=== PATIENT | female | born 1985 | race Caucasian/White ===

== ENCOUNTER → 2022-07-08 | Outpatient (CLI) | payer MEDICAID, SELFPAY | END | disposition home or self-care (01) | LOC: SL 20:20 | PROVIDERS: PCP Internal Medicine; Referring Provider Internal Medicine; Visit Provider Internal Medicine | DX: R29.818 Other symptoms and signs involving the nervous system (principal); I10 Essential (primary) hypertension; G47.10 Hypersomnia, unspecified | CPT/HCPCS: 95810 ==

== ENCOUNTER → 2022-09-23 | Outpatient (CLI) | payer MEDICAID, SELFPAY ==
[2022-09-23 12:09] LABS: Absolute Lymphocyte Count 4.08 X10^3/uL (0.83-4.51); Absolute Neutrophil Count 7.6 X10^3/uL (2.0-7.7); Basophil# 0.07 X10^3/uL; Basophil% 0.6 % (0-1); Eosinophil# 0.27 X10^3/uL; Eosinophils% 2.2 % (0-5); Hematocrit 46.9 % (37-47); Hemoglobin 14.8 g/dL (12.0-15.0); Lymphocyte # 4.08 X10^3/ul (0.83-4.51); Lymphocyte % 32.7 % (19-41); Mean Corp Hgb Conc 31.6 g/dL (32-36); Mean Corpuscular Hgb 28.1 pg (27.0-32.0); Mean Corpuscular Volume 89.2 fL (81-99); Mean Platelet Vol. 9.4 fl (6.2-12.0); Monocyte# 0.45 X10^3/uL; Monocyte% 3.6 % (0-10); NRBC Flagged by Analyzer 0 % (0-5); Neutrophil # 7.56 X10^3/uL (2.7-7.7); Neutrophil % 60.7 % (47-70); Platelet Count 473 K/mm3 (150-450); RBC Distribution Width CV 14.6 % (11.6-14.6); Red Blood Count 5.26 M/mm3 (4.2-5.4); White Blood Count 12.5 K/mm3 (4.4-11.0)
[2022-09-23 12:23] LABS: Vitamin D,25 Hydroxy 14.2 ng/mL
[2022-09-23 12:47] LABS: AST(SGOT) 10 U/L (15-37); Alanine Aminotransfer ALT/SGPT 21 U/L (13-56); Albumin, Serum 3.8 g/dL (3.2-5.0); Alkaline Phosphatase 93 U/L (45-117); Anion Gap 0 (5-15); BUN 10 mg/dL (7-18); BUN/Creat Ratio 12.7 RATIO (10-20); Chloride 108 mmol/L (98-107); Cholesterol 175 mg/dL (200); Creatinine, Serum 0.79 mg/dL (0.55-1.02); EST Glomerular Filtration Rate 86 mL/min (>60); Est Glom Filt Rate - Afr Amer 104 mL/min (>60); Glucose 100 mg/dL (74-106); High Density Lipoprotein 39 mg/dL; Potassium 3.8 mmol/L (3.5-5.1); Protein, Total 7.8 g/dL (6.4-8.2); Sodium Level 134 mmol/L (136-145); Triglycerides 88 mg/dL; Very Low Density Lipoprotein 18 mg/dL (5-40)
== END | disposition home or self-care (01) ==
LOC: BIMLAB 09:58
PROVIDERS: PCP Internal Medicine; Referring Provider Internal Medicine; Visit Provider Internal Medicine
DX: E11.9 Type 2 diabetes mellitus without complications (principal); F32.2 Major depressive disorder, single episode, severe without psychotic features; I10 Essential (primary) hypertension; E78.2 Mixed hyperlipidemia; E03.9 Hypothyroidism, unspecified; F41.9 Anxiety disorder, unspecified
CPT/HCPCS: 36415; 80053; 80061; 82306; 84443; 85025

== ENCOUNTER → 2022-11-11 | Outpatient (CLI) | payer MEDICAID, SELFPAY ==
[2022-11-11 12:30] LABS: Absolute Lymphocyte Count 2.67 X10^3/uL (0.83-4.51); Absolute Neutrophil Count 7.4 X10^3/uL (2.0-7.7); Basophil% 0.9 % (0-1); Eosinophil# 0.41 X10^3/uL; Eosinophils% 3.7 % (0-5); Hematocrit 46.9 % (37-47); Hemoglobin 14.6 g/dL (12.0-15.0); Lymphocyte # 2.67 X10^3/ul (0.83-4.51); Lymphocyte % 24.3 % (19-41); Mean Corp Hgb Conc 31.1 g/dL (32-36); Mean Corpuscular Hgb 28.5 pg (27.0-32.0); Mean Corpuscular Volume 91.6 fL (81-99); Mean Platelet Vol. 9.8 fl (6.2-12.0); Monocyte# 0.39 X10^3/uL; Monocyte% 3.5 % (0-10); NRBC Flagged by Analyzer 0 % (0-5); Neutrophil # 7.38 X10^3/uL (2.7-7.7); Neutrophil % 67.1 % (47-70); Platelet Count 419 K/mm3 (150-450); RBC Distribution Width CV 15.4 % (11.6-14.6); RBC Distribution Width SD 52.6 fl (35.1-43.9); Red Blood Count 5.12 M/mm3 (4.2-5.4)
[2022-11-11 12:51] LABS: Anion Gap 6 (5-15); BUN 11 mg/dL (7-18); BUN/Creat Ratio 15.1 RATIO (10-20); Calcium,Total 9.4 mg/dL (8.5-10.1); Chloride 109 mmol/L (98-107); Creatinine, Serum 0.73 mg/dL (0.55-1.02); EST Glomerular Filtration Rate 95 mL/min (>60); Est Glom Filt Rate - Afr Amer 114 mL/min (>60); Glucose 126 mg/dL (74-106); Potassium 4.4 mmol/L (3.5-5.1); Sodium Level 140 mmol/L (136-145); Thyroid Stim Hormone (TSH) 1.26 uIU/mL (0.358-3.74)
== END | disposition home or self-care (01) ==
LOC: BIMLAB 08:22
PROVIDERS: PCP Internal Medicine; Visit Provider Internal Medicine
DX: I10 Essential (primary) hypertension (principal); E11.9 Type 2 diabetes mellitus without complications; E03.9 Hypothyroidism, unspecified; E55.9 Vitamin D deficiency, unspecified
CPT/HCPCS: 36415; 80048; 82043; 82306; 82570; 84443; 85025

== ENCOUNTER 2023-03-18 17:19 | Emergency (ER) | payer SELFPAY ==
[2023-03-18 17:20] VITALS: BP 157/94; PULSE 71; RESP 18; TEMP 36.2; O2SAT 99; BMI 38.3
[2023-03-18] MEDS: predniSONE 20 MG Tablet 60 MG PO (17:40)
[2023-03-18 17:41] VITALS: BP 154/97; PULSE 65; RESP 14; O2SAT 98
[2023-03-18 17:44] VITALS: PULSE 70; RESP 18
[2023-03-18] MEDS: Albuterol 2.5 MG/3 ML VIAL.NEB. INHALATION ×3 (17:46)
--- NOTE | 2023-03-18 18:00 | RAD_ITS ---
STUDY: X-RAY CHEST REASON FOR EXAM: Female, 37 years old. Productive cough and wheezing TECHNIQUE: PA and lateral views of the chest. COMPARISON: None. FINDINGS: The lungs are clear and expanded. There is no demonstrated pleural abnormality. Normal size heart. Normal mediastinum and jaime. Normal visualized pulmonary arteries. Normal visualized aortic arch and descending thoracic aorta. Normal visualized thoracic spine. Normal visualized ribs, clavicles, and shoulders. There is no demonstrated abnormality of the visualized soft tissue structures of the upper abdomen. RAD/Chest PA and Lateral IMPRESSION: Normal x-ray examination of the chest. Electronically Signed: Oliverio Ryan MD at 18:26 EDT ,
--- NOTE | 2023-03-18 19:28 | EX.ED.VIS.UR ---
HPI HPI - URI History of Present Illness Chief Complaint: Shortness of Breath Detail of Chief Complaint: Shortness of breath and productive cough Informant: patient Onset/Context/Timing Onset: Weeks (Greater than 2 weeks ago) Context: Sudden Onset Timing: Continuous and Waxes and wanes Quality: Cough, dyspnea, wheezing Location: Respiratory Current Severity: Mild Maximum Severity: Moderate Worsened by: Not Worsened By Swallowing, Eating Solids or Drinking Liquids Relieved by: Not Relieved By Tylenol or NSAIDs Associated Symptoms Associated Symptoms: Positive for Shortness of Breath and Productive Cough (Green-colored sputum); Negative for Nasal Congestion, Headache, Sinus Pressure, Myalgias, Nausea, Vomiting, Diarrhea, Chest Pain, Nonproductive cough or Hemoptysis Narrative Narrative: Patient is a 37-year-old woman who smokes approximately 1 pack/day. She started smoking at age of 14. She presents with respiratory symptoms that started greater than 2 weeks ago. She denies rhinorrhea, congestion postnasal drainage sore throat. She denies headache. Denies visual, ocular auditory symptoms. She denies leg pain, swelling or discoloration. She has no history of VTE. She denies ill contacts. She states her cough is productive of colored sputum. She denies hemoptysis. She denies chest discomfort. She does have history of hypothyroidism, type 2 diabetes, hypercholesterolemia and hypertension. Prior similar symptoms: No Recent Illness/Hospitalization: No ROS ROS ED Constitutional Constitutional ED: Denies chills, fever(s), subjective, sweats or weight loss Eyes Eyes: Denies blurry vision, change in vision or diplopia ENT ENT ED: Denies ear pain, rhinorrhea or sore throat Cardiovascular Cardiovascular: Denies chest pain, orthopnea, palpitations or paroxysmal nocturnal dyspnea Respiratory/Chest Respiratory/Chest: Reports cough, dyspnea, dyspnea on exertion and sputum; Denies orthopnea or paroxysmal nocturnal dyspnea Gastrointestinal Gastrointestinal: Reports diarrhea; Denies abdominal pain, nausea or vomiting Genitourinary Genitourinary ED: Denies dysuria, hematuria or urinary frequency Musculoskeletal Musculoskeletal: Denies arthralgias, back pain, myalgias or neck pain Integumentary Denies rash Neurologic Neurologic: Denies headache(s) or weakness Endocrine Endocrinology: Denies cold intolerance or heat intolerance Hematologic/Lymphatic Hematologic/Lymphatic: Denies easy bleeding or easy bruising [facility] Medical History Carpal tunnel syndrome Flu vaccine need High cholesterol Hypertension Thyroid disease Type 2 diabetes mellitus Home Medications christina.stocking,knee,reg,xlrg #12 ea 06/29/22 [Rx Last Taken Unknown] atorvastatin 20 mg tablet 20 mg PO QHS #90 tabs 09/23/22 [Rx Last Taken Unknown] cholecalciferol (vitamin D3) 1,250 mcg (50,000 unit) capsule 1,250 mcg PO QWEEK #6 caps 09/23/22 [Rx Last Taken Unknown] lansoprazole 15 mg capsule,delayed release 15 mg PO DAILY #90 caps 09/23/22 [Rx Last Taken Unknown] levothyroxine 175 mcg tablet 175 mcg PO DAILY #90 tabs 09/23/22 [Rx Last Taken Unknown] lisinopril 10 mg tablet 10 mg PO DAILY #90 tabs 09/23/22 [Rx Last Taken Unknown] bupropion HCl 150 mg 24 hr tablet, extended release (Wellbutrin XL) 150 mg PO QAM #30 tabs 11/11/22 [Rx Last Taken Unknown] cetirizine 10 mg tablet (Zyrtec) 10 mg PO DAILY PRN allergy symptoms #10 tabs 11/11/22 [Rx Last Taken Unknown] escitalopram oxalate 20 mg tablet 20 mg PO DAILY #30 tabs 11/11/22 [Rx Last Taken Unknown] metformin 500 mg tablet 500 mg PO BID #180 tabs 11/11/22 [Rx Last Taken Unknown] naproxen 500 mg tablet 500 mg PO BID PRN pain #180 tabs 11/11/22 [Rx Last Taken Unknown] albuterol sulfate 90 mcg/actuation aerosol inhaler (Ventolin HFA) 2 puff inhalation Q4H PRN PRN Wheezing ##1 03/18/23 [Rx Last Taken Unknown] doxycycline monohydrate 100 mg capsule 100 mg PO BID #14 CAPSULES 03/18/23 [Rx Last Taken Unknown] prednisone 20 mg tablet 60 mg (3 x 20 mg) PO DAILY #15 TABLETS 03/18/23 [Rx Last Taken Unknown] Allergy/AdvReac Type Severity Reaction Status Date / Time No Known Allergies Allergy Unverified 11/11/22 07:48 Family History Father Cancer Grandmother Cancer throat Mother Myocardial infarction Thyroid disorder Hypertension Depression Surgical History History of hysterectomy Social History household members: none current occupational status: employed 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 Smoking Status: Heavy Smoker (>10/day) Electronic Cigarette Use: not used quit status: considering quitting alcohol intake: never substance use type: does not use what type of physical activity do you participate in: none do you feel safe at home: Yes EXAM Physical Exam Const Vital Signs: 03/18/23 17:20 03/18/23 17:30 03/18/23 17:32 Temperature 97.2 F L Temperature Source Temporal Pulse Rate 71 Respiratory Rate 18 Respiratory Effort Short of Breath Short of Breath Respiratory Depth Normal Respiratory Pattern Normal Normal Blood Pressure 157/94 H Blood Pressure Mean 115 Pulse Ox 99 Oxygen Delivery Method Room Air Room Air 03/18/23 17:41 03/18/23 17:44 Temperature Temperature Source Pulse Rate 65 70 Respiratory Rate 14 18 Respiratory Effort Respiratory Depth Respiratory Pattern Normal Blood Pressure 154/97 H Blood Pressure Mean 116 Pulse Ox 98 Oxygen Delivery Method Room Air Positive well nourished, well developed and obese General Appearance ED: well developed and NAD; Negative for pallor Nutritional Appearance: obese HEENT Reports moist mucous membranes normocephalic and atraumatic Face and Sinus: Negative for sinus tenderness Throat: posterior oropharynx normal Eyes PERRL and EOMs intact bilaterally General Eye ED: Negative for pale conjunctiva or scleral icterus Neck no lymphadenopathy, supple, no meningeal signs and no JVD Resp normal respiratory effort and No clear to auscultation bilaterally Auscultation: rales bilateral base and wheezes expiratory wheezes, scattered wheezes and throughout Cardio S1 normal heart sound, S2 normal heart sound and no murmurs Rate: regular rate GI non-tender and non-distended Auscultation: normoactive bowel sounds Palpation: soft Back/Spine no CVA tenderness Extremity Extremity Narrative: There is no asymmetry, swelling, discoloration, leg vein distention, palpable cords or tenderness along the distribution of the deep venous system. Patient has palpable distal pulses. Neuro oriented x3, CN's II-XII intact bilaterally and no sensory deficits noted Sensorium / Orientation: alert Psych mental status grossly normal Skin General Skin Exam: Negative for jaundice or pallor Lesions: no lesions Rashes: no rashes MDM MDM MDM Narrative Medical decision making narrative: Was obtained to rule out pneumonia versus chronic bronchitis versus COPD. Suspect patient has COPD that is undiagnosed with her 23-year history of smoking. She was treated with albuterol, and discharged with prescription for prednisone and antibiotics. She was placed on prednisone since she had mild minimal wheezing with forced expiration only after treatment. She History & Record Review Discussion w/independent historian: Patient Radiography Chest X-Ray - ED: 2 View (Cardiac silhouette size normal. Perihilar region normal. Lung parenchyma is normal. Osseous structures are unremarkable. This is infinitely reviewed interpreted by me at 1822.) Diagnostic Testing: Clinical Impression(s) from Imaging Studies Chest X-Ray 03/18/23 18:00 IMPRESSION: Normal x-ray examination of the chest. Electronically Signed: Oliverio Ryan MD at 18:26 EDT Reading Location ID and State: [facility] / [place] , Service support , Treatment and Re-Evaluation Narrative: Reassessed at 19 6. Patient had slight wheeze at the bases with forced expiration only. Discharge Plan Triage Chief Complaint: Shortness of Breath Other Complaint: Cold Sx ED Provider: Misael Machado Dx/Rx/DC Orders Clinical Impression: Bronchitis, purulent, chronic, Essential hypertension, Mixed hyperlipidemia, Hypothyroid, Controlled type 2 diabetes mellitus, Acute bronchospasm Instructions: ED Bronchitis with Wheezing (Adult) Prescriptions: New prednisone 20 mg tablet 60 mg PO DAILY Qty: 15 0RF doxycycline monohydrate 100 mg capsule 100 mg PO BID Qty: 14 0RF albuterol sulfate [Ventolin HFA] 90 mcg/actuation HFA aerosol inhaler 2 puff inhalation Q4H PRN PRN (Reason: Wheezing) Qty: 1 0RF No Action (DME) christina.stocking,knee,reg,xlrg Misc See Rx Instructions .Route Qty: 12 0RF Rx Instructions: As directed escitalopram oxalate 20 mg tablet 20 mg PO DAILY Qty: 30 1RF metformin 500 mg tablet 500 mg PO BID Qty: 180 0RF naproxen 500 mg tablet 500 mg PO BID PRN (Reason: pain) Qty: 180 0RF cetirizine [Zyrtec] 10 mg tablet 10 mg PO DAILY PRN (Reason: allergy symptoms) Qty: 10 0RF bupropion HCl [Wellbutrin XL] 150 mg tablet extended release 24 hr 150 mg PO QAM Qty: 30 1RF cholecalciferol (vitamin D3) 1,250 mcg (50,000 unit) capsule 1,250 mcg PO QWEEK Qty: 6 0RF atorvastatin 20 mg tablet 20 mg PO QHS Qty: 90 0RF lisinopril 10 mg tablet 10 mg PO DAILY Qty: 90 0RF lansoprazole 15 mg capsule,delayed release(DR/EC) 15 mg PO DAILY Qty: 90 0RF levothyroxine 175 mcg tablet 175 mcg PO DAILY Qty: 90 0RF Primary Care Provider: Aziza Stoddard Referrals: Aziza Stoddard MD [Primary Care Provider] - 1 Week if not improving Disposition Disposition: Home, Self Care
[2023-03-18 20:07] VITALS: BP 108/74; PULSE 72; RESP 18; O2SAT 99
== END 2023-03-18 20:09 | disposition home or self-care (01) ==
PROVIDERS: Emergency Provider Emergency Medicine; PCP Internal Medicine; Visit Provider Emergency Medicine
DX: J41.1 Mucopurulent chronic bronchitis (principal); E11.9 Type 2 diabetes mellitus without complications; J98.01 Acute bronchospasm; E78.2 Mixed hyperlipidemia; E03.9 Hypothyroidism, unspecified; I10 Essential (primary) hypertension; Z79.899 Other long term (current) drug therapy; Z90.710 Acquired absence of both cervix and uterus; F17.200 Nicotine dependence, unspecified, uncomplicated
CPT/HCPCS: 71046; 94640; 99284

== ENCOUNTER → 2023-09-27 | Outpatient (CLI) | payer BC, SELFPAY ==
--- NOTE | 2023-09-27 08:36 | NEURO ---
NCS and/or EMG Patient Report Ordering Doctor: Aziza Stoddard DATE OF SERVICE: 09/27/23 Clinical Summary: 38 year old female patient with symptoms of numbness, tingling, pain, and weakness in both hands. Nerve Conduction Studies Summary: The right median-D2 SNAP distal latency was prolonged with reduced amplitude. The left median-D2 SNAP distal latency was prolonged with reduced amplitude. The median-APB CMAP distal latency was prolonged bilaterally. Needle Examination Summary: Needle examination was of select muscles of the bilateral upper extremities normal. Impression: There is electrodiagnostic evidence of the following - 1) Moderate to severe, bilateral median mononeuropathies at the wrists (carpal tunnel syndrome), with secondary sensory fiber axonal loss and motor fiber demyelination Multi Select Codes Neurology Neurology Interp Codes: 34761-79 Musc test done w/n test comp (interp) (2) and 06362-52 Nrv cndj test 9-10 studies (interp)
== END | disposition home or self-care (01) ==
PROVIDERS: PCP Internal Medicine; Referring Provider Internal Medicine; Visit Provider Internal Medicine
DX: G56.03 Carpal tunnel syndrome, bilateral upper limbs (principal)
CPT/HCPCS: 95886; 95911

== ENCOUNTER → 2023-10-10 | Outpatient (CLI) | payer BC, SELFPAY ==
--- NOTE | 2023-10-10 12:07 | BI_ITS ---
MAMMOGRAPHY - BILATERAL SCREENING REASON FOR EXAM: Female, 38 years old. Routine annual screening examination. PERTINENT HISTORY: Non-contributory. TECHNIQUE: Digital bilateral breast staci (3D mammographic acquisition) in the CC and MLO projections. 2-D mediolateral oblique (MLO) and craniocaudad (CC) views of both breasts were obtained. CAD: Full Field Digital Mammography with Computer Added Detection was performed. COMPARISON: None. Baseline examination. FINDINGS: Breast Composition: There are scattered areas of fibroglandular density. There are no dominant masses or suspicious calcifications. There are small benign-appearing bilateral axillary lymph nodes. No other significant abnormalities are identified. BI/SCRN MAMM (CAD)W/STACI BILAT IMPRESSION: Negative screening mammogram. Yearly followup mammogram recommended. (A) ASSESSMENT CATEGORY: BIRADS Category 2: Benign. A letter regarding these results will be sent to the patient by the facility within 30 days. Approximately 10% of breast cancers are not detected by mammography. A normal mammogram should not delay biopsy of a clinically suspicious abnormality. [id number] Electronically Signed: Gerardo Rangel MD at 12:52 EDT ,
== END | disposition home or self-care (01) ==
PROVIDERS: PCP Internal Medicine; Referring Provider Internal Medicine; Visit Provider Internal Medicine
DX: Z12.31 Encounter for screening mammogram for malignant neoplasm of breast (principal)
CPT/HCPCS: 77063; 77067

== ENCOUNTER 2023-10-18 05:56 | Day surgery (SDC) | payer BC, SELFPAY ==
[2023-10-18 06:23] VITALS: BP 142/95; PULSE 73; RESP 16; TEMP 36.3; O2SAT 96; BMI 56.5
[2023-10-18] MEDS: Lactated Ringers 1,000 ML 15 ML IV (06:34)
[2023-10-18 07:17] LABS: Bedside Glucose 127 mg/dL (74-106)
--- NOTE | 2023-10-18 07:20 | PCM.HP.BLA ---
History and Physical Date of Admission: 10/18/23 [facility] [address] [place] [address] OFFICE VISIT Date of Service: 10/05/23 MR#: [id number] Acct: [id number] Name: AIDA WEST Rep #: [id number] : 1985 Provider: Dr. Ousmane Valle DO Age/Sex: 38/F Location: [facility] [place].[facility] Status: Signed Intake Vital Signs 09/19/2409:05 Height 5 ft 4 in Weight: 331 lb BMI 56.8 BP 126/84 H Blood Pressure Location Lt brachial Position Sitting Respiration 16 Pulse 75 Pulse Source Monitor Temp 97.0 F L Temp Source Temporal Pulse Oximetry (%) 98 Oxygen Delivery Method room air Intake Visit Reasons: BL HANDS Accompanied by: Self Is patient in pain?: Yes Pain scale (1-10): 9 Allergies No Known Allergies Allergy (Unverified 10/05/23 14:23) Medications christina.stocking,knee,reg,xlrg #12 ea 06/29/22 [Rx Confirmed 10/05/23] atorvastatin 20 mg tablet 20 mg PO QHS #90 tabs 09/23/22 [Rx Confirmed 10/05/23] cholecalciferol (vitamin D3) 1,250 mcg (50,000 unit) capsule 1,250 mcg PO QWEEK #6 caps 09/23/22 [Rx Confirmed 10/05/23] cetirizine 10 mg tablet (Zyrtec) 10 mg PO DAILY PRN allergy symptoms #10 tabs 11/11/22 [Rx Confirmed 10/05/23] albuterol sulfate 90 mcg/actuation aerosol inhaler (Ventolin HFA) 2 puff inhalation Q4H PRN PRN Wheezing ##1 03/18/23 [Rx Confirmed 10/05/23] bupropion HCl 150 mg 24 hr tablet, extended release (Wellbutrin XL) 150 mg PO QAM #90 tabs 09/20/23 [Rx Confirmed 10/05/23] escitalopram oxalate 20 mg tablet 20 mg PO DAILY #90 tabs 09/20/23 [Rx Confirmed 10/05/23] lansoprazole 15 mg capsule,delayed release 15 mg PO DAILY #90 caps 09/20/23 [Rx Confirmed 10/05/23] levothyroxine 175 mcg tablet 175 mcg PO DAILY #90 tabs 09/20/23 [Rx Confirmed 10/05/23] naproxen 500 mg tablet 500 mg PO BID PRN pain #180 tabs 09/20/23 [Rx Confirmed 10/05/23] semaglutide 0.25 mg or 0.5 mg (2 mg/3 mL) subcutaneous pen injector (Ozempic) 0.25 mg (0.368 mL) subcut QWEEK #3 mL 09/20/23 [Rx Confirmed 10/05/23] PFSH Medical History Carpal tunnel syndrome Flu vaccine need High cholesterol Hypertension Thyroid disease Type 2 diabetes mellitus Surgical History History of hysterectomy Family History Father CancerGrandmother Cancer throatMother Myocardial infarction Thyroid disorder Hypertension Depression Social History household members: none current occupational status: employed 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 Ousmane Valle, DO 10/05/23 0816. Part of today?s visit was documented by [ ], acting as scribe. AIDA WEST is a 38 year old F here today for Bilateral hand numbness. Patient states her hands have been bothering her for years. Patient has tried braces in the past for many months and that didn't work. she has tried NSAIDS as well without sucess. She denies any trauma to her hands upper extremities or neck in the past. patient has never done PT. 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 Patient has used ice and heat and she states that it doesn't help the pain. Patient is taking Tylenol for her pain. Patient states that both hands go numb and hurt. Patient had a EMG done and it showed that she has bilateral carpal Tunnel. Her pain wakes her up at night. She has constant pain and driving makes her worse. No cervical spine problems Ortho Exam General General: Yes no acute distress Neurologic: Yes alert and Yes oriented x3 Psychologic: Yes reasonable and appropriate Right Wrist/Hand Skin/Wound: Yes CDI, No Swelling and No Ecchymosis Right Wrist: Yes Durken's Test, Tinel's (into middle finger) and Phalen's WRIST: 70 wrist flexion, 50 wrist extension, 88 supination, full pronation, able to make fist. Left Wrist/Hand Skin/Wound: Yes CDI, No Swelling and No Ecchymosis Left Wrist: Yes Durken's Test, Yes Tinel's and Yes Phalen's WRIST: 85 supination, full pronation, 60 extension, 70 flexion Supplemental Info 09/27/2023 EMG bilateral upper extremity:1) Moderate to severe, bilateral median mononeuropathies at the wrists (carpal tunnel syndrome), with secondary sensory fiber axonal loss and motor fiber demyelination Coding Level of Care Code Off vis,new,level 3 Diagnoses Bilateral carpal tunnel syndrome G56.03 Assessment and Plan Assessment and Plan (1) Bilateral carpal tunnel syndrome: Status: Acute Plan Patient has clinical and EMG characteristics of bilateral moderate carpal tunnel she has failed conservative treatment and she wishes to proceed with a right open carpal tunnel release. Explained the anatomy of the hand and wrist and the surgery procedure. The surgery procedure is to allow the carpal tunnel syndrome from progressing. I explained symptoms sometimes improve quickly sometimes they can take months to improve and sometimes and never improve. she is only able to have one surgery at a time and then may have the other side done about 4-6 weeks after. She will have restrictions post op for 3 weeks 1/2 pound restriction for 2 weeks and a 5 pound restriction for the third week. She should not take any ibuprofen within 7 days of her surgery. Spoke with her about not having improvement with her 4th and 5th fingers with the surgery. Reviewed the pre-operative plans with the patient. Risks and benefits of the procedure were fully explained, including but not limited incisional hypersensitivity and pillar pain, infection, neurovascular injury, continued pain, arthritis, stiffness, need for further surgery, re-injury, DVT, PE, general risks of anesthesia, and loss of limb or life. The patient understands all the risks and does wish to proceed with written consent. Follow up 2 week post op or sooner if pain, swelling, numbness or associated symptoms, or concerns develop. All questions answered. Patient in agreement of plan. Tentative surgery date October 18, 2023. 10/05/23 1449 <Electronically signed by Ousmane Valle DO> Date Ousmane Valle DO I have examined the patient and the H&P has been reviewed. There are no clinical changes since date of exam.
[2023-10-18] MEDS: Cefazolin 3 GM in 0.9% Normal Saline (100mL Bag) 100 ML IV (07:33)
[2023-10-18] MEDS: Bupiv/Epi 0.25% 30 ML Vial (07:39)
--- NOTE | 2023-10-18 08:02 | OP.PCM_ITS ---
Operative Report Date of Procedure: 10/18/23 Preoperative diagnosis; right carpal tunnel syndrome Postoperative diagnosis; same Procedure: Right open carpal tunnel release Anesthesia: Local with MAC Tourniquet time; 11 minutes 250 mm Hg Complications: None Indication for procedure; This is a 38-year-old female with long-standing s ymptoms consistent with carpal tunnel syndrome the patient did have electrodiagnostic evidence of this and has failed conservative treatment. Risks benefits and alternatives were reviewed including risks of bleeding infection nerve artery tissue damage need for further surgery and continued pain and symptoms, hypersensitivity to scar and Pillar pain. Procedure; The patient was met in the preoperative holding area the operative extremity was identified by both patient and physician and was marked the patient was met by anesthesia and brought back to the operating room and transferred to the operating table in the supine position. Anesthesia was started. A well-padded tourniquet was placed on the operative upper extremity. The patient was prepped and draped in the usual sterile fashion. A timeout was called to ensure the proper patient procedure and extremity were being contemplated. 0.5 percent bupivacaine with epinephrine was injected into the incisional area. An Esmarch was used to exsanguinate the extremity. The tourniquet was inflated to 250 mmHg. A midline incision was made with a 15 blade scalpel between the thenar and hypothenar eminence. This was carried down through the skin and subcutaneous tissue. Joaquina retractors were then used, a deep blade scalpel was used to make a deep incision in the palmar aponeurosis. The joaquina retractors were then placed deep to this and the transverse carpal ligament was identified a perforation was made with a scalpel and a Littler scissors were used to complete the release of the transverse carpal ligament distally under direct visualization with the tips facing ulnarly until the perivascular fat was reached. Then turning our attention proximally using a tension slide technique the proximal extent of the transverse carpal ligament was released . There was noted to be hourglass configuration to the median nerve and hypertrophy of the transverse carpal ligament without other findings. The wound was thoroughly irrigated and was closed with 4-0 nylon vertical mattress stitches. Dressing was applied in the form of xeroform 4 x 4, web roll and an sandra wrap. Tourniquet was let down there is no intraoperative compli cations patient tolerated the procedure well and was transferred to the PACU. All counts were correct.
--- NOTE | 2023-10-18 08:03 | EX.PCM.DISCH ---
Discharge Instructions Diet Discharge Diet: No restrictions Dressing / Incision Call your doctor if you observe: Shortness of breath and Chest pain Additional Dressing/Incision Instructions:: Ice and elevate operative extremity next 72 hours. Keep dressing on clean and dry for 48 hours then may remove and allow warm soapy water to rinse over incision but do not submerge until sutures are out. Then apply bandaid over incision and change daily. encourage finger range of motion. Not lift more than 1/2 pound. Minimize narcotic use only as needed and directed, may use OTC NSAID and Tylenol to supplement/substitute for pain control. Follow Up Care Please Follow Up With: Ousmane Valle DO When: 2 weeks Test Results: Test results from this visit will be discussed in further detail at your follow-up appointment, if applicable. Discharge Plan Admission Primary Reason for Your Visit: Right carpal tunnel release Attending Provider: Ousmane Valle Primary Care Provider: Aziza Stoddard Instructions Print Language: Montenegrin Discharge Orders/Prescriptions Prescriptions: New cephalexin 500 mg capsule 1,000 mg PO Q8 Qty: 4 0RF Rx Instructions: take 2 tabs at 8:00 pm and 2 tabs after 5 am when you wake up oxycodone 5 mg tablet 5 - 10 mg PO Q4H PRN (Reason: pain) 4 Days Qty: 14 0RF Continued (DME) christina.stocking,knee,reg,xlrg Misc See Rx Instructions .Route Qty: 12 0RF Rx Instructions: As directed Ozempic 0.25 mg or 0.5 mg (2 mg/3 mL) pen injector 0.25 mg subcut QWEEK Qty: 3 0RF Rx Instructions: for 4 weeks levothyroxine 175 mcg tablet 175 mcg PO DAILY Qty: 90 0RF lansoprazole 15 mg capsule,delayed release(DR/EC) 15 mg PO DAILY Qty: 90 0RF escitalopram oxalate 20 mg tablet 20 mg PO DAILY Qty: 90 0RF bupropion HCl [Wellbutrin XL] 150 mg tablet extended release 24 hr 150 mg PO QAM Qty: 90 0RF albuterol sulfate [Ventolin HFA] 90 mcg/actuation HFA aerosol inhaler 2 puff inhalation Q4H PRN PRN (Reason: Wheezing) Qty: 1 0RF cholecalciferol (vitamin D3) 1,250 mcg (50,000 unit) capsule 1,250 mcg PO QWEEK Qty: 6 0RF atorvastatin 20 mg tablet 20 mg PO QHS Qty: 90 0RF Held naproxen 500 mg tablet 500 mg PO BID PRN (Reason: pain) Qty: 180 0RF Hold Instructions: Resume on 10/19/23. Referrals / Follow Up: Aziza Stoddard MD [Primary Care Provider] - Disposition Disposition (needs filled in before D/C Order can be placed): Home, Self Care
[2023-10-18 08:05] VITALS: BP 123/66; BP 142/95; PULSE 80; RESP 16; TEMP 36.2; O2SAT 93
[2023-10-18 08:10] VITALS: BP 121/78; BP 142/95; PULSE 78; RESP 16; O2SAT 96
[2023-10-18 08:15] VITALS: BP 133/82; BP 142/95; PULSE 93; RESP 18; TEMP 36.3; O2SAT 97
[2023-10-18] MEDS: Oxycodone/Apap 5/325 Tablet PO (08:33)
[2023-10-18 08:51] VITALS: BP 142/95
== END 2023-10-18 08:58 | disposition home or self-care (01) ==
LOC: SDC 06:00 → AC 06:01
PROVIDERS: PCP Internal Medicine; Referring Provider Orthopaedic Surgery; Visit Provider Orthopaedic Surgery
PROC: (CPT 64721; principal; 2023-10-18 07:15)
DX: G56.03 Carpal tunnel syndrome, bilateral upper limbs (principal); E11.9 Type 2 diabetes mellitus without complications; F17.210 Nicotine dependence, cigarettes, uncomplicated; E78.00 Pure hypercholesterolemia, unspecified; E07.9 Disorder of thyroid, unspecified; I10 Essential (primary) hypertension; Z90.710 Acquired absence of both cervix and uterus
CPT/HCPCS: 64721; 01810; 82962; J7120

== ENCOUNTER 2023-11-29 05:53 | Day surgery (SDC) | payer BC, SELFPAY ==
--- NOTE | 2023-11-29 07:10 | PCM.HP.BLA ---
History and Physical Date of Admission: 11/29/23 [facility] [address] [place] [address] OFFICE VISIT Date of Service: 11/02/23 MR#: [id number] Acct: [id number] Name: AIDA WEST Rep #: [id number] : 1985 Provider: Dr. Ousmaen Valle, DO Age/Sex: 38/F Location: [facility] [place] Status: Signed Intake Vital Signs 09/19/2409:05 10/17/2405:23 Height 5 ft 4 in 5 ft 4 in Intake Visit Reasons: right wrist Accompanied by: Self Is patient in pain?: No Allergies No Known Allergies Allergy (Verified 11/02/23 09:07) Medications ?Medication ?Instructions ?Recorded ?Confirmed ?Type christina.stocking,knee,reg,xlrg #12 ea 06/29/22 11/02/23 Rx atorvastatin 20 mg tablet 20 mg PO QHS #90 tabs 09/23/22 11/02/23 Rx cholecalciferol (vitamin D3) 1,250 1,250 mcg PO QWEEK #6 caps 09/23/22 11/02/23 Rx mcg (50,000 unit) capsule albuterol sulfate 90 mcg/actuation 2 puff inhalation Q4H PRN PRN 03/18/23 11/02/23 Rx aerosol inhaler (Ventolin HFA) Wheezing ##1 bupropion HCl 150 mg 24 hr tablet, 150 mg PO QAM #90 tabs 09/20/23 11/02/23 Rx extended release (Wellbutrin XL) escitalopram oxalate 20 mg tablet 20 mg PO DAILY #90 tabs 09/20/23 11/02/23 Rx lansoprazole 15 mg capsule,delayed 15 mg PO DAILY #90 caps 09/20/23 11/02/23 Rx release levothyroxine 175 mcg tablet 175 mcg PO DAILY #90 tabs 09/20/23 11/02/23 Rx naproxen 500 mg tablet 500 mg PO BID PRN pain #180 tabs 09/20/23 11/02/23 Rx semaglutide 0.25 mg or 0.5 mg (2 0.25 mg (0.368 mL) subcut QWEEK #3 09/20/23 11/02/23 Rx mg/3 mL) subcutaneous pen injector mL (Ozempic) cephalexin 500 mg capsule 1,000 mg (2 x 500 mg) PO Q8 #4 caps 10/18/23 11/02/23 Rx PFSH Medical History (Updated 10/18/23 @ 08:[address] 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 Ousmane Valle, 11/02/23 0754. Part of today?s visit was documented by Nichol Mcfarlane, acting as scribe. AIDA WEST is a 38 year old F here today for 2 weeks postop right carpal tunnel release date of surgery 10/18/2023. Patient notes that she is doing well and is improving. She no longer has any numbness or tingling. Patients incision is healing with no redness or drainage. She takes naproxen for other pains. She continues to have similar symptoms in the left hand and wishes to proceed with left carpal tunnel release Ortho Exam General General: Yes no acute distress Neurologic: Yes alert and Yes oriented x3 Psychologic: Yes reasonable and appropriate Right Wrist/Hand WRIST: Sutures were removed today that her incision is well-approximated she has full finger flexion extension some mild scaling around the incision no signs of infection Left Wrist/Hand Skin/Wound: Yes CDI Left Wrist: Yes Durken's Test, Yes Tinel's and Yes Phalen's WRIST: 85 supination, full pronation, 60 extension, 70 flexion Head: Normocephalic Atraumatic Chest: symmetrical rise, non-labored breathing, no audible wheeze Abdomen: no guarding, non-rigid Supplemental Info 09/27/2023 EMG bilateral upper extremity:1) Moderate to severe, 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 She should cover her incision if in a dirty environment. She should not lift greater than 5 pounds for the next 10 days. Patient may massage her incision for desensitization starting in 10 days. Patient would like to have her left carpal tunnel release in about 4 weeks. She should limit her smoking to promote healing. Reviewed the pre-operative plans with the patient. Risks and benefits of the procedure were fully explained, including but not limited to infection, neurovascular injury, continued pain, arthritis, stiffness, need for further surgery, re-injury, DVT, PE, general risks of anesthesia, and loss of limb or life. The patient understands all the risks and does wish to proceed with written consent. Follow up in 2 weeks post op or sooner if pain, swelling, numbness or associated symptoms, or concerns develop. All questions answered. Patient in agreement of plan. 11/02/23 0945 <Electronically signed by Ousmane Valle DO> Date Ousmane Valle DO I have examined the patient and the H&P has been reviewed. There are no clinical changes since date of exam.
[2023-11-29 07:11] LABS: Bedside Glucose 114 mg/dL (74-106)
[2023-11-29] MEDS: Cefazolin 3 GM in 0.9% Normal Saline (100mL Bag) 100 ML IV (07:25)
--- NOTE | 2023-11-29 07:39 | PCM.PRE.AN2 ---
ASA Classification* ASA Classification ASA Classification: 3 Assessment & Plan Anesthesia* Anesthesia Assessment Anesthesia Assessment: Discussed sedation and/or anesthesia options, risks, benefits, and alternatives with patient/parents/legal guardian/POA. Questions invited. The patient/parents/legal guardian/POA seems to understand and agrees to proceed with anesthesia plan. Reviewed the physical assessment, medical history, allergy history and patient home medications list prior to surgery/procedure/anesthetic and documented any changes. Performed airway and anesthesia risk assessments. Anesthesia Type Anesthesia Type: MAC (see written pre anesthesia record for complete assessment) Pre-Assessment Diagnosis/Proposed Procedure Planned Operative Procedure(s): LEFT OPEN CARPAL TUNNEL RELEASE Anesthesia History Anesthesia History - test engineering intern: Anesthesia History - test engineering intern Hx Hospitalization No 11/17/23 14:47 Any Problems With Anesthesia No 11/17/23 14:47 Cholinesterase deficiency No 11/17/23 14:47 You/Your Family Experience No 11/17/23 14:47 fever (hyperthermia) with Relationship Recent Exposure to Contagious No 10/18/23 06:23 Disease Does patient have nerve No 11/17/23 14:47 stimulator Patient instructed to have device shut off --Does patient have Pacemaker or ICD? When Was Last Pacemaker Check QUESTION #4 FULL TEXT: You/Your Family Experience fever (hyperthermia) with Anesthesia Last Oral Intake Last Oral intake: Last Oral Intake NPO since Meds taken in AM with sips of water? Meds patient instructed to take am of surgery PONV PONV - test engineering intern: PONV - test engineering intern Female Yes 11/17/23 14:47 HX of Motion Sickness No 11/17/23 14:47 HX of N/V After Surgery No 11/17/23 14:47 Non-Smoker No 11/17/23 14:47 Duration of Surgery greater No 11/17/23 14:47 than 60 minutes Number of Risk Factors 1 11/17/23 14:47 PONV Score Low Risk 11/17/23 14:47 Height & Weight Height & Weight: Anesthesia: Height & Weight Height 5 ft 4 in 10/18/23 06:23 Respiratory Assessment Respiratory Assessment - test engineering intern: Respiratory Tract Infection Hx - test engineering intern Hx Respiratory Tract Infection No 11/17/23 14:47 STOP Sleep Apnea STOP Sleep Apnea - test engineering intern: STOP Sleep Apnea - test engineering intern Hx Hypertension Yes: HX OF, NO MEDS 11/17/23 14:47 PRESENTLY, PCP D/C'D Hx Sleep Apnea No 11/17/23 14:47 CPAP BIPAP Do you snore loudly (louder No 11/17/23 14:47 than talking or can be heard Do you often feel tired/ No 11/17/23 14:47 fatigued/ sleepy during daytime? Has anyone observed you stop No 11/17/23 14:47 breathing during sleep? STOP Results Negative 11/17/23 14:47 QUESTION #5 FULL TEXT : Do you snore loudly (louder than talking or can be heard through closed doors)? Tobacco Use History Tobacco Use History - test engineering intern: Tobacco Use History - test engineering intern Tobacco Use Smoking Status Current every day smoker 11/17/23 14:47 Hx Tobacco Use Yes 11/17/23 14:47 Years Smoking Packs Smoked per Day Smoking Cessation Date was within the last 15 years Hx Smoking Cessation Date Hx Smoking Cessation Counseling Hematologic Medial History Hematologic Hx - test engineering intern: Hematologic Medical Hx - etcher electrolytic Hx of Blood Transfusion No 11/17/23 14:47 Hx of Transfusion in last 3 No 11/17/23 14:47 Months Date of Last Transfusion (if within last 3 months) Ever experience any problems No 11/17/23 14:47 with transfusion(s)? Specify any problems Hx of Preganancy in last 3 No 11/17/23 14:47 Months Nurse Filling Out Transfusion DSCHRIBER 11/17/23 14:47 & Questions: Date: 11/17/23 11/17/23 14:47 Time: 14:49 11/17/23 14:47 Patient unable to answer at this time (ie. confused, unrespo /Reproduction History /Reproductive History - test engineering intern: /Reproductive Hx- test engineering intern Hx Now Gestational Age (in weeks): EDC: Hx Hx Para Hx Section SAB No 11/17/23 14:47 Active Medications Active Medications: Current Medications Generic Name Dose Route Start Last Admin Trade Name Freq PRN Reason Stop Dose Admin Cefazolin Sodium 3 gm/ Sodium 115 mls @ 150 mls/hr 11/29/23 10:35 Chloride IV 11/29/23 11:20 PREOP ONE Anesthesia Focused Assessment* Airway Assessment Mouth opens: >3 cm Mallampati Score: III Focused Labs Anesthesia Preop lab: CBC WBC 11.0 K/mm3 (4.4-11.0) 11/11/22 08:22 RBC 5.12 M/mm3 (4.2-5.4) 11/11/22 08:22 Hgb 14.6 g/dL (12.0-15.0) 11/11/22 08:22 Hct 46.9 % (37-47) 11/11/22 08:22 Plt Count 419 K/mm3 (150-450) 11/11/22 08:22 CHEMISTRY Potassium 4.4 mmol/L (3.5-5.1) 11/11/22 08:22 Sodium 140 mmol/L (136-145) 11/11/22 08:22 BUN 11 mg/dL (7-18) 11/11/22 08:22 Creatinine 0.73 mg/dL (0.55-1.02) 11/11/22 08:22 Glucose 126 mg/dL (74-106) H 11/11/22 08:22 POC Glucose 114 mg/dL (74-106) H 11/29/23 06:21 TSH 1.26 uIU/mL (0.358-3.74) 11/11/22 08:22 COAG Review of Systems (Anesthesia) ROS Narrative System reviewed and no additional complaints, except as documented. [facility] Medical History (Updated 11/17/23 @ 14:52 by Filomena Rebolledo) Post-menopausal Depression Gastric reflux Smoker Shortness of breath on exertion Flu vaccine need Thyroid disease High cholesterol Hypertension Type 2 diabetes mellitus Home Medications ?Medication ?Instructions ?Recorded ?Last Taken ?Type christina.stocking,knee,reg,xlrg #12 ea 06/29/22 Unknown Rx atorvastatin 20 mg tablet 20 mg PO QHS #90 tabs 09/23/22 Unknown Rx cholecalciferol (vitamin D3) 1,250 1,250 mcg PO QWEEK #6 caps 09/23/22 Unknown Rx mcg (50,000 unit) capsule albuterol sulfate 90 mcg/actuation 2 puff inhalation Q4H PRN PRN 03/18/23 Unknown Rx aerosol inhaler (Ventolin HFA) Wheezing ##1 bupropion HCl 150 mg 24 hr tablet, 150 mg PO QAM #90 tabs 09/20/23 Unknown Rx extended release (Wellbutrin XL) escitalopram oxalate 20 mg tablet 20 mg PO DAILY #90 tabs 09/20/23 Unknown Rx lansoprazole 15 mg capsule,delayed 15 mg PO DAILY #90 caps 09/20/23 Unknown Rx release levothyroxine 175 mcg tablet 175 mcg PO DAILY #90 tabs 09/20/23 10/18/23 05:30 Rx naproxen 500 mg tablet 500 mg PO BID PRN pain #180 tabs 09/20/23 Unknown Rx semaglutide 0.25 mg or 0.5 mg (2 0.25 mg subcut TU 11/17/23 Unknown History mg/3 mL) subcutaneous pen injector (Ozempic) Allergy/AdvReac Type Severity Reaction Status Date / Time No Known Allergies Allergy Verified 11/17/23 14:45 Family History Father Cancer Grandmother Cancer throat Mother Myocardial infarction Thyroid disorder Hypertension Depression Surgical History (Updated 11/02/23 @ 09:08 by Nichol Mccabe) History of carpal tunnel release History of hysterectomy Social History household members: none current occupational status: employed 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
[2023-11-29] MEDS: Bupiv/Epi 0.25% 30 ML Vial (07:40)
--- NOTE | 2023-11-29 08:02 | OP.PCM_ITS ---
Operative Report Date of Procedure: 11/29/23 Preoperative diagnosis; left carpal tunnel syndrome Postoperative diagnosis; same Procedure: Left open carpal tunnel release Anesthesia: Local with MAC Tourniquet time; 10 minutes 250 mm Hg Complications: None Indication for procedure; This is a 38-year-old female with long-standing sym ptoms consistent with carpal tunnel syndrome the patient did have electrodiagnostic evidence of this and has failed conservative treatment. Risks benefits and alternatives were reviewed including risks of bleeding infection nerve artery tissue damage need for further surgery and continued pain and symptoms, hypersensitivity to scar and Pillar pain. Procedure; The patient was met in the preoperative holding area the operative extremity was identified by both patient and physician and was marked the patient was met by anesthesia and brought back to the operating room and transferred to the operating table in the supine position. Anesthesia was started. A well-padded tourniquet was placed on the operative upper extremity. The patient was prepped and draped in the usual sterile fashion. A timeout was called to ensure the proper patient procedure and extremity were being contemplated. 0.5 percent lidocaine with epinephrine was injected into the incisional area. An Esmarch was used to exsanguinate the extremity. The tourniquet was inflated to 250 mmHg. A midline incision was made with a 15 blade scalpel between the thenar and hypothenar eminence. This was carried down through the skin and subcutaneous tissue. Joaquina retractors were then used, a deep blade scalpel was used to make a deep incision in the palmar aponeurosis. The joaquina retractors were then placed deep to this and the transverse carpal ligament was identified a perforation was made with a scalpel and a Littler scissors were used to complete the release of the transverse carpal ligament distally under direct visualization with the tips facing ulnarly until the perivascular fat was reached. Then turning our attention proximally using a tension slide technique the proximal extent of the transverse carpal ligament was released . There was noted to be hypertrophy of the transverse carpal ligament without other findings. The wound was thoroughly irrigated and was closed with 4-0 nylon vertical mattress stitches. Dressing was applied in the form of xeroform 4 x 4, web roll and an sandra wrap. Tourniquet was let down there is no intraoperative complications patient tolerated the procedure well and was transferred to the PACU. All counts were correct.
--- NOTE | 2023-11-29 08:03 | DCINST_ITS ---
Discharge Instructions Diet Discharge Diet: No restrictions Dressing / Incision Call your doctor if you observe: Shortness of breath and Chest pain Additional Dressing/Incision Instructions:: Ice and elevate operative extremity next 72 hours. Keep dressing on clean and dry for 48 hours then may remove and allow warm soapy water to rinse over incision but do not submerge until sutures are out. Then apply bandaid over incision and change daily. encourage finger range of motion. Not lift more than 1/2 pound. Minimize narcotic use only as needed and directed, may use OTC NSAID and Tylenol to supplement/substitute for pain control. Follow Up Care Please Follow Up With: Ousmane Valle DO When: 2 weeks Test Results: Test results from this visit will be discussed in further detail at your follow- up appointment, if applicable. Discharge Plan Admission Primary Reason for Your Visit: Left carpal tunnel release Attending Provider: Ousmane Valle Primary Care Provider: Aziza Stoddard Instructions Print Language: Greek Discharge Orders/Prescriptions Prescriptions: New oxycodone 5 mg tablet 5 - 10 mg PO Q6H PRN (Reason: pain) 3 Days Qty: 12 0RF Continued (DME) christina.stocking,knee,reg,xlrg Misc See Rx Instructions .Route Qty: 12 0RF Rx Instructions: As directed levothyroxine 175 mcg tablet 175 mcg PO DAILY Qty: 90 0RF lansoprazole 15 mg capsule,delayed release(DR/EC) 15 mg PO DAILY Qty: 90 0RF escitalopram oxalate 20 mg tablet 20 mg PO DAILY Qty: 90 0RF bupropion HCl [Wellbutrin XL] 150 mg tablet extended release 24 hr 150 mg PO QAM Qty: 90 0RF naproxen 500 mg tablet 500 mg PO BID PRN (Reason: pain) Qty: 180 0RF albuterol sulfate [Ventolin HFA] 90 mcg/actuation HFA aerosol inhaler 2 puff inhalation Q4H PRN PRN (Reason: Wheezing) Qty: 1 0RF Ozempic 0.25 mg or 0.5 mg (2 mg/3 mL) pen injector 0.25 mg subcut TU Rx Instructions: for 4 weeks cholecalciferol (vitamin D3) 1,250 mcg (50,000 unit) capsule 1,250 mcg PO QWEEK Qty: 6 0RF atorvastatin 20 mg tablet 20 mg PO QHS Qty: 90 0RF Referrals / Follow Up: Aziza Stoddard MD [Primary Care Provider] - Disposition Disposition (needs filled in before D/C Order can be placed): Home, Self Care
[2023-11-29 08:05] VITALS: BP 124/77; BP 151/89; PULSE 76; RESP 18; TEMP 36.3; O2SAT 94
--- NOTE | 2023-11-29 08:06 | PCM.POST.ANE ---
Anesthesia: Postop Eval I Current Vital Signs Temperature: 97.4 F Pulse Rate: 74 Blood Pressure: 124/77 Respiratory Rate: 20 Pulse Ox: 94 Oxygen Delivery Method: Room Air Assessment Airway patent: Yes Spontaneous unlabored respirations: Yes Mental status: Awake and Calm nausea: No Vomiting: No Anesthesia Complication: No Fluid Hydration Crystalloid volume administer (ml): 500 Total IV fluid infused: 500 Progress Note Anesthesia document: Postop Eval 1 completed: Yes
[2023-11-29 08:07] VITALS: BP 124/77; PULSE 74; RESP 20; TEMP 36.3; O2SAT 94
[2023-11-29 08:10] VITALS: BP 129/74; BP 151/89; PULSE 74; RESP 16; O2SAT 94
[2023-11-29 08:15] VITALS: BP 134/72; BP 151/89; PULSE 78; RESP 16; TEMP 36.4; O2SAT 95
[2023-11-29 08:33] VITALS: BP 151/89
--- NOTE | 2023-11-29 12:11 | POSTOPAN2_ITS ---
Anesthesia Postop Eval I Sum Postop Eval Completion status Anesthesia document: Postop Eval 1 completed: Yes Anesthesia Postop Eval I Summary Anesthesia Postop Eval I Summary: Anesthesia Postop Eval I: Assessment Summary Airway patent Yes 11/29/23 08:07 PLANT OPERATOR CONTROL ROOM OPERATOR.JDEF Spontaneous unlabored Yes 11/29/23 08:07 PLANT OPERATOR CONTROL ROOM OPERATOR.JDEF respirations Mental status Awake,Calm 11/29/23 08:07 PLANT OPERATOR CONTROL ROOM OPERATOR.JDEF nausea No 11/29/23 08:07 PLANT OPERATOR CONTROL ROOM OPERATOR.JDEF Vomiting No 11/29/23 08:07 PLANT OPERATOR CONTROL ROOM OPERATOR.JDEF Anesthesia Postop Eval I: Fluid Summary Crystalloid volume administer 500 11/29/23 08:07 PLANT OPERATOR CONTROL ROOM OPERATOR.JDEF (ml) Colloids volume administered ( ml) Blood Product volume administered (ml) Total IV fluid infused 500 11/29/23 08:07 PLANT OPERATOR CONTROL ROOM OPERATOR.JDEF Anesthesia Postop Eval I: Summary Notes Anesthesia Complication No 11/29/23 08:07 PLANT OPERATOR CONTROL ROOM OPERATOR.JDEF Anesthesia Complication Comment: Post-operative progress note Anesthesia: Postop Eval II Evaluation Mental status: Awake and Calm Pain Level: 0 nausea: No Vomiting: No Complications Anesthesia Complication: No
--- NOTE | 2023-11-29 12:11 | PCM.POSTANE2 ---
Anesthesia Postop Eval I Sum Postop Eval Completion status Anesthesia document: Postop Eval 1 completed: Yes Anesthesia Postop Eval I Summary Anesthesia Postop Eval I Summary: Anesthesia Postop Eval I: Assessment Summary Airway patent Yes 11/29/23 08:07 FILTERING MACHINE TENDER HELPER.JDEF Spontaneous unlabored Yes 11/29/23 08:07 FILTERING MACHINE TENDER HELPER.JDEF respirations Mental status Awake,Calm 11/29/23 08:07 FILTERING MACHINE TENDER HELPER.JDEF nausea No 11/29/23 08:07 FILTERING MACHINE TENDER HELPER.JDEF Vomiting No 11/29/23 08:07 FILTERING MACHINE TENDER HELPER.JDEF Anesthesia Postop Eval I: Fluid Summary Crystalloid volume administer 500 11/29/23 08:07 FILTERING MACHINE TENDER HELPER.JDEF (ml) Colloids volume administered ( ml) Blood Product volume administered (ml) Total IV fluid infused 500 11/29/23 08:07 FILTERING MACHINE TENDER HELPER.JDEF Anesthesia Postop Eval I: Summary Notes Anesthesia Complication No 11/29/23 08:07 FILTERING MACHINE TENDER HELPER.JDEF Anesthesia Complication Comment: Post-operative progress note Anesthesia: Postop Eval II Evaluation Mental status: Awake and Calm Pain Level: 0 nausea: No Vomiting: No Complications Anesthesia Complication: No
== END 2023-11-29 08:37 | disposition home or self-care (01) ==
LOC: SDC 07:33 → AC 07:33
PROVIDERS: PCP Internal Medicine; Referring Provider Orthopaedic Surgery; Visit Provider Orthopaedic Surgery
PROC: (CPT 64721; principal; 2023-11-29 07:15)
DX: G56.02 Carpal tunnel syndrome, left upper limb (principal); E11.40 Type 2 diabetes mellitus with diabetic neuropathy, unspecified; E78.00 Pure hypercholesterolemia, unspecified; I10 Essential (primary) hypertension; F17.210 Nicotine dependence, cigarettes, uncomplicated; K21.9 Gastro-esophageal reflux disease without esophagitis; Z47.89 Encounter for other orthopedic aftercare; Z79.899 Other long term (current) drug therapy; Z79.890 Hormone replacement therapy; Z79.85 Long-term (current) use of injectable non-insulin antidiabetic drugs; E03.9 Hypothyroidism, unspecified; E78.2 Mixed hyperlipidemia
CPT/HCPCS: 64721; 01810; 82962; J7120

== ENCOUNTER → 2023-12-14 | Outpatient (CLI) | payer BC, SELFPAY ==
[2023-12-14 12:19] LABS: Vitamin D,25 Hydroxy 21.2 ng/mL
[2023-12-14 12:21] LABS: Absolute Lymphocyte Count 2.75 X10^3/uL (0.83-4.51); Absolute Neutrophil Count 7.6 X10^3/uL (2.0-7.7); Basophil% 0.9 % (0-1); Eosinophil# 0.42 X10^3/uL; Eosinophils% 3.7 % (0-5); Hematocrit 48.7 % (37-47); Hemoglobin 15.5 g/dL (12.0-15.0); Lymphocyte # 2.75 X10^3/ul (0.83-4.51); Mean Corp Hgb Conc 31.8 g/dL (32-36); Mean Corpuscular Hgb 29.4 pg (27.0-32.0); Mean Corpuscular Volume 92.4 fL (81-99); Mean Platelet Vol. 9.4 fl (6.2-12.0); Monocyte# 0.56 X10^3/uL; Monocyte% 4.9 % (0-10); NRBC Flagged by Analyzer 0 % (0-5); Neutrophil # 7.56 X10^3/uL (2.7-7.7); Neutrophil % 66.1 % (47-70); Platelet Count 392 K/mm3 (150-450); RBC Distribution Width CV 13.3 % (11.6-14.6); RBC Distribution Width SD 45.5 fl (35.1-43.9); Red Blood Count 5.27 M/mm3 (4.2-5.4); White Blood Count 11.4 K/mm3 (4.4-11.0)
[2023-12-14 12:25] LABS: ALB/GLOB Ratio 0.9 RATIO (0.9-2.4); AST(SGOT) 15 U/L (15-37); Alanine Aminotransfer ALT/SGPT 23 U/L (13-56); Albumin, Serum 3.5 g/dL (3.2-5.0); Alkaline Phosphatase 117 U/L (45-117); Anion Gap 6 (5-15); BUN 11 mg/dL (7-18); BUN/Creat Ratio 15.1 RATIO (10-20); Calcium,Total 8.6 mg/dL (8.5-10.1); Chloride 108 mmol/L (98-107); Cholesterol 151 mg/dL (200); Creatinine, Serum 0.73 mg/dL (0.55-1.02); EST Glomerular Filtration Rate 94 mL/min (>60); Est Glom Filt Rate - Afr Amer 114 mL/min (>60); Globulin 4.1 g/dL (2.2-4.2); Glucose 114 mg/dL (74-106); High Density Lipoprotein 33 mg/dL; Potassium 3.7 mmol/L (3.5-5.1); Protein, Total 7.6 g/dL (6.4-8.2); Sodium Level 138 mmol/L (136-145); Thyroid Stim Hormone (TSH) 3.13 uIU/mL (0.358-3.74); Triglycerides 210 mg/dL; Very Low Density Lipoprotein 42 mg/dL (5-40)
[2023-12-14 13:46] LABS: Hemoglobin A1c 5.3 % (3.8-5.6)
== END | disposition home or self-care (01) ==
LOC: BIMLAB 08:08
PROVIDERS: Physician Assistant; PCP Internal Medicine; Visit Provider Internal Medicine
DX: F32.2 Major depressive disorder, single episode, severe without psychotic features (principal); E11.9 Type 2 diabetes mellitus without complications; F41.9 Anxiety disorder, unspecified; E55.9 Vitamin D deficiency, unspecified; E03.9 Hypothyroidism, unspecified; E78.2 Mixed hyperlipidemia
CPT/HCPCS: 36415; 80053; 80061; 82306; 83036; 84443; 85025

== ENCOUNTER → 2023-12-28 | Outpatient (CLI) | payer BC, SELFPAY | END | disposition home or self-care (01) | LOC: SL 19:53 | PROVIDERS: PCP Internal Medicine; Referring Provider Internal Medicine; Visit Provider Internal Medicine | DX: G47.33 Obstructive sleep apnea (adult) (pediatric) (principal) | CPT/HCPCS: 95810 ==

== ENCOUNTER → 2024-01-19 | Outpatient (CLI) | payer BC, SELFPAY | END | disposition home or self-care (01) | LOC: SL 20:05 | PROVIDERS: PCP Internal Medicine; Referring Provider Nurse Practitioner; Visit Provider Nurse Practitioner | DX: G47.30 Sleep apnea, unspecified (principal) | CPT/HCPCS: 95811 ==

== ENCOUNTER → 2024-03-08 | Outpatient (CLI) | payer BC, SELFPAY | END | disposition home or self-care (01) | PROVIDERS: PCP Internal Medicine; Referring Provider Nurse Practitioner; Visit Provider Nurse Practitioner | DX: Z00.00 Encounter for general adult medical examination without abnormal findings (principal) ==

== ENCOUNTER 2024-03-30 19:30 | Emergency (ER) | payer BC, SELFPAY ==
[2024-03-30 19:30] VITALS: BP 152/81; PULSE 86; RESP 18; TEMP 36.8; O2SAT 98; BMI 54.4
--- NOTE | 2024-03-30 20:28 | ED.VIS.LOWEX ---
HPI History of Present Illness Chief Complaint: Lower Extremity Injury Informant: patient Narrative Narrative: Reports pain in her right hip after getting out of the shower this morning. She turned and felt a pop in her hip. No medications taken for pain. She went to work unable to continue work therefore came here. Denies any allergies to medications. Denies history of gastric ulcers or kidney disease. Prior similar symptoms: No PFSH PFSH Medical History Post-menopausal Depression Gastric reflux Smoker Shortness of breath on exertion Flu vaccine need Thyroid disease High cholesterol Hypertension Type 2 diabetes mellitus Home Medications ?Medication ?Instructions ?Recorded ?Last Taken ?Type christina.stocking,knee,reg,xlrg #12 ea 06/29/22 Unknown Rx cholecalciferol (vitamin D3) 1,250 1,250 mcg PO QWEEK #6 caps 09/23/22 Unknown Rx mcg (50,000 unit) capsule albuterol sulfate 90 mcg/actuation 2 puff inhalation Q4H PRN PRN 03/18/23 Unknown Rx aerosol inhaler (Ventolin HFA) Wheezing ##1 atorvastatin 20 mg tablet 20 mg PO QHS #90 tabs 12/15/23 Unknown Rx bupropion HCl 150 mg 24 hr tablet, 150 mg PO QAM #90 tabs 01/13/24 Unknown Rx extended release (Wellbutrin XL) escitalopram oxalate 20 mg tablet 20 mg PO DAILY #90 tabs 01/13/24 Unknown Rx lansoprazole 15 mg capsule,delayed 15 mg PO DAILY #90 caps 01/13/24 Unknown Rx release levothyroxine 175 mcg tablet 175 mcg PO DAILY #90 tabs 01/13/24 Unknown Rx naproxen 500 mg tablet 500 mg PO BID PRN pain #180 tabs 03/20/24 Unknown Rx semaglutide 0.25 mg or 0.5 mg (2 0.5 mg (0.736 mL) subcut TU #3 mL 03/20/24 Unknown Rx mg/3 mL) subcutaneous pen injector (Ozempic) ibuprofen 600 mg tablet 600 mg PO Q6H PRN PRN pain #20 03/30/24 Unknown Rx TABLETS Allergy/AdvReac Type Severity Reaction Status Date / Time No Known Allergies Allergy Verified 03/30/24 19:30 Family History Father Cancer Grandmother Cancer throat Mother Myocardial infarction Thyroid disorder Hypertension Depression Surgical History History of carpal tunnel release History of hysterectomy Social History household members: none current occupational status: employed 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 [employer] Smoking Status: Current every day smoker tobacco type: cigarettes Electronic Cigarette Use: not used quit status: not considering quitting alcohol intake: never substance use type: does not use what type of physical activity do you participate in: none seatbelt use: always do you feel safe at home: Yes ROS ROS ED Constitutional Constitutional ED: Denies chills, fever(s) or sweats Eyes Eyes: Denies change in vision ENT ENT ED: Denies dysphagia or sore throat Cardiovascular Cardiovascular: Denies chest pain, leg edema, palpitations or racing heartbeat Respiratory/Chest Respiratory/Chest: Denies cough, dyspnea or dyspnea on exertion Gastrointestinal Gastrointestinal: Denies abdominal pain, diarrhea, nausea or vomiting Genitourinary Genitourinary ED: Denies dysuria, hematuria or urinary frequency Musculoskeletal Musculoskeletal: Reports extremity pain; Denies back pain or neck pain Integumentary Denies rash or wounds Neurologic Neurologic: Denies headache(s), paresthesias or weakness EXAM Physical Exam Const Vital Signs: 03/30/24 19:30 03/30/24 21:22 Temperature 98.2 F 98 F Temperature Source Temporal Pulse Rate 86 77 Respiratory Rate 18 17 Blood Pressure 152/81 H 142/92 H Blood Pressure Mean 104 108 Pulse Ox 98 94 Oxygen Delivery Method Room Air Positive well nourished and well developed General Appearance ED: well developed and NAD HEENT Reports moist mucous membranes normocephalic and atraumatic Eyes EOMs intact bilaterally and conjunctivae normal General Eye ED: Yes normal appearance of both eyes Neck no lymphadenopathy and supple General: Negative for tenderness Chest Wall Chest: Negative for tenderness Resp normal respiratory effort and normal air movement Effort and Inspection: symmetric chest movement; Negative for respiratory distress Cardio regular rate, regular rhythm and no murmurs Peripheral Pulses: pulses 2+ throughout GI normal to inspection, nondistended, normoactive bowel sounds and non-tender Palpation: Negative for guarding or rebound tenderness present Back/Spine no CVA tenderness and no thoracic nor lumbar tenderness Extremity normal to inspection Extremity Narrative: Right lower extremity: Pain with movement of the hip with external rotation. No deformities. Pulses are intact distally. General Extremety ED: Yes tenderness; Negative for edema General Extremity: Negative for edema Neuro oriented x3 and no sensory deficits noted Sensorium / Orientation: awake and alert Skin no rashes or lesions noted and no wounds MDM MDM MDM Narrative Medical decision making narrative: Interventions / MDM: Differential diagnosis: Hip strain, hip pain Diagnosis considered but do not suspect: Fracture however x-ray negative. My EKG interpretation: N/A Imaging independently reviewed and interpreted by myself: Right hip x-ray 3 views: No fracture or dislocation. Also read by radiology. External documents reviewed: N/A Test considered but not ordered:N/A ED course: Patient history concerns for strain of her hip. However with new pain. X-ray be ordered. She will be ordered for Motrin. X-ray negative. Prescription for Motrin to continue. Outpatient follow-up with her orthopedist as she has seen Dr. Kiran in the past. Re-evaluation: stable Disposition discussed with patient/family/significant other: Patient Case discussed with consulting clinician: N/A This note was generated with [employer] dictation software. It may contain incorrect words, spelling, and punctuation that were not noted in checking the note before signing. Radiography Diagnostic Testing: Clinical Impression(s) from Imaging Studies Hip/Pelvis X-Ray 03/30/24 20:30 IMPRESSION: No acute radiographic abnormalities. Electronically Signed: Haresh Wheeler MD at 20:45 EDT , Discharge Plan Triage Chief Complaint: Lower Extremity Injury ED Provider: Reinaldo Snyder Dx/Rx/DC Orders Clinical Impression: Strain of muscle of right hip, Acute right hip pain Instructions: ED Hip Strain Prescriptions: New ibuprofen 600 mg tablet 600 mg PO Q6H PRN PRN (Reason: pain) Qty: 20 0RF No Action (DME) christina.stocking,knee,reg,xlrg Misc See Rx Instructions .Route Qty: 12 0RF Rx Instructions: As directed albuterol sulfate [Ventolin HFA] 90 mcg/actuation HFA aerosol inhaler 2 puff inhalation Q4H PRN PRN (Reason: Wheezing) Qty: 1 0RF cholecalciferol (vitamin D3) 1,250 mcg (50,000 unit) capsule 1,250 mcg PO QWEEK Qty: 6 0RF atorvastatin 20 mg tablet 20 mg PO QHS Qty: 90 1RF levothyroxine 175 mcg tablet 175 mcg PO DAILY Qty: 90 0RF bupropion HCl [Wellbutrin XL] 150 mg tablet extended release 24 hr 150 mg PO QAM Qty: 90 0RF escitalopram oxalate 20 mg tablet 20 mg PO DAILY Qty: 90 0RF lansoprazole 15 mg capsule,delayed release(DR/EC) 15 mg PO DAILY Qty: 90 0RF naproxen 500 mg tablet 500 mg PO BID PRN (Reason: pain) Qty: 180 0RF Ozempic 0.25 mg or 0.5 mg (2 mg/3 mL) pen injector 0.5 mg subcut TU Qty: 3 2RF Primary Care Provider: Aziza Stoddard Referrals: Aziza Stoddard MD [Primary Care Provider] - Ousmane Valle DO [Med Staff - Active Staff] - 1 Week if not improving Activity Restrictions/Additional Instructions: Hip x-ray negative. Use ibuprofen. If you have naproxen, do not take this while on ibuprofen. You have seen Dr. Estrada in the past. Follow-up with him if symptoms are not improving. Print Language: Guamanian Disposition Disposition: Home, Self Care Discharge Date/Time: 03/30/24 21:24
--- NOTE | 2024-03-30 20:30 | RAD_ITS ---
INDICATION: pain EXAMINATION/TECHNIQUE: X-RAY - RIGHT XR Hip Unilateral with Pelvis when performed; 2-3 Views COMPARISON: None. FINDINGS: No acute fracture or malalignment. No blastic or lytic lesions. No degenerative changes are seen. The soft tissues are unremarkable. RAD/HIP, UNI W/ Pelvis 2-3 Views IMPRESSION: No acute radiographic abnormalities. Electronically Signed: Haresh Wheeler MD at 20:45 EDT ,
[2024-03-30] MEDS: Ibuprofen 600 MG Tablet PO (20:39)
--- OUTSIDE RECORDS SUMMARY | 2024-03-30 21:00 | XMS RPT_ITS | CCD ---
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 normal limits. Lumbar spine is in anatomic alignment with preservation of vertebral body heights and disc spaces. No acute fracture or dislocation. The sacroiliac joint spaces are unremarkable. No spondylolisthesis or focal bony lesion. IMPRESSION: No acute osseous abnormality or significant bony degenerative changes. Further evaluation with MRI may be helpful if symptoms persist or progress. [facility] Workstation ID: [id number] Dictated by: ISAAK CARRENO on [facility] Apr 02, 2021 10:26:46 AM EDT Transcribed by: GLENIS ESCALANTE on [facility] Apr 02, 2021 10:29:35 AM EDT Finalized by: ISAAK CARRENO on [facility] Apr 02, 2021 4:32:25 PM EDT [facility] Comment on above: Order Comment: Injur y/Trauma or Illness?:Illness/Other How long have you had these symptoms (acute/chronic)?:Chronic Reason for exam?:Chronic mid to lower back pain History of cancer?: Surgeries, chemotherapy, or radiation?: Type of Exam?:Initial Additional signs and symptoms?: XR THORACIC SPINE 3 VIEWS (S TANDARD)on 04-01-2021 XR THORACIC SPINE 3 VIEWS (STANDARD) EXAMINATION: XR THORACIC SPINE 3 VIEWS (STANDARD) 04/01/2021 11:44 am HISTORY: ORDERING SYSTEM PROVIDED HISTORY: chronic pain, TECHNOLOGIST PROVIDED HISTORY: Illness/Other Reason for exam: Chronic mid to lower back pain Cancer History: Surgery, RadiationHistory: Encounter Type: Initial Additional signs and symptoms: ORDERING SYSTEM PROVIDED DIAGNOSIS CODES: M54.6 Chronic midline thoracic back pain G89.29 Chronic midline thoracic back pain COMPARISON: PA and lateral chest radiograph 09/14/2017. FINDINGS: There is slight levoscoliosis of the lower thoracic spine. Mineralization is within normal limits. No acute fracture or dislocation. There is mild multilevel disc space narrowing and endplate degenerative change. No spondylolisthesis or focal bony lesion. There is straightening of the normal cervical lordosis. IMPRESSION: Mild multilevel degenerative changes of the thoracic spine. No acute osseous abnormality. [facility] Workstation ID: [id number] Dictated by: ISAAK CARRENO on [facility] Apr 02, 2021 3:10:05 PM EDT Transcribed by: ZULAY RANDALL on [facility] Apr 02, 2021 3:15:01 PM EDT Finalized by: ISAAK CARRENO on [facility] Apr 02, 2021 4:20:40 PM EDT Normal [facility] Comment on above: Order Comment: Injur y/Trauma or Illness?:Illness/Other How long have you had these symptoms (acute/chronic)?:Chronic Reason for exam?:Chronic mid to lower back pain History of cancer?: Surgeries, chemotherapy, or radiation?: Type of Exam?:Initial Additional signs and symptoms?: XR ELBOW RIGHT 3+ VIEWSon XR ELBOW RIGHT 3+ VIEWS EXAM: XR ELBOW RIGHT 3+ VIEWS HISTORY: The patient is a 35-year-old female with right elbow pain. COMPARISON: None. FINDINGS: The AP view demonstrates enthesophytes arising from the medial and lateral epicondyles, suggesting chronic epicondylitis. The elbow joint itself is otherwise radiographically negative with no evidence of fracture, dislocation, joint space narrowing, fat pad elevation, or other osseous or articular abnormalities. 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 Normal [facility] CT PELVIS MSK WITH AND WITHO UT CONTRASTon 03-18-2021 CT PELVIS MSK WITH AND WITHOUT CONTRAST Begin Addendum #1 Additional measurements: The appendix is normal.. The uterus is midline. It appears unremarkable. It was measured at 6 cm in width, 4 cm in AP diameter and had a length of approximately 9 cm. The left ovary is a 2.7 x 2.6 x 3.2 cm. Right ovary is tucked adjacent to some bowel I believe. It measures a 3.2 x 3.2 x 2.4 cm. There is a unremarkable bladder. There is no evidence of free fluid. There is no adenopathy. I see no evidence of any hernia. Original Report EXAM: CT PELVIS MSK WITH AND WITHOUT CONTRAST HISTORY: Pelvic pain. No additional history provided. COMPARISON: None TECHNIQUE: Axial imaging was performed from the pelvic inlet to below the pubic symphysis both prior to and following the administration of IV contrast. Oral contrast was identified within portions of the bowel. Coronal and sagittal reformatted images obtained. FINDINGS: Pelvic bones appear intact with normal cortical margins and alignment. Soft tissues of the pelvis appear unremarkable for mass, adenopathy inflammatory change, or free fluid. There is normal bowel distention. No abnormal calcifications are identified. IMPRESSION: Unremarkable CT examination of the bony pelvis. Normal [facility] CREATININE,SERUMon 1 Creatinine [Mass/Vol] 0.74 mg/dL Normal 0.52-1.04 [facility] Comment on above: Performed By: #### U DUSTY, UMAC #### [place] [address] EST. GFR, >60 Normal [facility] Comment on above: Performed By: #### U DUSTY, UMAC #### [place] [address] EST. GFR,Non >60 Normal [facility] Comment on above: Performed By: #### U DUSTY, UMAC #### [place] [address] GFR Information Average GFR for 30-3 9 years old = 109. Normal [facility] Comment on above: Result Comment: [employer] Kidney disease, GFR = <60. Kidney failure, GFR = <15. The GFR estimate is not adjusted for extreme body surface area or acute process, nor has it been validated for women or ethnic groups other than and . Performed By: #### U DUSTY, UMAC #### Testing performed at [facility] [address] [place] [address] US PELVIC W TRANSVAGINALon 0 01-26-2021 US PELVIC W TRANSVAGINAL EXAM: US PELVIC W TRANSVAGINAL HISTORY: Primary dysmenorrhea. Metromenorrhagia. COMPARISON: None. TECHNIQUE: Transvaginal ultrasound of the pelvis. FINDINGS: Uterus is anteverted measuring about 8.1 cm in cervical to fundal length by 3.5 cm in height and 5.0 cm in width. Endometrial stripe thickness measures 0.7 cm. Myometrial echogenicity appears to be generally homogeneous with no focal myometrial masses shown. There are small clusters of tiny nabothian cysts in the cervical mucosa. Neither ovary was visualized, presumably obscured by bowel and the adnexa. No adnexal mass or pelvic free fluid is shown. IMPRESSION: 1. Endometrial stripe thickness is 7 mm. Homogeneous echogenicity of myometrium with no focal myometrial masses. 2. The ovaries are not visible presumably obscured by bowel and the adnexa. 3. No adnexal mass or pelvic free fluid is seen. 4. Small nabothian cysts. Normal [facility] IMPRESSION: 1. Endometrial stripe thickness is 7 mm. Homogeneous echogenicity of myometrium with no focal myometrial masses. 2. The ovaries are not visible presumably obscured by bowel and the adnexa. 3. No adnexal mass or pelvic free fluid is seen. 4. Small nabothian cysts. RADIOLOGY EXAM: US PELVIC W TRANSVAGINAL HISTORY: Primary dysmenorrhea. Metromenorrhagia. COMPARISON: None. TECHNIQUE: Transvaginal ultrasound of the pelvis. FINDINGS: Uterus is anteverted measuring about 8.1 cm in cervical to fundal length by 3.5 cm in height and 5.0 cm in width. Endometrial stripe thickness measures 0.7 cm. Myometrial echogenicity appears to be generally homogeneous with no focal myometrial masses shown. There are small clusters of tiny nabothian cysts in the cervical mucosa. Neither ovary was visualized, presumably obscured by bowel and the adnexa. No adnexal mass or pelvic free fluid is shown. [facility] John Santana DO - 01/26/2021 EXAM: US PELVIC W TRANSVAGINAL HISTORY: Primary dysmenorrhea. Metromenorrhagia. COMPARISON: None. TECHNIQUE: Transvaginal ultrasound of the pelvis. FINDINGS: Uterus is anteverted measuring about 8.1 cm in cervical to fundal length by 3.5 cm in height and 5.0 cm in width. Endometrial stripe thickness measures 0.7 cm. Myometrial echogenicity appears to be generally homogeneous with no focal myometrial masses shown. There are small clusters of tiny nabothian cysts in the cervical mucosa. Neither ovary was visualized, presumably obscured by bowel and the adnexa. No adnexal mass or pelvic free fluid is shown. IMPRESSION IMPRESSION: 1. Endometrial stripe thickness is 7 mm. Homogeneous echogenicity of myometrium with no focal myometrial masses. 2. The ovaries are not visible presumably obscured by bowel and the adnexa. 3. No adnexal mass or pelvic free fluid is seen. 4. Small nabothian cysts. [facility] Radiology Study observation (narrative) [facility] US PELVIC W TRANSVAGINALOrde red By: John Santana on 01-26-2021 [facility] Work Phone: CBCon 01-18-2021 ABSOLUTE BAS 0.1 10*3/uL Normal 0.0-0.2 [facility] Comment on above: Performed By: #### A CBC #### Testing performed at [address] [address] ABSOLUTE EOS 0.50 10*3/uL Normal 0.0-0.7 [facility] Comment on above: Performed By: #### A CBC #### Testing performed at [address] [address] ABSOLUTE NEUTROPHIL COUNT 11.2 10*3/uL High 1.4-6.5 [facility] Comment on above: Performed By: #### A CBC #### Testing performed at [address] [address] Basophils/100 WBC (Bld) 0.9 % Normal 0.0-2.0 [facility] Comment on above: Performed By: #### A CBC #### Testing performed at [address] [address] DTYPE AUTO DIFF Normal [facility] Comment on above: Performed By: #### A CBC #### Testing performed at [address] [address] Eosinophils/100 WBC (Bld) 2.9 % Normal 0.0-11.0 [facility] Comment on above: Performed By: #### A CBC #### Testing performed at [address] [address] Erythrocyte distribution width (RBC) [Ratio] 14.3 % Normal 11.5-14.5 [facility] Comment on above: Performed By: #### A CBC #### Testing performed at [address] [address] Hematocrit (Bld) [Volume fraction] 43.3 % Normal 36.0-48.0 [facility] Comment on above: Performed By: #### A CBC #### Testing performed at [address] [address] Hemoglobin (Bld) [Mass/Vol] 14.6 g/dL Normal 12.0-16.0 [facility] Comment on above: Performed By: #### A CBC #### Testing performed at [address] [address] Lymphocytes (Bld) [#/Vol] 3.20 10*3/uL Normal 1.2-3.4 [facility] Comment on above: Performed By: #### A CBC #### Testing performed at [address] [address] Lymphocytes/100 WBC (Bld) 20.6 % Normal 20.0-55.0 [facility] Comment on above: Performed By: #### A CBC #### Testing performed at [address] [address] MCH (RBC) [Entitic mass] 29.2 pg Normal 26.0-35.0 [facility] Comment on above: Performed By: #### A CBC #### Testing performed at [address] [address] MCHC (RBC) [Mass/Vol] 33.6 g/dL Normal 27.0-37.0 [facility] Comment on above: Performed By: #### A CBC #### Testing performed at [address] [place] [address] MCV (RBC) [Entitic vol] 86.8 fL Normal 80.0-100.0 [facility] Comment on above: Performed By: #### A CBC #### Testing performed at [address] [place] [address] Monocytes (Bld) [#/Vol] 0.7 10*3/uL Normal 0.0-0.7 [facility] Comment on above: Performed By: #### A CBC #### Testing performed at [address] [place] [address] Monocytes/100 WBC (Bld) 4.3 % Normal 0.0-10.0 [facility] Comment on above: Performed By: #### A CBC #### Testing performed at [address] [place] [address] Neutrophils/100 WBC (Bld) 71.3 % Normal 37.0-75.0 [facility] Comment on above: Performed By: #### A CBC #### Testing performed at [address] [place] [address] Platelet mean volume (Bld) [Entitic vol] 7.5 fL Normal 7.4-11.0 [facility] Comment on above: Performed By: #### A CBC #### Testing performed at [address] [place] [address] Platelets (Bld) [#/Vol] 407 10*3/uL High 130.0-400.0 [facility] Comment on above: Performed By: #### A CBC #### Testing performed at [address] [place] [address] RBC (Bld) [#/Vol] 4.99 10*6/uL Normal 4.0-5.4 [facility] Comment on above: Performed By: #### A CBC #### Testing performed at [address] [place] [address] WBC (Bld) [#/Vol] 15.6 10*3/uL High 3.6-11.0 [facility] Comment on above: Performed By: #### A CBC #### Testing performed at [facility] [address] [place] [address] CBC, EDIF, PLATELETon 2020 ABSOLUTE BASOPHIL COUNT 0.1 10*3/uL 0.0 - 0.2 10*3/uL [facility] Basophils/100 WBC (Bld) 0.9 % 0.0 - 2.0 % [facility] Differential cell count method Nom (Bld) AUTO DIFF % [facility] Eosinophils (Bld) [#/Vol] 0.50 10*3/uL 0.0 - 0.7 10*3/uL [facility] Eosinophils/100 WBC (Bld) 2.9 % 0.0 - 11.0 % [facility] Erythrocyte distribution width (RBC) [Ratio] 14.3 % 11.5 - 14.5 % [facility] Hematocrit (Bld) [Volume fraction] 43.3 % 36.0 - 48.0 % [facility] Hemoglobin (Bld) [Mass/Vol] 14.6 g/dL [facility] Interpretation and review of laboratory results Abnormal [facility] Lymphocytes (Bld) [#/Vol] 3.20 10*3/uL 1.2 - 3.4 10*3/uL [facility] Lymphocytes/100 WBC (Bld) 20.6 % 20.0 - 55.0 % [facility] MCH (RBC) [Entitic mass] 29.2 pg 26.0 - 35.0 PG [facility] MCHC (RBC) [Mass/Vol] 33.6 g/dL [facility] MCV (RBC) [Entitic vol] 86.8 fL [facility] Monocytes (Bld) [#/Vol] 0.7 10*3/uL 0.0 - 0.7 10*3/uL [facility] Monocytes/100 WBC (Bld) 4.3 % 0.0 - 10.0 % [facility] Neutrophils (Bld) [#/Vol] 11.2 10*3/uL High 1.4 - 6.5 10*3/uL [facility] Neutrophils/100 WBC (Bld) 71.3 % 37.0 - 75.0 % [facility] Platelet mean volume (Bld) [Entitic vol] 7.5 fL [facility] Platelets (Bld) [#/Vol] 407 10*3/uL High 130.0 - 400.0 10*3/uL [facility] RBC (Bld) [#/Vol] 4.99 10*6/uL 4.0 - 5.4 10*6/uL [facility] WBC (Bld) [#/Vol] 15.6 10*3/uL High 3.6 - 11.0 10*3/uL [facility] HCG ( test) Ql (U)o n 01-18-2021 [facility] HCG QUALITATIVE, URINEon HCG ( test) Ql (U) Negative NEGATIVE [facility] No Panel Informationon 01-18 Interpretation and review of laboratory results Abnormal [facility] URINALYSIS, MACROon 01-19-20 21 Bilirubin Ql (U) MODERATE Abnormal NEGATIVE [facility] Clarity (U) TURBID Abnormal CLEAR [facility] Color (U) BROWN Abnormal YELLOW [facility] Glucose Test strip (U) [Mass/Vol] Negative NEGATIVE mg/dl [facility] Hemoglobin Ql (U) LARGE Abnormal NEGATIVE [facility] Ketones (U) [Mass/Vol] 15 mg/dL Abnormal NEGATIVE [facility] Leukocyte esterase Test strip Ql (U) SMALL Abnormal NEGATIVE [facility] Nitrite Ql (U) Negative NEGATIVE [facility] pH (U) 5.5 [pH] [facility] Protein Ql (U) 100 mg/dl Abnormal NEGATIVE [facility] Specific gravity (U) [Rel density] 1.025 [facility] Urobilinogen (U) [Mass/Vol] 1.0 mg/dL [facility] URINE CULTUREon 01-18-2021 Bacteria identified Cx Nom (U) SPECIMEN DESCRIPTION URINE CLEAN CATCH UA DIPSTICK LEUKOCYTE POSITIVE * Result Note: NITRITE NEGATIVE * CULTURE MULTIPLE SPECIES PRESENT;PROBABLE CONTAMINATION. SUGGEST REPEAT SPECIMEN. * Result Note: Testing performed at [place], [place] [address] * REPORT STATUS 01/21/2021 * Result Note: FINAL * Normal [facility] Comment on above: Performed By: #### A URMO #### Testing performed at [facility] [address] [place] [address] Testing performed at [facility] [address] [address] URINE HCG QUALon 01-18-2021 Beta HCG ( test) Ql (U) Negative Normal NEGATIVE [facility] Comment on above: Performed By: #### U DUSTY, UHCGT, UMAC #### Testing performed at [address] [address] URINE MACROSCOPICon 01-19-20 21 Bilirubin Ql (U) MODERATE Abnormal NEGATIVE [facility] Comment on above: Performed By: #### U DUSTY, UHCGT, UMAC #### Testing performed at [address] [address] Clarity (U) TURBID Abnormal CLEAR [facility] Comment on above: Performed By: #### U DUSTY, UHCGT, UMAC #### Testing performed at [address] [address] Color (U) BROWN Abnormal YELLOW [facility] Comment on above: Performed By: #### U DUSTY, UHCGT, UMAC #### Testing performed at [address] [address] Glucose Ql (U) Negative Normal NEGATIVE [facility] Comment on above: Performed By: #### U DUSTY, UHCGT, UMAC #### Testing performed at [address] [address] pH (U) 5.5 [pH] Normal 5.0-7.0 [facility] Comment on above: Performed By: #### U DUSTY, UHCGT, UMAC #### Testing performed at [address] [address] Protein (U) [Mass/Vol] 100 mg/dL Abnormal NEGATIVE [facility] Comment on above: Performed By: #### U DUSTY, UHCGT, UMAC #### Testing performed at [address] [address] URINE HEMOGLOBIN LARGE Abnormal NEGATIVE [facility] Comment on above: Performed By: #### U DUSTY, UHCGT, UMAC #### Testing performed at [address] [address] URINE KETONE 15 mg/dl Abnormal NEGATIVE [facility] Comment on above: Performed By: #### U DUSTY, UHCGT, UMAC #### Testing performed at [address] [place] [address] URINE LEUKOTEST SMALL Abnormal NEGATIVE [facility] Comment on above: Performed By: #### U DUSTY, UHCGT, UMAC #### Testing performed at [address] [place] [address] URINE NITRATES Negative Normal NEGATIVE [facility] Comment on above: Performed By: #### U DUSTY, UHCGT, UMAC #### Testing performed at [address] [address] URINE SPEC GRAVITY 1.025 Normal 1.010-1.025 [facility] Comment on above: Performed By: #### U DUSTY, UHCGT, UMAC #### Testing performed at [address] [address] Urobilinogen Qn (U) 1.0 {Víctor'U}/dL Normal 0.2-1.0 [facility] Comment on above: Performed By: #### U DUSTY, UHCGT, UMAC #### Testing performed at [address] [address] URINE MICROSCOPICon 01-19-20 21 Bacteria LM.HPF (Urine sed) [#/Area] Negative Normal NEGATIVE [facility] Comment on above: Performed By: #### U DUSTY, UHCGT, UMAC #### Testing performed at [address] [place] [address] CASTS NONE Normal [facility] Comment on above: Performed By: #### U DUSTY, UHCGT, UMAC #### Testing performed at [address] [place] [address] CRYSTAL NONE Normal NONE [facility] Comment on above: Performed By: #### U DUSTY, UHCGT, UMAC #### Testing performed at [address] [address] Epithelial cells LM Ql (Urine sed) 1 TO 5 Normal [facility] Comment on above: Performed By: #### U DUSTY, UHCGT, UMAC #### Testing performed at [address] [place] [address] Mucus Ql (Urine sed) Negative Normal NEGATIVE [facility] Comment on above: Performed By: #### U DUSTY, UHCGT, UMAC #### Testing performed at [address] [address] URINE COMMENT REFLEX CULTURE PER ESTABLISHED CRITERIA. Normal [facility] Comment on above: Performed By: #### U DUSTY, UHCGT, UMAC #### Testing performed at [address] [address] URINE RBC'S TOO NUMEROUS TO COUNT Abnormal NEGATIVE [facility] Comment on above: Performed By: #### U DUSTY, UHCGT, UMAC #### Testing performed at [address] [address] URINE WBC'S 1 TO 5 Normal NEGATIVE [facility] Comment on above: Performed By: #### U DUSTY, UHCGT, UMAC #### Testing performed at [address] [address] Bacteria LM.HPF (Urine sed) [#/Area] Negative NEGATIVE [facility] Casts LM.LPF (Urine sed) [#/Area] NONE NONE /LPF [facility] Crystals LM Nom (Urine sed) NONE NONE [facility] Epithelial cells LM Ql (Urine sed) 1 TO 5 /HPF [facility] Mucus Ql (Urine sed) Negative NEGATIVE [facility] RBC LM.HPF (Urine sed) [#/Area] TOO NUMEROUS TO COUNT Abnormal NEGATIVE /HPF [facility] Urine sediment comments LM [place] (Urine sed) REFLEX CULTURE PER ESTABLISHED CRITERIA. [facility] WBC LM.HPF (Urine sed) [#/Area] 1 TO 5 NEGATIVE /HPF [facility] POCT GLUCOSEon 11-28-2020 Glucose [Mass/Vol] 348 mg/dL High 70-100 [facility] Glucose [Mass/Vol] 325 mg/dL High 70-100 [facility] Glucose [Mass/Vol] 295 mg/dL High 70-100 [facility] [employer] [id number] Normal [facility] CBCon 11-26-2020 ABSOLUTE BAS 0.1 10*3/uL Normal 0.0-0.2 [facility] Comment on above: Result Comment: Test ing performed at [place] [address] Performed By: #### A CBC, RENF, MG #### Testing performed at [address] [address] ABSOLUTE EOS 0.40 10*3/uL Normal 0.0-0.7 [facility] Comment on above: Performed By: #### A CBC, RENF, MG #### Testing performed at [address] [address] ABSOLUTE NEUTROPHIL COUNT 6.1 10*3/uL Normal 1.4-6.5 [facility] Comment on above: Performed By: #### A CBC, RENF, MG #### Testing performed at [address] [address] Basophils/100 WBC (Bld) 0.7 % Normal 0.0-2.0 [facility] Comment on above: Performed By: #### A CBC, RENF, MG #### Testing performed at [address] [address] DTYPE AUTO DIFF Normal [facility] Comment on above: Performed By: #### A CBC, RENF, MG #### Testing performed at [address] [address] Eosinophils/100 WBC (Bld) 3.7 % Normal 0.0-11.0 [facility] Comment on above: Performed By: #### A CBC, RENF, MG #### Testing performed at [address] [address] Lymphocytes (Bld) [#/Vol] 2.90 10*3/uL Normal 1.2-3.4 [facility] Comment on above: Performed By: #### A CBC, RENF, MG #### Testing performed at [address] [address] Lymphocytes/100 WBC (Bld) 29.4 % Normal 20.0-55.0 [facility] Comment on above: Performed By: #### A CBC, RENF, MG #### Testing performed at [address] [address] Monocytes (Bld) [#/Vol] 0.5 10*3/uL Normal 0.0-0.7 [facility] Comment on above: Performed By: #### A CBCGONZALO MG #### [place] [address] Monocytes/100 WBC (Bld) 4.6 % Normal 0.0-10.0 [facility] Comment on above: Performed By: #### A CBCGONZALO MG #### [place] [address] Neutrophils/100 WBC (Bld) 61.6 % Normal 37.0-75.0 [facility] Comment on above: Performed By: #### A GONZALO MARTIN MG #### [place] [address] Erythrocyte distribution width (RBC) [Ratio] 15.4 % High 11.5-14.5 [facility] Comment on above: Performed By: #### A CBCGONZALO MG #### [place] [address] Hematocrit (Bld) [Volume fraction] 41.3 % Normal 36.0-48.0 [facility] Comment on above: Performed By: #### A GONZALO MARTIN MG #### [place] [address] Hemoglobin (Bld) [Mass/Vol] 14.5 g/dL Normal 12.0-16.0 [facility] Comment on above: Performed By: #### A CBCGONZALO MG #### [place] [address] MCH (RBC) [Entitic mass] 30.0 pg Normal 26.0-35.0 [facility] Comment on above: Performed By: #### A CBCGONZALO MG #### [place] [address] MCHC (RBC) [Mass/Vol] 35.0 g/dL Normal 27.0-37.0 [facility] Comment on above: Performed By: #### A CBC, RENF, MG #### [place] [address] MCV (RBC) [Entitic vol] 85.7 fL Normal 80.0-100.0 [facility] Comment on above: Performed By: #### A CBCGONZALO MG #### [place] [address] Platelet mean volume (Bld) [Entitic vol] 7.9 fL Normal 7.4-11.0 [facility] Comment on above: Performed By: #### A CBCGONZALO MG #### [place] [address] Platelets (Bld) [#/Vol] 285 10*3/uL Normal 130.0-400.0 [facility] Comment on above: Performed By: #### A CBCGONZALO, MG #### [place] [address] RBC (Bld) [#/Vol] 4.82 10*6/uL Normal 4.0-5.4 [facility] Comment on above: Performed By: #### A CBCGONZALO MG #### [place] [address] WBC (Bld) [#/Vol] 9.9 10*3/uL Normal 3.6-11.0 [facility] Comment on above: Performed By: #### A CBCGONZALO, MG #### [place] [address] CHEM 7 FASTINGon 11-26-2020 Chloride [Moles/Vol] 104 mmol/L Normal 98-107 [facility] Comment on above: Result Comment: Heath sears note: Triglyceride levels of 600mg/dL or higher may positively bias chloride results by approximately 2.1 mmol Performed By: #### C HEM7F #### [place] [address] CO2 [Moles/Vol] 24 mmol/L Normal 22-30 [facility] Comment on above: Performed By: #### C HEM7F #### Testing performed at [facility] [address] [id number] Creatinine [Mass/Vol] 0.50 mg/dL Low 0.7-1.2 [facility] Comment on above: Performed By: #### C HEM7F #### Testing performed at [place] [id number] EST. GFR, >60 Normal [facility] Comment on above: Performed By: #### C HEM7F #### Testing performed at [facility] [address] [place] [address] EST. GFR,Non >60 Normal [facility] Comment on above: Performed By: #### C HEM7F #### [place] [address] GFR Information Average GFR for 30-3 9 years old = 109. Normal [facility] Comment on above: Result Comment: Etcher Electrolytic silverio Kidney disease, GFR = <60. Kidney failure, GFR = <15. The GFR estimate is not adjusted for extreme body surface area or acute process, nor has it been validated for women or ethnic groups other than and . Testing performed at [place] [address] Performed By: #### C HEM7F #### Testing performed at [place] [id number] Glucose [Mass/Vol] 304 mg/dL High 70-100 [facility] Comment on above: Result Comment: NORMAL <100 mg/dL PREDIABETES 101-126 mg/dL DIABETES 126 mg/dL or higher Performed By: #### C HEM7F #### [place] [address] Potassium [Moles/Vol] 3.3 mmol/L Low 3.5-5.1 [facility] Comment on above: Performed By: #### C HEM7F #### [place] [address] Sodium [Moles/Vol] 134 mmol/L Low 137-145 [facility] Comment on above: Performed By: #### C HEM7F #### [place] [address] Urea nitrogen [Mass/Vol] 10 mg/dL Normal 7-20 [facility] Comment on above: Performed By: #### C HEM7F #### [place] [address] MAGNESIUMon 11-26-2020 Magnesium [Mass/Vol] 1.8 mg/dL Normal 1.6-2.3 [facility] Comment on above: Result Comment: Test ing performed at [place] [address] Performed By: #### B MPF, T42, RTSH, LIP2 #### [place] [address] MRSA SCREENon 11-26-2020 MRSA DNA LORRIE+probe Ql (Unsp spec) Not detected Normal NOT DETECTED [facility] Comment on above: Performed By: #### M RSAST #### [place] [address] STAPH AUREUS SCREEN Not detected Normal NOT DETECTED [facility] Comment on above: Result Comment: Test ing performed at [place] [address] Performed By: #### M RSAST #### [place] [address] RENAL PANEL,FASTINGon 2020 ALBUMIN 3.4 G/dl Low 3.5-5.0 [facility] Comment on above: Performed By: #### A CBC, RENF, MG #### [place] [address] Calcium [Mass/Vol] 8.0 mg/dL Low 8.4-10.2 [facility] Comment on above: Performed By: #### A CBC, RENF, MG #### [place] [address] Chloride [Moles/Vol] 104 mmol/L Normal 98-107 [facility] Comment on above: Result Comment: Plea se note: Triglyceride levels of 600mg/dL or higher may positively bias chloride results by approximately 2.1 mmol Performed By: #### A CBC, RENF, MG #### [place] [address] CO2 [Moles/Vol] 24 mmol/L Normal 22-30 [facility] Comment on above: Performed By: #### A CBC, RENF, MG #### [place] [address] Creatinine [Mass/Vol] 0.50 mg/dL Low 0.7-1.2 [facility] Comment on above: Performed By: #### A CBC, RENF, MG #### [place] [address] EST. GFR, >60 Normal [facility] Comment on above: Performed By: #### A CBC, RENF, MG #### [place] [address] EST. GFR,Non >60 Normal [facility] Comment on above: Performed By: #### A CBC, RENF, MG #### [place] [address] GFR Information Average GFR for 30-3 9 years old = 109. Normal [facility] Comment on above: Result Comment: Etcher Electrolytic silverio Kidney disease, GFR = <60. Kidney failure, GFR = <15. The GFR estimate is not adjusted for extreme body surface area or acute process, nor has it been validated for women or ethnic groups other than and . Testing performed at [place] [address] Performed By: #### A CBC, RENF, MG #### [place] [address] Glucose [Mass/Vol] 286 mg/dL High 70-100 [facility] Comment on above: Result Comment: NORMAL <100 mg/dL PREDIABETES 101-126 mg/dL DIABETES 126 mg/dL or higher Performed By: #### A CBC, RENF, MG #### [place] [address] PHOSPHOROUS 3.7 MG/DL Normal 2.5-4.5 [facility] Comment on above: Performed By: #### A CBCCHANDUF, MG #### Testing performed at [address] [address] Potassium [Moles/Vol] 3.5 mmol/L Normal 3.5-5.1 [facility] Comment on above: Performed By: #### A CBCCHANDUF, MG #### Testing performed at [address] [address] Sodium [Moles/Vol] 135 mmol/L Low 137-145 [facility] Comment on above: Performed By: #### A CBCCHANDUF, MG #### Testing performed at [address] [address] Urea nitrogen [Mass/Vol] 9 mg/dL Normal 7-20 [facility] Comment on above: Performed By: #### A CBCCHANDUF, MG #### Testing performed at [address] [address] B HYDROXYBUTYRATEon 11-26-19 21 B HYDROXYBUTYRATE 0.17 MMOL/L Normal 0.02-0.27 [facility] Comment on above: Performed By: #### U DUSTY, UMAC #### Testing performed at [address] [address] CBCon 11-25-2020 ABSOLUTE BAS 0.1 10*3/uL Normal 0.0-0.2 [facility] Comment on above: Performed By: #### U DUSTY, UMAC #### Testing performed at [address] [address] ABSOLUTE EOS 0.40 10*3/uL Normal 0.0-0.7 [facility] Comment on above: Performed By: #### U DUSTY, UMAC #### Testing performed at [address] [address] ABSOLUTE NEUTROPHIL COUNT 9.1 10*3/uL High 1.4-6.5 [facility] Comment on above: Performed By: #### U DUSTY, UMAC #### Testing performed at [address] [address] Basophils/100 WBC (Bld) 0.8 % Normal 0.0-2.0 [facility] Comment on above: Performed By: #### U DUSTY, UMAC #### Testing performed at [address] [address] DTYPE AUTO DIFF Normal [facility] Comment on above: Performed By: #### U DUSTY, UMAC #### Testing performed at [address] [address] Eosinophils/100 WBC (Bld) 2.9 % Normal 0.0-11.0 [facility] Comment on above: Performed By: #### U DUSTY, UMAC #### Testing performed at [address] [address] Lymphocytes (Bld) [#/Vol] 3.40 10*3/uL Normal 1.2-3.4 [facility] Comment on above: Performed By: #### U DUSTY, UMAC #### Testing performed at [address] [address] Lymphocytes/100 WBC (Bld) 25.2 % Normal 20.0-55.0 [facility] Comment on above: Performed By: #### U DUSTY, UMAC #### Testing performed at [address] [address] Monocytes (Bld) [#/Vol] 0.5 10*3/uL Normal 0.0-0.7 [facility] Comment on above: Performed By: #### U DUSTY, UMAC #### Testing performed at [address] [address] Monocytes/100 WBC (Bld) 3.7 % Normal 0.0-10.0 [facility] Comment on above: Performed By: #### U DUSTY, UMAC #### Testing performed at [address] [address] Neutrophils/100 WBC (Bld) 67.4 % Normal 37.0-75.0 [facility] Comment on above: Performed By: #### U DUSTY, UMAC #### Testing performed at [address] [address] Erythrocyte distribution width (RBC) [Ratio] 15.4 % High 11.5-14.5 [facility] Comment on above: Performed By: #### U DUSTY, UMAC #### Testing performed at [address] [address] Hematocrit (Bld) [Volume fraction] 45.3 % Normal 36.0-48.0 [facility] Comment on above: Performed By: #### U DUSTY, UMAC #### Testing performed at [address] [address] Hemoglobin (Bld) [Mass/Vol] 15.2 g/dL Normal 12.0-16.0 [facility] Comment on above: Performed By: #### U DUSTY, UMAC #### Testing performed at [address] [address] MCH (RBC) [Entitic mass] 29.1 pg Normal 26.0-35.0 [facility] Comment on above: Performed By: #### U DUSTY, UMAC #### Testing performed at [address] [address] MCHC (RBC) [Mass/Vol] 33.6 g/dL Normal 27.0-37.0 [facility] Comment on above: Performed By: #### U DUSTY, UMAC #### Testing performed at [address] [address] MCV (RBC) [Entitic vol] 86.5 fL Normal 80.0-100.0 [facility] Comment on above: Performed By: #### U DUSTY, UMAC #### Testing performed at [address] [address] Platelet mean volume (Bld) [Entitic vol] 8.2 fL Normal 7.4-11.0 [facility] Comment on above: Performed By: #### U DUSTY, UMAC #### Testing performed at [address] [address] Platelets (Bld) [#/Vol] 365 10*3/uL Normal 130.0-400.0 [facility] Comment on above: Performed By: #### U DUSTY, UMAC #### Testing performed at [address] [address] RBC (Bld) [#/Vol] 5.24 10*6/uL Normal 4.0-5.4 [facility] Comment on above: Performed By: #### U DUSTY, UMAC #### Testing performed at [address] [address] WBC (Bld) [#/Vol] 13.5 10*3/uL High 3.6-11.0 [facility] Comment on above: Performed By: #### U DUSTY, UMAC #### Testing performed at [address] [address] CMP FASTINGon 11-25-2020 A:G RATIO 1.2 RATIO Low 1.3-2.2 [facility] Comment on above: Performed By: #### U DUSTY, UMAC #### Testing performed at [address] [address] ALBUMIN 4.0 G/dl Normal 3.5-5.0 [facility] Comment on above: Performed By: #### U DUSTY, UMAC #### Testing performed at [address] [address] ALP [Catalytic activity/Vol] 104 U/L Normal 38-126 [facility] Comment on above: Performed By: #### U DUSYT, UMAC #### Testing performed at [address] [address] ALT [Catalytic activity/Vol] 27 U/L Normal 14-54 [facility] Comment on above: Performed By: #### U DUSTY, UMAC #### Testing performed at [address] [address] AST [Catalytic activity/Vol] 23 U/L Normal 15-41 [facility] Comment on above: Performed By: #### U DUSTY, UMAC #### Testing performed at [address] [address] Bilirubin [Mass/Vol] 0.7 mg/dL Normal 0.2-1.2 [facility] Comment on above: Performed By: #### U DUSTY, UMAC #### Testing performed at [address] [address] Calcium [Mass/Vol] 9.4 mg/dL Normal 8.4-10.2 [facility] Comment on above: Performed By: #### U DUSTY, UMAC #### Testing performed at [address] [address] Chloride [Moles/Vol] 97 mmol/L Low 98-107 [facility] Comment on above: Performed By: #### U DUSTY, UMAC #### Testing performed at [address] [address] CO2 [Moles/Vol] 23 mmol/L Normal 22-30 [facility] Comment on above: Performed By: #### U DUSTY, UMAC #### Testing performed at [address] [address] Creatinine [Mass/Vol] 0.79 mg/dL Normal 0.52-1.04 [facility] Comment on above: Performed By: #### U DUSTY, UMAC #### Testing performed at [address] [address] EST. GFR, >60 Normal [facility] Comment on above: Performed By: #### U DUSTY, UMAC #### Testing performed at [address] [address] EST. GFR,Non >60 Normal [facility] Comment on above: Performed By: #### U DUSTY, UMAC #### Testing performed at [address] [place] [address] GFR Information Average GFR for 30-3 9 years old = 109. Normal [facility] Comment on above: Result Comment: Etcher Electrolytic silverio Kidney disease, GFR = <60. Kidney failure, GFR = <15. The GFR estimate is not adjusted for extreme body surface area or acute process, nor has it been validated for women or ethnic groups other than and . Performed By: #### U DUSTY, UMAC #### Testing performed at [address] [address] Glucose [Mass/Vol] 472 mg/dL Critically high 70-100 [facility] Comment on above: Result Comment: NORMAL <100 mg/dL PREDIABETES 101-126 mg/dL DIABETES 126 mg/dL or higher Result called to read back by: FITZ 11/25/2020 @ 18:06 by BRYAN Performed By: #### U DUSTY, UMAC #### Testing performed at [address] [address] Potassium [Moles/Vol] 4.0 mmol/L Normal 3.5-5.1 [facility] Comment on above: Performed By: #### U DUSTY, UMAC #### Testing performed at [address] [address] Protein [Mass/Vol] 7.4 g/dL Normal 6.3-8.2 [facility] Comment on above: Performed By: #### U DUSTY, UMAC #### Testing performed at [address] [address] Sodium [Moles/Vol] 130 mmol/L Low 136-145 [facility] Comment on above: Performed By: #### U DUSTY, UMAC #### Testing performed at [address] [address] Urea nitrogen [Mass/Vol] 10 mg/dL Normal 7-20 [facility] Comment on above: Performed By: #### U DUSTY, UMAC #### Testing performed at [address] [address] HEMOGLOBIN A1Con 11-25-2020 Glucose [Mass/Vol] 249 mg/dL Normal [facility] Comment on above: Performed By: #### H A1CT #### Testing performed at [address] [address] HbA1c (Bld) [Mass fraction] 10.3 % High <6 [facility] Comment on above: Result Comment: NORMAL <5.7% PREDIABETES 5.7-6.4% DIABETES 6.5% OR HIGHER Performed By: #### H A1CT #### Testing performed at [address] [address] LACTIC ACIDon 11-25-2020 Lactate [Moles/Vol] 2.6 mmol/L Critically high 0.5-2.0 [facility] Comment on above: Result Comment: HEATH SEARS REPEAT INITIAL CRITICAL IN 3 HOURS IF ED OR INPATIENT SEPSIS PATIENT Result called to read back by: ANNAMARIA 11/25/2020 @ 17:51 by JONAS Performed By: #### U DUSTY, UMAC #### Testing performed at [address] [address] POCT GLUCOSEon 11-25-2020 Glucose [Mass/Vol] 475 mg/dL High 70-100 [facility] [employer]MAN [employer]OR [id number] Normal [facility] Glucose [Mass/Vol] 461 mg/dL High 70-100 [facility] [employer]OR [address] Normal [facility] TROPONIN I, HIGH SENSITIVITY on 11-25-2020 TROPONIN I, HIGH SENSITIVITY <2 Normal 0-12 [facility] Comment on above: Result Comment: Indeterminant: >12 to 100 pg/mL female >20 to 100 pg/mL male Indicative of myocardial injury. Serial sampling is recommended, a change of greater than or equal to 20 pg/mL is indicative of acute coronary syndrome. Performed By: #### U DUSTY, UMAC #### Testing performed at [address] [address] URINE MACROSCOPICon 11-26-19 21 Bilirubin Ql (U) SMALL Abnormal NEGATIVE [facility] Comment on above: Performed By: #### U DUSTY, UMAC #### Testing performed at [address] [address] Clarity (U) CLOUDY Abnormal CLEAR [facility] Comment on above: Performed By: #### U DUSTY, UMAC #### Testing performed at [address] [place] [address] Color (U) PINK Abnormal YELLOW [facility] Comment on above: Performed By: #### U DUSTY, UMAC #### Testing performed at [address] [address] Glucose Ql (U) >1000 Abnormal NEGATIVE [facility] Comment on above: Performed By: #### U DUSTY, UMAC #### Testing performed at [address] [address] pH (U) 6.0 [pH] Normal 5.0-7.0 [facility] Comment on above: Performed By: #### U DUSTY, UMAC #### Testing performed at [address] [address] Protein (U) [Mass/Vol] 100 mg/dL Abnormal NEGATIVE [facility] Comment on above: Performed By: #### U DUSTY, UMAC #### Testing performed at [address] [place] [address] URINE HEMOGLOBIN LARGE Abnormal NEGATIVE [facility] Comment on above: Performed By: #### U DUSTY, UMAC #### Testing performed at [address] [place] [address] URINE KETONE TRACE Abnormal NEGATIVE [facility] Comment on above: Performed By: #### U DUSTY, UMAC #### Testing performed at [address] [address] URINE LEUKOTEST Negative Normal NEGATIVE [facility] Comment on above: Performed By: #### U DUSTY, UMAC #### Testing performed at [address] [address] URINE NITRATES Negative Normal NEGATIVE [facility] Comment on above: Performed By: #### U DUSTY, UMAC #### Testing performed at [address] [address] URINE SPEC GRAVITY 1.015 Normal 1.010-1.025 [facility] Comment on above: Performed By: #### U DUSTY, UMAC #### Testing performed at [address] [address] Urobilinogen Qn (U) 0.2 {Víctor'U}/dL Normal 0.2-1.0 [facility] Comment on above: Performed By: #### U DUSTY, UMAC #### Testing performed at [address] [address] URINE MICROSCOPICon 11-26-19 21 Bacteria LM.HPF (Urine sed) [#/Area] Negative Normal NEGATIVE [facility] Comment on above: Performed By: #### U DUSTY, UMAC #### Testing performed at [address] [address] CASTS NONE Normal NONE [facility] Comment on above: Performed By: #### U DUSTY, UMAC #### Testing performed at [address] [address] CRYSTAL NONE Normal NONE [facility] Comment on above: Performed By: #### U DUSTY, UMAC #### Testing performed at [address] [address] Epithelial cells LM Ql (Urine sed) 20 TO 30 Normal [facility] Comment on above: Performed By: #### U DUSTY, UMAC #### Testing performed at [address] [address] Mucus Ql (Urine sed) Negative Normal NEGATIVE [facility] Comment on above: Performed By: #### U DUSTY, UMAC #### Testing performed at [address] [address] URINE COMMENT POSSIBLY CONTAMINATE D SPECIMEN, CULTURE MUST BE ORDERED SEPARATELY IF DEEMED NECESSARY. Normal [facility] Comment on above: Performed By: #### U DUSTY, UMAC #### Testing performed at [address] [address] URINE RBC'S TOO NUMEROUS TO COUNT Abnormal NEGATIVE [facility] Comment on above: Performed By: #### U DUSTY, UMAC #### Testing performed at [address] [address] URINE WBC'S Negative Normal NEGATIVE [facility] Comment on above: Performed By: #### U DUSTY, UMAC #### Testing performed at [address] [address] VENOUS BLOOD GASon 1 BASE EXCESS 1.1 mEq/L Normal 0-2 [facility] Comment on above: Performed By: #### P ABGV ####Testing performed at [address] [address] cHCO3 (P,ST)C 25.0 mEq/L Normal 22-26 [facility] Comment on above: Performed By: #### P ABGV ####Testing performed at [address] [address] ctCO2 (B)c 21.5 Vol% [facility] Comment on above: Performed By: #### P ABGV ####Testing performed at [address] [address] ctHb 15.6 g/dl [facility] Comment on above: Performed By: #### P ABGV ####Testing performed at [address] [address] FCOHb 6.1 % [facility] Comment on above: Performed By: #### P ABGV ####Testing performed at [address] [place] [address] FMetHb 0.6 % Normal [facility] Comment on above: Performed By: #### P ABGV ####Testing performed at [address] [place] [address] FO2Hb 81.7 % Normal [facility] Comment on above: Performed By: #### P ABGV ####Testing performed at [address] [place] [address] pCO2, venous or cap 39.4 mmHg Low 41-51 [facility] Comment on above: Performed By: #### P ABGV ####Testing performed at [address] [place] [address] pH,venous or cap 7.420 High 7.31-7.41 [facility] Comment on above: Performed By: #### P ABGV ####Testing performed at [address] [place] [address] pO2,venous or cap 51.0 mmHg High 35-42 [facility] Comment on above: Performed By: #### P ABGV ####Testing performed at [address] [place] [address] sO2,venous or cap 87.6 % High 68-77 [facility] Comment on above: Performed By: #### P ABGV ####Testing performed at [address] [place] [address] BMP FASTINGon 01-30-2020 Anion gap [Moles/Vol] 9 mmol/L Normal 8-16 [facility] Comment on above: Performed By: #### B MPF, T42, RTSH, LIP2 #### Testing performed at [address] [address] Calcium [Mass/Vol] 9.3 mg/dL Normal 8.4-10.2 [facility] Comment on above: Performed By: #### B MPF, T42, RTSH, LIP2 #### Testing performed at [address] [address] Chloride [Moles/Vol] 106 mmol/L Normal 98-107 [facility] Comment on above: Result Comment: Heath sears note: Triglyceride levels of 600mg/dL or higher may positively bias chloride results by approximately 2.1 mmol Performed By: #### B MPF, T42, RTSH, LIP2 #### [place] [address] CO2 [Moles/Vol] 25 mmol/L Normal 22-30 [facility] Comment on above: Performed By: #### B MPF, T42, RTSH, LIP2 #### [place] [address] Creatinine [Mass/Vol] 0.70 mg/dL Normal 0.7-1.2 [facility] Comment on above: Performed By: #### B MPF, T42, RTSH, LIP2 #### [place] [address] EST. GFR, >60 Normal [facility] Comment on above: Performed By: #### B MPF, T42, RTSH, LIP2 #### [place] [address] EST. GFR,Non >60 Normal [facility] Comment on above: Performed By: #### B MPF, T42, RTSH, LIP2 #### [place] [address] GFR Information Average GFR for 30-3 9 years old = 109. Normal [facility] Comment on above: Result Comment: Etcher Electrolytic silverio Kidney disease, GFR = <60. Kidney failure, GFR = <15. The GFR estimate is not adjusted for extreme body surface area or acute process, nor has it been validated for women or ethnic groups other than and . Testing performed at [place] [address] Performed By: #### B MPF, T42, RTSH, LIP2 #### [place] [address] Glucose [Mass/Vol] 105 mg/dL High 70-100 [facility] Comment on above: Result Comment: NORMAL <100 mg/dL PREDIABETES 101-126 mg/dL DIABETES 126 mg/dL or higher Performed By: #### B MPF, T42, RTSH, LIP2 #### [place] [address] Potassium [Moles/Vol] 4.4 mmol/L Normal 3.5-5.1 [facility] Comment on above: Performed By: #### B MPF, T42, RTSH, LIP2 #### [place] [address] Sodium [Moles/Vol] 140 mmol/L Normal 137-145 [facility] Comment on above: Performed By: #### B MPF, T42, RTSH, LIP2 #### [place] [address] Urea nitrogen [Mass/Vol] 11 mg/dL Normal 7-20 [facility] Comment on above: Performed By: #### B MPF, T42, RTSH, LIP2 #### [place] [address] FREE T4on 01-30-2020 Free T4 [Mass/Vol] 0.42 ng/dL Low 0.78-2.19 [facility] Comment on above: Result Comment: Test ing performed at [place] [address] Performed By: #### B MPF, T42, RTSH, LIP2 #### [place] [address] LIPID PROFILEon 01-30-2020 Cholesterol [Mass/Vol] 176 mg/dL Normal 107-217 [facility] Comment on above: Performed By: #### B MPF, T42, RTSH, LIP2 #### [place] [address] Cholesterol in HDL [Mass/Vol] 33 mg/dL Normal 33-75 [facility] Comment on above: Performed By: #### B MPF, T42, RTSH, LIP2 #### Testing performed at [place] [id number] Cholesterol in LDL [Mass/Vol] 117 mg/dL Normal [facility] Comment on above: Performed By: #### B MPF, T42, RTSH, LIP2 #### [place] [address] Cholesterol in VLDL [Mass/Vol] 26 mg/dL High 5.0-25 [facility] Comment on above: Performed By: #### B MPF, T42, RTSH, LIP2 #### [place] [address] Cholesterol.total/Chol esterol in HDL [Mass ratio] 5.33 {ratio} Normal [facility] Comment on above: Result Comment: RISK TOTAL/HDL RATIO MEN WOMEN 1/2 AVERAGE 3.43 3.27 AVERAGE 4.97 4.44 2X AVERAGE 9.55 7.05 3X AVERAGE 23.99 11.04 Testing performed at [place] [address] Performed By: #### B MPF, T42, RTSH, LIP2 #### [place] [address] Triglyceride [Mass/Vol] 132 mg/dL Normal 0-150 [facility] Comment on above: Performed By: #### B MPF, T42, RTSH, LIP2 #### [place] [address] TSH,REFLEX FREE T4on 020 TSH,REFLEX FREE T4 42.900 uIU/ML High 0.46-4.68 [facility] Comment on above: Result Comment: Test ing performed at [place] [address] Performed By: #### B MPF, T42, RTSH, LIP2 #### [place] [address] CHEST PA AND LATERALon 09-15 CHEST PA AND LATERAL Final ReportAccession No: [id number] Performed: Sep 14 2017 10:05PMExamination: CHEST PA AND LATERALIMAGES REVIEWED: CHEST PA AND LATERALCOMPARISON: Acute abdomen series dated 05/31/2017.CLINICAL INDICATION: Fever and cough.FINDINGS: The heart is normal in size. There is bilateral peribronchialthickeni ng. There is no significant pneumothorax or pleural effusion. Noacuteosseous abnormality is seen.IMPRESSION:Bilat eral peribronchial thickening which can be seen with bronchitis.Interpreti ng Physician: NAVIN SHIN M.D.Trans: md : cc: Normal [facility] Repor ton 07-20-2017 [facility] Report Type: OrthopedicDictated by: To be signed by: Transcribed by: Transcribed D/ Dictation D/ Report: DATE OF VISIT: 06/10/2017 Re: Lee Howard presents to the office today in followup of her bilateral carpal tunnel syndrome. She has had night splints that she has tried, as well as an injection that Dr. Baxter did in February. Those injections and splints have not helped her. She has constant numbness and tingling of her hands and is having a fair amount of pain as a result of that. On exam today, she has positive Tinel's, positive Phalen's, 2-point discrimination that is absent in all of her fingers except her left thumb where it is normal. She is able to make a composite fist. She has brisk capillary refill. Skin is warm and dry. ASSESSMENT: Severe bilateral carpal tunnel syndrome. PLAN: I discussed the natural history and treatment options with her. I do think surgical intervention is in her best interest. She does need to wait until she gets her income tax return. I will schedule an appointment back for 6 weeks, and, hopefully, at that point, we can get her scheduled for surgery. This note was dictated by Lizeth Hernandez PA-C. [facility] CBCon 05-31-2017 ABSOLUTE BAS 0.1 X10 Normal [facility] Comment on above: Performed By: #### A CBC, CMPF, LIPA2 ####Testing performed at [facility] [place] [address] ABSOLUTE EOS 0.10 X10 Normal [facility] Comment on above: Performed By: #### A CBC, CMPF, LIPA2 ####Testing performed at [address] [address] Basophils/100 WBC Auto (Bld) 1.2 % Normal 0.0-2.0 [facility] Comment on above: Performed By: #### A CBC, CMPF, LIPA2 ####Testing performed at [address] [place] [address] DTYPE AUTO DIFF Normal [facility] Comment on above: Performed By: #### A CBC, CMPF, LIPA2 ####Testing performed at [address] [address] Eosinophils/100 leukocytes 1.3 % Normal 0.0-11.0 [facility] Comment on above: Performed By: #### A CBC, CMPF, LIPA2 ####Testing performed at [address] [address] Lymphocytes 2.10 X10 Normal [facility] Comment on above: Performed By: #### A CBC, CMPF, LIPA2 ####Testing performed at [address] [place] [address] Lymphocytes/100 leukocytes 19.3 % Low 20.0-55.0 [facility] Comment on above: Performed By: #### A CBC, CMPF, LIPA2 ####Testing performed at [address] [place] [address] Monocytes 1.0 X10 Normal [facility] Comment on above: Performed By: #### A CBC, CMPF, LIPA2 ####Testing performed at [address] [place] [address] Monocytes/100 leukocytes 9.5 % Normal 0.0-10.0 [facility] Comment on above: Performed By: #### A CBC, CMPF, LIPA2 ####Testing performed at [address] [place] [address] Neutrophils 7.3 x10 High 1.0-7.0 [facility] Comment on above: Performed By: #### A CBC, CMPF, LIPA2 ####Testing performed at [address] [address] Neutrophils/100 leukocytes 68.7 % Normal 37.0-75.0 [facility] Comment on above: Performed By: #### A CBC, CMPF, LIPA2 ####[place] [address] Erythrocyte distribution width Auto Ratio (RBC) 15.0 % High 11.5-14.5 [facility] Comment on above: Performed By: #### A CBC, CMPF, LIPA2 ####[place] [address] Erythrocytes (RBC) 5.07 /cmm Normal 4.0-5.4 [facility] Comment on above: Performed By: #### A CBC, CMPF, LIPA2 ####[place] [address] Hematocrit (HCT) 43.8 % Normal 36.0-48.0 [facility] Comment on above: Performed By: #### A CBC, CMPF, LIPA2 ####[place] [address] Hemoglobin mass conc (Bld) 14.8 g/dL Normal 12.0-16.0 [facility] Comment on above: Performed By: #### A CBC, CMPF, LIPA2 ####[place] [address] MCH 29.3 pg Normal 26.0-35.0 [facility] Comment on above: Performed By: #### A CBC, CMPF, LIPA2 ####[place] [address] MCHC mass conc (RBC) 33.9 g/dL Normal 27.0-37.0 [facility] Comment on above: Performed By: #### A CBC, CMPF, LIPA2 ####[place] [address] MCV 86.4 fL Normal 80.0-100.0 [facility] Comment on above: Performed By: #### A CBC, CMPF, LIPA2 ####[place] [address] Platelet mean volume (PMV) 7.2 fL Low 7.4-11.0 [facility] Comment on above: Performed By: #### A CBC, CMPF, LIPA2 ####Testing performed at [address] [address] Platelets 292 /cmm Normal 130.0-400.0 [facility] Comment on above: Performed By: #### A CBC, CMPF, LIPA2 ####Testing performed at [address] [address] WBC (Leukocytes) 10.7 /cmm Normal 3.6-11.0 [facility] Comment on above: Performed By: #### A CBC, CMPF, LIPA2 ####Testing performed at [address] [address] CMP FASTINGon 05-31-2017 A:G RATIO 1.2 RATIO Low 1.3-2.2 [facility] Comment on above: Performed By: #### A CBC, CMPF, LIPA2 ####Testing performed at [address] [address] Alanine aminotransferase (ALT) 25 U/L Normal 14-54 [facility] Comment on above: Performed By: #### A CBC, CMPF, LIPA2 ####Testing performed at [address] [address] Albumin 4.2 G/dl Normal 3.5-5.0 [facility] Comment on above: Performed By: #### A CBC, CMPF, LIPA2 ####Testing performed at [address] [address] Alkaline phosphatase (ALP) 68 U/L Normal 38-126 [facility] Comment on above: Performed By: #### A CBC, CMPF, LIPA2 ####Testing performed at [address] [address] Aspartate aminotransferase (AST) 24 U/L Normal 15-41 [facility] Comment on above: Performed By: #### A CBC, CMPF, LIPA2 ####Testing performed at [address] [address] Bilirubin (total) 0.4 mg/dL Normal 0.2-1.2 [facility] Comment on above: Performed By: #### A CBC, CMPF, LIPA2 ####Testing performed at [place] [id number] BUN (urea nitrogen) 10 mg/dL Normal 7-20 [facility] Comment on above: Performed By: #### A CBC, CMPF, LIPA2 ####Testing performed at [place] [id number] Creatinine 0.6 mg/dL Normal 0.52-1.04 [facility] Comment on above: Performed By: #### A CBC, CMPF, LIPA2 ####[place] [address] eGFR (non-black) Average GFR for 30-3 9 years old = 109. Normal [facility] Comment on above: Result Comment: Etcher Electrolytic silverio Kidney disease, GFR = <60.Kidney failure, GFR = <15.The GFR estimate is not adjusted for extreme body surface area or acute process, nor has it been validated for women or ethnic groups other than and . Performed By: #### A CBC, CMPF, LIPA2 ####Testing performed at [place] [id number] eGFR (non-black) mL/min/{1.73_m2} Normal [facility] Comment on above: Performed By: #### A CBC, CMPF, LIPA2 ####Testing performed at [address] [address] Protein 7.7 g/dL Normal 6.3-8.2 [facility] Comment on above: Performed By: #### A CBC, CMPF, LIPA2 ####Testing performed at [place] [id number] Calcium 8.9 mg/dL Normal 8.4-10.2 [facility] Comment on above: Performed By: #### A CBC, CMPF, LIPA2 ####Testing performed at [address] [address] Chloride 102 mmol/L Normal 98-107 [facility] Comment on above: Performed By: #### A CBC, CMPF, LIPA2 ####Testing performed at [place] [id number] CO2 26 mmol/L Normal 22-30 [facility] Comment on above: Performed By: #### A CBC, CMPF, LIPA2 ####Testing performed at [address] [address] Glucose mass conc 92 mg/dL Normal 70-100 [facility] Comment on above: Result Comment: NORM AL <100 mg/dLPREDIABETES 101-126 mg/dLDIABETES 126 mg/dL or higher Performed By: #### A CBC, CMPF, LIPA2 ####[place] [address] Potassium molar conc 3.7 mmol/L Normal 3.5-5.1 [facility] Comment on above: Performed By: #### A CBC, CMPF, LIPA2 ####[place] [address] Sodium 136 mmol/L Low 137-145 [facility] Comment on above: Performed By: #### A CBC, CMPF, LIPA2 ####Testing performed at [place] [id number] ED NOTEon 05-31-2017 [facility] NOTES Normal [facility] ED PROVIDERon 05-31-2017 [facility] NOTES Normal [facility] LACTIC ACIDon 05-31-2017 Lactate 0.9 mmol/L Normal 0.5-2.2 [facility] Comment on above: Performed By: #### L ACT ####Testing performed at [address] [address] LIPASE,SERUMon 05-31-2017 LIPASE,SERUM 26 U/L Normal 23-300 [facility] Comment on above: Performed By: #### A CBC, CMPF, LIPA2 ####Testing performed at [address] [address] RAPID FLU AANDBon 05-31-2017 INFLUENZA A AG Positive Abnormal NEGATIVE [facility] Comment on above: Result Comment: Resu lt called to read back by: SHIVA 05/31/2017 @ 12:53 by MAT Performed By: #### R FLUAB ####Testing performed at [address] [address] INFLUENZA B AG Negative Normal NEGATIVE [facility] Comment on above: Result Comment: TEST ING PERFORMED BY LORRIE Performed By: #### R FLUAB ####Testing performed at [address] [address] RAPID STREP GROUP Aon 2016 Rapid strep test Negative Normal NEGATIVE [facility] Comment on above: Result Comment: STRE P CULTURE TO FOLLOWTESTING PERFORMED BY LORRIE Performed By: #### R SAT ####Testing performed at [address] [address] THROAT CULTUREon 05-31-2017 THROAT CULTURE SPECIMEN DESCRIPTION THROAT SWAB CULTURE USUAL OROPHARYNGEAL ALEXEI * Result Note: Testing performed at [place] [address] * REPORT STATUS 06/02/2017 * Result Note: FINAL * Normal [facility] Comment on above: Performed By: #### T HRC ####Testing performed at [place] [address]Testing performed at [address] [address] URINE HCG QUALon 05-31-2017 HCG.beta subunit ( test) Ql (U) Negative Normal NEGATIVE [facility] Comment on above: Performed By: #### U HCGT ####Testing performed at [address] [address] URINE MACROSCOPICon 05-31-20 17 Bilirubin Ql (U) Negative Normal NEGATIVE [facility] Comment on above: Performed By: #### U MAC ####Testing performed at [address] [address] URINE HEMOGLOBIN Negative Normal NEGATIVE [facility] Comment on above: Performed By: #### U MAC ####Testing performed at [address] [address] URINE KETONE Negative Normal NEGATIVE [facility] Comment on above: Performed By: #### U MAC ####Testing performed at [address] [address] URINE LEUKOTEST Negative Normal NEGATIVE [facility] Comment on above: Performed By: #### U MAC ####Testing performed at [address] [place] [address] URINE NITRATES Negative Normal NEGATIVE [facility] Comment on above: Performed By: #### U MAC ####Testing performed at [address] [place] [address] URINE SPEC GRAVITY 1.020 Normal 1.010-1.025 [facility] Comment on above: Performed By: #### U MAC ####Testing performed at [address] [address] URINE TOTAL PROTEIN Negative Normal NEGATIVE [facility] Comment on above: Performed By: #### U MAC ####Testing performed at [address] [place] [address] Urine, clarity CLEAR Abnormal CLEAR [facility] Comment on above: Performed By: #### U MAC ####Testing performed at [address] [place] [address] Urine, color YELLOW Normal YELLOW [facility] Comment on above: Performed By: #### U MAC ####Testing performed at [address] [address] Urine, glucose presence Negative Normal NEGATIVE [facility] Comment on above: Performed By: #### U MAC ####Testing performed at [address] [address] Urine, pH 7.0 [pH] Normal 5.0-7.0 [facility] Comment on above: Performed By: #### U MAC ####Testing performed at [address] [address] Urine, urobilinogen 0.2 mg/dl Normal 0.2-1.0 [facility] Comment on above: Performed By: #### U MAC ####Testing performed at [address] [address] XR ACUTE ABDOMINAL SERIESon 05-31-2017 XR ACUTE ABDOMINAL SERIES ABDOMINAL SERIES WITH CHEST:ADDITIONAL CLINICAL INFORMATION: Vomiting. Fever. Coughing.COMPARISON: Prior chest radiograph 03/01/2015.FINDINGS: Single view of the chest and 2 views of the abdomen were obtained. Cardiomediastinal silhouette and pulmonary vascularity are within normal limits. The lungs and the costophrenic angles are clear. The bowel gas pattern is unremarkable. There is no evidence of bowel obstruction or significant ileus. No evidence of free intraperitoneal gas.IMPRESSION:1. Unremarkable chest.2. Unremarkable bowel gas pattern. Normal [facility] ED NOTEon 05-19-2017 [facility] NOTES Normal [facility] NOT[facility] Normal [facility] NOTES Normal [facility] ED PROVIDERon 05-19-2017 [facility] NOTES Normal [facility] Vital Signs Date Time Vital Sign Value Performing Clinician Faci lity 10-14-2021 00:45-0400 Diastolic blood pressure 58 mm[Hg] Ozzy Cheng MD Work Phone: [facility] 10-14-2021 00:45-0400 Heart rate 100 /min Ozzy Cheng MD Work Phone: [facility] 10-14-2021 00:45-0400 Respiratory rate 18 /min Ozzy Cheng MD Work Phone: [facility] 10-14-2021 00:45-0400 SaO2% (BldA) [Mass fraction] 94 % Ozzy Cheng MD Work Phone: [facility] 10-14-2021 00:45-0400 Systolic blood pressure 127 mm[Hg] Ozzy Cheng MD Work Phone: [facility] 10-13-2021 22:25-0400 Body height 167.6 cm Ozzy Cheng MD Work Phone: [facility] 10-13-2021 22:23-0400 Body temperature 97.9 [degF] Ozzy Cheng MD Work Phone: [facility] 01-22-2021 12:44-0400 Body mass index (BMI) [Ratio] 60.23 kg/m2 Jackie Mitchell MD Work Phone: [facility] 01-22-2021 12:44-0400 Body weight 154.22 kg Jackie Mitchell MD Work Phone: [facility] 01-18-2021 18:07-0400 Diastolic blood pressure 99 mm[Hg] Karin Mcmanus CNP Work Phone: [facility] 01-18-2021 18:07-0400 Heart rate 95 /min Karin Mcmanus CIGAR INSPECTOR Work Phone: [employer] 01-18-2021 18:07-0400 Systolic blood pressure 172 mm[Hg] Karin Mcmanus CIGAR INSPECTOR Work Phone: [facility] 01-18-2021 16:26-0400 Body height 160 cm Karin Mcmanus CIGAR INSPECTOR Work Phone: [employer] 01-18-2021 16:24-0400 Body temperature 98.01 [degF] Karin Mcmanus CIGAR INSPECTOR Work Phone: [employer] 01-18-2021 16:24-0400 SaO2% (BldA) [Mass fraction] 97 % Karin Mcmanus CIGAR INSPECTOR Work Phone: [facility] [employer] Encounters Encounter Date Encounter Type Care Provider Facility Start: 10-13-2021 End: 10-14-2021 Emergency department patient visit Ozzy Cheng MD Work Phone: [facility] Emergency Department Start: 04-02-2021 End: 04-06-[address] [facility] Start: 04-02-2021 End: 04-02-2021 ambulatory Karin Mcmanus CIGAR INSPECTOR Work Phone: [facility] Comment on above: Chronic bilateral lo w back pain without sciatica Start: 04-01-2021 End: 04-02-[address] [facility] Start: 03-25-2021 End: 03-29-[address] [facility] Start: 03-18-2021 End: 03-22-[address] [facility] Start: 02-27-2021 End: 03-03-2021 ambulatory PHYSICIAN [facility] Start: 01-26-2021 End: 01-26-2021 Subsequent hospital visit by physician Jackie Mitchell MD Work Phone: [facility] Ultrasound Comment on above: Arrived Start: 01-22-2021 End: 01-22-2021 Office outpatient new 45 minutes Jackie Mitchell MD Work Phone: [facility] [employer]TING MACHINE [employer]ER [employer] Comment on above: Type 2 diabetes iman itus with hyperglycemia, without long-term current use of insulin (Primary Dx); Obesity: body mass index of 50 or higher; Hypothyroidism, unspecified type; Class 3 severe obesity due to excess calories with serious comorbidity and body mass index (BMI) of 50.0 to 59.9 in adult; Menometrorrhagia; Primary dysmenorrhea Start: 01-18-2021 End: 01-18-2021 Emergency department patient visit [facility] Start: 11-24-2020 End: 11-28-2020 ambulatory PHYSICIAN [facility] Start: 09-19-2017 End: 09-19-2017 Emergency department patient visit [place] Marylin Ender Facility:[facility] Start: 09-14-2017 End: 09-15-2017 Emergency department patient visit Johnambreen Allison Alla Facility:[facility] Start: 05-31-2017 End: 05-31-2017 Emergency department patient visit INEZ HOWELL [facility] Start: 05-19-2017 End: 05-19-2017 Emergency department patient visit OZZY CHENG [facility] Procedures Date Procedure Procedure Detail Performing Clinician Start: 10-13-2021 Radiologic exam ches t 2 views Ozzy Cheng MD Work Phone: Start: 03-05-2021 3 comp foot exam completed Ishan Guzmán OSTEOPATHIC PHYSICIAN Start: 02-27-2021 Microalbumin [Mass/v olume] in Urine by Test strip Ishan Guzmán OSTEOPATHIC PHYSICIAN Start: 01-26-2021 Us pelvic nonobstetr ic real-time image complete Jackie Mitchell MD Work Phone: Start: 01-18-2021 Culture bacterial quanttative colony count urine Marivel Teague MOTORCYCLE SERVICE TECHNICIAN-CIGAR INSPECTOR Work Phone: Start: 01-18-2021 Gonadotropin chorion ic qualitative Marivel [place] MOTORCYCLE SERVICE TECHNICIAN-CIGAR INSPECTOR Work Phone: Start: 01-18-2021 Urinalysis, reagent strip without microscopy Marivel [place] MOTORCYCLE SERVICE TECHNICIAN-CIGAR INSPECTOR Work Phone: Start: 01-18-2021 Complete blood count with white cell differential, automated Marivel [place] MOTORCYCLE SERVICE TECHNICIAN-CIGAR INSPECTOR Work Phone: Start: 11-24-2020 Adult depression scr eening assessment Ishan Guzmán OSTEOPATHIC PHYSICIAN Plan of Treatment Date Care Activity Detail Author Start: 03-05-2022 Diabetic foot examination Foot Exam [facility] Start: 02-27-2022 Microalbumin measurement, urine, quantitative Urine Microalbumin [facility] Start: 02-04-2022 Influenza vaccination INFLUENZ A VACCINE (Season Ended) [facility] Start: 01-05-2022 Ophthalmic examinati on and evaluation Ophthalmology Exam [facility] Comment on above: Postponed from 08/17 (Not Indicated) Start: 11-24-2021 Depression screening using PHQ-9 (Patient Health Questionnaire 9) score Depression Screening (PHQ-2/9) [facility] Start: 11-06-2021 COVID-19 VACCINE (3 - Booster for Pfizer series) COVID-19 VACCINE (3 - Booster for Pfizer series) [facility] Start: 08-30-2021 Hemoglobin A1c measurement A1C [facility] Start: 06-01-2021 End: 06-01-2021 Patient encounter procedure 06/01/2021 Office Visit Primary Care Karin Mcmanus CNP [address] [place] [phone] [facility] Start: 05-27-2021 Hemoglobin A1c measurement HBA1C TEST [facility] Start: 04-22-2021 End: 04-22-2021 ambulatory 04/22/2021 Treatment Rehabilitation Karin Mcmanus CNP [address] [place] [phone] Ania Valdez, PT [facility] Start: 04-20-2021 End: 04-20-2021 ambulatory 04/20/2021 Treatment Rehabilitation Karin Mcmanus CNP [address] [place] [phone] Ishan Guzmán [facility] Start: 04-15-2021 End: 04-15-2021 ambulatory 04/15/2021 Treatment Rehabilitation Karin Mcmanus, CIGAR INSPECTOR [address] [facility] [place] [address] Ishan Guzmán [facility] Start: 04-14-2021 End: 04-14-2021 Patient encounter procedure 04/14/2021 Office Visit Podiatry Marivel Leal, DPM [address] [facility] [place] [phone] [facility] Start: 04-13-2021 End: 04-13-2021 ambulatory 04/13/2021 Treatment Rehabilitation Karin Mcmanus, CIGAR INSPECTOR [address] [facility] [place] [address] Mary Vela [facility] Start: 04-08-2021 End: 04-08-2021 ambulatory 04/08/2021 Treatment Rehabilitation Karin Mcmanus, CIGAR INSPECTOR [address] [facility] [place] [address] Vijay Bryant [facility] Start: 04-06-2021 End: 04-06-2021 ambulatory 04/06/2021 Treatment Rehabilitation McmanusMonicaKarin Cornelia, CIGAR INSPECTOR [address] [facility] [place] [address] Vijay Bryant [facility] Start: 02-04-2021 Influenza vaccination [facility] Start: 01-29-2021 LIPIDS LIPIDS [facility] Start: 01-29-2021 Thyroid stimulating hormone measurement TSH [facility] Start: 01-22-2021 End: 01-22-2022 Transvaginal ultrasonography of pelvis US PELVIC W TRANSVAGINAL Imaging Routine Menometrorrhagia Primary dysmenorrhea Expected: 01/22/2021, Expires: 01/22/2022 [facility] Work Phone: Comment on above: Expected: 01/22/2021 , Expires: 01/22/2022 Start: 08-17-2004 Screening for malign ant neoplasm of cervix CERVICAL CANCER SCREENING DISCUSSION [facility] Start: 08-17-2002 Third diphtheria, tetanus and acellular pertussis (DTaP) vaccination TDAP (ADULT) [facility] Start: 08-17-2001 Hepatitis C screening Hepatitis C Sc reening [facility] Start: 08-17-2001 Tetanus vaccination TETANUS [facility] Start: 08-17-1998 HIV screening [facility] Start: 1995 COVID-19 Vaccine (1) COVID-19 Vaccin e (1) [facility] Start: 08-17-1989 PNEUMOCOCCAL VACCINE SERIES (1 - PCV) PNEUMOCOCCAL VACCINE SERIES (1 - PCV) [facility] Start: 08-17-1989 Pneumococcal Vaccine : Ped or At-Risk (1 of 2 - PPSV23) Pneumococcal Vaccine: Ped or At-Risk (1 of 2 - PPSV23) [facility] Start: 08-17-1986 History and physical examination, annual for health maintenance Wellness Visit [facility] Start: 1983 Diabetic foot examination DIABETIC FOOT EXAM [facility] Start: 1983 Diabetic retinal eye exam [facility] Start: 1983 Hepatitis C antibody , confirmatory test HEPATITIS C VIRUS SCREENING [facility] Start: 1983 Microalbumin measurement, urine, quantitative URINE MICROALBUMIN TEST [facility] Start: 1983 Screening for malign ant neoplasm of cervix Pap Smear [facility] Start: 1983 Tetanus vaccination Tetanus: Every 1 0yrs [facility] Bacteria identified in Urine by Culture URINE CULTURE Microbiology Routine 01/18/2021 6:05 PM EDT [facility] Work Phone: Payers Date Payer Category Payer Unknown JASPER RAMIRES [id number] 2020-Present [address] [place] [address] [id number] 2019 Medicaid [id number] 2019 Medicaid [id number] 1985 Unknown [id number] 1985 Unknown [id number] 1985 Unknown [id number] 1985 Unknown [id number] 1985 Unknown [id number] 1985 Unknown [id number] 1985 Unknown [id number] 1985 Unknown [id number] Self-pay [id number] Self-pay [id number] Social History Date Type Detail Facility Start: 11-24-2020 End: 01-18-2021 Tobacco smoking status [facility] Smokes tobacco daily [facility] Start: 11-24-2020 End: 01-18-2021 Tobacco use and exposure Smokeless tobacco non-user [facility] Start: 03-13-2021 End: 10-13-2021 Alcohol intake Ex-drinker (finding) [facility] Start: 1985 Sex Assigned At Not on file [facility] [employer] Start: 10-03-2021 End: 10-14-2021 Exposure to SARS-CoV-2 (event) Not sure [facility] History of tobacco use Cigarette Smoker [facility] [employer] Start: 05-19-2017 End: 01-18-2021 Cigarettes smoked current (pack per day) - Reported [facility] Medical Equipment Procedure Code Equipment Code Equipment Origin al Text Equipment Identifier Dates by Miscellaneous route daily And as needed . [id number] Start: 11-24-2020 Daily and as needed . [id number] Sta rt: 11-24-2020 by Other route daily. [id number] Sta rt: 11-24-2020 Daily and as needed . [id number] Sta rt: 11-24-2020 True Metrix Bloo d Glucose Test Strip strip [id number] Start: 01-05-2021 Goals Date Patient Goal Desired Activity /State Comment on above: Formatting of this n ote might be different from the original. Good Nutrition: Make healthier food choices Reduce portion size Comment on above: Formatting of this n ote might be different from the original. Blood sugar levels outside the normal range may be an indicator of diabetes. Clinical Notes 01-18-2021 to 10-13-2021 Ozzy Cheng MD - 10/13/2021 11:21 PM Timmy Cheng MD - 10/13/2021 11:21 PM Tonia Hammond RN - 10/13/2021 10:28 PM Tonia Hammond RN - 10/13/2021 10:28 PM EDTInstructions Note Date & Type Note Facility 10-13-2021 Physician Emergen cy department Note DEPARTMENT OF EMERGENCY MEDICINE CHIEF COMPLAINT Cough and Chest Congestion (Pt c/o cough and chest congestion x1 week. Pt states I cough so much that I cant breathe and then I throw up. ) HPI Lee West is a 36 y.o. female who presents with fever, headache, rhinorrhea, sore throat, and cough. She states she does have some posttussive emesis. She has had symptoms for about 5 days. Her doctor called her in an albuterol inhaler and some cough medications. She does not feel she is improving. REVIEW OF SYSTEMS Review of Systems See history of present illness. PAST MEDICAL HISTORY Past Medical History: Diagnosis Date Diabetes 11/26/2020 Essential hypertension, benign GERD (gastroesophageal reflux disease) Hyperlipidemia Hypothyroidism Obstructive sleep apnea 01/30/2020 SURGICAL HISTORY Past Surgical History: Procedure Laterality Date HYSTERECTOMY TOTAL ABDOMINAL ROBOTIC SINGLE SITE W/ REMS Midline 04/29/2021 Laterality: Midline; Surgeon: Kary Cano MD; [facility] CURRENT MEDICATIONS No current facility-administered medications for this encounter. Current Outpatient Medications Medication Sig Dispense Refill albuterol 108 (90 Base) MCG/ACT Aero Soln inhaler Inhale 1 puff every 6 hours as needed for Shortness of Breath. atorvastatin 10 MG tablet benzonatate 100 MG capsule Take 200 mg by mouth 3 times daily as needed for Cough. faMOTIdine 20 MG tablet fluticasone 50 MCG/ACT Suspension nasal spray 2 sprays by Nasal route daily. glipiZIDE 10 MG tablet regular release Take 10 mg by mouth daily. glipiZIDE 5 MG tablet regular release Take 1 tablet by mouth every morning before breakfast. 30 tablet 0 glucose blood test strips (Precision QID Test) Strip strip by Other route daily. hydroCODone-acetaminophen 5-325 MG tablet Take 1 tablet by mouth every 4 hours as needed for Moderate Pain for up to 7 days. 28 tablet 0 ibuprofen 200 MG tablet Take 200 mg by mouth every 6 hours as needed. Pt states she is taking 5-6 Tablets every 4-6 hrs ibuprofen 800 MG tablet Take 1 tablet by mouth every 8 hours as needed for Mild Pain or Moderate Pain. 30 tablet 1 Lancets Thin Misc Daily and as needed . lansoprazole [address] capsule Take 15 mg by mouth daily. levothyroxine 150 MCG tablet Take 150 mcg by mouth. lisinopril 10 MG tablet Take 10 mg by mouth daily. metFORMIN 1000 MG tablet Take 1,000 mg by mouth 2 times daily with meals. naproxen 500 MG tablet Take 500 mg by mouth 2 times daily as needed. simethicone 80 MG Chew Tab chewable tablet Chew 1 tablet every 6 hours as needed for Gas or Flatulence. 20 tablet 0 tiZANidine 4 MG tablet True Metrix Blood Glucose Test Strip strip ALLERGIES No Known Allergies FAMILY HISTORY Family History Problem Relation Age of Onset Thyroid Disease Mother Hypertension Mother Lung Cancer Other Grandmother SOCIAL HISTORY Social History Socioeconomic History Marital status: Single Spouse name: Not on file Number of children: Not on file Years of education: Not on file Highest education level: Not on file Occupational History Not on file Tobacco Use Smoking status: Current Every Day Smoker Packs/day: 1.00 Years: 15.00 Pack years: 15.00 Types: Cigarettes Smokeless tobacco: Never Used Substance and Sexual Activity Alcohol use: Not Currently Drug use: Never Sexual activity: Yes Partners: Male Other Topics Concern Not on file Social History Narrative Not on file Social Determinants of Health Financial Resource Strain: Not on file Food Insecurity: Not on file Transportation Needs: Not on file Physical Activity: Not on file Stress: Not on file Social Connections: Not on file Intimate Partner Violence: Not on file Housing Stability: Not on file PHYSICAL EXAM BP 133/65 Pulse 114 Temp 97.9 F (36.6 C) (Oral) Resp 20 Ht 1.676 m (5' 6 ) SpO2 94% BMI 54.72 kg/m Smoking Status Current Every Day Smoker Physical Exam The patient is well-developed, obese, and in no acute distress. Head is atraumatic and normocephalic. Pupils are equal and reactive. Face is symmetric. Nasal exam shows some rhinorrhea with clear mucous. Mucous membranes are moist. Neck is supple. Heart is regular rate and rhythm. Lungs are clear to auscultation. Skin is warm and dry. Extremities are warm and well perfused and without acute deformity. Neurologically, the patient is awake, alert, and without acute deficit. Psychiatrically, the patient is calm and cooperative. ED COURSE & MEDICAL DECISION MAKING Chest x-ray findings were reviewed. I will start the patient on Zithromax. Follow up with primary care. Ozzy Cheng MD 10/14/21 0030 [facility] 10-13-2021 Emergency departm ent Note DEPARTMENT OF EMERGENCY MEDICINE CHIEF COMPLAINT Cough and Chest Congestion (Pt c/o cough and chest congestion x1 week. Pt states I cough so much that I cant breathe and then I throw up. ) HPI Lee West is a 36 y.o. female who presents with fever, headache, rhinorrhea, sore throat, and cough. She states she does have some posttussive emesis. She has had symptoms for about 5 days. Her doctor called her in an albuterol inhaler and some cough medications. She does not feel she is improving. REVIEW OF SYSTEMS Review of Systems See history of present illness. PAST MEDICAL HISTORY Past Medical History: Diagnosis Date Diabetes 11/26/2020 Essential hypertension, benign GERD (gastroesophageal reflux disease) Hyperlipidemia Hypothyroidism Obstructive sleep apnea 01/30/2020 SURGICAL HISTORY Past Surgical History: Procedure Laterality Date HYSTERECTOMY TOTAL ABDOMINAL ROBOTIC SINGLE SITE W/ REMS Midline 04/29/2021 Laterality: Midline; Surgeon: Kary Cano MD; [facility] CURRENT MEDICATIONS No current facility-administered medications for this encounter. Current Outpatient Medications Medication Sig Dispense Refill albuterol 108 (90 Base) MCG/ACT Aero Soln inhaler Inhale 1 puff every 6 hours as needed for Shortness of Breath. atorvastatin 10 MG tablet benzonatate 100 MG capsule Take 200 mg by mouth 3 times daily as needed for Cough. faMOTIdine 20 MG tablet fluticasone 50 MCG/ACT Suspension nasal spray 2 sprays by Nasal route daily. glipiZIDE 10 MG tablet regular release Take 10 mg by mouth daily. glipiZIDE 5 MG tablet regular release Take 1 tablet by mouth every morning before breakfast. 30 tablet 0 glucose blood test strips (Precision QID Test) Strip strip by Other route daily. hydroCODone-acetaminophen 5-325 MG tablet Take 1 tablet by mouth every 4 hours as needed for Moderate Pain for up to 7 days. 28 tablet 0 ibuprofen 200 MG tablet Take 200 mg by mouth every 6 hours as needed. Pt states she is taking 5-6 Tablets every 4-6 hrs ibuprofen 800 MG tablet Take 1 tablet by mouth every 8 hours as needed for Mild Pain or Moderate Pain. 30 tablet 1 Lancets Thin Misc Daily and as needed . lansoprazole [address] capsule Take 15 mg by mouth daily. levothyroxine 150 MCG tablet Take 150 mcg by mouth. lisinopril 10 MG tablet Take 10 mg by mouth daily. metFORMIN 1000 MG tablet Take 1,000 mg by mouth 2 times daily with meals. naproxen 500 MG tablet Take 500 mg by mouth 2 times daily as needed. simethicone 80 MG Chew Tab chewable tablet Chew 1 tablet every 6 hours as needed for Gas or Flatulence. 20 tablet 0 tiZANidine 4 MG tablet True Metrix Blood Glucose Test Strip strip ALLERGIES No Known Allergies FAMILY HISTORY Family History Problem Relation Age of Onset Thyroid Disease Mother Hypertension Mother Lung Cancer Other Grandmother SOCIAL HISTORY Social History Socioeconomic History Marital status: Single Spouse name: Not on file Number of children: Not on file Years of education: Not on file Highest education level: Not on file Occupational History Not on file Tobacco Use Smoking status: Current Every Day Smoker Packs/day: 1.00 Years: 15.00 Pack years: 15.00 Types: Cigarettes Smokeless tobacco: Never Used Substance and Sexual Activity Alcohol use: Not Currently Drug use: Never Sexual activity: Yes Partners: Male Other Topics Concern Not on file Social History Narrative Not on file Social Determinants of Health Financial Resource Strain: Not on file Food Insecurity: Not on file Transportation Needs: Not on file Physical Activity: Not on file Stress: Not on file Social Connections: Not on file Intimate Partner Violence: Not on file Housing Stability: Not on file PHYSICAL EXAM BP 133/65 Pulse 114 Temp 97.9 F (36.6 C) (Oral) Resp 20 Ht 1.676 m (5' 6 ) SpO2 94% BMI 54.72 kg/m Smoking Status Current Every Day Smoker Physical Exam The patient is well-developed, obese, and in no acute distress. Head is atraumatic and normocephalic. Pupils are equal and reactive. Face is symmetric. Nasal exam shows some rhinorrhea with clear mucous. Mucous membranes are moist. Neck is supple. Heart is regular rate and rhythm. Lungs are clear to auscultation. Skin is warm and dry. Extremities are warm and well perfused and without acute deformity. Neurologically, the patient is awake, alert, and without acute deficit. Psychiatrically, the patient is calm and cooperative. ED COURSE & MEDICAL DECISION MAKING Chest x-ray findings were reviewed. I will start the patient on Zithromax. Follow up with primary care. Ozzy Cheng MD 10/14/21 0030 Pt states she is currently on albuterol inhaler and tessalon pearls since Tuesday. . Respiratory assessment of pt completed. Pt placed back into waiting room at this time and instructed to notify staff of any change in condition. Pt verbalized understanding. documented in this encounter [facility] 10-13-2021 Emergency departm ent Note Pt states she is currently on albuterol inhaler and tessalon pearls since Tuesday. . Respiratory assessment of pt completed. Pt placed back into waiting room at this time and instructed to notify staff of any change in condition. Pt verbalized understanding. [facility] 04-02-2021 History of Presen t illness Narrative [facility] OUTPATIENT REHABILITATION DAILY TREATMENT NOTE Today's Date 04/02/2021 Patient Name: Lee West Date of : 1985 Current Visit #: 3 Authorized Visits: 24 Case Name: Chronic midline low back, thoracic pain History: Pre-Treatment Pain Scale: 9 Symptoms: stabilized Functional Diagnosis: 1. Chronic bilateral low back pain without sciatica Clinical Information: Subjective: Pt states mid back pain is a 7/10 and LBP and R hip pain is a 8-9/10. Pt states had no change in sxs or soreness after last session. Objective : Started and introduced nustep for improvement of functional strength and mobility. Pt cont with stretching to decrease tightness. Cont with core engaged strengthening exercises for lumbar stabilization. Added lateral ambulation for hip strengthening and standing postural strengthening. Manual STM to R sided LB/ R hip region with focus on piriformis region. Treatments: Physical Therapy Exercise Log - 04/02/21 0915 OTHER Precautions/Contraindications chronic pain Notes PT: Ania core stability, back flexibility, hamstring stretching, STM to parspinal muscle and PA mobs for pain and mobility Vitals 0915-9:47 Therapeutic Exercise (31928) Intervention seated HS stretching 20 x3 bilat (on 4 inch box) Parameters standing back bends against raised plinth 1-2 x 10, then x 10 to end after manual STM Intervention hooklying abdominal bracing 5 x 10, seated abdominal bracing 5 x10 Parameters seated trunk gentle trunk rotation x10 bilat watch ROM (limited wiht (L) rot) Intervention hooklying LTR with HOB elevated for pt comfort 2-3 2x10 bilat (limited with (R) rotation) Parameters Nustep L3 5' with UE use Intervention lateral ambulation at plinth 3 laps Parameters RTB rows/ ext (posture focus) x10 each Parameters HEP (standing extension), seated HS stretch, seated trunk rotation, LTR, supine and seated abdominal bracing Manual Therapy (56206) Intervention Manual STM in (L) sidelying in (R) QL/LB with 2# med ball to warm up then with hands 8 mins PT Treatment Times Therex Total Time 24 Manual Therapy Total Time 8 Direct Treatment Time 32 Total Treatment Time 32 Goals: Physical Therapy Ortho Goals: The patient will safely, correctly and independently demonstrate the ability to perform a progressive HEP to achieve maximal rehabilitation potential and prevent this condition from recurring. 2 weeks The patient will demonstrate pain level down 2 points from 5-9. 6 weeks The patient will demonstrate increased core stabilisation of the spine in order to be able to walk 1 hour.. 6 weeks The patient will demonstrate postural awareness and able to self correct posture through out the therapy session. 6 weeks Patient will increase FOTO score to at least 54 (predicted) from 40 to show MDC/MCII and expected functional outcome. 6 weeks Patient Education: Quality of movement with patient demonstrated understanding. Post-Treatment Pain Scale: 9 Assessment: Patient had an expected response to treatment. (R) HS tightness > (L). Pt had no change in pain or sxs post session. Moderate pressure tolerated with STM 2# med ball. Verbal and visual cues for proper performance and sequence of each exercise. Skilled Intervention demonstrated by modifications of treatment per exercise log including increased load and safety interventions per exercise log. Progress towards goals as expected. Plan for Next Visit: Treatment Visit with focus on Cont POC monitor response and progress per tolerance. Ishan Guzmán PTA STATE LICENSE, [id number] documented in this encounter [facility] 01-22-2021 History of Presen t illness Narrative [facility] Office visit LMP hard for her to tell, they have been irregular all of her life She states its been years since she had a PAP done Lee West is 35 y.o. G0 with complaints of abnormal uterine bleeding. Pt reports she has never had regular cycles. In her late teens, she had and USN that showed cysts on my ovaries and was told she would never have children. Pt tried OC for cycle regulation once , attempt lasted 2 months, and pt states was unsuccessful b/c never stopped bleeding. Since then, pt reports she has menses every 2-4 months, and they are prolonged and heavy when they occur. In this past year, she states thay have been the worst , with 3+ months between episodes, and heavier flow with each menses. Pt was just restarted on Synthroid and states next lab draw in in February. I advised her irregularity in thyroid can contribute to issues with menses, but unlikely to be the main issue here. She estimated she has used 2 tampons per hour at times and somedays its a tampon every 2 hours, its not consistent. Pt presented to the ED after noting acute heavy flow. She was stable with Hb 14.6 and was sent home to follow up as outpatient. Pt states bleeding is still heavy, but improved from that time. We discussed will order pelvic USN, and range of options will depend upon findings. Medical options such as Depo Provera or Mirena, Surgical options such as Novasure, etc. Pt reports that she does not desire /children. Will start pt on Aygestin taper to improve bleeding while we await USN findings. Pt also aware we will schedule annual/Pap once bleeding is under control to minimize chance of unsatisfactory specimen. Her past medical history is has a past medical history of Diabetes (11/26/2020), GERD (gastroesophageal reflux disease), Hypothyroidism, and Obstructive sleep apnea (01/30/2020). She also has no past medical history of Anemia, Arrhythmia, Arthritis, Asthma, Bleeding disorder, CAD (coronary artery disease), Cardiac angina, Congestive heart failure, COPD (chronic obstructive pulmonary disease), Depression, Essential hypertension, benign, Glaucoma, Hepatitis, HIV (human immunodeficiency virus infection), Hyperlipidemia, Hyperthyroidism, Liver disease, NC (myocardial infarction), Migraine, Pacemaker, Renal disease, Seizure, Stroke, TIA (transient ischemic attack), or Vascular disease. Current medications include: Current Outpatient Medications Medication Sig atorvastatin 10 MG tablet faMOTIdine 20 MG tablet glipiZIDE 10 MG tablet regular release Take 10 mg by mouth daily. glipiZIDE 5 MG tablet regular release Take 1 tablet by mouth every morning before breakfast. ibuprofen 200 MG tablet Take 200 mg by mouth every 6 hours as needed. Pt states she is taking 5-6 Tablets every 4-6 hrs levothyroxine 125 MCG tablet lisinopril 10 MG tablet Take 10 mg by mouth daily. meloxicam 15 MG tablet Take 1 tablet by mouth daily. metFORMIN 1000 MG tablet Take 1,000 mg by mouth 2 times daily with meals. naproxen 500 MG tablet Take 1 tablet by mouth 2 times daily with meals for 20 doses. Alleviating factors include nothing Aggravating factors include sometimes movement or even relaxing The patient does have any additional complaints, has large amount of blood clots at times and horrible cramps She recently started taking her Thyroid pill and her periods have gotten worse. Review of Systems Constitutional: Negative. HENT: Negative. Eyes: Negative. Respiratory: Negative. Cardiovascular: Negative. Gastrointestinal: Negative. Endocrine: Negative. Musculoskeletal: Negative. Skin: Negative. Allergic/Immunologic: Negative. Neurological: Negative. Hematological: Negative. Psychiatric/Behavioral: Negative. All other systems reviewed and are negative. ALLERGIES: No Known Allergies HISTORY: Past Medical History: Diagnosis Date Diabetes 11/26/2020 GERD (gastroesophageal reflux disease) Hypothyroidism Obstructive sleep apnea 01/30/2020 No past surgical history on file. Family History Problem Relation Age of Onset Thyroid Disease Mother Hypertension Mother Lung Cancer Other Grandmother Social History Socioeconomic History Marital status: Single Spouse name: Not on file Number of children: Not on file Years of education: Not on file Highest education level: Not on file Occupational History Not on file Tobacco Use Smoking status: Current Every Day Smoker Packs/day: 1.00 Years: 15.00 Pack years: 15.00 Types: Cigarettes Smokeless tobacco: Never Used Substance and Sexual Activity Alcohol use: Not Currently Drug use: Never Sexual activity: Yes Partners: Male Other Topics Concern Not on file Social History Narrative Not on file Social Determinants of Health Financial Resource Strain: Difficulty of Paying Living Expenses: Food Insecurity: Worried About Running Out of Food in the Last Year: Ran Out of Food in the Last Year: Transportation Needs: Lack of Transportation (Medical): Lack of Transportation (Non-Medical): Physical Activity: Days of Exercise per Week: Minutes of Exercise per Session: Stress: Feeling of Stress : Social Connections: Frequency of Communication with Friends and Family: Frequency of Social Gatherings with Friends and Family: Attends Islam Services: Active Member of Clubs or Organizations: Attends Club or Organization Meetings: Marital Status: Intimate Partner Violence: Fear of Current or Ex-Partner: Emotionally Abused: Physically Abused: Sexually Abused: CURRENT MEDICATIONS: Current Outpatient Medications Medication Sig atorvastatin 10 MG tablet faMOTIdine 20 MG tablet glipiZIDE 10 MG tablet regular release Take 10 mg by mouth daily. glipiZIDE 5 MG tablet regular release Take 1 tablet by mouth every morning before breakfast. ibuprofen 200 MG tablet Take 200 mg by mouth every 6 hours as needed. Pt states she is taking 5-6 Tablets every 4-6 hrs levothyroxine 125 MCG tablet lisinopril 10 MG tablet Take 10 mg by mouth daily. meloxicam 15 MG tablet Take 1 tablet by mouth daily. metFORMIN 1000 MG tablet Take 1,000 mg by mouth 2 times daily with meals. naproxen 500 MG tablet Take 1 tablet by mouth 2 times daily with meals for 20 doses. norethindrone 5 MG tablet Take 1 tablet by mouth As directed. Take one tablet PO TID x 5 days, then one tablet PO BID x 14 days, then one tablet daily PHYSICAL EXAMINATION Wt (!) 340 lb (154.2 kg) BMI 60.23 kg/m Smoking Status Current Every Day Smoker Physical Exam Vitals and nursing note reviewed. Exam conducted with a field auto appraiser present. Constitutional: General: She is not in acute distress. HENT: Head: Normocephalic and atraumatic. Comments: Face within normal limits, no hirsutism present Right Ear: External ear normal. Left Ear: External ear normal. Mouth/Throat: Lips: Chambers. No lesions. Dentition: Normal dentition. Eyes: General: No scleral icterus. Cardiovascular: Comments: No cyanosis Pulmonary: Effort: Pulmonary effort is normal. Abdominal: General: Bowel sounds are normal. Palpations: There is no mass. Tenderness: There is no abdominal tenderness. Hernia: No hernia is present. Genitourinary: Vagina: Normal. No lesions. Cervix: No discharge, lesion or cervical bleeding. Uterus: Normal. Not enlarged and not tender. Adnexa: Right: No mass or tenderness. Left: No mass or tenderness. Comments: Normal appearance for age No discharge present No tenderness present Musculoskeletal: Right lower leg: No edema. Left lower leg: No edema. Neurological: Mental Status: She is alert. Due to computer issue, exam findings listed here: Pt's morbid obesity limits effective bimanual exam. There are no abnormalities noted, but pelvic USN is necessary for adequate evaluation. ASSESSMENT AND PLAN Ms. Lee West is a 35 y.o. who presents with complaint of long standing menometrorrhagia. Lee was seen today for vaginal bleeding. Diagnoses and all orders for this visit: Type 2 diabetes mellitus with hyperglycemia, without long-term current use of insulin Obesity: body mass index of 50 or higher Hypothyroidism, unspecified type Class 3 severe obesity due to excess calories with serious comorbidity and body mass index (BMI) of 50.0 to 59.9 in adult Menometrorrhagia Primary dysmenorrhea Other orders - norethindrone 5 MG tablet; Take 1 tablet by mouth As directed. Take one tablet PO TID x 5 days, then one tablet PO BID x 14 days, then one tablet daily Will schedule pelvic USN and follow up to discuss options for management Start Aygestin taper for bleeding control - pt is aware this may not stop bleeding entirely. Schedule return in 2 weeks for USN follow up. 01/22/2021 Jackie Mitchell MD LMP hard for her to tell, they have been irregular all of her life She states its been years since she had a PAP done Lee West is 35 y.o. with complaints abnormal uterine bleeding. Her cycles are continuous without stopping. This is the primary problem for this visit. The patient reports continuous episodes of bleeding in the last month(s). Her periods occur approximately every month to 2 months. She estimated she has used 2 tampons per hour at times and somedays its a tampon every 2 hours, its not consistent She has had a history of bleeding. Her past medical history is has a past medical history of Diabetes (11/26/2020), GERD (gastroesophageal reflux disease), Hypothyroidism, and Obstructive sleep apnea (01/30/2020). She also has no past medical history of Anemia, Arrhythmia, Arthritis, Asthma, Bleeding disorder, CAD (coronary artery disease), Cardiac angina, Congestive heart failure, COPD (chronic obstructive pulmonary disease), Depression, Essential hypertension, benign, Glaucoma, Hepatitis, HIV (human immunodeficiency virus infection), Hyperlipidemia, Hyperthyroidism, Liver disease, NC (myocardial infarction), Migraine, Pacemaker, Renal disease, Seizure, Stroke, TIA (transient ischemic attack), or Vascular disease. Current medications include: Current Outpatient Medications Medication Sig atorvastatin 10 MG tablet faMOTIdine 20 MG tablet glipiZIDE 10 MG tablet regular release Take 10 mg by mouth daily. glipiZIDE 5 MG tablet regular release Take 1 tablet by mouth every morning before breakfast. ibuprofen 200 MG tablet Take 200 mg by mouth every 6 hours as needed. Pt states she is taking 5-6 Tablets every 4-6 hrs levothyroxine 125 MCG tablet lisinopril 10 MG tablet Take 10 mg by mouth daily. meloxicam 15 MG tablet Take 1 tablet by mouth daily. metFORMIN 1000 MG tablet Take 1,000 mg by mouth 2 times daily with meals. naproxen 500 MG tablet Take 1 tablet by mouth 2 times daily with meals for 20 doses. Alleviating factors include nothing, has been placed on control in the past but did not regulate her periods at all Aggravating factors include sometimes movement or even relaxing The patient does have any additional complaints, has large amount of blood clots at times and horrible cramps She recently started taking her Thyroid pill and her periods have gotten worse. Review of Systems Constitutional: Negative. HENT: Negative. Eyes: Negative. Respiratory: Negative. Cardiovascular: Negative. Gastrointestinal: Negative. Endocrine: Negative. Musculoskeletal: Negative. Skin: Negative. Allergic/Immunologic: Negative. Neurological: Negative. Hematological: Negative. Psychiatric/Behavioral: Negative. All other systems reviewed and are negative. documented in this encounter [facility] 01-22-2021 Miscellaneous Notes Addended by: DAVID MURILLO on: 01/22/2021 01:55 PM Modules accepted: Orders documented in this encounter [facility] 01-18-2021 [facility] Marivel Yu, MOTORCYCLE SERVICE TECHNICIAN-CIGAR INSPECTOR - 01/18/2021 Please follow-up with gynecology, call for appointment. Return for new, worsening, or worrisome symptoms. The following attachments cannot be sent through Care Everywhere.AUB (Abnormal Uterine Bleeding) (Frisian)documented in this encounter [facility] Evaluation note Diagnosis Chronic bilateral low back pain without sciatica [facility] DUB (dysfunctional uterine bleeding)- Primary Other disorder of menstruation and other abnormal bleeding from female genital tract [facility] Diagnosis Type 2 diabetes mellitus with hyperglycemia, without long-term current use of insulin- Primary Obesity: body mass index of 50 or higher Hypothyroidism, unspecified type Class 3 severe obesity due to excess calories with serious comorbidity and body mass index (BMI) of 50.0 to 59.9 in adult Menometrorrhagia Excessive or frequent menstruation Primary dysmenorrhea Dysmenorrhea [facility] Diagnosis Menometrorrhagia Excessive or frequent menstruation Primary dysmenorrhea Dysmenorrhea [facility] Diagnosis Acute bronchitis, unspecified organism- Primary [facility] Attachments The following attachments cannot be sent through Care Everywhere. * Acute Bronchitis or Chest Cold Care Instructions ([facility]) ([place]risian) [facility] (narrative)* Consultation (Urgent) - New Request Specialty Diagnoses / Procedures Referred By Sherrie wilcox Referred To Contact DECORATIVE CUTTING MACHINE TENDER Diagnoses DUB (dysfunctional uterine bleeding) Marivel Teague APRN-CNP [address] [address] Jackie Mitchell MD [address] [place], [place] [id number] Referral ID Status Reason Start Date Expiration Date V isits Requested Visits Authorized [id number] New Request 01/18/2021 02/12/2022 1 1 [facility] Summary Purpose Family History No Family History Records FoundNo Family History Records FoundNo Family History Records FoundNo Family History Records FoundNo Family History Records FoundNo Family History Records FoundNo Family History Records Found Advance Directives No Advanced Directives Records FoundDocuments on File Type Date Recorded Patient Sales Agent Pest Control Service Expl anation Advance Directives and Livin g Will 04/01/2021 11:32 AM Latest Code Status on File Code Status Date Activated Date Inactivated Comments Full Code 04/29/2021 1:43 PM Reason for Referral Specialty Diagnoses / Procedures Referred By Sherrie wilcox Referred To Contact Diagnoses Menometrorrhagia Primary dysmenorrhea Procedures US PELVIC W TRANSVAGINAL Jackie Mitchell MD [address] [place] [address] Referral ID Status Reason Start Date Expiration Date V isits Requested Visits Authorized [id number] New Request 01/22/2021 02/16/2022 1 1 Specialty Diagnoses / Procedures Referred By Contac t Referred To Contact Ultrasound Diagnoses Menometrorrhagia Primary dysmenorrhea Procedures US PELVIC W TRANSVAGINAL Jackie Mitchell MD [address] [place] [address] [facility] Ultrasound [address] [place] [address] Referral ID Status Reason Start Date Expiration Date Visits Re quested Visits Authorized [id number] Closed 01/22/2021 02/16/2022 1 1 Additional Source Comments INFORMATION SOURCE (unrecogn ized section and content) DATE CREATED AUTHOR 11/24/2017 [facility] DATE CREATED AUTHOR AUTHOR'S ORGANIZ ATION 11/29/2017 [facility] DATE CREATED AUTHOR AUTHOR'S ORGANIZ ATION 04/01/2018 [facility] DATE CREATED AUTHOR AUTHOR'S ORGANIZ ATION 11/28/2020 [facility] DATE CREATED AUTHOR AUTHOR'S ORGANIZ ATION 03/03/2021 [facility] DATE CREATED AUTHOR AUTHOR'S ORGANIZ ATION 04/06/2021 [facility] DATE CREATED AUTHOR AUTHOR'S ORGANIZ ATION 10/15/2021 [facility] Reason for Visit (unrecogniz ed section and content) Reason Comments Physical Therapy Specialty Diagnoses / Procedures Referred By Contac t Referred To Contact Rehabilitation Diagnoses Chronic midline low back pain without sciatica Chronic midline thoracic back pain Karin Mcmanus, CIGAR INSPECTOR [address] [place] [address] [facility] [address] [place] [address] Referral ID Status Reason Start Date Expiration Date V isits Requested Visits Authorized [id number] Authorized 03/11/2021 09/03/2021 12 24 Reason Comments Vaginal Bleeding x1 month, increased today Reason Comments Vaginal Bleeding Has had abnormal ble eding most of her adult life Specialty Diagnoses / Procedures Referred By Contac t Referred To Contact Ultrasound Diagnoses Menometrorrhagia Primary dysmenorrhea Procedures US PELVIC W TRANSVAGINAL Jackie Mitchell MD [address] [place] [address] [facility] Ultrasound [address] [facility] [place]Note [facility] [place] [address] Referral ID Status Reason Start Date Expiration Date Visits Re quested Visits Authorized [id number] Closed 01/22/2021 02/16/2022 1 1 Reason Comments Cough Chest Congestion Pt c/o cough and marivel st congestion x1 week. Pt states I cough so much that I cant breathe and then I throw up. Care Teams (unrecognized sec tion and content) [employer]ist [employer] Relationship Specialty Start Date End Date Karin Mcmanus CIGAR INSPECTOR [address] [place] [address] PCP - General Nurse Practitioner 03/09/21 [employer] Relationship Specialty Start Date End Date McmanusKarin, GWEN [address] [place] [address] PCP - General Certified Nurse Practitioner 11/25/20 [employer] Relationship Specialty Start Date End Date Karin Mcmanus CIGAR INSPECTOR [address] [place] [address] PCP - General Certified Nurse Practitioner 11/25/20 [employer] Relationship Specialty Start Date End Date Karin Mcmanus CNP [address] [place] [address] PCP - General Certified Nurse Practitioner 11/25/20 [employer] Relationship Specialty Start Date End Date Karin Mcmanus CNP [address] [place] [address] PCP - General Certified Nurse Practitioner 11/25/20 Scheduled Active and Recently Administ ered Medications (unrecognized section and content) Medication Order 10/12/2021 10/13/2021 10/14/2021 azithromycin (ZITHROMAX) tablet 500 mg (COMPLETED) 500 mg, Oral, ONCE, 1 dose, On Tue10/14/21 at 0115 0044 (Given - Provid er: Gayle Johnson RN) FOR RECORDS PERTAINING TO PATIENTS WHO ARE OR HAVE BEEN ENROLLED IN A CHEMICAL DEPENDENCY/SUBSTANCEABUSE PROGRAM, SOME INFORMATION MAY BE OMITTED. This clinical summary was aggregated from multiple sources. Caution should be exercised in using it in the provision of clinical care. This summary normalizes information from multiple sources, and as a consequence, information in this document may materially change the coding, format and clinical context of patient data. In addition, data may be omitted in some cases. CLINICAL DECISIONS SHOULD BE BASED ON THE PRIMARY CLINICAL RECORDS. [employer] [facility]. provides no warranty or guarantee of the accuracy or completeness of information in this document.
[2024-03-30 21:22] VITALS: BP 142/92; PULSE 77; RESP 17; TEMP 36.6; O2SAT 94
== END 2024-03-30 21:24 | disposition home or self-care (01) ==
PROVIDERS: Emergency Provider Emergency Medicine; PCP Internal Medicine; Visit Provider Emergency Medicine
DX: S76.011A Strain of muscle, fascia and tendon of right hip, initial encounter (principal); E11.9 Type 2 diabetes mellitus without complications; F17.210 Nicotine dependence, cigarettes, uncomplicated; I10 Essential (primary) hypertension; E78.00 Pure hypercholesterolemia, unspecified; Z90.710 Acquired absence of both cervix and uterus; X58.XXXA Exposure to other specified factors, initial encounter; Y92.89 Other specified places as the place of occurrence of the external cause; Z79.899 Other long term (current) drug therapy; F32.A Depression, unspecified; Z79.85 Long-term (current) use of injectable non-insulin antidiabetic drugs
CPT/HCPCS: 73502; 99282

== ENCOUNTER 2024-11-17 18:20 | Emergency (ER) | payer BC, SELFPAY ==
[2024-11-17 18:21] VITALS: BP 191/112; PULSE 74; RESP 24; TEMP 36.6; O2SAT 99; BMI 59.0
--- NOTE | 2024-11-17 19:34 | EDS_ITS ---
HPI History of Present Illness Chief Complaint: Dental Informant: patient Narrative Narrative: 39-year-old female presenting to the emergency room with dental pain. Patient states that she has a tooth on the left lower posterior side that she has been to the dentist several times for for a root canal. She states that they keep sticking a needle in it and not doing anything. She states that she works a lot so she has not been able to go back. She is a smoker of cigarettes. She denies fever. She notes that the pain has been constant over the past couple days. She planned on going to see [facility] today but was unable to do so. She reports that she is not currently on any medications [facility] Medical History Post-menopausal Depression Gastric reflux Smoker Shortness of breath on exertion Flu vaccine need Thyroid disease High cholesterol Hypertension Type 2 diabetes mellitus Home Medications ?Medication ?Instructions ?Recorded ?Last Taken ?Type christina.stocking,knee,reg,xlrg #12 ea 06/29/22 Unknown Rx cholecalciferol (vitamin D3) 1,250 1,250 mcg PO QWEEK #6 caps 09/23/22 Unknown Rx mcg (50,000 unit) capsule albuterol sulfate 90 mcg/actuation 2 puff inhalation Q 4H PRN PRN 03/18/23 Unknown Rx aerosol inhaler (Ventolin HFA) Wheezing ##1 atorvastatin 20 mg tablet 20 mg PO QHS #90 tabs Unknown Rx naproxen 500 mg tablet 500 mg PO BID PRN pain #180 tabs 03/20/24 Unknown Rx semaglutide 0.25 mg or 0.5 mg (2 0.5 mg (0.736 mL) sub cut TU #3 mL 03/20/24 Unknown Rx mg/3 mL) subcutaneous pen injector (Ozempic) ibuprofen 600 mg tablet 600 mg PO Q6H PRN PRN pain # 20 03/30/24 Unknown Rx TABLETS bupropion HCl 150 mg 24 hr tablet, 150 mg PO QAM #90 t abs 04/18/24 Unknown Rx extended release (Wellbutrin XL) escitalopram oxalate 20 mg tablet 20 mg PO DAILY #90 t abs 04/18/24 Unknown Rx lansoprazole 15 mg capsule,delayed 15 mg PO DAILY #90 caps 04/18/24 Unknown Rx release levothyroxine 175 mcg tablet 175 mcg PO DAILY #90 tabs 04/18/24 Unknown Rx hydrocodone-acetaminophen 5-325mg 1 tab PO Q6H PRN wilmer n 3 days #12 11/17/24 Unknown Rx 5mg-325mg tabs ibuprofen 600 mg tablet 600 mg PO Q6H PRN PRN pain # 20 11/17/24 Unknown Rx TABLETS penicillin V potassium 500 mg 500 mg PO 4X/DAY #40 tab s 11/17/24 Unknown Rx tablet Allergy/AdvReac Type Severity Reaction Status Date / Time No Known Allergies Allergy Verified 03/30/24 19:30 Family History Father Cancer Grandmother Cancer throat Mother Myocardial infarction Thyroid disorder Hypertension Depression Surgical History History of carpal tunnel release History of hysterectomy Social History household members: none current occupational status: employed 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 [employer] Smoking Status: Current every day smoker tobacco type: cigarettes Electronic Cigarette Use: not used quit status: not considering quitting alcohol intake: never substance use type: does not use what type of physical activity do you participate in: none seatbelt use: always do you feel safe at home: Yes ROS ROS ED Constitutional Constitutional ED: Denies chills or weight loss Eyes Eyes: Denies change in vision or diplopia ENT ENT ED: Reports other Details: Dental pain ; Denies ear pain, rhinorrhea or sore throat Cardiovascular Cardiovascular: Reports other; Denies chest pain, orthopnea, palpitations or racing heartbeat Respiratory/Chest Respiratory/Chest: Denies cough, dyspnea or orthopnea Gastrointestinal Gastrointestinal: Denies abdominal pain, diarrhea, nausea or vomiting Genitourinary Genitourinary ED: Denies dysuria, hematuria or urinary frequency Musculoskeletal Musculoskeletal: Denies arthralgias or myalgias Integumentary Denies abscess or rash Neurologic Neurologic: Denies headache(s) or weakness Psychiatric Psychiatric: Denies anxiety, depression, suicidal ideation or suicidal thoughts Endocrine Endocrinology: Denies polydipsia, polyphagia or polyuria Allergic/Immunologic Allergic/Immunologic ED: Denies mouth swelling, tongue swelling or urticaria EXAM Physical Exam Const Vital Signs: 11/17/24 18:21 Temperature 98 F Temperature Source Temporal Pulse Rate 74 Respiratory Rate 24 H Blood Pressure 191/112 H Blood Pressure Mean 138 Pulse Ox 99 Oxygen Delivery Method Room Air Positive well nourished, well developed and obese General Appearance ED: well developed and NAD Nutritional Appearance: obese HEENT Reports normocephalic, head/scalp atraumatic and moist mucous membranes HEENT Narrative: Posterior most molar on the left bottom demonstrates partially completed root canal. I do not appreciate any gumline swelling or abscess. There is no evidence of gingivitis. The floor the mouth is soft. There is no trismus. No overlying facial erythema. Eyes PERRL and EOMs intact bilaterally Neck no lymphadenopathy, supple and no JVD Resp normal respiratory effort and clear to auscultation bilaterally Cardio regular rate, regular rhythm and no murmurs GI normal to inspection, nondistended, normoactive bowel sounds and non-tender Palpation: soft Back/Spine no CVA tenderness and normal ROM Extremity normal to inspection General Extremety ED: Negative for edema General Extremity: Negative for edema Neuro oriented x3 and CN's II-XII intact bilaterally Sensorium / Orientation: alert Motor Exam: strength 5/5 throughout Psych mental status grossly normal Mood & Affect: Negative for depressed or tearful Skin no rashes or lesions noted and no wounds MDM MDM MDM Narrative Medical decision making narrative: Differential diagnosis includes but not limited to Michoacano's angina dental abscess dental caries pulpitis Patient was started on penicillin as well as ibuprofen as an anti-inflammatory and a few hydrocodone. She was encouraged to stop smoking and follow-up with dentistry for definitive care History & Record Review Discussion w/independent historian: Patient Additional record(s) reviewed:: Prior ED visit Discharge Plan Triage Chief Complaint: Dental ED Provider: Terrance Diaz Dx/Rx/DC Orders Clinical Impression: Pain, dental Instructions: ED Dental Pain Prescriptions: New penicillin V potassium 500 mg tablet 500 mg PO 4X/DAY Qty: 40 0RF ibuprofen 600 mg tablet 600 mg PO Q6H PRN PRN (Reason: pain) Qty: 20 0RF hydrocodone-acetaminophen 5-325 mg tablet 1 tab PO Q6H PRN (Reason: pain) 3 Days Qty: 12 0RF No Action (DME) christina.stocking,knee,reg,xlrg Misc See Rx Instructions .Route Qty: 12 0RF Rx Instructions: As directed albuterol sulfate [Ventolin HFA] 90 mcg/actuation HFA aerosol inhaler 2 puff inhalation Q4H PRN PRN (Reason: Wheezing) Qty: 1 0RF ibuprofen 600 mg tablet 600 mg PO Q6H PRN PRN (Reason: pain) Qty: 20 0RF cholecalciferol (vitamin D3) 1,250 mcg (50,000 unit) capsule 1,250 mcg PO QWEEK Qty: 6 0RF atorvastatin 20 mg tablet 20 mg PO QHS Qty: 90 1RF naproxen 500 mg tablet 500 mg PO BID PRN (Reason: pain) Qty: 180 0RF Ozempic 0.25 mg or 0.5 mg (2 mg/3 mL) pen injector 0.5 mg subcut TU Qty: 3 2RF bupropion HCl [Wellbutrin XL] 150 mg tablet extended release 24 hr 150 mg PO QAM Qty: 90 0RF escitalopram oxalate 20 mg tablet 20 mg PO DAILY Qty: 90 0RF lansoprazole 15 mg capsule,delayed release(DR/EC) 15 mg PO DAILY Qty: 90 0RF levothyroxine 175 mcg tablet 175 mcg PO DAILY Qty: 90 0RF Primary Care Provider: Aziza Stoddard Referrals: Aziza Stoddard MD [Primary Care Provider] - Activity Restrictions/Additional Instructions: You need to follow-up with dentistry as soon as possible for definitive care. As best you can I would avoid smoking as this often irritates the nerves of the teeth. Print Language: Turkish Disposition Disposition: Home, Self Care
--- OUTSIDE RECORDS SUMMARY | 2024-11-17 19:35 | XMS RPT_ITS | CCD ---
Author Organization [facility] Care Team Providers Care Hotel Reservationist Name Role Phone John Gold Unavailable Unavailable John Gold Unavailable Unavailable Ender, Samak Marylin Unavailable Unavailable Ender, Nicole Marylin Unavailable Unavailable ESCUEOZZY G Unavailable Unavailable RITENOUR INEZ E Unavailable Unavailable RITENOUR, INEZ E Unavailable Unavailable NO, PHYSICIAN Primary Care Unavailable NO, PHYSICIAN Primary Care Unavailable Mcmanus GWEN, Rosalba Cornelia Primary Care Provider MAN MAY Attending Unavailable NO, PHYSICIAN Primary Care Unavailable MCMANUS, ROSALBA CORNELIA Admitting Unavailable ABIMBOLA VALDEZTA Attending Unavailable MCMANUS, ROSALBA CORNELIA Referring Unavailable MCMANUS, ROSALBA CORNELIA Primary Care Unavailable MCMANUS, ROSALBA CORNELIA Admitting Unavailable VIJAY BRYANT Attending Unavailable MCMANUS, ROSALBA CORNELIA Referring Unavailable MCMANUS, ROSALBA CORNELIA Primary Care Unavailable MCMANUS, ROSALBA CORNELIA Attending Unavailable MCMANUS, ROSALBA CORNELIA Referring Unavailable MCMANUS, ROSALBA CORNELIA Primary Care Unavailable MCMANUS, ROSALBA CORNELIA Attending Unavailable MCMANUS, ROSALBA CORNELIA Referring Unavailable MCMANUS, ROSALBA CORNELIA Primary Care Unavailable MCMANUS, ROSALBA CORNELIA Admitting Unavailable KAYLEEN GUZMÁN Attending Unavailable MCMANUS, ROSALBA CORNELIA Referring Unavailable MCMANUS, ROSALBA CORNELIA Primary Care Unavailable Mcmanus Rosalba HIDALGO Primary Care Provider Rosalba Mcmanus CNP Primary Care Provider Dr. Aziza Stoddard Attending Provider Dr. Aziza Stoddard Primary Care Provider Dr. Aziza Stoddard Referring Provider 1([phone]) Dr. Ousmane Valle Attending Provider 1(330) Dr. Aziza Stoddard Attending Provider 1(330) Dr. Aziza Stoddard Primary Care Provider Dr. Aziza Stoddard Referring Provider 1(330) Dr. Ousmane Valle Attending Provider [phone] Dr. Aziza Stoddard Primary Care Provider Dr. Aziza Stoddard Attending Provider 1(330) Dr. Aziza Stoddard Referring Provider 1(330) Dr. Aziza Stoddard Primary Care Provider Dr. Aziza Stoddard Attending Provider 1(330) Dr. Aziza Stoddard Referring Provider 1(330) Dr. Aziza Stoddard Other Provider Dr. Deb Dial Attending Provider Dr. Ousmane Valle Attending Provider [phone] Ledgewood, Aziza Referring Unavailable Ledgewood, Aziza Attending Unavailable Ledgewood, Aziza Primary Care Unavailable Ledgewood, Aziza Primary Care Unavailable Ousmane Valle Consulting Unavailable Ousmane Valle Referring Unavailable Ousmane Valle Attending Unavailable Ledgewood, Aziza Primary Care Unavailable Arlyn, Aziza Referring Unavailable Ousmane Valle Attending Unavailable Arlny, Aziza Primary Care Unavailable Ledgewood, Aziza Referring Unavailable Vaibhav Jarrett Attending Unavailable Arlyn, Aziza Attending Unavailable Arlyn, Aziza Primary Care Unavailable Arlyn, Aziza Referring Unavailable Ledgewood, Aziza Primary Care Unavailable Ousmane Valle Attending Unavailable Arlyn, Aziza Referring Unavailable Ousmane Valle Attending Unavailable Ledgewood, Aziza Primary Care Unavailable Ledgewood, Aziza Referring Unavailable Arlyn, Aziza Primary Care Unavailable Borruso, Ousmane Referring Unavailable Ousmane Valle Attending Unavailable Ledgewood, Aziza Attending Unavailable Ledgewood, Aziza Primary Care Unavailable Arlyn, Aziza Referring Unavailable Arlyn, Aziza Consulting Unavailable Ledgewood, Azzia Primary Care Unavailable Deb Dial Attending Unavailable Arlyn, Aziza Referring Unavailable Ledgewood, Aziza Primary Care Unavailable Ledgewood, Aziza Attending Unavailable Rosalba Hillman Referring Unavailable Rosalba Hillman Attending Unavailable Arlyn, Aziza Primary Care Unavailable FerulloRosalba Referring Unavailable EvensulloRosalba Attending Unavailable Ledgewood, Aziza Primary Care Unavailable Arlyn, Aziza Attending Unavailable Ledgewood, Aziza Primary Care Unavailable Arlyn, Aziza Referring Unavailable Ledgewood, Aziza Primary Care Unavailable Reinaldo Snyder Attending Unavailable Ousmane Valle Referring Unavailable Arlyn, Aziza Primary Care Unavailable Ousmane Valle Attending Unavailable Ledgewood, Aziza Attending Unavailable Ledgewood, Aziza Primary Care Unavailable Ledgewood, Aziza Referring Unavailable Medications Current Medications Medication Drug Class(es) Dates Sig (Normalized) Sig (Original) acetaminophen 325 mg / HYDROcodone bitartrate 5 mg oral tablet (1 source) Opioid Agonist Start: 04-29-2021 take 1 tablet by mouth every four hours as needed for pain hydroCODone-acetami nophen 5-325 MG tablet Indications: Postoperative state , Acute postoperative pain Take 1 tablet by mouth every 4 hours as needed for Moderate Pain for up to 7 days. 28 tablet 0 04/29/2021 Active [id number] actuat albuterol 0.09 mg/actuat metered dose inhaler (3 sources) beta2-Adrenergic Agonist Start: 03-18-2023 take 1 puff(s) by inhalation every four hours as needed Albuterol Sulfate (Ventolin Hfa) 90 mcg/actuation HFA aerosol inhaler Active 2 PUFF INHALATION EVERY 4 HOURS NEEDED March 18, 2023 12:00am take 1 puff(s) by in halation every six hours as needed albuterol 108 (90 Base) MCG/ACT Aero Alexa n inhaler Inhale 1 puff every 6 hours as needed for Shortness of Breath. 0 Active atorvastatin 20 mg oral tablet (14 sources) HMG-CoA Reductase Inhibitor Start: 06-29-2022 End: 09-23-2022 take 20 mg by mouth at bedtime Atorvastatin Active 20 MG PO AT BEDTIME September 23, 2022 12:42pm Start: 03-02-2021 take 1 tablet by devan th once daily at bedtime atorvastatin (LIPITOR) 20 MG tablet Indications: Type 2 diabetes mellitus without complication, without long-term current use of insulin ([facility]) , Hyperlipidemia, unspecified hyperlipidemia type Take 1 [...] Active blood-glucose meter Misc (1 source) Start: 021 blood-glucose meter Misc Indications: Type 2 diabetes mellitus with other specified complication, without long-term current use of insulin ([facility]) Daily and as needed . 1 each 0 11/24/2020 Active 24 hr buPROPion hydrochloride 150 mg extended release oral tablet (5 sources) Aminoketone Start: 023 End: 024 take 1 tablet by mouth once daily in the morning Bupropion Hcl (Wellbutrin Xl) 150 mg tablet extended release 24 hr Active 150 MG PO EVERY MORNING September 20, 2023 10:39am cholecalciferol 1.25 mg oral capsule (4 sources) Vitamin D Start: 023 take 1250 ug by mouth every week Cholecalciferol (Vitamin D3) Active 1250 MCG PO EVERY WEEK September 23, 2022 12:00am Christina.Stocking,Knee, Reg,Xlrg (5 sources) Start: 023 Christina.Stocking,Knee, Reg,Xlrg Active 0 .Route June 29, 2022 1:00am As directed Start: 06-29-2022 Christina.Stocki ng,Knee,Reg,Xlrg Active 0 .Route June 29, 2022 12:00am As directed escitalopram 20 mg oral tablet (9 sources) Serotonin Reuptake Inhibitor Start: 11-11-2022 End: 09-20-2023 take 20 mg by mouth once daily Escitalopram Oxalate Active 20 MG PO DAILY September 20, 2023 10:39am Start: 09-23-2022 End: 11-11-2022 take 1 tablet by mouth once daily Escitalopram Oxalate (Lexapro) 10 mg tablet Discontinued 10 MG PO DAILY September 23, 2022 12:00am November 11, 2022 8:20am famotidine 20 mg oral tablet (4 sources) Histamine-2 Receptor Antagonist Start: 12-29-2020 faMOTIdine 20 MG tablet fluticasone propionate 0.05 mg/actuat metered dose nasal spray (1 source) Corticosteroid fluticasone 50 MCG/ACT Suspension nasal spray 2 sprays by Nasal route daily. 0 Active ibuprofen 800 mg oral tablet (5 sources) Nonsteroidal Anti-inflammatory Drug Start: 04-29-2021 take 1 tablet by mouth every eight hours as needed ibuprofen 800 MG tablet Take 1 tablet by mouth every 8 hours as needed for Mild Pain or Moderate Pain. 30 tablet 1 04/29/2021 Active take 1 tablet by devan every six hours as needed ibuprofen 200 MG tablet Take 200 mg by mouth every 6 hours as needed. Pt states she is taking 5-6 Tablets every 4-6 hrs 0 Active meloxicam 15 mg oral tablet (3 sources) Nonsteroidal Anti-inflammatory Drug Start: 01-30-2020 take 1 tablet by mouth once daily meloxicam 15 MG tablet Indications: Chronic bilateral low back pain without sciatica Take 1 tablet by mouth daily. 30 tablet 0 01/30/2020 Active norethindrone acetate 5 mg oral tablet (2 sources) Start: 01-22-2021 End: 03-23-2021 norethindrone 5 MG tablet Take 1 tablet by mouth As directed. Take one tablet PO TID x 5 days, then one tablet PO BID x 14 days, then one tablet daily 80 tablet 0 01/22/2021 03/23/2021 Active Semaglutide (2 sources) Start: 09-20-2023 Semaglutide (Ozempic) 0.25 mg or 0.5 mg (2 mg/3 mL) pen injector Active 0.25 MG SC EVERY WEEK 3 September 20, 2023 12:00am for 4 weeks simethicone 80 mg chewable tablet (1 source) Start: 04-29-2021 take 1 tablet by mouth every six hours as needed simethicone 80 MG Chew Tab chewable tablet Chew 1 tablet every 6 hours as needed for Gas or Flatulence. 20 tablet 0 04/29/2021 Active tiZANidine 4 mg oral tablet (2 sources) Central alpha-2 Adrenergic Agonist Start: 03-05-2021 End: 03-05-2022 tiZANidine 4 MG tablet Completed/Discontinued Medications Medication Drug Class(es) Dates Sig (Normalized) Sig (Original) cetirizine hydrochloride 10 mg oral tablet (3 sources) Histamine-1 Receptor Antagonist Start: 11-11-2022 End: 10-11-2023 take 1 tablet by mouth once daily Cetirizine (Zyrtec) 10 mg tablet Discontinued 10 MG PO DAILY November 11, 2022 12:00am October 11, 2023 8:10am doxycycline monohydrate 100 mg oral capsule (2 sources) Tetracycline-class Drug Start: 03-18-2023 End: 09-20-2023 take 100 mg by mouth twice daily Doxycycline Monohydrate Discontinued 100 MG PO TWICE A DAY March 18, 2023 12:00am September 20, 2023 10:02am glipiZIDE 10 mg oral tablet (14 sources) Sulfonylurea Start: 06-29-2022 End: 09-23-2022 take 10 mg by mouth once daily Glipizide Discontinued 10 MG PO DAILY June 29, 2022 1:00am September 23, 2022 9:55am Start: 12-01-2020 take 1 tablet by devan th once daily glipiZIDE (GLUCOTROL) 10 MG tablet [...] breakfast. 30 tablet 0 11/26/2020 11/26/2021 Active lansoprazole 15 mg delayed release oral capsule (18 sources) Proton Pump Inhibitor Start: 06-29-2022 End: 09-20-2023 take 15 mg by mouth once daily Lansoprazole Discontinued 15 MG PO DAILY September 23, 2022 12:42pm September 20, 2023 10:41am Start: 03-02-2021 take 1 capsule by mo uth once daily lansoprazole [address] capsule Take 15 mg by mouth daily. 0 03/02/2021 Active levothyroxine sodium 0.175 mg oral tablet (20 sources) l-Thyroxine Start: 06-29-2022 End: 09-20-2023 take 175 ug by mouth once daily Levothyroxine Discontinued 175 MCG PO DAILY September 23, 2022 12:57pm September 20, 2023 10:41am Start: 03-02-2021 levothyroxine 150 MCG tablet Take 150 mcg by mouth. 0 03/02/2021 Active Start: 12-29-2020 levothyroxine 125 MCG tablet lisinopril 10 mg oral tablet (20 sources) Angiotensin Converting Enzyme Inhibitor Start: 06-29-2022 End: 10-05-2023 take 10 mg by mouth once daily Lisinopril Discontinued 10 MG PO DAILY September 23, 2022 12:42pm October 05, 2023 2:24pm On Hold: controlled BP Start: 06-29-2022 End: 06-29-2022 Lisinopril Discontinued MG P O June 29, 2022 1:00am June 29, 2022 4:48pm Start: 03-02-2021 take 1 tablet by devan th once daily lisinopriL (PRINIVIL,ZESTRIL) 10 MG tablet Indications: Essential hypertension Take 1 (one) tablet (10 mg total) by mouth daily . 30 tablet 2 03/02/2021 Active metFORMIN hydrochloride 500 mg oral tablet (13 sources) Biguanide Start: 11-11-2022 End: 09-20-2023 take 500 mg by mouth twice daily Metformin Discontinued 500 MG PO TWICE A DAY 180 November 11, 2022 8:18am September 20, 2023 10:38am Start: 06-29-2022 End: 11-11-2022 take 1000 mg by mouth twice daily Metformin Discontinued 1000 MG PO TWICE A DAY June 29, 2022 1:00am November 11, 2022 8:20am Start: 03-02-2021 take 1 tablet by devan th twice daily at mealtime metFORMIN (GLUCOPHAGE) 1000 MG tablet Indications: Type 2 diabetes mellitus without complication, without long-term current use of insulin (HCC) Take 1 (one) tablet (1,000 mg total) by mouth 2 (two) times a day with meals . 60 tablet 2 03/02/2021 Active naproxen 500 mg oral tablet (18 sources) Nonsteroidal Anti-inflammatory Drug Start: 06-29-2022 End: 09-20-2023 take 500 mg by mouth twice daily Naproxen Discontinued 500 MG PO TWICE A DAY 60 September 23, 2022 12:42pm November 11, 2022 8:20am Start: 03-11-2021 take 1 tablet by devan th twice daily as needed naproxen 500 MG tablet Take 500 mg by mouth 2 times daily as needed. 0 03/11/2021 Active Start: 10-27-2020 take 1 tablet by devan th twice daily at mealtime naproxen 500 MG tablet Take 1 tablet by mouth 2 times daily with meals for 20 doses. 20 tablet 0 10/27/2020 Active predniSONE 20 mg oral tablet (2 sources) Start: 03-18-2023 End: 09-20-2023 take 60 mg by mouth once daily Prednisone Discontinued 60 MG PO DAILY March 18, 2023 12:00am September 20, 2023 10:38am Problems Active Problems Problem Classification Problem Date Documented Da te Episodic/Chronic Acute bronchitis (3 sources) Acute bronchitis, unspecified; Translations: [Acute bronchitis] Onset: 05-19-2017 Episodic Administrative/social admission (2 sources) Persons encountering health services in other specified circumstances; Translations: [Other reasons for seeking consultation] 06-29-2022 Episodic Anxiety disorders (8 sources) Anxiety disorder, unspecified; Translations: [Anxiety state, unspecified] Onset: 09-20-2023 3 Chronic Attention-deficit, conduct, and disruptive behavior disorders (2 sources) Other symptoms and signs involving appearance and behavior; Translations: [Other specified behavioral problem] 09-20-2023 Episodic Chronic obstructive pulmonary disease and bronchiectasis (2 sources) Fetid chronic bronchitis; Translations: [Mucopurulent chronic bronchitis] 03-26-2023 Chronic Diabetes mellitus with complications (5 sources) Type 2 diabetes mellitus; Translations: [Type 2 diabetes mellitus with hyperglycemia] Onset: 11-26-2020 11-26-2020 Chronic Diabetes mellitus without complication (15 sources) Diabetes mellitus; Translations: [Type 2 diabetes mellitus without complications] Onset: 11-24-2020 11-24-2020 Chronic Disorders of lipid metabolism (12 sources) Hyperlipidemia; Translations: [Hyperlipidemia, unspecified] Onset: 12-01-2020 12-01-2020 Chronic Essential hypertension (14 sources) Essential hypertension; Translations: [Essential (primary) hypertension] Onset: 11-24-2020 11-24-2020 Chronic Immunizations and screening for infectious disease (7 sources) Needs influenza immunization; Translations: [Encounter for immunization] 06-29-2022 Episodic Menstrual disorders (5 sources) Menometrorrhagia; Translations: [Excessive and frequent menstruation with irregular cycle] Onset: 04-07-2021 Chronic Mood disorders (8 sources) Major depressive disorder, single episode, severe without psychotic features; Translations: [Depressive disorder, not elsewhere classified] Onset: 12-22-2023 06-29-2022 Chronic Mood disorders (1 source) Mood disorders; Translations: [Depression, unspecified] Onset: 12-14-2023 Nutritional deficiencies (4 sources) Vitamin D deficiency, unspecified; Translations: [Unspecified vitamin D deficiency] Onset: 09-20-2023 11-11-2022 Chronic Other connective tissue disease (2 sources) Other symptoms and signs involving the nervous system; Translations: [Other symptoms involving nervous and musculoskeletal systems] 06-29-2022 Episodic Other connective tissue disease (2 sources) Other specified soft tissue disorders; Translations: [Swelling of limb] 06-29-2022 Episodic Other female genital disorders (1 source) Abnormal uterine bleeding; Translations: [Other specified abnormal uterine and vaginal bleeding] Chronic Other female genital disorders (1 source) Hematometra; Translations: [Abnormal uterine and vaginal bleeding, unspecified] Onset: 04-07-2021 04-07-2021 Chronic Other gastrointestinal disorders (5 sources) Heartburn; Translations: [Heartburn] 06-29-2022 Episodic Other gastrointestinal disorders (7 sources) Heartburn; Translations: [Heartburn] 06-29-2022 Episodic Other nervous system disorders (6 sources) Ulnar neuropathy; Translations: [Lesion of ulnar nerve, right upper limb] 07-12-2022 Chronic Other nervous system disorders (5 sources) 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; Translations: [Lesion of ulnar nerve, bilateral upper limbs] 07-12-2022 Chronic Other nervous system disorders (6 sources) Carpal tunnel syndrome; Translations: [Carpal tunnel syndrome, bilateral upper limbs] 07-12-2022 Chronic Other nervous system disorders (12 sources) Carpal tunnel syndrome, bilateral upper limbs; Translations: [Carpal tunnel syndrome] Onset: 10-04-2023 06-29-2022 Chronic Other nervous system disorders (2 sources) Lesion of ulnar nerve, bilateral upper limbs; Translations: [Lesion of ulnar nerve] 07-12-2022 Chronic Other nervous system disorders (2 sources) Lesion of ulnar nerve, right upper limb; Translations: [Ulnar neuropathy at elbow of right upper extremity] 07-12-2022 Chronic Other nervous system disorders (2 sources) Lesion of ulnar nerve, left upper limb; Translations: [Ulnar neuropathy at elbow of left upper extremity] 07-12-2022 Chronic Other nervous system disorders (1 source) Carpal tunnel syndrome, left upper limb; Translations: [Carpal tunnel syndrome, left upper limb] Onset: 12-06-2023 Chronic Other nervous system disorders (1 source) Carpal tunnel syndrome, right upper limb; Translations: [Carpal tunnel syndrome, right upper limb] Onset: 01-18-2024 Chronic Other nutritional; endocrine; and metabolic disorders (6 sources) Severe obesity; Translations: [Morbid (severe) obesity due to excess calories] Onset: 01-30-2020 03-05-2021 Chronic Other nutritional; endocrine; and metabolic disorders (5 sources) Morbid obesity; Translations: [Morbid (severe) obesity due to excess calories] Onset: 01-30-2020 01-30-2020 Chronic Other nutritional; endocrine; and metabolic disorders (2 sources) Morbid (severe) obesity due to excess calories; Translations: [Morbid obesity] 09-20-2023 Chronic Other upper respiratory disease (1 source) Nasal congestion; Translations: [Other disease of nasal cavity and sinuses] 11-11-2022 Episodic Other upper respiratory disease (2 sources) Acute bronchospasm; Translations: [Acute bronchospasm] 03-26-2023 Episodic Residual codes; unclassified (5 sources) Obstructive sleep apnea syndrome; Translations: [Obstructive sleep apnea (adult) (pediatric)] Onset: 01-30-2020 11-24-2020 Chronic Residual codes; unclassified (6 sources) Obstructive sleep apnea (adult) (pediatric); Translations: [Obstructive sleep apnea (adult)(pediatric)] Onset: 01-19-2024 09-23-2022 Chronic Residual codes; unclassified (1 source) Sleep apnea, unspecified; Translations: [Sleep apnea, unspecified] Onset: 02-13-2024 Chronic Residual codes; unclassified (5 sources) Tobacco user; Translations: [Tobacco use] 07-12-2022 Episodic Residual codes; unclassified (2 sources) Tobacco use; Translations: [Tobacco use disorder] 07-12-2022 Episodic Sprains and strains (1 source) Strain of muscle, fascia and tendon of right hip, initial encounter; Translations: [Strain of muscle, fascia and tendon of right hip, initial encounter] Onset: 04-20-2024 Episodic Substance-related disorders (14 sources) Nicotine dependence; Translations: [Nicotine dependence, cigarettes, uncomplicated] Onset: 11-24-2020 11-24-2020 Chronic Thyroid disorders (19 sources) Hypothyroidism; Translations: [Hypothyroidism, unspecified] Onset: 01-30-2020 [...] conditions (not mental disorders or infectious disease) (8 sources) Patient encounter status; Translations: [Encounter for screening for lipoid disorders] Onset: 01-30-2020 01-30-2020 Episodic Spondylosis; intervertebral disc disorders; other back problems (6 sources) Chronic low back pain; Translations: [Chronic bilateral low back pain without sciatica] Onset: 01-30-2020 Episodic Results Test Name Value Interpretation Reference Range Facility Emergency Department Summary on 03-30-2024 Emergency Department Summary [facility] Medical Records Department [address] [place] [address] Emergency Department Summary 03/30/24 MR#: [id number] Acct: [id number] Name: LEE WEST Rep #: [id number] : 1985 38 From: Reinaldo Lindsey PCP: Dr. Aziza Stoddard MD Status:DEP ER Location: ED HPI History of Present Illness Chief Complaint: Lower Extremity Injury Informant: patient Narrative Narrative: Reports pain in her right hip after getting out of the shower this morning. She turned and felt a pop in her hip. No medications taken for pain. She went to work unable to continue work therefore came here. Denies any allergies to medications. Denies history of gastric ulcers or kidney disease. Prior similar symptoms: No PFSH PFSH Medical History Post-menopausal Depression Gastric reflux Smoker Shortness of breath on exertion Flu vaccine need Thyroid disease High cholesterol Hypertension Type 2 diabetes mellitus Home Medications ???Medication ???Instructions ???Recorded ???Last Taken ???Type christina.stocking,knee ,reg,xlrg #12 ea 06/29/22 Unknown Rx cholecalciferol (vitamin D3) 1,250 1,250 mcg PO QWEEK #6 caps 09/23/22 Unknown Rx mcg (50,000 unit) capsule albuterol sulfate 90 mcg/actuation 2 puff inhalation Q4H PRN PRN 03/18/23 Unknown Rx aerosol inhaler (Ventolin HFA) Wheezing ##1 atorvastatin 20 mg tablet 20 mg PO QHS #90 tabs 12/15/23 Unknown Rx bupropion HCl 150 mg 24 hr tablet, 150 mg PO QAM #90 tabs 01/13/24 Unknown Rx extended release (Wellbutrin XL) escitalopram oxalate 20 mg tablet 20 mg PO DAILY #90 tabs 01/13/24 Unknown Rx lansoprazole 15 mg capsule,delayed 15 mg PO DAILY #90 caps 01/13/24 Unknown Rx release levothyroxine 175 mcg tablet 175 mcg PO DAILY #90 tabs 01/13/24 Unknown Rx naproxen 500 mg tablet 500 mg PO BID PRN pain #180 tabs 03/20/24 Unknown Rx semaglutide 0.25 mg or 0.5 mg (2 0.5 mg (0.736 mL) subcut TU #3 mL 03/20/24 Unknown Rx mg/3 mL) subcutaneous pen injector (Ozempic) ibuprofen 600 mg tablet 600 mg PO Q6H PRN PRN pain #20 03/30/24 Unknown Rx TABLETS Allergy/AdvReac Type Severity Reaction Status Date / Time No Known Allergies Allergy Verified 03/30/24 19:30 Family History Father Cancer Grandmother Cancer throat Mother Myocardial infarction Thyroid disorder Hypertension Depression Surgical History History of carpal tunnel release History of hysterectomy Social History household members: none current occupational status: employed 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 [employer] Smoking Status: Current every day smoker tobacco type: cigarettes Electronic Cigarette Use: not used quit status: not considering quitting alcohol intake: never substance use type: does not use what type of physical activity do you participate in: none seatbelt use: always do you feel safe at home: Yes ROS ROS ED Constitutional Constitutional ED: Denies chills, fever(s) or sweats Eyes Eyes: Denies change in vision ENT ENT ED: Denies dysphagia or sore throat Cardiovascular Cardiovascular: Denies chest pain, leg edema, palpitations or racing heartbeat Respiratory/Chest Respiratory/Chest: Denies cough, dyspnea or dyspnea on exertion Gastrointestinal Gastrointestinal: Denies abdominal pain, diarrhea, nausea or vomiting Genitourinary Genitourinary ED: Denies dysuria, hematuria or urinary frequency Musculoskeletal Musculoskeletal: Reports extremity pain; Denies back pain or neck pain Integumentary Denies rash or wounds Neurologic Neurologic: Denies headache(s), paresthesias or weakness EXAM Physical Exam Const Vital Signs: 03/30/24 19:30 03/30/24 21:22 Temperature 98.2 F 98 F Temperature Source Temporal Pulse Rate 86 77 Respiratory Rate 18 17 Blood Pressure 152/81 H 142/92 H Blood Pressure Mean 104 108 Pulse Ox 98 94 Oxygen Delivery Method Room Air Positive well nourished and well developed General Appearance ED: well developed and NAD HEENT Reports moist mucous membranes normocephalic and atraumatic Eyes EOMs intact bilaterally and conjunctivae normal General Eye ED: Yes normal appearance of both eyes Neck no lymphadenopathy and supple General: Negative for tenderness Chest Wall Chest: Negative for tenderness Resp normal respiratory effort and normal air movement Effort and Inspection: symmetric chest movement; Negative for respiratory distress Cardio regular rate, regular rhythm and no murmurs Peripheral Pulses: pulses 2+ throughout GI normal to inspection, nondistended, normoactive bowel sounds and non-tender Pa (more content not included)... Normal [facility] HIP, UNI W/ Pelvis 2-3 Views on 03-30-2024 HIP, UNI W/ Pelvis 2-3 Views [facility] Imaging Services [address] [place] [id number] HIP, UNI W/ Pelvis 2-3 Views MR#: [id number] Acct: [id number] Name: LEE WEST Rep #: [id number] : 1985 F 38 From: Haresh snyder MD PCP: Dr. Aziza Stoddard MD Status: PRE ER Study: HIP, UNI W/ Pelvis 2-3 Views Date of Exam: Exam# [id number] Ordering Dr: Reinaldo Snyder DO [id number] INDICATION: pain EXAMINATION/TECHNIQUE : X-RAY - RIGHT XR Hip Unilateral with Pelvis when performed; 2-3 Views COMPARISON: None. FINDINGS: No acute fracture or malalignment. No blastic or lytic lesions. No degenerative changes are seen. The soft tissues are unremarkable. RAD/HIP, UNI W/ Pelvis 2-3 Views IMPRESSION: No acute radiographic abnormalities. Electronically Signed: Haresh Wheeler MD at 20:45 EDT , CC: Dr. Aziza Stoddard MD; Dr. Reinaldo Snyder DO Paper Folder: Signed Normal [facility] Orthopedic Visit Reporton Orthopedic Visit Report [facility] [place] [address] OFFICE VISIT Date of Service: 12/16/23 MR#: [id number] Acct: [id number] Name: LEE WEST Rep #: [id number] : 1985 Provider: Dr. Ousmane reid DO Age/Sex: 38/F [facility] [facility] Status: Signed Intake Vital Signs 10/18/23 06:23 12/14/23 07:35 Height 5 ft 4 in 5 ft 4 in Weight: 325 lb BMI 55.7 BP 140/82 H Blood Pressure Location Lt brachial Position Sitting Respiration 16 Pulse 85 Pulse Source Monitor Temp 97.3 F L Temp Source Temporal Pulse Oximetry (%) 98 Oxygen Delivery Method room air Intake Visit Reasons: left wrist Chief Complaint: post-op f/u Accompanied by: Self Is patient in pain?: No Allergies No Known Allergies Allergy (Verified 12/16/23 11:14) Medications ???Medication ???Instructions ???Recorded ???Confirmed ???Type christina.stocking,knee ,reg,xlrg #12 ea 06/29/22 12/16/23 Rx cholecalciferol (vitamin D3) 1,250 1,250 mcg PO QWEEK #6 caps 09/23/22 12/16/23 Rx mcg (50,000 unit) capsule albuterol sulfate 90 mcg/actuation 2 puff inhalation Q4H PRN PRN 03/18/23 12/16/23 Rx aerosol inhaler (Ventolin HFA) Wheezing ##1 bupropion HCl 150 mg 24 hr tablet, 150 mg PO QAM #90 tabs 09/20/23 12/16/23 Rx extended release (Wellbutrin XL) escitalopram oxalate 20 mg tablet 20 mg PO DAILY #90 tabs 09/20/23 12/16/23 Rx lansoprazole 15 mg capsule,delayed 15 mg PO DAILY #90 caps 09/20/23 12/16/23 Rx release levothyroxine 175 mcg tablet 175 mcg PO DAILY #90 tabs 09/20/23 12/16/23 Rx naproxen 500 mg tablet 500 mg PO BID PRN pain #180 tabs 12/14/23 12/16/23 Rx semaglutide 0.25 mg or 0.5 mg (2 0.5 mg (0.736 mL) subcut TU #3 mL 12/14/23 12/16/23 Rx mg/3 mL) subcutaneous pen injector (Ozempic) atorvastatin 20 mg tablet 20 mg PO QHS #90 tabs 12/15/23 12/16/23 Rx PFSH Medical History Post-menopausal Depression Gastric reflux Smoker Shortness of breath on exertion Flu vaccine need Thyroid disease High cholesterol Hypertension Type 2 diabetes mellitus Surgical History History of carpal tunnel release History of hysterectomy Family History Father Cancer Grandmother Cancer throat Mother Myocardial infarction Thyroid disorder Hypertension Depression Social History household members: none current occupational status: employed 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 Ousmane Valle, DO 12/16/23 0847. Part of today???s visit was documented by [ ], acting as scribe. LEE WEST is a 38 year old F here today for post op 2.5 week Left open carpal tunnel release. Patient states her left wrist is going good. Incision is healing good. Carpal tunnel symptoms have already improved Ortho Exam General General: Yes no acute distress Neurologic: Yes alert and Yes oriented x3 Psychologic: Yes reasonable and appropriate Left Wrist/Hand WRIST: Incision well-approximated no signs of infection there is callus there is some's skin overgrowth over some of the stitches today sutures were removed. She is neurovascular intact she is slightly stiff with finger flexion Supplemental Info 11/29/2023 left carpal tunnel release: Dr. Valle 10/18/2023 right carpal tunnel release: Dr. Valle 09/27/2023 EMG bilateral upper extremity:1) Moderate to severe, bilateral median mononeuropathies at the wrists (carpal tunnel syndrome), with secondary sensory fiber axonal loss and motor fiber demyelination Coding Level of Care Code Global Post Op Diagnoses Bilateral carpal tunnel syndrome G56.03 Orthopedic aftercare Z47.89 Assessment and Plan Assessment and Plan (1) Bilateral carpal tunnel syndrome: Status: Acute (2) Orthopedic aftercare: Plan Sutures removed today she will continue to work on finger and wrist range of motion on her own if over the next 10 days she is still stiff she is to let us know and we will get her into occupational hand therapy she is happy with her outcome thus far she can follow-up on an as-needed basis she did will continue her weightbearing restriction for another week. (more content not included)... Normal [facility] CBC W/Diff, Automatedon 12-04 0-2023 Absolute Lymph 2.75 X10 3/uL Normal 0.83-4.51 [facility] Comment on above: Performed By: #### L 100.0100, L500.4050, L500.4100, L501.9520, L506.1000 ####[facility] [address] [place], [address] Absolute Neut 7.6 X10 3/uL Normal 2.0-7.7 [facility] Comment on above: Performed By: #### L 100.0100, L500.4050, L500.4100, L501.9520, L506.1000 ####[facility] [address] [place], [address] Basophils/100 WBC (Bld) 0.9 % Normal 0-1 [facility] Comment on above: Performed By: #### L 100.0100, L500.4050, L500.4100, L501.9520, L506.1000 ####[facility] [address] [place], [address] Eosinophils/100 WBC (Bld) 3.7 % Normal 0-5 [facility] Comment on above: Performed By: #### L 100.0100, L500.4050, L500.4100, L501.9520, L506.1000 ####[facility] [address] [place], [address] Erythrocyte distribution width (RBC) [Ratio] 13.3 % Normal 11.6-14.6 [facility] Comment on above: Performed By: #### L 100.0100, L500.4050, L500.4100, L501.9520, L506.1000 ####[facility] [address] [place], [address] Hematocrit (Bld) [Volume fraction] 48.7 % High 37-47 [facility] Comment on above: Performed By: #### L 100.0100, L500.4050, L500.4100, L501.9520, L506.1000 ####[facility] [address] [place], [address] Hemoglobin (Bld) [Mass/Vol] 15.5 g/dL High 12.0-15.0 [facility] Comment on above: Performed By: #### L 100.0100, L500.4050, L500.4100, L501.9520, L506.1000 ####[facility] [address] [place], [address] IG% 0.400 Normal 0.0-0.9 [facility] Comment on above: Result Comment: IG% - Immature Granulocytes (promyelocytes, myelocytes and metamyelocytes) > 1% indicates that a LEFT SHIFT is Present. Performed By: #### L 100.0100, L500.4050, L500.4100, L501.9520, L506.1000 ####[facility] [address] [place], [address] Lymphocytes/100 WBC (Bld) 24.0 % Normal 19-41 [facility] Comment on above: Performed By: #### L 100.0100, L500.4050, L500.4100, L501.9520, L506.1000 ####[facility] [address] [place], [address] MCH (RBC) [Entitic mass] 29.4 pg Normal 27.0-32.0 [facility] Comment on above: Performed By: #### L 100.0100, L500.4050, L500.4100, L501.9520, L506.1000 ####[facility] [address] [place], [address] MCHC (RBC) [Mass/Vol] 31.8 g/dL Low 32-36 [facility] Comment on above: Performed By: #### L 100.0100, L500.4050, L500.4100, L501.9520, L506.1000 ####[facility] [address] [place], [address] MCV (RBC) [Entitic vol] 92.4 fL Normal 81-99 [facility] Comment on above: Performed By: #### L 100.0100, L500.4050, L500.4100, L501.9520, L506.1000 ####[facility] [address] [place], [address] Monocytes/100 WBC (Bld) 4.9 % Normal 0-10 [facility] Comment on above: Performed By: #### L 100.0100, L500.4050, L500.4100, L501.9520, L506.1000 ####[facility] [address] [place], [address] Neutrophils/100 WBC (Bld) 66.1 % Normal 47-70 [facility] Comment on above: Performed By: #### L 100.0100, L500.4050, L500.4100, L501.9520, L506.1000 ####[facility] [address] [place], [address] Nucleated RBC (Bld) [#/Vol] 0 10*3/uL Normal 0-5 [facility] Comment on above: Performed By: #### L 100.0100, L500.4050, L500.4100, L501.9520, L506.1000 ####[facility] [address] [place], [address] Platelet mean volume (Bld) [Entitic vol] 9.4 fL Normal 6.2-12.0 [facility] Comment on above: Performed By: #### L 100.0100, L500.4050, L500.4100, L501.9520, L506.1000 ####[facility] [address] [place], [address] Platelets (Bld) [#/Vol] 392 10*3/uL Normal 150-450 [facility] Comment on above: Performed By: #### L 100.0100, L500.4050, L500.4100, L501.9520, L506.1000 ####[facility] [address] [place], [address] RBC (Bld) [#/Vol] 5.27 10*6/uL Normal 4.2-5.4 [facility] Comment on above: Performed By: #### L 100.0100, L500.4050, L500.4100, L501.9520, L506.1000 ####[facility] [address] [place], [address] RDW SD 45.5 fl High 35.1-43.9 [facility] Comment on above: Performed By: #### L 100.0100, L500.4050, L500.4100, L501.9520, L506.1000 ####[facility] [address] [place], [address] WBC (Bld) [#/Vol] 11.4 10*3/uL High 4.4-11.0 [facility] Comment on above: Performed By: #### L 100.0100, L500.4050, L500.4100, L501.9520, L506.1000 ####[facility] [address] [place], [address] Comprehensive Metabolic Prof alon 12-14-2023 Albumin [Mass/Vol] 3.5 g/dL Normal 3.2-5.0 [facility] Comment on above: Performed By: #### L 100.0100, L500.4050, L500.4100, L501.9520, L506.1000 ####[facility] [address] [place], [address] Albumin/Globulin [Mass ratio] 0.9 {ratio} Normal 0.9-2.4 [facility] Comment on above: Performed By: #### L 100.0100, L500.4050, L500.4100, L501.9520, L506.1000 ####[facility] [address] [place], [address] ALK P 117 U/L Normal 45-117 [facility] Comment on above: Performed By: #### L 100.0100, L500.4050, L500.4100, L501.9520, L506.1000 ####[facility] [address] [place], [address] ALT [Catalytic activity/Vol] 23 U/L Normal 13-56 [facility] Comment on above: Performed By: #### L 100.0100, L500.4050, L500.4100, L501.9520, L506.1000 ####[facility] [address] [place], [address] AST [Catalytic activity/Vol] 15 U/L Normal 15-37 [facility] Comment on above: Performed By: #### L 100.0100, L500.4050, L500.4100, L501.9520, L506.1000 ####[facility] [address] [place], [address] Bilirubin [Mass/Vol] 0.30 mg/dL Normal 0.20-1.00 [facility] Comment on above: Result Comment: For patients on eltrombopag therapy, use of Dimension [place] TBIL is not recommended. Performed By: #### L 100.0100, L500.4050, L500.4100, L501.9520, L506.1000 ####[facility] [address] [place], [address] BUN/CRE 15.1 RATIO Normal 10-20 [facility] Comment on above: Performed By: #### L 100.0100, L500.4050, L500.4100, L501.9520, L506.1000 ####[facility] [address] [place], [address] CA,Total 8.6 mg/dL Normal 8.5-10.1 [facility] Comment on above: Performed By: #### L 100.0100, L500.4050, L500.4100, L501.9520, L506.1000 ####[facility] [address] [place], [address] Chloride [Moles/Vol] 108 mmol/L High 98-107 [facility] Comment on above: Performed By: #### L 100.0100, L500.4050, L500.4100, L501.9520, L506.1000 ####[facility] [address] [place], [address] CO2 [Moles/Vol] 24.0 mmol/L Normal 21.0-32.0 [facility] Comment on above: Performed By: #### L 100.0100, L500.4050, L500.4100, L501.9520, L506.1000 ####[facility] [address] [place], [address] Creatinine [Mass/Vol] 0.73 mg/dL Normal 0.55-1.02 [facility] Comment on above: Result Comment: The validity of the calculated GFR GFRAA in patients over 70 years has not been determined. Clinical correlation is essential. Performed By: #### L 100.0100, L500.4050, L500.4100, L501.9520, L506.1000 ####[facility] [address] [place], [address] EST GFR - AA 114 mL/min Normal >60 [facility] Comment on above: Result Comment: Afri can Irish GFR Calc Performed By: #### L 100.0100, L500.4050, L500.4100, L501.9520, L506.1000 ####[facility] [address] [place], [address] GAP 6 Normal 5-15 [facility] Comment on above: Performed By: #### L 100.0100, L500.4050, L500.4100, L501.9520, L506.1000 ####[facility] [address] [place], [address] GFR/1.73 sq M.predicted among non-blacks MDRD (S/P/Bld) [Vol rate/Area] 94 mL/min/{1.73_m2} Normal >60 [facility] Comment on above: Result Comment: Non- GFR Calc Performed By: #### L 100.0100, L500.4050, L500.4100, L501.9520, L506.1000 ####[facility] [address] [place], [address] Globulin (S) [Mass/Vol] 4.1 g/dL Normal 2.2-4.2 [facility] Comment on above: Performed By: #### L 100.0100, L500.4050, L500.4100, L501.9520, L506.1000 ####[facility] [address] [place], [address] Glucose [Mass/Vol] 114 mg/dL High 74-106 [facility] Comment on above: Result Comment: Fast ing Glucose result from 100 to 125 mg/dL suggests IMPAIRED HOMEOSTASIS per A.D.A. criteria. Performed By: #### L 100.0100, L500.4050, L500.4100, L501.9520, L506.1000 ####[facility] [address] [place], [address] Potassium [Moles/Vol] 3.7 mmol/L Normal 3.5-5.1 [facility] Comment on above: Performed By: #### L 100.0100, L500.4050, L500.4100, L501.9520, L506.1000 ####[facility] [address] [place], [address] Sodium [Moles/Vol] 138 mmol/L Normal 136-145 [facility] Comment on above: Performed By: #### L 100.0100, L500.4050, L500.4100, L501.9520, L506.1000 ####[facility] [address] [place], [address] T PROT 7.6 g/dL Normal 6.4-8.2 [facility] Comment on above: Performed By: #### L 100.0100, L500.4050, L500.4100, L501.9520, L506.1000 ####[facility] [address] [place], [address] Urea nitrogen [Mass/Vol] 11 mg/dL Normal 7-18 [facility] Comment on above: Performed By: #### L 100.0100, L500.4050, L500.4100, L501.9520, L506.1000 ####[facility] [address] [place], [address] Hemoglobin A1con 12-14-2023 HbA1c (Bld) [Mass fraction] 5.3 % Normal 3.8-5.6 [facility] Comment on above: Result Comment: Norm al < 5.7 % Prediabetic 5.7 - 6.4 % Diabetic >or= 6.5 % Please note range changes. Performed By: #### L 501.9985 #### [facility] [address] [place], [address] Internal Medicine Office Vis iton 12-14-2023 Internal Medicine Office Visit [facility] [address] [place], [place] [address] OFFICE VISIT Date of Service: 12/14/23 MR#: [id number] Acct: [id number] Name: LEE WEST Rep #: [id number] : 1985 Provider: ROSALINA Burns Age/Sex: 38/F [place] [facility] Status: Signed Intake Vital Signs 09/20/23 10:05 10/18/23 06:23 12/14/23 07:35 Height 5 ft 4 in 5 ft 4 in 5 ft 4 in Weight: 325 lb BMI 55.7 BP 140/82 H Blood Pressure Location Lt brachial Position Sitting Respiration 16 Pulse 85 Pulse Source Monitor Temp 97.3 F L Temp Source Temporal Pulse Oximetry (%) 98 Oxygen Delivery Method room air Intake Visit Reasons: 3 M FU 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 Accompanied by: Self Is patient in pain?: No Allergies No Known Allergies Allergy (Verified 12/14/23 07:33) Medications ???Medication ???Instructions ???Recorded ???Confirmed ???Type christina.stocking,knee ,reg,xlrg #12 ea 06/29/22 12/14/23 Rx cholecalciferol (vitamin D3) 1,250 1,250 mcg PO QWEEK #6 caps 09/23/22 12/14/23 Rx mcg (50,000 unit) capsule albuterol sulfate 90 mcg/actuation 2 puff inhalation Q4H PRN PRN 03/18/23 12/14/23 Rx aerosol inhaler (Ventolin HFA) Wheezing ##1 bupropion HCl 150 mg 24 hr tablet, 150 mg PO QAM #90 tabs 09/20/23 12/14/23 Rx extended release (Wellbutrin XL) escitalopram oxalate 20 mg tablet 20 mg PO DAILY #90 tabs 09/20/23 12/14/23 Rx lansoprazole 15 mg capsule,delayed 15 mg PO DAILY #90 caps 09/20/23 12/14/23 Rx release levothyroxine 175 mcg tablet 175 mcg PO DAILY #90 tabs 09/20/23 12/14/23 Rx oxycodone 5 mg tablet 5 - 10 mg (1 - 2 x 5 mg) PO Q6H 11/29/23 12/14/23 Rx PRN pain 3 days #12 tabs naproxen 500 mg tablet 500 mg PO BID PRN pain #180 tabs 12/14/23 12/14/23 Rx semaglutide 0.25 mg or 0.5 mg (2 0.5 mg (0.736 mL) subcut TU #3 mL 12/14/23 12/14/23 Rx mg/3 mL) subcutaneous pen injector (Ozempic) [facility] Medical History (Updated 12/14/23 @ 08:05 by Vaibhav ROMANO PA) Post-menopausal Depression Gastric reflux Smoker Shortness of breath on exertion Flu vaccine need Thyroid disease High cholesterol Hypertension Type 2 diabetes mellitus Surgical History (Updated 12/14/23 @ 07:35 by Keli Womack MA) History of carpal tunnel release History of hysterectomy Family History Father Cancer Grandmother Cancer throat Mother Myocardial infarction Thyroid disorder Hypertension Depression Social History household members: none current occupational status: employed 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 Patient states that she is feeling well at this time without any concerns or complaints. She states that she does not check her sugars ever. She states that she does feel like her diet is actually pretty good. She does not get regular exercise. She has not had any recent headaches, visual changes, diarrhea, constipation, change in urinary habits, or other acute symptoms. Patient continues to be a 1 pack/day smoker. ROS Const Constitutional: No body ache, chills, excessive sweating, fatigue, fever(s), frequent falls, headache(s), snoring, weakness or change in appetite Eyes Eyes: No blurry vision, change in vision, eye pain or Light sensitivity ENT ENT: No abnormal hearing, ear or mastoid pain, tinnitus, nasal congestion, headache(s), neck pain or sore throat Resp Respiratory: No cough, shortness of breath, snoring or wheezing Cardio Cardiology: No chest pain at rest, chest pain with exertion, excessive sweating, dyspnea on exertion, lightheadedness, orthopnea or palpitations Gastro GI: No abdominal pain, change in bowel habits, constipation, cramping, diarrhea, nausea/dyspepsia or vomiting Genitourinary-Female: No burning urination, painful urination, urinary incontinence or urinary frequency Musc Musculoskeletal: No abnormal gait, joint pain, back pain, limited range of motion, muscle weakness, neck pain or numbness Skin Skin: No dry skin, redness, lesions, itchy eyes, rash or wounds Neuro Neurology: No abnormal gait, abnormal hearing, weakness, frequent falls, headache(s), memory loss or numbness Psych Psychiatric: No anxiety, No change in appetite, No depression, No memory loss (more content not included)... Normal [facility] Lipid Profileon 12-14-2023 Cholesterol [Mass/Vol] 151 mg/dL Normal 200 [facility] Comment on above: Result Comment: <200 mg/dL Desirable 200-240 mg/dL Borderline >240 mg/dL High Risk Performed By: #### L 100.0100, L500.4050, L500.4100, L501.9520, L506.1000 ####[facility] [address] [place], [address] Cholesterol in HDL [Mass/Vol] 33 mg/dL Low [facility] Comment on above: Result Comment: The drugs N-Acetylcysteine and Metamizole may falsely depress this assay. Reference Range HDL <40 mg/dL Low HDL Cholesterol HDL >or= 60 mg/dL High HDL Cholesterol Performed By: #### L 100.0100, L500.4050, L500.4100, L501.9520, L506.1000 ####[facility] [address] [place], [address] Cholesterol in LDL [Mass/Vol] 76 mg/dL Normal 0-130 [facility] Comment on above: Performed By: #### L 100.0100, L500.4050, L500.4100, L501.9520, L506.1000 ####[facility] [address] [place], [address] Cholesterol in VLDL [Mass/Vol] 42 mg/dL High 5-40 [facility] Comment on above: Performed By: #### L 100.0100, L500.4050, L500.4100, L501.9520, L506.1000 ####[facility] [address] [place], [address] Triglyceride [Mass/Vol] 210 mg/dL High [facility] Comment on above: Result Comment: The drugs N-Acetylcysteine and Metamizole may falsely depress this assay. Serum Triglycerides Reference Interval Normal <150 mg/dL Borderline high 150 - 199 mg/dL High 200 - 499 mg/dL Very High > or = 500 mg/dL Performed By: #### L 100.0100, L500.4050, L500.4100, L501.9520, L506.1000 ####[facility] [address] [place], [address] Thyroid Stim Hormone (TSH)on 12-14-2023 TSH 3.13 uIU/mL Normal 0.358-3.74 [facility] Comment on above: Performed By: #### L 100.0100, L500.4050, L500.4100, L501.9520, L506.1000 ####[facility] [address] [place], [address] Vitamin D,25 Hydroxyon 12-13 Vitamin D 25-OH 21.2 ng/mL Normal [facility] Comment on above: Result Comment: Komal min D 25(OH) Status Range Deficiency <20 ng/mL (50nmol/L) Insufficiency 20 - 30 ng/mL (50 - 75 nmol/L) Sufficiency 30 - 100 ng/mL (75 - 250 nmol/L) Toxicity >100 ng/mL (>250 nmol/L) Performed By: #### L 100.0100, L500.4050, L500.4100, L501.9520, L506.1000 ####[facility] [address] [place], [address] Bedside Glucoseon 11-29-2023 FINGERSTICK GLU 114 mg/dL High 74-106 [facility] Comment on above: Result Comment: CLIVE WARNER OF PATIENT CARE PER NURSING PROTOCOL Performed By: #### L 501.080 ####[facility] [address] [place], [address] Discharge Instructionon 11-05 Discharge Instruction [facility] Medical Records Department [address] [place] [address] Instructions for Home/Discharge Instructions 11/29/23 0803 MR#: [id number] Acct: [id number] Name: LEE WEST Rep #: [id number] : 1985 38 From: Ousmane Valle DO PCP: Dr. Aziza Stoddard MD Status:REG SDC Discharge Instructions Diet Discharge Diet: No restrictions Dressing / Incision Call your doctor if you observe: Shortness of breath and Chest pain Additional Dressing/Incision Instructions:: Ice and elevate operative extremity next 72 hours. Keep dressing on clean and dry for 48 hours then may remove and allow warm soapy water to rinse over incision but do not submerge until sutures are out. Then apply bandaid over incision and change daily. encourage finger range of motion. Not lift more than 1/2 pound. Minimize narcotic use only as needed and directed, may use OTC NSAID and Tylenol to supplement/substitute for pain control. Follow Up Care Please Follow Up With: Ousmane Valle DO When: 2 weeks Test Results: Test results from this visit will be discussed in further detail at your follow-up appointment, if applicable. Discharge Plan Admission Primary Reason for Your Visit: Left carpal tunnel release Attending Provider: Ousmane Valle Primary Care Provider: Aziza Stoddard Instructions Print Language: Palauan Discharge Orders/Prescriptions Prescriptions: New oxycodone 5 mg tablet 5 - 10 mg PO Q6H PRN (Reason: pain) 3 Days Qty: 12 0RF Continued (DME) christina.stocking,knee ,reg,xlrg Misc See Rx Instructions .Route Qty: 12 0RF Rx Instructions: As directed levothyroxine 175 mcg tablet 175 mcg PO DAILY Qty: 90 0RF lansoprazole 15 mg capsule,delayed release(DR/EC) 15 mg PO DAILY Qty: 90 0RF escitalopram oxalate 20 mg tablet 20 mg PO DAILY Qty: 90 0RF bupropion HCl [Wellbutrin XL] 150 mg tablet extended release 24 hr 150 mg PO QAM Qty: 90 0RF naproxen 500 mg tablet 500 mg PO BID PRN (Reason: pain) Qty: 180 0RF albuterol sulfate [Ventolin HFA] 90 mcg/actuation HFA aerosol inhaler 2 puff inhalation Q4H PRN PRN (Reason: Wheezing) Qty: 1 0RF Ozempic 0.25 mg or 0.5 mg (2 mg/3 mL) pen injector 0.25 mg subcut TU Rx Instructions: for 4 weeks cholecalciferol (vitamin D3) 1,250 mcg (50,000 unit) capsule 1,250 mcg PO QWEEK Qty: 6 0RF atorvastatin 20 mg tablet 20 mg PO QHS Qty: 90 0RF Referrals / Follow Up: Aziza Stoddard MD [Primary Care Provider] - Disposition Disposition (needs filled in before D/C Order can be placed): Home, Self Care 11/29/23 08 Ousmane Valle DO CC: Dr. Aziza Stoddard MD Signed [facility] MR/POSTOP.ANE 11-29-2023 MR/POSTOP.[facility] Medical Records Department [address] [place] [address] Anesthesia Postop Eval I 11/29/23 0806 MR#: [id number] Acct: [id number] Name: LEE WEST Rep #: [id number] : 1985 38 From: Rena Patton CRNA PCP: Dr. Aziza Stoddard MD Status:[place] [facility] Race: C Location: [place] [address] Anesthesia: Postop Eval I Current Vital Signs Temperature: 97.4 F Pulse Rate: 74 Blood Pressure: 124/77 Respiratory Rate: 20 Pulse Ox: 94 Oxygen Delivery Method: Room Air Assessment Airway patent: Yes Spontaneous unlabored respirations: Yes Mental status: Awake and Calm nausea: No Vomiting: No Anesthesia Complication: No Fluid Hydration Crystalloid volume administer (ml): 500 Total IV fluid infused: 500 Progress Note Anesthesia document: Postop Eval 1 completed: Yes 11/29/23 08 Date Rena Patton ASSISTANT DEPARTMENT MANAGER Cosigner Signature: Date CC: Signed [facility] MR/[id number] 11-29-2023 MR/POSTOPAN2 [facility] Medical Records Department [address] [place] [address] Anesthesia Postop Eval II 11/29/23 1211 MR#: [id number] Acct: [id number] Name: LEE WEST Rep #: [id number] : 1985 38 From: Dominic Trotter MD PCP: Dr. Aziza Stoddard MD Status:DEP [facility] Race: C [place] [facility] [place]esthesia Postop Eval I Sum Postop Eval Completion status Anesthesia document: Postop Eval 1 completed: Yes Anesthesia Postop Eval I Summary Anesthesia Postop Eval I Summary: Anesthesia Postop Eval I: Assessment Summary Airway patent Yes 11/29/23 08:07 ASSISTANT DEPARTMENT MANAGER.JDEF Spontaneous unlabored Yes 11/29/23 08:07 ASSISTANT DEPARTMENT MANAGER.JDEF respirations Mental status Awake,Calm 11/29/23 08:07 ASSISTANT DEPARTMENT MANAGER.JDEF nausea No 11/29/23 08:07 ASSISTANT DEPARTMENT MANAGER.JDEF Vomiting No 11/29/23 08:07 ASSISTANT DEPARTMENT MANAGER.JDEF Anesthesia Postop Eval I: Fluid Summary Crystalloid volume administer 500 11/29/23 08:07 ASSISTANT DEPARTMENT MANAGER.JDEF (ml) Colloids volume administered ( ml) Blood Product volume administered (ml) Total IV fluid infused 500 11/29/23 08:07 ASSISTANT DEPARTMENT MANAGER.JDEF Anesthesia Postop Eval I: Summary Notes Anesthesia Complication No 11/29/23 08:07 ASSISTANT DEPARTMENT MANAGER.JDEF Anesthesia Complication Comment: Post-operative progress note Anesthesia: Postop Eval II Evaluation Mental status: Awake and Calm Pain Level: 0 nausea: No Vomiting: No Complications Anesthesia Complication: No 11/29/23 1212 Date Dominic Trotter MD Cosigner Signature: Date CC: Signed [facility] Operative Reporton 4 Operative Report [facility] Medical Records Department [address] [place] [address] Operative Report 11/29/23 0802 MR#: [id number] Acct: [id number] Name: LEE WEST Rep #: [id number] : 1985 38 From: Ousmane Valle DO PCP: Dr. Aziza Stoddard MD Status:REG [facility] Location: [address] Operative Report Date of Procedure: 11/29/23 Preoperative diagnosis; left carpal tunnel syndrome Postoperative diagnosis; same Procedure: Left open carpal tunnel release Anesthesia: Local with MAC Tourniquet time; 10 minutes 250 mm Hg Complications: None Indication for procedure; This is a 38-year-old female with long-standing symptoms consistent with carpal tunnel syndrome the patient did have electrodiagnostic evidence of this and has failed conservative treatment. Risks benefits and alternatives were reviewed including risks of bleeding infection nerve artery tissue damage need for further surgery and continued pain and symptoms, hypersensitivity to scar and Pillar pain. Procedure; The patient was met in the preoperative holding area the operative extremity was identified by both patient and physician and was marked the patient was met by anesthesia and brought back to the operating room and transferred to the operating table in the supine position. Anesthesia was started. A well-padded tourniquet was placed on the operative upper extremity. The patient was prepped and draped in the usual sterile fashion. A timeout was called to ensure the proper patient procedure and extremity were being contemplated. 0.5 percent lidocaine with epinephrine was injected into the incisional area. An Esmarch was used to exsanguinate the extremity. The tourniquet was inflated to 250 mmHg. A midline incision was made with a 15 blade scalpel between the thenar and hypothenar eminence. This was carried down through the skin and subcutaneous tissue. Mackenzie retractors were then used, a deep blade scalpel was used to make a deep incision in the palmar aponeurosis. The mackenzie retractors were then placed deep to this and the transverse carpal ligament was identified a perforation was made with a scalpel and a Littler scissors were used to complete the release of the transverse carpal ligament distally under direct visualization with the tips facing ulnarly until the perivascular fat was reached. Then turning our attention proximally using a tension slide technique the proximal extent of the transverse carpal ligament was released . There was noted to be hypertrophy of the transverse carpal ligament without other findings. The wound was thoroughly irrigated and was closed with 4-0 nylon vertical mattress stitches. Dressing was applied in the form of xeroform 4 x 4, web roll and an sandra wrap. Tourniquet was let down there is no intraoperative complications patient tolerated the procedure well and was transferred to the PACU. All counts were correct. 11/29/23 0803 Cosigner Signature (if applicable): CC: Dr. Aziza Stoddard MD; Dr. Ousmane Valle DO Signed [facility] Orthopedic Visit Reporton Orthopedic Visit Report [facility] [address] [place] [address] OFFICE VISIT Date of Service: 11/02/23 MR#: [id number] Acct: [id number] Name: LEE WEST Rep #: [id number] : 1985 Provider: Dr. Ousmane reid DO Age/Sex: 38/F [place] [facility] Status: Signed Intake Vital Signs 09/20/23 10:05 10/18/23 06:23 Height 5 ft 4 in 5 ft 4 in Intake Visit Reasons: right wrist Accompanied by: Self Is patient in pain?: No Allergies No Known Allergies Allergy (Verified 11/02/23 09:07) Medications ???Medication ???Instructions ???Recorded ???Confirmed ???Type christina.stocking,knee ,reg,xlrg #12 ea 06/29/22 11/02/23 Rx atorvastatin 20 mg tablet 20 mg PO QHS #90 tabs 09/23/22 11/02/23 Rx cholecalciferol (vitamin D3) 1,250 1,250 mcg PO QWEEK #6 caps 09/23/22 11/02/23 Rx mcg (50,000 unit) capsule albuterol sulfate 90 mcg/actuation 2 puff inhalation Q4H PRN PRN 03/18/23 11/02/23 Rx aerosol inhaler (Ventolin HFA) Wheezing ##1 bupropion HCl 150 mg 24 hr tablet, 150 mg PO QAM #90 tabs 09/20/23 11/02/23 Rx extended release (Wellbutrin XL) escitalopram oxalate 20 mg tablet 20 mg PO DAILY #90 tabs 09/20/23 11/02/23 Rx lansoprazole 15 mg capsule,delayed 15 mg PO DAILY #90 caps 09/20/23 11/02/23 Rx release levothyroxine 175 mcg tablet 175 mcg PO DAILY #90 tabs 09/20/23 11/02/23 Rx naproxen 500 mg tablet 500 mg PO BID PRN pain #180 tabs 09/20/23 11/02/23 Rx semaglutide 0.25 mg or 0.5 mg (2 0.25 mg (0.368 mL) subcut QWEEK #3 09/20/23 11/02/23 Rx mg/3 mL) subcutaneous pen injector mL (Ozempic) cephalexin 500 mg capsule 1,000 mg (2 x 500 mg) PO Q8 #4 caps 10/18/23 11/02/23 Rx PFSH Medical History (Updated 10/18/23 @ 08:[address] 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 Ousmnae Valle DO 11/02/23 0754. Part of today???s visit was documented by Nichol Mcfarlane, acting as scribe. LEE WEST is a 38 year old F here today for 2 weeks postop right carpal tunnel release date of surgery 10/18/2023. Patient notes that she is doing well and is improving. She no longer has any numbness or tingling. Patients incision is healing with no redness or drainage. She takes naproxen for other pains. She continues to have similar symptoms in the left hand and wishes to proceed with left carpal tunnel release Ortho Exam General General: Yes no acute distress Neurologic: Yes alert and Yes oriented x3 Psychologic: Yes reasonable and appropriate Right Wrist/Hand WRIST: Sutures were removed today that her incision is well-approximated she has full finger flexion extension some mild scaling around the incision no signs of infection Left Wrist/Hand Skin/Wound: Yes CDI Left Wrist: Yes Durken's Test, Yes Tinel's and Yes Phalen's WRIST: 85 supination, full pronation, 60 extension, 70 flexion Supplemental Info 09/27/2023 EMG bilateral upper extremity:1) Moderate to severe, 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 She should cover her incision if in a dirty environment. She should not lift greater than 5 pounds for the next 10 days. Patient may massage her incision for desensitization starting in 10 days. Patient would like to have her left carpal tunnel release in about (more content not included)... Normal [facility] Bedside Glucoseon 10-18-2023 FINGERSTICK GLU 127 mg/dL High 74-106 [facility] Comment on above: Result Comment: CLIVE WARNER OF PATIENT CARE PER NURSING PROTOCOL Performed By: #### L 501.080 #### [facility] [address] [place], [place], [address] Discharge Instructionon 10-04 Discharge Instruction [facility] Medical Records Department [address] [place] [address] Instructions for Home/Discharge Instructions 10/18/23 0803 MR#: [id number] Acct: [id number] Name: LEE WEST Rep #: [id number] : 1985 38 From: Ousmane Valle DO PCP: Dr. Aziza Stoddard MD Status:REG SDC Discharge Instructions Diet Discharge Diet: No restrictions Dressing / Incision Call your doctor if you observe: Shortness of breath and Chest pain Additional Dressing/Incision Instructions:: Ice and elevate operative extremity next 72 hours. Keep dressing on clean and dry for 48 hours then may remove and allow warm soapy water to rinse over incision but do not submerge until sutures are out. Then apply bandaid over incision and change daily. encourage finger range of motion. Not lift more than 1/2 pound. Minimize narcotic use only as needed and directed, may use OTC NSAID and Tylenol to supplement/substitute for pain control. Follow Up Care Please Follow Up With: Ousmane Valle DO When: 2 weeks Test Results: Test results from this visit will be discussed in further detail at your follow-up appointment, if applicable. Discharge Plan Admission Primary Reason for Your Visit: Right carpal tunnel release Attending Provider: Ousmane Valle Primary Care Provider: Aziza Stoddard Instructions Print Language: Palauan Discharge Orders/Prescriptions Prescriptions: New cephalexin 500 mg capsule 1,000 mg PO Q8 Qty: 4 0RF Rx Instructions: take 2 tabs at 8:00 pm and 2 tabs after 5 am when you wake up oxycodone 5 mg tablet 5 - 10 mg PO Q4H PRN (Reason: pain) 4 Days Qty: 14 0RF Continued (DME) christina.stocking,knee ,reg,xlrg Misc See Rx Instructions .Route Qty: 12 0RF Rx Instructions: As directed Ozempic 0.25 mg or 0.5 mg (2 mg/3 mL) pen injector 0.25 mg subcut QWEEK Qty: 3 0RF Rx Instructions: for 4 weeks levothyroxine 175 mcg tablet 175 mcg PO DAILY Qty: 90 0RF lansoprazole 15 mg capsule,delayed release(DR/EC) 15 mg PO DAILY Qty: 90 0RF escitalopram oxalate 20 mg tablet 20 mg PO DAILY Qty: 90 0RF bupropion HCl [Wellbutrin XL] 150 mg tablet extended release 24 hr 150 mg PO QAM Qty: 90 0RF albuterol sulfate [Ventolin HFA] 90 mcg/actuation HFA aerosol inhaler 2 puff inhalation Q4H PRN PRN (Reason: Wheezing) Qty: 1 0RF cholecalciferol (vitamin D3) 1,250 mcg (50,000 unit) capsule 1,250 mcg PO QWEEK Qty: 6 0RF atorvastatin 20 mg tablet 20 mg PO QHS Qty: 90 0RF Held naproxen 500 mg tablet 500 mg PO BID PRN (Reason: pain) Qty: 180 0RF Hold Instructions: Resume on 10/19/23. Referrals / Follow Up: Aziza Stoddard MD [Primary Care Provider] - Disposition Disposition (needs filled in before D/C Order can be placed): Home, Self Care 10/18/23 0808 Ousmane Valle DO CC: Dr. Aziza Stoddard MD Signed [facility] Operative Reporton 4 Operative Report [facility] Medical Records Department [address] [place] [address] Operative Report 10/18/23 0802 MR#: [id number] Acct: [id number] Name: LEE WEST Rep #: [id number] : 1985 38 From: Ousmane Valle DO PCP: Dr. Aziza Stoddard MD Status:[facility] Location: [place] [address] Operative Report Date of Procedure: 10/18/23 Preoperative diagnosis; right carpal tunnel syndrome Postoperative diagnosis; same Procedure: Right open carpal tunnel release Anesthesia: Local with MAC Tourniquet time; 11 minutes 250 mm Hg Complications: None Indication for procedure; This is a 38-year-old female with long-standing symptoms consistent with carpal tunnel syndrome the patient did have electrodiagnostic evidence of this and has failed conservative treatment. Risks benefits and alternatives were reviewed including risks of bleeding infection nerve artery tissue damage need for further surgery and continued pain and symptoms, hypersensitivity to scar and Pillar pain. Procedure; The patient was met in the preoperative holding area the operative extremity was identified by both patient and physician and was marked the patient was met by anesthesia and brought back to the operating room and transferred to the operating table in the supine position. Anesthesia was started. A well-padded tourniquet was placed on the operative upper extremity. The patient was prepped and draped in the usual sterile fashion. A timeout was called to ensure the proper patient procedure and extremity were being contemplated. 0.5 percent bupivacaine with epinephrine was injected into the incisional area. An Esmarch was used to exsanguinate the extremity. The tourniquet was inflated to 250 mmHg. A midline incision was made with a 15 blade scalpel between the thenar and hypothenar eminence. This was carried down through the skin and subcutaneous tissue. Mackenzie retractors were then used, a deep blade scalpel was used to make a deep incision in the palmar aponeurosis. The mackenzie retractors were then placed deep to this and the transverse carpal ligament was identified a perforation was made with a scalpel and a Littler scissors were used to complete the release of the transverse carpal ligament distally under direct visualization with the tips facing ulnarly until the perivascular fat was reached. Then turning our attention proximally using a tension slide technique the proximal extent of the transverse carpal ligament was released . There was noted to be hourglass configuration to the median nerve and hypertrophy of the transverse carpal ligament without other findings. The wound was thoroughly irrigated and was closed with 4-0 nylon vertical mattress stitches. Dressing was applied in the form of xeroform 4 x 4, web roll and an sandra wrap. Tourniquet was let down there is no intraoperative complications patient tolerated the procedure well and was transferred to the PACU. All counts were correct. 10/18/23 0803 Cosigner Signature (if applicable): CC: Dr. Aziza Stoddard MD; Dr. Ousmane Valle DO Signed [facility] SCRN MAMM (CAD)W/STACI BILATo n 10-10-2023 SCRN MAMM (CAD)W/STACI BILAT [facility] Imaging Services [address] [place] [address] SCRN MAMM (CAD)W/STACI BILAT MR#: [id number] Acct: [id number] Name: LEE WEST Rep #: [id number] : 1985 F 38 From: Gerardo appiah MD PCP: Dr. Aziza Stoddard MD Status: REG CLI Study: SCRN MAMM (CAD)W/STACI BILAT Date of Exam: 11/27 Exam# [id number] Ordering Dr: Aziza Stoddard MD [id number] MAMMOGRAPHY - BILATERAL SCREENING REASON FOR EXAM: Female, 38 years old. Routine annual screening examination. PERTINENT HISTORY: Non-contributory. TECHNIQUE: Digital bilateral breast staci (3D mammographic acquisition) in the CC and MLO projections. 2-D mediolateral oblique (MLO) and craniocaudad (CC) views of both breasts were obtained. CAD: Full Field Digital Mammography with Computer Added Detection was performed. COMPARISON: None. Baseline examination. FINDINGS: Breast Composition: There are scattered areas of fibroglandular density. There are no dominant masses or suspicious calcifications. There are small benign-appearing bilateral axillary lymph nodes. No other significant abnormalities are identified. BI/SCRN MAMM (CAD)W/STACI BILAT IMPRESSION: Negative screening mammogram. Yearly followup mammogram recommended. (A) ASSESSMENT CATEGORY: BIRADS Category 2: Benign. A letter regarding these results will be sent to the patient by the facility within 30 days. Approximately 10% of breast cancers are not detected by mammography. A normal mammogram should not delay biopsy of a clinically suspicious abnormality. [id number] Electronically Signed: Gerardo Rangel MD at 12:52 EDT Reading Location ID and State: [facility] / [place] , Service support , CC: Dr. Aziza Stoddard MD Paper Folder: Signed Normal [facility] Orthopedic Visit Reporton Orthopedic Visit Report [facility] [address] [place] [address] OFFICE VISIT Date of Service: 10/05/23 MR#: [id number] Acct: [id number] Name: LEE WEST Rep #: [id number] : 1985 Provider: Dr. Ousmane reid, DO Age/Sex: 38/F [place] [facility] Status: Signed Intake Vital Signs 09/20/23 10:05 Height 5 ft 4 in Weight: 331 lb BMI 56.8 BP 126/84 H Blood Pressure Location Lt brachial Position Sitting Respiration 16 Pulse 75 Pulse Source Monitor Temp 97.0 F L Temp Source Temporal Pulse Oximetry (%) 98 Oxygen Delivery Method room air Intake Visit Reasons: BL HANDS Accompanied by: Self Is patient in pain?: Yes Pain scale (1-10): 9 Allergies No Known Allergies Allergy (Unverified 10/05/23 14:23) Medications christina.stocking,knee ,reg,xlrg #12 ea 06/29/22 [Rx Confirmed 10/05/23] atorvastatin 20 mg tablet 20 mg PO QHS #90 tabs 09/23/22 [Rx Confirmed 10/05/23] cholecalciferol (vitamin D3) 1,250 mcg (50,000 unit) capsule 1,250 mcg PO QWEEK #6 caps 09/23/22 [Rx Confirmed 10/05/23] cetirizine 10 mg tablet (Zyrtec) 10 mg PO DAILY PRN allergy symptoms #10 tabs 11/11/22 [Rx Confirmed 10/05/23] albuterol sulfate 90 mcg/actuation aerosol inhaler (Ventolin HFA) 2 puff inhalation Q4H PRN PRN Wheezing ##1 03/18/23 [Rx Confirmed 10/05/23] bupropion HCl 150 mg 24 hr tablet, extended release (Wellbutrin XL) 150 mg PO QAM #90 tabs 09/20/23 [Rx Confirmed 10/05/23] escitalopram oxalate 20 mg tablet 20 mg PO DAILY #90 tabs 09/20/23 [Rx Confirmed 10/05/23] lansoprazole 15 mg capsule,delayed release 15 mg PO DAILY #90 caps 09/20/23 [Rx Confirmed 10/05/23] levothyroxine 175 mcg tablet 175 mcg PO DAILY #90 tabs 09/20/23 [Rx Confirmed 10/05/23] naproxen 500 mg tablet 500 mg PO BID PRN pain #180 tabs 09/20/23 [Rx Confirmed 10/05/23] semaglutide 0.25 mg or 0.5 mg (2 mg/3 mL) subcutaneous pen injector (Ozempic) 0.25 mg (0.368 mL) subcut QWEEK #3 mL 09/20/23 [Rx Confirmed 10/05/23] PFSH Medical History Carpal tunnel syndrome Flu vaccine need High cholesterol Hypertension Thyroid disease Type 2 diabetes mellitus Surgical History History of hysterectomy Family History Father Cancer Grandmother Cancer throat Mother Myocardial infarction Thyroid disorder Hypertension Depression Social History household members: none current occupational status: employed 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 Ousmane Valle, DO 10/05/23 0816. Part of today???s visit was documented by [ ], acting as scribe. LEE WEST is a 38 year old F here today for Bilateral hand numbness. Patient states her hands have been bothering her for years. Patient has tried braces in the past for many months and that didn't work. she has tried NSAIDS as well without sucess. She denies any trauma to her hands upper extremities or neck in the past. patient has never done PT. Patient is a assistant store manager at [employer] and she is constantly using her hands. Patient has used ice and heat and she states that it doesn't help the pain. Patient is taking Tylenol for her pain. Patient states that both hands go numb and hurt. Patient had a EMG done and it showed that she has bilateral carpal Tunnel. Her pain wakes her up at night. She has constant pain and driving makes her worse. No cervical spine problems Ortho Exam General General: Yes no acute distress Neurologic: Yes alert and Yes oriented x3 Psychologic: Yes reasonable and appropriate Right Wrist/Hand Skin/Wound: Yes CDI, No Swelling and No Ecchymosis Right Wrist: Yes Durken's Test, Tinel's (into middle finger) and Phalen's WRIST: 70 wrist flexion, 50 wrist extension, 88 supination, full pronation, able to make fist. Left Wrist/Hand Skin/Wound: Yes CDI, No Swelling and No Ecchymosis Left Wrist: Yes Durken's Test, Yes Tinel's and Yes Phalen's WRIST: 85 supination, full pronation, 60 extension, 70 flexion Supplemental Info 09/27/2023 EMG bilateral upper extremity:1) Moderate to severe, bilateral median mononeuropathies at the wrists (carpal tunnel syndrome), with secondary sensory fiber axonal loss and motor fiber demy (more content not included)... Normal [facility] NCS and/or EMG Patienton NCS and/or EMG Patient [facility] Pulmonary Services/Neurology [address] [place] [address] MR#: [id number] Acct: [id number] Name: LEE WEST Rep #: [id number] : 1985 38 From: Deb Dial MD Referring Dr: Aziza Stoddard MD Status: REG CLI Location: [facility] Date: 09/27/23 Sex: F C NCS and/or EMG Patient Report Ordering Doctor: Aziza Stoddard DATE OF SERVICE: 09/27/23 Clinical Summary: 38 year old female patient with symptoms of numbness, tingling, pain, and weakness in both hands. Nerve Conduction Studies Summary: The right median-D2 SNAP distal latency was prolonged with reduced amplitude. The left median-D2 SNAP distal latency was prolonged with reduced amplitude. The median-APB CMAP distal latency was prolonged bilaterally. Needle Examination Summary: Needle examination was of select muscles of the bilateral upper extremities normal. Impression: There is electrodiagnostic evidence of the following - 1) Moderate to severe, bilateral median mononeuropathies at the wrists (carpal tunnel syndrome), with secondary sensory fiber axonal loss and motor fiber demyelination Multi Select Codes Neurology Neurology Interp Codes: 58913-21 Musc test done w/n test comp (interp) (2) and 85876-75 Nrv cndj test 9-10 studies (interp) 09/27/23 1254 Date Deb Dial MD CC: Dr. Deb Dial MD; Dr. Aziza Stoddard MD Date Dictated: 09/27/23835 Date Transcribed: 09/27/23835 Paper Folder: Signed [facility] Internal Medicine Office Vis nichelle 09-19-2023 Internal Medicine Office Visit [facility] [address] [place] [address] [address] [place], [place] [address] OFFICE VISIT Date of Service: 09/20/23 MR#: [id number] Acct: [id number] Name: LEE WEST Rep #: [id number] : 1985 Provider: Dr. Aziza castanon MD Age/Sex: 38/F Location[place] [facility] Status: Signed with Addenda ADDENDUM by Dr. Aziza Stoddard MD on 09/22/23 at 1619 Assessment and Plan Assessment and Plan (1) Obstructive sleep apnea: Plan: STOP-BANG Assessment: 1. Do you snore? yes 2. Are you frequently tired during the day? yes 3. Have you been observed gasping or choking while asleep? no 4. Do you have high blood pressure? yes 5. BMI - greater than 35kg/m2? yes 6. Age - over 50 years old? no 7. Neck Circumference - greater than 37 cm for females or 40 cm for males? no 8. Gender - male? no Total STOP-BANG score = 4 which indicates high risk for obstructive sleep apnea (yes to 3 or more questions = high risk of sleep apnea). Orders: Orders CBC W/Diff, Automated 09/20/23 E11.9 - Type 2 diabetes mellitus without complications, F32.2 - Major depressive disorder, single episode, severe without psychotic features, F41.9 - Anxiety disorder, unspecified Comprehensive Metabolic Profil 09/20/23 E03.9 - Hypothyroidism, unspecified, E11.9 - Type 2 diabetes mellitus without complications, I10 - Essential (primary) hypertension Lipid Profile 09/20/23 E11.9 - Type 2 diabetes mellitus without complications, E78.2 - Mixed hyperlipidemia, I10 - Essential (primary) hypertension Thyroid Stim Hormone (TSH) 09/20/23 E03.9 - Hypothyroidism, unspecified Vitamin D,25 Hydroxy 09/20/23 E55.9 - Vitamin D deficiency, unspecified Microalb:Creat Ratio,Random UR 09/20/23 E11.9 - Type 2 diabetes mellitus without complications SCRN MAMM (CAD)W/STACI BILAT 09/20/23 Z12.39 - Encounter for other screening for malignant neoplasm of breast NCS and/or EMG Patient 09/20/23 G56.03 - Carpal tunnel syndrome, bilateral upper limbs Split Night Sleep Study 09/20/23 G47.33 - Obstructive sleep apnea (adult) (pediatric) Medications: New semaglutide (Ozempic) for 4 weeks 0.25 mg (0.368 mL) subcut QWEEK 3 mL 0RF Refilled levothyroxine 175 mcg PO DAILY 90 tabs 0RF lansoprazole 15 mg PO DAILY 90 caps 0RF escitalopram oxalate 20 mg PO DAILY 90 tabs 0RF bupropion HCl (Wellbutrin XL) 150 mg PO QAM 90 tabs 0RF naproxen 500 mg PO BID PRN 180 tabs 0RF pain Discontinued metformin Discontinued Reason: Order Changed 500 mg PO BID 180 tabs 0RF prednisone Discontinued Reason: Order Completed 60 mg (3 x 20 mg) PO DAILY 15 TABLETS 0RF On Hold lisinopril Hold Comment: controlled BP 10 mg PO DAILY 90 tabs 0RF Plan Details Follow Up: 3 Months 09/22/23 1619 Date Aziza Stoddard MD cc: * Signed Intake Vital Signs 03/18/23 17:20 09/20/23 10:05 Height 5 ft 4 in 5 ft 4 in Weight: 331 lb BMI 56.8 BP 126/84 H Blood Pressure Location Lt brachial Position Sitting Respiration 16 Pulse 75 Pulse Source Monitor Temp 97.0 F L Temp Source Temporal Pulse Oximetry (%) 98 Oxygen Delivery Method room air Intake Visit Reasons: med check 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 Accompanied by: Self Is patient in pain?: No Allergies No Known Allergies Allergy (Unverified 09/20/23 10:02) Medications christina.stocking,knee ,reg,xlrg #12 ea 06/29/22 [Rx Confirmed 09/20/23] atorvastatin 20 mg tablet 20 mg PO QHS #90 tabs 09/23/22 [Rx Confirmed 09/20/23] cholecalciferol (vitamin D3) 1,250 mcg (50,000 unit) capsule 1,250 mcg PO QWEEK #6 caps 09/23/22 [Rx Confirmed 09/20/23] lisinopril 10 mg tablet 10 mg PO DAILY #90 tabs 09/23/22 [Rx Confirmed 09/20/23] cetirizine 10 mg tablet (Zyrtec) 10 mg PO DAILY PRN allergy symptoms #10 tabs 11/11/22 [Rx Confirmed 09/20/23] albuterol sulfate 90 mcg/actuation aerosol inhaler (Ventolin HFA) 2 puff inhalation Q4H PRN PRN Wheezing ##1 03/18/23 [Rx Confirmed 09/20/23] bupropion HCl 150 mg 24 hr tablet, extended release (Wellbutrin XL) 150 mg PO QAM #90 tabs 09/20/23 [Rx Confirmed 09/20/23] escitalopram oxalate 20 mg tablet 20 mg PO DAILY #90 tabs 09/20/23 [Rx Confirmed 09/20/23] lansoprazole 15 mg capsule,delayed release 15 mg PO DAILY #90 caps 09/20/23 [Rx Confirmed 09/20/23] levothyroxine 175 mcg tablet 175 mcg PO DAILY #90 tabs 09/20/23 [Rx Confirmed 09/20/23] naproxen 500 mg tablet 500 mg PO BID PRN pain #180 tabs 09/20/23 [Rx Confirmed 09/20/23] semaglutide 0.25 mg or 0.5 mg (2 mg/3 mL) subcutaneous pen injector (Ozempic) 0.25 mg (0.368 mL) subcut QWEEK #3 mL 09/20/23 [Rx Confirmed 09/20/23] [facility] Medical History Carpal tunnel syndrome Flu vaccine need High cholesterol Hypertension Thyroid di (more content not included)... Normal [facility] Absolute lymphocyte countOrd ered By: Dr. Stoddard on 11-11-2022 Lymphocytes Auto (Unsp spec) [#/Vol] 2.67 10*3/uL 0.83-4.51 [facility] Basophil percentageOrdered B y: Dr. Stoddard on 11-11-2022 Basophils/100 WBC (Bld) 0.9 % 0-1 [facility] Chloride [Moles/Vol] 109 mmol/L 98-107 [facility] Eosinophils/100 WBC (Bld) 3.7 % 0-5 [facility] Glucose [Mass/Vol] 126 mg/dL 74-106 [facility] Comment on above: Fasting Glucose resu lt greater than or equal to 126 mg/dL suggests DIABETES MELLITUS per A.D.A. criteria. Neutrophils (Bld) [#/Vol] 7.4 10*3/uL 2.0-7.7 [facility] Neutrophils/100 WBC (Bld) 67.1 % 47-70 [facility] Potassium [Moles/Vol] 4.4 mmol/L 3.5-5.1 [facility] Sodium [Moles/Vol] 140 mmol/L 136-145 [facility] WBC (Bld) [#/Vol] 11.0 10*3/uL 4.4-11.0 [facility] Blood erythrocytes count (nu mber/volume)Ordered By: Dr. Stoddard on 11-11-2022 RBC (Bld) [#/Vol] 5.12 10*6/uL 4.2-5.4 [facility] Blood hemoglobin measurement (mass/volume)Ordered By: Dr. Stoddard on 11-11-2022 Hemoglobin (Bld) [Mass/Vol] 14.6 g/dL 12.0-15.0 [facility] Blood lymphocytes/100 leukoc ytesOrdered By: Dr. Stoddard on 11-11-2022 Lymphocytes/100 WBC (Bld) 24.3 % 19-41 [facility] Blood monocytes/100 leukocyt esOrdered By: Dr. Stoddard on 11-11-2022 Monocytes/100 WBC (Bld) 3.5 % 0-10 [facility] Blood platelet mean volumeOr dered By: Dr. Stoddard on 11-11-2022 Platelet mean volume (Bld) [Entitic vol] 9.8 fL 6.2-12.0 [facility] Determination of erythrocyte mean corpuscular volume (MCV)Ordered By: Dr. Stoddard on 11-11-2022 MCV (RBC) [Entitic vol] 91.6 fL 81-99 [facility] Hematocrit Auto (Bld) [Volum e fraction]Ordered By: Dr. Stoddard on 11-11-2022 Hematocrit (Bld) [Volume fraction] 46.9 % 37-47 [facility] Laboratory - Chemistry and C hemistry - challengeOrdered By: Dr. Stoddard on 11-11-2022 CO2 [Moles/Vol] 25.0 mmol/L 21.0-32.0 [facility] Urea nitrogen/Creatinine [Mass ratio] 15.1 mg/mg 10-20 [facility] - Hematology and Cell countsOrdered By: Dr. Stoddard on 11-11-2022 Erythrocyte distribution width (RBC) [Entitic vol] 52.6 fL 35.1-43.9 [facility] Erythrocyte distribution width (RBC) [Ratio] 15.4 % 11.6-14.6 [facility] Immature granulocytes/100 WBC (Bld) 0.500 % 0.0-0.9 [facility] Comment on above: IG% - Immature Granu locytes (promyelocytes, myelocytes and metamyelocytes) > 1% indicates that a LEFT SHIFT is Present. MCH (RBC) [Entitic mass] 28.5 pg 27.0-32.0 [facility] Nucleated RBC/100 WBC (Bld) [Ratio] 0 % 0-5 [facility] MCHC Auto (RBC) [Mass/Vol]Or dered By: Dr. Stoddard on 11-11-2022 MCHC (RBC) [Mass/Vol] 31.1 g/dL 32-36 [facility] No Panel InformationOrdered By: Dr. Stoddard on 11-11-2022 Estimated GFR (MDRD) Amer 114 mL/min >60 [facility] Comment on above: GFR Calc Estimated GFR (MDRD) Non-Af Amer 95 mL/min >60 [facility] Comment on above: Non- GFR Calc Thyroid Stimulating Hormone (TSH) 1.26 uIU/mL 0.358-3.74 [facility] Urine Microalbumin/Creatinin e Ratio 12.0 mg/g CRE <30 [facility] Vitamin D 25-Hydroxy 49.0 ng/mL [facility] Comment on above: Vitamin D 25(OH) Sta tus Range Deficiency <20 ng/mL (50nmol/L) Insufficiency 20 - 30 ng/mL (50 - 75 nmol/L) Sufficiency 30 - 100 ng/mL (75 - 250 nmol/L) Toxicity >100 ng/mL (>250 nmol/L) Platelets bldOrdered By: Dr. Stoddard on 11-11-2022 Platelets (Bld) [#/Vol] 419 10*3/uL 150-450 [facility] Serum or plasma calcium loretta urement (mass/volume)Ordered By: Dr. Stoddard on 11-11-2022 Calcium [Mass/Vol] 9.4 mg/dL 8.5-10.1 [facility] Serum or plasma creatinine m easurement (mass/volume)Ordered By: Dr. Stoddard on 11-11-2022 Creatinine [Mass/Vol] 0.73 mg/dL 0.55-1.02 [facility] Comment on above: The validity of the calculated GFR & GFRAA in patients over 70 years has not been determined. Clinical correlation is essential. Serum or plasma urea nitroge n measurement (mass/volume)Ordered By: Dr. Stoddard on 11-11-2022 Urea nitrogen [Mass/Vol] 11 mg/dL 7-18 [facility] Thin prep Papanicolaou smear with manual screeningOrdered By: Dr. Stoddard on 11-11-2022 Thin prep Papanicolaou smear with manual screening 6 5-15 [facility] Thin prep Papanicolaou smear with manual screening 13.0 mg/L NO RANGE EST. [facility] Urine creatinine measurement (mass/volume)Ordered By: Dr. Stoddard on 11-11-2022 Creatinine (U) [Mass/Vol] 108.00 mg/dL NO RANGE EST. [facility] Absolute lymphocyte countOrd ered By: Dr. Stoddard on 09-23-2022 Lymphocytes Auto (Unsp spec) [#/Vol] 4.08 10*3/uL 0.83-4.51 [facility] Basophil percentageOrdered B y: Dr. Stoddard on 09-23-2022 Basophils/100 WBC (Bld) 0.6 % 0-1 [facility] Bilirubin [Mass/Vol] 0.40 mg/dL 0.20-1.00 [facility] Comment on above: For patients on eltr ombopag therapy, use of Dimension [place] TBIL is not recommended. Chloride [Moles/Vol] 108 mmol/L 98-107 [facility] Cholesterol [Mass/Vol] 175 mg/dL <200 [facility] Comment on above: <200 mg/dL Desirable 200-240 mg/dL Borderline >240 mg/dL High Risk Eosinophils/100 WBC (Bld) 2.2 % 0-5 [facility] Glucose [Mass/Vol] 100 mg/dL 74-106 [facility] Comment on above: Fasting Glucose resu lt from 100 to 125 mg/dL suggests IMPAIRED HOMEOSTASIS per A.D.A. criteria. Neutrophils (Bld) [#/Vol] 7.6 10*3/uL 2.0-7.7 [facility] Neutrophils/100 WBC (Bld) 60.7 % 47-70 [facility] Potassium [Moles/Vol] 3.8 mmol/L 3.5-5.1 [facility] Protein [Mass/Vol] 7.8 g/dL 6.4-8.2 [facility] Sodium [Moles/Vol] 134 mmol/L 136-145 [facility] Triglyceride [Mass/Vol] 88 mg/dL <199 [facility] Comment on above: The drugs N-Acetylcy steine and Metamizole may falsely depress this assay.Serum Triglycerides Reference Interval Normal <150 mg/dL Borderline high 150 - 199 mg/dL High 200 - 499 mg/dL Very High > or = 500 mg/dL WBC (Bld) [#/Vol] 12.5 10*3/uL 4.4-11.0 [facility] Blood erythrocytes count (nu mber/volume)Ordered By: Dr. Stoddard on 09-23-2022 RBC (Bld) [#/Vol] 5.26 10*6/uL 4.2-5.4 [facility] Blood hemoglobin measurement (mass/volume)Ordered By: Dr. Stoddard on 09-23-2022 Hemoglobin (Bld) [Mass/Vol] 14.8 g/dL 12.0-15.0 [facility] Blood lymphocytes/100 leukoc ytesOrdered By: Dr. Stoddard on 09-23-2022 Lymphocytes/100 WBC (Bld) 32.7 % 19-41 [facility] Blood monocytes/100 leukocyt esOrdered By: Dr. Stoddard on 09-23-2022 Monocytes/100 WBC (Bld) 3.6 % 0-10 [facility] Blood platelet mean volumeOr dered By: Dr. Stoddard on 09-23-2022 Platelet mean volume (Bld) [Entitic vol] 9.4 fL 6.2-12.0 [facility] Determination of erythrocyte mean corpuscular volume (MCV)Ordered By: Dr. Stoddard on 09-23-2022 MCV (RBC) [Entitic vol] 89.2 fL 81-99 [facility] Hematocrit Auto (Bld) [Volum e fraction]Ordered By: Dr. Stoddard on 09-23-2022 Hematocrit (Bld) [Volume fraction] 46.9 % 37-47 [facility] - Chemistry and C hemistry - challengeOrdered By: Dr. Stoddard on 09-23-2022 ALP [Catalytic activity/Vol] 93 U/L 45-117 [facility] ALT [Catalytic activity/Vol] 21 U/L 13-56 [facility] CO2 [Moles/Vol] 26.0 mmol/L 21.0-32.0 [facility] Globulin (S) [Mass/Vol] 4.0 g/dL 2.2-4.2 [facility] Urea nitrogen/Creatinine [Mass ratio] 12.7 mg/mg 10-20 [facility] - Hematology and Cell countsOrdered By: Dr. Stoddard on 09-23-2022 Erythrocyte distribution width (RBC) [Entitic vol] 48.0 fL 35.1-43.9 [facility] Erythrocyte distribution width (RBC) [Ratio] 14.6 % 11.6-14.6 [facility] Immature granulocytes/100 WBC (Bld) 0.200 % 0.0-0.9 [facility] Comment on above: IG% - Immature Granu locytes (promyelocytes, myelocytes and metamyelocytes) > 1% indicates that a LEFT SHIFT is Present. MCH (RBC) [Entitic mass] 28.1 pg 27.0-32.0 [facility] Nucleated RBC/100 WBC (Bld) [Ratio] 0 % 0-5 [facility] - Hematology and Cell countson 09-23-2022 HbA1c (Bld) [Mass fraction] 5.5 % 4.2-6.3 [facility] MCHC Auto (RBC) [Mass/Vol]Or dered By: Dr. Stoddard on 09-23-2022 MCHC (RBC) [Mass/Vol] 31.6 g/dL 32-36 [facility] No Panel InformationOrdered By: Dr. Stoddard on 09-23-2022 Estimated GFR (MDRD) Amer 104 mL/min >60 [facility] Comment on above: GFR Calc Estimated GFR (MDRD) Non-Af Amer 86 mL/min >60 [facility] Comment on above: Non- GFR Calc Thyroid Stimulating Hormone (TSH) 10.00 uIU/mL 0.358-3.74 [facility] Vitamin D 25-Hydroxy 14.2 ng/mL [facility] Comment on above: Vitamin D 25(OH) Sta tus Range Deficiency <20 ng/mL (50nmol/L) Insufficiency 20 - 30 ng/mL (50 - 75 nmol/L) Sufficiency 30 - 100 ng/mL (75 - 250 nmol/L) Toxicity >100 ng/mL (>250 nmol/L) Platelets bldOrdered By: Dr. Stoddard on 09-23-2022 Platelets (Bld) [#/Vol] 473 10*3/uL 150-450 [facility] Serum or plasma albumin loretta urement (mass/volume)Ordered By: Dr. Stoddard on 09-23-2022 Albumin [Mass/Vol] 3.8 g/dL 3.2-5.0 [facility] Serum or plasma albumin/glob ulin mass ratioOrdered By: Dr. Stoddard on 09-23-2022 Albumin/Globulin [Mass ratio] 1.0 {ratio} 0.9-2.4 [facility] Serum or plasma calcium loretta urement (mass/volume)Ordered By: Dr. Stoddard on 09-23-2022 Calcium [Mass/Vol] 9.0 mg/dL 8.5-10.1 [facility] Serum or plasma cholesterol in HDL measurement (mass/volume)Ordered By: Dr. Stoddard on 09-23-2022 Cholesterol in HDL [Mass/Vol] 39 mg/dL >40 [facility] Comment on above: The drugs N-Acetylcy steine and Metamizole may falsely depress this assay. Reference Range HDL <40 mg/dL Low HDL Cholesterol HDL >or= 60 mg/dL High HDL Cholesterol Serum or plasma cholesterol in VLDL measurement (mass/volume)Ordered By: Dr. Stoddard on 09-23-2022 Cholesterol in VLDL [Mass/Vol] 18 mg/dL 5-40 [facility] Serum or plasma creatinine m easurement (mass/volume)Ordered By: Dr. Stoddard on 09-23-2022 Creatinine [Mass/Vol] 0.79 mg/dL 0.55-1.02 [facility] Comment on above: The validity of the calculated GFR & GFRAA in patients over 70 years has not been determined. Clinical correlation is essential. Serum or plasma low density lipoprotein (LDL) cholesterol measurement (mass/volume)Ordered By: Dr. Stoddard on 09-23-2022 Cholesterol in LDL [Mass/Vol] 118 mg/dL 0-130 [facility] Serum or plasma urea nitroge n measurement (mass/volume)Ordered By: Dr. Stoddard on 09-23-2022 Urea nitrogen [Mass/Vol] 10 mg/dL 7-18 [facility] Thin prep Papanicolaou smear with manual screeningOrdered By: Dr. Stoddard on 09-23-2022 Thin prep Papanicolaou smear with manual screening 10 U/L 15-37 [facility] Thin prep Papanicolaou smear with manual screening 0 5-15 [facility] XR CHEST PA AND LATERALon XR CHEST [...] inflammation or mild lung inflammatory infiltrates. Normal [facility] XR Chest PA and Lateralon IMPRESSION: Mild [...] airway inflammation or mild lung inflammatory infiltrates. [facility] XR Chest PA and LateralOrder ed By: Rafael Blair on 10-14-2021 [facility] Work Phone: XR Chest PA and Lateralon Radiology Study observation (narrative) [facility] POCT GLUCOSEon 04-29-2021 Glucose [Mass/Vol] 121 mg/dL High 70-100 [facility] TRANSMISSION LINE ENGINEER [id number] Normal [facility] REPEAT ABO/RHon 04-29-2021 REPEAT ABO/RH Positive Normal [facility] Comment on above: Performed By: #### R ABRH ####Testing performed at [address] [address] URINE HCG QUALon 04-29-2021 Beta HCG ( test) Ql (U) Negative Normal NEGATIVE [facility] Comment on above: Performed By: #### U HCGT ####Testing performed at [address] [address] NOVEL CORONAVIRUSon 04-13-20 21 NARRATIVE This test was performed using isothermal LORRIE and has been approved as Emergency Use Authorization (EUA) for the qualitative detection [id number] nucleic acid. Normal [facility] Comment on above: Performed By: #### C OVID ####[place] [address] SARS-CoV-2 (COVID-19) RNA LORRIE+probe Ql (Unsp spec) Detected Abnormal NOT DETECTED [facility] Comment on above: Result Comment: ENHA NCED CONTACT, AND DROPLET ISOLATION IS REQUIRED FOR INPATIENTS WITH SARS-CoV-2. Performed By: #### C OVID ####Testing performed at [address] [address] CBCon 04-08-2021 ABSOLUTE BAS 0.1 10*3/uL Normal 0.0-0.2 [facility] Comment on above: Performed By: #### U DUSTY, UMAC #### Testing performed at [address] [address] ABSOLUTE EOS 0.70 10*3/uL Normal 0.0-0.7 [facility] Comment on above: Performed By: #### U DUSTY, UMAC #### Testing performed at [address] [address] ABSOLUTE NEUTROPHIL COUNT 9.2 10*3/uL High 1.4-6.5 [facility] Comment on above: Performed By: #### U DUSTY, UMAC #### Testing performed at [address] [address] Basophils/100 WBC (Bld) 0.9 % Normal 0.0-2.0 [facility] Comment on above: Performed By: #### U DUSTY, UMAC #### Testing performed at [address] [address] DTYPE AUTO DIFF Normal [facility] Comment on above: Performed By: #### U DUSTY, UMAC #### Testing performed at [address] [address] Eosinophils/100 WBC (Bld) 5.0 % Normal 0.0-11.0 [facility] Comment on above: Performed By: #### U DUSTY, UMAC #### Testing performed at [address] [address] Lymphocytes (Bld) [#/Vol] 2.90 10*3/uL Normal 1.2-3.4 [facility] Comment on above: Performed By: #### U DUSTY, UMAC #### Testing performed at [address] [address] Lymphocytes/100 WBC (Bld) 21.8 % Normal 20.0-55.0 [facility] Comment on above: Performed By: #### U DUSTY, UMAC #### Testing performed at [address] [address] Monocytes (Bld) [#/Vol] 0.6 10*3/uL Normal 0.0-0.7 [facility] Comment on above: Performed By: #### U DUSTY, UMAC #### Testing performed at [address] [address] Monocytes/100 WBC (Bld) 4.2 % Normal 0.0-10.0 [facility] Comment on above: Performed By: #### U DUSTY, UMAC #### Testing performed at [address] [address] Neutrophils/100 WBC (Bld) 68.1 % Normal 37.0-75.0 [facility] Comment on above: Performed By: #### U DUSTY, UMAC #### Testing performed at [address] [address] Erythrocyte distribution width (RBC) [Ratio] 15.0 % High 11.5-14.5 [facility] Comment on above: Performed By: #### U DUSTY, UMAC #### Testing performed at [facility] [place] [facility] [address] [place] [address] Hematocrit (Bld) [Volume fraction] 44.6 % Normal 36.0-48.0 [facility] Comment on above: Performed By: #### U DUSTY, UMAC #### Testing performed at [address] [address] Hemoglobin (Bld) [Mass/Vol] 14.8 g/dL Normal 12.0-16.0 [facility] Comment on above: Performed By: #### U DUSTY, UMAC #### Testing performed at [address] [address] MCH (RBC) [Entitic mass] 27.8 pg Normal 26.0-35.0 [facility] Comment on above: Performed By: #### U DUSTY, UMAC #### Testing performed at [address] [address] MCHC (RBC) [Mass/Vol] 33.1 g/dL Normal 27.0-37.0 [facility] Comment on above: Performed By: #### U DUSTY, UMAC #### Testing performed at [address] [address] MCV (RBC) [Entitic vol] 84.0 fL Normal 80.0-100.0 [facility] Comment on above: Performed By: #### U DUSTY, UMAC #### Testing performed at [address] [address] Platelet mean volume (Bld) [Entitic vol] 7.8 fL Normal 7.4-11.0 [facility] Comment on above: Performed By: #### U DUSTY, UMAC #### Testing performed at [address] [address] Platelets (Bld) [#/Vol] 440 10*3/uL High 130.0-400.0 [facility] Comment on above: Performed By: #### U DUSTY, UMAC #### Testing performed at [address] [address] RBC (Bld) [#/Vol] 5.31 10*6/uL Normal 4.0-5.4 [facility] Comment on above: Performed By: #### U DUSTY, UMAC #### Testing performed [address] [address] [address] WBC (Bld) [#/Vol] 13.5 10*3/uL High 3.6-11.0 [facility] Comment on above: Performed By: #### U DUSTY, UMAC #### Testing performed at [address] [address] CMP FASTINGon 04-08-2021 A:G RATIO 1.0 RATIO Low 1.3-2.2 [facility] Comment on above: Performed By: #### U DUSTY, UMAC #### Testing performed at [address] [address] ALBUMIN 3.8 G/dl Normal 3.5-5.0 [facility] Comment on above: Performed By: #### U DUSTY, UMAC #### Testing performed at [address] [address] ALP [Catalytic activity/Vol] 63 U/L Normal 38-126 [facility] Comment on above: Performed By: #### U DUSTY, UMAC #### Testing performed at [address] [address] ALT [Catalytic activity/Vol] 14 U/L Normal 14-54 [facility] Comment on above: Performed By: #### U DUSTY, UMAC #### Testing performed at [address] [address] AST [Catalytic activity/Vol] 14 U/L Low 15-41 [facility] Comment on above: Performed By: #### U DUSTY, UMAC #### Testing performed at [address] [address] Bilirubin [Mass/Vol] 0.6 mg/dL Normal 0.2-1.2 [place] Comment on above: Performed By: #### U DUSTY, UMAC #### Testing performed at [address] [address] Calcium [Mass/Vol] 9.4 mg/dL Normal 8.4-10.2 [facility] Comment on above: Performed By: #### U DUSTY, UMAC #### Testing performed at [address] [address] Chloride [Moles/Vol] 104 mmol/L Normal 98-107 [place] Comment on above: Performed By: #### U DUSTY, UMAC #### Testing performed at [address] [address] CO2 [Moles/Vol] 22 mmol/L Normal 22-30 [facility] Comment on above: Performed By: #### U DUSTY, UMAC #### Testing performed at [address] [address] Creatinine [Mass/Vol] 0.54 mg/dL Normal 0.52-1.04 [facility] Comment on above: Performed By: #### U DUSTY, UMAC #### Testing performed at [address] [address] EST. GFR, >60 Normal [facility] Comment on above: Performed By: #### U DUSTY, UMAC #### Testing performed at [address] [address] EST. GFR,Non >60 Normal [facility] Comment on above: Performed By: #### U DUSTY, UMAC #### Testing performed at [address] [address] GFR Information Average GFR for 30-3 9 years old = 109. Normal [facility] Comment on above: Result Comment: Card Feeder silverio Kidney disease, GFR = <60. Kidney failure, GFR = <15. The GFR estimate is not adjusted for extreme body surface area or acute process, nor has it been validated for women or ethnic groups other than and . Performed By: #### U DUSTY, UMAC #### Testing performed at [address] [address] Glucose [Mass/Vol] 112 mg/dL High 70-100 [facility] Comment on above: Result Comment: NORMAL <100 mg/dL PREDIABETES 101-126 mg/dL DIABETES 126 mg/dL or higher Performed By: #### U DUSTY, UMAC #### Testing performed at [address] [address] Potassium [Moles/Vol] 4.4 mmol/L Normal 3.5-5.1 [facility] Comment on above: Performed By: #### U DUSTY, UMAC #### Testing performed at [address] [place] [address] Protein [Mass/Vol] 7.5 g/dL Normal 6.3-8.2 [facility] Comment on above: Performed By: #### U DUSTY, UMAC #### Testing performed at [address] [address] Sodium [Moles/Vol] 136 mmol/L Normal 136-145 [facility] Comment on above: Performed By: #### U DUSTY, UMAC #### Testing performed at [address] [address] Urea nitrogen [Mass/Vol] 9 mg/dL Normal 7-20 [facility] Comment on above: Performed By: #### U DUSTY, UMAC #### Testing performed at [address] [address] HIV 1,2 ABon 04-08-2021 HIV 1,2 Non-Reactive Normal NONREACTIVE [facility] Comment on above: Performed By: #### U DUSTY, UMAC #### Testing performed at [address] [address] TYPE AND SCREEN CROSSMATCH C ONVERTIBLEon 04-08-2021 TYPE AND SCREEN CROSSMATCH CONVERTIBLE WORKUP EXPIRES 05/02/2021,2359 ABO/RH(D) O POSITIVE ANTIBODY SCREEN NEGATIVE ARM BAND NUMBER [id number] Normal [facility] Comment on above: Performed By: #### T SCC #### Testing performed at [address] [place] [address] URINE CULTUREon 04-08-2021 Bacteria identified Cx Nom (U) SPECIMEN DESCRIPTION URINE - OTHER UA DIPSTICK NITRITE NEGATIVE * Result Note: LEUKOCYTE POSITIVE * CULTURE NO PATHOGENS ISOLATED * Result Note: Testing performed at [place], [place] [address] * REPORT STATUS 04/10/2021 * Result Note: FINAL * Normal [facility] Comment on above: Performed By: #### U DUSTY, UMAC #### Testing performed at [address] [place] [address] URINE MACROSCOPICon 04-08-20 21 Bilirubin Ql (U) SMALL Abnormal NEGATIVE [facility] Comment on above: Performed By: #### U DUSTY, UMAC ####Testing performed at [address] [address] Clarity (U) CLOUDY Abnormal CLEAR [facility] Comment on above: Performed By: #### U DUSTY, UMAC ####Testing performed at [address] [address] Color (U) RED Abnormal YELLOW [facility] Comment on above: Performed By: #### U DUSTY, UMAC ####Testing performed at [address] [address] Glucose Ql (U) Negative Normal NEGATIVE [facility] Comment on above: Performed By: #### U DUSTY, UMAC ####Testing performed at [address] [address] pH (U) 7.0 [pH] Normal 5.0-7.0 [facility] Comment on above: Performed By: #### U DUSTY, UMAC ####Testing performed at [address] [address] Protein (U) [Mass/Vol] 100 mg/dL Abnormal NEGATIVE [facility] Comment on above: Performed By: #### U DUSTY, UMAC ####Testing performed at [address] [address] URINE HEMOGLOBIN LARGE Abnormal NEGATIVE [facility] Comment on above: Performed By: #### U DUSTY, UMAC ####Testing performed at [address] [address] URINE KETONE TRACE Abnormal NEGATIVE [facility] Comment on above: Performed By: #### U DUSTY, UMAC ####Testing performed at [address] [place] [address] URINE LEUKOTEST SMALL Abnormal NEGATIVE [facility] Comment on above: Performed By: #### U DUSTY, UMAC ####Testing performed at [address] [address] URINE NITRATES Negative Normal NEGATIVE [facility] Comment on above: Performed By: #### U DUSTY, UMAC ####Testing performed at [address] [address] URINE SPEC GRAVITY 1.025 Normal 1.010-1.025 [facility] Comment on above: Performed By: #### U DUSTY, UMAC ####Testing performed at [address] [address] Urobilinogen Qn (U) 1.0 {Víctor'U}/dL Normal 0.2-1.0 [facility] Comment on above: Performed By: #### U DUSTY, UMAC ####Testing performed at [address] [address] URINE MICROSCOPICon 04-08-20 21 BACTERIA 1+ Abnormal NEGATIVE [facility] Comment on above: Performed By: #### U DUSTY, UMAC ####Testing performed at [place] [id number] CASTS RARE Abnormal NONE [facility] Comment on above: Result Comment: HYAL INE Performed By: #### U DUSTY, UMAC ####Testing performed at [address] [address] CRYSTAL NONE Normal NONE [facility] Comment on above: Performed By: #### U DUSTY, UMAC ####Testing performed at [place] [id number] Epithelial cells LM Ql (Urine sed) 5 TO 10 Normal [facility] Comment on above: Performed By: #### U DUSTY, UMAC ####Testing performed at [address] [address] Mucus Ql (Urine sed) Negative Normal NEGATIVE [place] Comment on above: Performed By: #### U DUSTY, UMAC ####Testing performed at [address] [address] URINE COMMENT REFLEX CULTURE PER ESTABLISHED CRITERIA. Normal [facility] Comment on above: Performed By: #### U DUSTY, UMAC ####Testing performed at [address] [address] URINE RBC'S TOO NUMEROUS TO COUNT Abnormal NEGATIVE [facility] Comment on above: Performed By: #### U DUSTY, UMAC ####Testing performed at [address] [address] URINE WBC'S 1 TO 5 Normal NEGATIVE [facility] Comment on above: Performed By: #### U DUSTY, UMAC ####Testing performed at [facility] [place] [address] XR LUMBAR SPINE 2-3 VIEWS (S TANDARD)on [...] be helpful if symptoms persist or progress. [facility]/s Workstation ID: [id number] Dictated by: ISAAK CARRENO on TueApr 02, 2021 10:26:46 AM EDT Transcribed by: GLENIS ESCALANTE on Dang Apr 02, 2021 10:29:35 AM EDT Finalized by: ISAAK CARRENO on Dang Apr 02, 2021 4:32:25 PM EDT [facility] Comment on above: Order Comment: Injur [...] the thoracic spine. No acute osseous abnormality. [facility] Workstation ID: [id number] Dictated by: ISAAK CARRENO on [facility] Apr 02, 2021 3:10:05 PM EDT Transcribed by: ZULAY RANDALL on [facility] Apr 02, 2021 3:15:01 PM EDT Finalized by: ISAAK CARRENO on [facility] Apr 02, 2021 4:20:40 PM EDT Normal [facility] Comment on above: Order Comment: Injur [...] articular abnormalities. 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 Normal [facility] CT PELVIS MSK WITH AND WITHO UT [...] CT examination of the bony pelvis. Normal [facility] CREATININE,SERUMon Creatinine [Mass/Vol] 0.74 mg/dL Normal 0.52-1.04 [facility] Comment on above: Performed By: #### U DUSTY, UMAC #### Testing performed at [place] [id number] EST. GFR, >60 Normal [facility] Comment on above: Performed By: #### U DUSTY, UMAC #### Testing performed at [address] [address] EST. GFR,Non >60 Normal [facility] Comment on above: Performed By: #### U DUSTY, UMAC #### Testing performed at [address] [address] GFR Information Average GFR for 30-3 9 years old = 109. Normal [facility] Comment on above: Result Comment: Card Feeder silverio Kidney disease, GFR = <60. Kidney failure, GFR = <15. The GFR estimate is not adjusted for extreme body surface area or acute process, nor has it been validated for women or ethnic groups other than and . Performed By: #### U DUSTY, UMAC #### Testing performed at [place] [id number] US PELVIC W TRANSVAGINALon 0 01-26-2021 US [...] is seen. 4. Small nabothian cysts. Normal [facility] IMPRESSION: 1. Endometrial stripe thickness is 7 [...] mass or pelvic free fluid is shown. [facility] John Santana DO - 01/26/2021 EXAM: US [...] fluid is seen. 4. Small nabothian cysts. [facility] Radiology Study observation (narrative) [facility] US PELVIC W TRANSVAGINALOrde red By: John Santana on 01-26-2021 [facility] Work Phone: CBCon 01-18-2021 ABSOLUTE BAS 0.1 10*3/uL Normal 0.0-0.2 [facility] Comment on above: Performed By: #### A CBC #### Testing performed at [address] [address] ABSOLUTE EOS 0.50 10*3/uL Normal 0.0-0.7 [facility] Comment on above: Performed By: #### A CBC #### Testing performed at [address] [address] ABSOLUTE NEUTROPHIL COUNT 11.2 10*3/uL High 1.4-6.5 [facility] Comment on above: Performed By: #### A CBC #### Testing performed at [address] [address] Basophils/100 WBC (Bld) 0.9 % Normal 0.0-2.0 [facility] Comment on above: Performed By: #### A CBC #### Testing performed at [address] [address] DTYPE AUTO DIFF Normal [facility] Comment on above: Performed By: #### A CBC #### Testing performed at [address] [address] Eosinophils/100 WBC (Bld) 2.9 % Normal 0.0-11.0 [facility] Comment on above: Performed By: #### A CBC #### Testing performed at [address] [address] Erythrocyte distribution width (RBC) [Ratio] 14.3 % Normal 11.5-14.5 [facility] Comment on above: Performed By: #### A CBC #### Testing performed at [address] [address] Hematocrit (Bld) [Volume fraction] 43.3 % Normal 36.0-48.0 [facility] Comment on above: Performed By: #### A CBC #### Testing performed at [address] [address] Hemoglobin (Bld) [Mass/Vol] 14.6 g/dL Normal 12.0-16.0 [facility] Comment on above: Performed By: #### A CBC #### Testing performed at [address] [address] Lymphocytes (Bld) [#/Vol] 3.20 10*3/uL Normal 1.2-3.4 [facility] Comment on above: Performed By: #### A CBC #### Testing performed at [address] [address] Lymphocytes/100 WBC (Bld) 20.6 % Normal 20.0-55.0 [facility] Comment on above: Performed By: #### A CBC #### Testing performed at [address] [address] MCH (RBC) [Entitic mass] 29.2 pg Normal 26.0-35.0 [facility] Comment on above: Performed By: #### A CBC #### Testing performed at [address] [address] MCHC (RBC) [Mass/Vol] 33.6 g/dL Normal 27.0-37.0 [facility] Comment on above: Performed By: #### A CBC #### Testing performed at [address] [address] MCV (RBC) [Entitic vol] 86.8 fL Normal 80.0-100.0 [facility] Comment on above: Performed By: #### A CBC #### Testing performed at [address] [address] Monocytes (Bld) [#/Vol] 0.7 10*3/uL Normal 0.0-0.7 [facility] Comment on above: Performed By: #### A CBC #### Testing performed at [address] [address] Monocytes/100 WBC (Bld) 4.3 % Normal 0.0-10.0 [facility] Comment on above: Performed By: #### A CBC #### Testing performed at [address] [address] Neutrophils/100 WBC (Bld) 71.3 % Normal 37.0-75.0 [facility] Comment on above: Performed By: #### A CBC #### Testing performed at [address] [address] Platelet mean volume (Bld) [Entitic vol] 7.5 fL Normal 7.4-11.0 [facility] Comment on above: Performed By: #### A CBC #### Testing performed at [address] [address] Platelets (Bld) [#/Vol] 407 10*3/uL High 130.0-400.0 [facility] Comment on above: Performed By: #### A CBC #### Testing performed at [address] [address] RBC (Bld) [#/Vol] 4.99 10*6/uL Normal 4.0-5.4 [facility] Comment on above: Performed By: #### A CBC #### Testing performed at [address] [address] WBC (Bld) [#/Vol] 15.6 10*3/uL High 3.6-11.0 [facility] Comment on above: Performed By: #### A CBC #### Testing performed at [address] [address] CBC, MANUELIF, PLATELETon 2020 ABSOLUTE BASOPHIL COUNT 0.1 10*3/uL 0.0 - 0.2 10*3/uL [facility] Basophils/100 WBC (Bld) 0.9 % 0.0 - 2.0 % [facility] Differential cell count method Nom (Bld) AUTO DIFF % [facility] Eosinophils (Bld) [#/Vol] 0.50 10*3/uL 0.0 - 0.7 10*3/uL [facility] Eosinophils/100 WBC (Bld) 2.9 % 0.0 - 11.0 % [facility] Erythrocyte distribution width (RBC) [Ratio] 14.3 % 11.5 - 14.5 % [facility] Hematocrit (Bld) [Volume fraction] 43.3 % 36.0 - 48.0 % [facility] Hemoglobin (Bld) [Mass/Vol] 14.6 g/dL [facility] Interpretation and review of laboratory results Abnormal [facility] Lymphocytes (Bld) [#/Vol] 3.20 10*3/uL 1.2 - 3.4 10*3/uL [facility] Lymphocytes/100 WBC (Bld) 20.6 % 20.0 - 55.0 % [facility] MCH (RBC) [Entitic mass] 29.2 pg 26.0 - 35.0 PG [facility] MCHC (RBC) [Mass/Vol] 33.6 g/dL [facility] MCV (RBC) [Entitic vol] 86.8 fL [facility] Monocytes (Bld) [#/Vol] 0.7 10*3/uL 0.0 - 0.7 10*3/uL [facility] Monocytes/100 WBC (Bld) 4.3 % 0.0 - 10.0 % [facility] Neutrophils (Bld) [#/Vol] 11.2 10*3/uL High 1.4 - 6.5 10*3/uL [facility] Neutrophils/100 WBC (Bld) 71.3 % 37.0 - 75.0 % [facility] Platelet mean volume (Bld) [Entitic vol] 7.5 fL [facility] Platelets (Bld) [#/Vol] 407 10*3/uL High 130.0 - 400.0 10*3/uL [facility] RBC (Bld) [#/Vol] 4.99 10*6/uL 4.0 - 5.4 10*6/uL [facility] WBC (Bld) [#/Vol] 15.6 10*3/uL High 3.6 - 11.0 10*3/uL [facility] HCG ( test) Ql (U)o n 01-18-2021 [facility] HCG QUALITATIVE, URINEon HCG ( test) Ql (U) Negative NEGATIVE [facility] No Panel Informationon 01-18 Interpretation and review of laboratory results Abnormal [facility] URINALYSIS, MACROon 01-19-20 21 Bilirubin Ql (U) MODERATE Abnormal NEGATIVE [facility] Clarity (U) TURBID Abnormal CLEAR [facility] Color (U) BROWN Abnormal YELLOW [facility] Glucose Test strip (U) [Mass/Vol] Negative NEGATIVE mg/dl [facility] Hemoglobin Ql (U) LARGE Abnormal NEGATIVE [facility] Ketones (U) [Mass/Vol] 15 mg/dL Abnormal NEGATIVE [facility] Leukocyte esterase Test strip Ql (U) SMALL Abnormal NEGATIVE [facility] Nitrite Ql (U) Negative NEGATIVE [facility] pH (U) 5.5 [pH] [facility] Protein Ql (U) 100 mg/dl Abnormal NEGATIVE [facility] Specific gravity (U) [Rel density] 1.025 [facility] Urobilinogen (U) [Mass/Vol] 1.0 mg/dL [facility] URINE CULTUREon 01-18-2021 Bacteria identified Cx Nom (U) SPECIMEN DESCRIPTION URINE CLEAN CATCH UA DIPSTICK LEUKOCYTE POSITIVE * Result Note: NITRITE NEGATIVE * CULTURE MULTIPLE SPECIES PRESENT;PROBABLE CONTAMINATION. SUGGEST REPEAT SPECIMEN. * Result Note: Testing performed at [place] [address] * REPORT STATUS 01/21/2021 * Result Note: FINAL * Normal [facility] Comment on above: Performed By: #### A URNC #### Testing performed at [address] [address] Testing performed at [address] [address] URINE HCG QUALon 01-18-2021 Beta HCG ( test) Ql (U) Negative Normal NEGATIVE [facility] Comment on above: Performed By: #### U DUSTY, UHCGT, UMAC #### Testing performed at [address] [address] URINE MACROSCOPICon 01-19-20 Bilirubin Ql (U) MODERATE Abnormal NEGATIVE [facility] Comment on above: Performed By: #### U DUSTY, UHCGT, UMAC #### Testing performed at [address] [address] Clarity (U) TURBID Abnormal CLEAR [facility] Comment on above: Performed By: #### U DUSTY, UHCGT, UMAC #### Testing performed at [address] [address] Color (U) BROWN Abnormal YELLOW [facility] Comment on above: Performed By: #### U DUSTY, UHCGT, UMAC #### Testing performed at [address] [address] Glucose Ql (U) Negative Normal NEGATIVE [facility] Comment on above: Performed By: #### U DUSTY, UHCGT, UMAC #### Testing performed at [address] [address] pH (U) 5.5 [pH] Normal 5.0-7.0 [facility] Comment on above: Performed By: #### U DUSTY, UHCGT, UMAC #### Testing performed at [address] [address] Protein (U) [Mass/Vol] 100 mg/dL Abnormal NEGATIVE [facility] Comment on above: Performed By: #### U DUSTY, UHCGT, UMAC #### Testing performed at [address] [place] [address] URINE HEMOGLOBIN LARGE Abnormal NEGATIVE [facility] Comment on above: Performed By: #### U DUSTY, UHCGT, UMAC #### Testing performed at [address] [place] [address] URINE KETONE 15 mg/dl Abnormal NEGATIVE [facility] Comment on above: Performed By: #### U DUSTY, UHCGT, UMAC #### Testing performed at [address] [place] [address] URINE LEUKOTEST SMALL Abnormal NEGATIVE [facility] Comment on above: Performed By: #### U DUSTY, UHCGT, UMAC #### Testing performed at [address] [address] URINE NITRATES Negative Normal NEGATIVE [facility] Comment on above: Performed By: #### U DUSTY, UHCGT, UMAC #### Testing performed at [address] [address] URINE SPEC GRAVITY 1.025 Normal 1.010-1.025 [facility] Comment on above: Performed By: #### U DUSTY, UHCGT, UMAC #### [place] [address] Urobilinogen Qn (U) 1.0 {Víctor'U}/dL Normal 0.2-1.0 [facility] Comment on above: Performed By: #### U DUSTY, UHCGT, UMAC #### [place] [address] URINE MICROSCOPICon 01-19-20 21 Bacteria LM.HPF (Urine sed) [#/Area] Negative Normal NEGATIVE [facility] Comment on above: Performed By: #### U DUSTY, UHCGT, UMAC #### Testing performed at [address] [address] CASTS NONE Normal NONE [facility] Comment on above: Performed By: #### U DUSTY, UHCGT, UMAC #### Testing performed at [address] [address] CRYSTAL NONE Normal [facility] Comment on above: Performed By: #### U DUSTY, UHCGT, UMAC #### Testing performed at [address] [address] Epithelial cells LM Ql (Urine sed) 1 TO 5 Normal [facility] Comment on above: Performed By: #### U DUSTY, UHCGT, UMAC #### Testing performed at [address] [place] [address] Mucus Ql (Urine sed) Negative Normal NEGATIVE [place] Comment on above: Performed By: #### U DUSTY, UHCGT, UMAC #### Testing performed at [address] [address] URINE COMMENT REFLEX CULTURE PER ESTABLISHED CRITERIA. Normal [facility] Comment on above: Performed By: #### U DUSTY, UHCGT, UMAC #### Testing performed at [address] [address] URINE RBC'S TOO NUMEROUS TO COUNT Abnormal NEGATIVE [facility] Comment on above: Performed By: #### U DUSTY, UHCGT, UMAC #### Testing performed at [address] [address] URINE WBC'S 1 TO 5 Normal NEGATIVE [facility] Comment on above: Performed By: #### U DUSTY, UHCGT, UMAC #### Testing performed at [address] [address] Bacteria LM.HPF (Urine sed) [#/Area] Negative NEGATIVE [facility] Casts LM.LPF (Urine sed) [#/Area] NONE NONE /LPF [facility] Crystals LM Nom (Urine sed) NONE NONE [facility] Epithelial cells LM Ql (Urine sed) 1 TO 5 /HPF [facility] Mucus Ql (Urine sed) Negative NEGATIVE [facility] RBC LM.HPF (Urine sed) [#/Area] TOO NUMEROUS TO COUNT Abnormal NEGATIVE /HPF [facility] Urine sediment comments LM [place] (Urine sed) REFLEX CULTURE PER ESTABLISHED CRITERIA. [facility] WBC LM.HPF (Urine sed) [#/Area] 1 TO 5 NEGATIVE /HPF [facility] POCT GLUCOSEon 11-28-2020 Glucose [Mass/Vol] 348 mg/dL High 70-100 [facility] [place] Glucose [Mass/Vol] 325 mg/dL High 70-100 [facility] [place] Glucose [Mass/Vol] 295 mg/dL High 70-100 [facility] TRANSMISSION LINE ENGINEER [id number] Normal [facility] CBCon 11-26-2020 ABSOLUTE BAS 0.1 10*3/uL Normal 0.0-0.2 [facility] Comment on above: Result Comment: Test ing performed at [place] [address] Performed By: #### A CBC, RENF, MG #### Testing performed at [address] [address] ABSOLUTE EOS 0.40 10*3/uL Normal 0.0-0.7 [facility] Comment on above: Performed By: #### A CBC, RENF, MG #### Testing performed at [address] [address] ABSOLUTE NEUTROPHIL COUNT 6.1 10*3/uL Normal 1.4-6.5 [facility] [place] Comment on above: Performed By: #### A CBCGONZALO MG #### Testing performed at [address] [address] Basophils/100 WBC (Bld) 0.7 % Normal 0.0-2.0 [facility] [place] Comment on above: Performed By: #### A CBCGONZALO, MG #### Testing performed at [address] [address] DTYPE AUTO DIFF Normal [facility] [place] Comment on above: Performed By: #### A CBCGONZALO, MG #### Testing performed at [address] [address] Eosinophils/100 WBC (Bld) 3.7 % Normal 0.0-11.0 [facility] [place] Comment on above: Performed By: #### A CBCGONZALO, MG #### Testing performed at [address] [address] Lymphocytes (Bld) [#/Vol] 2.90 10*3/uL Normal 1.2-3.4 [facility] Comment on above: Performed By: #### A CBCCHANDUF, MG #### Testing performed at [address] [address] Lymphocytes/100 WBC (Bld) 29.4 % Normal 20.0-55.0 [facility] Comment on above: Performed By: #### A CBCCHANDUF, MG #### Testing performed at [address] [address] Monocytes (Bld) [#/Vol] 0.5 10*3/uL Normal 0.0-0.7 [facility] Comment on above: Performed By: #### A CBCCHANDUF, MG #### Testing performed at [address] [address] Monocytes/100 WBC (Bld) 4.6 % Normal 0.0-10.0 [facility] Comment on above: Performed By: #### A CBCGONZALO MG #### [place] [address] Neutrophils/100 WBC (Bld) 61.6 % Normal 37.0-75.0 [facility] Comment on above: Performed By: #### A CBCGONZALO MG #### [place] [address] Erythrocyte distribution width (RBC) [Ratio] 15.4 % High 11.5-14.5 [facility] Comment on above: Performed By: #### A CBCGONZALO MG #### [place] [address] Hematocrit (Bld) [Volume fraction] 41.3 % Normal 36.0-48.0 [facility] Comment on above: Performed By: #### A CBCGONZALO MG #### [place] [address] Hemoglobin (Bld) [Mass/Vol] 14.5 g/dL Normal 12.0-16.0 [facility] Comment on above: Performed By: #### A CBCGONZALO MG #### [place] [address] MCH (RBC) [Entitic mass] 30.0 pg Normal 26.0-35.0 [facility] Comment on above: Performed By: #### A CBCGONZALO MG #### [place] [address] MCHC (RBC) [Mass/Vol] 35.0 g/dL Normal 27.0-37.0 [facility] Comment on above: Performed By: #### A CBCGONZALO MG #### [place] [address] MCV (RBC) [Entitic vol] 85.7 fL Normal 80.0-100.0 [facility] Comment on above: Performed By: #### A CBCGONZALO MG #### Testing performed [place] [address] Platelet mean volume (Bld) [Entitic vol] 7.9 fL Normal 7.4-11.0 [facility] Comment on above: Performed By: #### A CBCGONZALO MG #### [place] [address] Platelets (Bld) [#/Vol] 285 10*3/uL Normal 130.0-400.0 [facility] Comment on above: Performed By: #### A CBCCHANDUF, MG #### [place] [address] RBC (Bld) [#/Vol] 4.82 10*6/uL Normal 4.0-5.4 [facility] Comment on above: Performed By: #### A CBCCHANDUF, MG #### [place] [address] WBC (Bld) [#/Vol] 9.9 10*3/uL Normal 3.6-11.0 [facility] Comment on above: Performed By: #### A CBC, CHANDUF, MG #### [place] [address] CHEM 7 FASTINGon 11-26-2020 Chloride [Moles/Vol] 104 mmol/L Normal 98-107 [facility] Comment on above: Result Comment: Plea note: Triglyceride levels of 600mg/dL or higher may positively bias chloride results by approximately 2.1 mmol Performed By: #### C HEM7F #### [place] [address] CO2 [Moles/Vol] 24 mmol/L Normal 22-30 [facility] Comment on above: Performed By: #### C HEM7F #### [place] [address] Creatinine [Mass/Vol] 0.50 mg/dL Low 0.7-1.2 [facility] Comment on above: Performed By: #### C HEM7F #### Testing performed at [address] [place] [address] EST. GFR, >60 Normal [facility] Comment on above: Performed By: #### C HEM7F #### [place] [address] EST. GFR,Non >60 Normal [facility] Comment on above: Performed By: #### C HEM7F #### [place] [address] GFR Information Average GFR for 30-3 9 years old = 109. Normal [facility] Comment on above: Result Comment: Card Feeder silverio Kidney disease, GFR = <60. Kidney failure, GFR = <15. The GFR estimate is not adjusted for extreme body surface area or acute process, nor has it been validated for women or ethnic groups other than and . Testing performed at [place] [address] Performed By: #### C HEM7F #### [place] [address] Glucose [Mass/Vol] 304 mg/dL High 70-100 [facility] Comment on above: Result Comment: NORMAL <100 mg/dL PREDIABETES 101-126 mg/dL DIABETES 126 mg/dL or higher Performed By: #### C HEM7F #### [place] [address] Potassium [Moles/Vol] 3.3 mmol/L Low 3.5-5.1 [facility] Comment on above: Performed By: #### C HEM7F #### [place] [address] Sodium [Moles/Vol] 134 mmol/L Low 137-145 [facility] Comment on above: Performed By: #### C HEM7F #### [place] [address] Urea nitrogen [Mass/Vol] 10 mg/dL Normal 7-20 [facility] Comment on above: Performed By: #### C HEM7F #### [place] [address] MAGNESIUMon 11-26-2020 Magnesium [Mass/Vol] 1.8 mg/dL Normal 1.6-2.3 [facility] Comment on above: Result Comment: Test ing performed at [place] [address] Performed By: #### B MPF, T42, RTSH, LIP2 #### [place] [address] MRSA SCREENon 11-26-2020 MRSA DNA LORRIE+probe Ql (Unsp spec) Not detected Normal NOT DETECTED [facility] Comment on above: Performed By: #### M RSAST #### [place] [address] STAPH AUREUS SCREEN Not detected Normal NOT DETECTED [facility] Comment on above: Result Comment: Test ing performed at [place] [address] Performed By: #### M RSAST #### [place] [address] RENAL PANEL,FASTINGon 2020 ALBUMIN 3.4 G/dl Low 3.5-5.0 [facility] Comment on above: Performed By: #### A CBC, RENF, MG #### [place] [address] Calcium [Mass/Vol] 8.0 mg/dL Low 8.4-10.2 [facility] Comment on above: Performed By: #### A CBC, RENF, MG #### [place] [address] Chloride [Moles/Vol] 104 mmol/L Normal 98-107 [facility] Comment on above: Result Comment: Plea se note: Triglyceride levels of 600mg/dL or higher may positively bias chloride results by approximately 2.1 mmol Performed By: #### A CBC, RENF, MG #### [place] [address] CO2 [Moles/Vol] 24 mmol/L Normal 22-30 [facility] Comment on above: Performed By: #### A CBC, RENF, MG #### [place] [address] Creatinine [Mass/Vol] 0.50 mg/dL Low 0.7-1.2 [facility] Comment on above: Performed By: #### A CBC, RENF, MG #### [place] [address] EST. GFR, >60 Normal [facility] Comment on above: Performed By: #### A CBC, RENF, MG #### [place] [address] EST. GFR,Non >60 Normal [facility] Comment on above: Performed By: #### A CBC, RENF, MG #### [place] [address] GFR Information Average GFR for 30-3 9 years old = 109. Normal [facility] Comment on above: Result Comment: Card Feeder silverio Kidney disease, GFR = <60. Kidney failure, GFR = <15. The GFR estimate is not adjusted for extreme body surface area or acute process, nor has it been validated for women or ethnic groups other than and . Testing performed at [place] [address] Performed By: #### A CBC, RENF, MG #### [place] [address] Glucose [Mass/Vol] 286 mg/dL High 70-100 [facility] Comment on above: Result Comment: NORMAL <100 mg/dL PREDIABETES 101-126 mg/dL DIABETES 126 mg/dL or higher Performed By: #### A CBC, RENF, MG #### [place] [address] PHOSPHOROUS 3.7 MG/DL Normal 2.5-4.5 [facility] Comment on above: Performed By: #### A CBC, RENF, MG #### [place] [address] Potassium [Moles/Vol] 3.5 mmol/L Normal 3.5-5.1 [facility] Comment on above: Performed By: #### A CBC, RENF, MG #### Testing performed at [address] [address] Sodium [Moles/Vol] 135 mmol/L Low 137-145 [facility] Comment on above: Performed By: #### A CBC, RENF, MG #### Testing performed at [address] [address] Urea nitrogen [Mass/Vol] 9 mg/dL Normal 7-20 [facility] Comment on above: Performed By: #### A CBC, RENF, MG #### Testing performed at [address] [address] B HYDROXYBUTYRATEon 11-26-19 21 B HYDROXYBUTYRATE 0.17 MMOL/L Normal 0.02-0.27 [facility] Comment on above: Performed By: #### U DUSTY, UMAC #### Testing performed at [address] [address] CBCon 11-25-2020 ABSOLUTE BAS 0.1 10*3/uL Normal 0.0-0.2 [facility] Comment on above: Performed By: #### U DUSTY, UMAC #### Testing performed at [address] [address] ABSOLUTE EOS 0.40 10*3/uL Normal 0.0-0.7 [facility] Comment on above: Performed By: #### U DUSTY, UMAC #### Testing performed at [address] [address] ABSOLUTE NEUTROPHIL COUNT 9.1 10*3/uL High 1.4-6.5 [facility] Comment on above: Performed By: #### U DUSTY, UMAC #### Testing performed at [address] [address] Basophils/100 WBC (Bld) 0.8 % Normal 0.0-2.0 [facility] Comment on above: Performed By: #### U DUTSY, UMAC #### Testing performed at [address] [address] DTYPE AUTO DIFF Normal [facility] Comment on above: Performed By: #### U DUSTY, UMAC #### Testing performed at [address] [address] Eosinophils/100 WBC (Bld) 2.9 % Normal 0.0-11.0 [facility] Comment on above: Performed By: #### U DUSTY, UMAC #### Testing performed at [address] [address] Lymphocytes (Bld) [#/Vol] 3.40 10*3/uL Normal 1.2-3.4 [facility] Comment on above: Performed By: #### U DUSTY, UMAC #### Testing performed at [address] [address] Lymphocytes/100 WBC (Bld) 25.2 % Normal 20.0-55.0 [facility] Comment on above: Performed By: #### U DUSTY, UMAC #### Testing performed at [address] [address] Monocytes (Bld) [#/Vol] 0.5 10*3/uL Normal 0.0-0.7 [facility] Comment on above: Performed By: #### U DUSTY, UMAC #### Testing performed at [address] [address] Monocytes/100 WBC (Bld) 3.7 % Normal 0.0-10.0 [facility] Comment on above: Performed By: #### U DUSTY, UMAC #### Testing performed at [address] [address] Neutrophils/100 WBC (Bld) 67.4 % Normal 37.0-75.0 [facility] Comment on above: Performed By: #### U DUSTY, UMAC #### Testing performed at [address] [address] Erythrocyte distribution width (RBC) [Ratio] 15.4 % High 11.5-14.5 [facility] Comment on above: Performed By: #### U DUSTY, UMAC #### Testing performed at [address] [address] Hematocrit (Bld) [Volume fraction] 45.3 % Normal 36.0-48.0 [facility] Comment on above: Performed By: #### U DUSTY, UMAC #### Testing performed at [address] [address] Hemoglobin (Bld) [Mass/Vol] 15.2 g/dL Normal 12.0-16.0 [facility] Comment on above: Performed By: #### U DUSTY, UMAC #### Testing performed at [address] [address] MCH (RBC) [Entitic mass] 29.1 pg Normal 26.0-35.0 [facility] Comment on above: Performed By: #### U DUSTY, UMAC #### Testing performed at [address] [address] MCHC (RBC) [Mass/Vol] 33.6 g/dL Normal 27.0-37.0 [facility] Comment on above: Performed By: #### U DUSTY, UMAC #### Testing performed at [address] [address] MCV (RBC) [Entitic vol] 86.5 fL Normal 80.0-100.0 [facility] Comment on above: Performed By: #### U DUSTY, UMAC #### Testing performed at [address] [address] Platelet mean volume (Bld) [Entitic vol] 8.2 fL Normal 7.4-11.0 [facility] Comment on above: Performed By: #### U DUSTY, UMAC #### Testing performed at [address] [address] Platelets (Bld) [#/Vol] 365 10*3/uL Normal 130.0-400.0 [facility] Comment on above: Performed By: #### U DUSTY, UMAC #### Testing performed at [address] [address] RBC (Bld) [#/Vol] 5.24 10*6/uL Normal 4.0-5.4 [facility] Comment on above: Performed By: #### U DUSTY, UMAC #### Testing performed at [address] [address] WBC (Bld) [#/Vol] 13.5 10*3/uL High 3.6-11.0 [facility] Comment on above: Performed By: #### U DUSTY, UMAC #### Testing performed at [address] [address] CMP FASTINGon 11-25-2020 A:G RATIO 1.2 RATIO Low 1.3-2.2 [facility] Comment on above: Performed By: #### U DUSTY, UMAC #### Testing performed at [address] [address] ALBUMIN 4.0 G/dl Normal 3.5-5.0 [facility] Comment on above: Performed By: #### U DUSTY, UMAC #### Testing performed at [address] [address] ALP [Catalytic activity/Vol] 104 U/L Normal 38-126 [facility] Comment on above: Performed By: #### U DUSTY, UMAC #### Testing performed at [address] [address] ALT [Catalytic activity/Vol] 27 U/L Normal 14-54 [facility] Comment on above: Performed By: #### U DUSTY, UMAC #### Testing performed at [address] [address] AST [Catalytic activity/Vol] 23 U/L Normal 15-41 [facility] Comment on above: Performed By: #### U DUSTY, UMAC #### Testing performed at [address] [address] Bilirubin [Mass/Vol] 0.7 mg/dL Normal 0.2-1.2 [place] Comment on above: Performed By: #### U DUSTY, UMAC #### Testing performed at [address] [address] Calcium [Mass/Vol] 9.4 mg/dL Normal 8.4-10.2 [facility] Comment on above: Performed By: #### U DUSTY, UMAC #### Testing performed at [address] [address] Chloride [Moles/Vol] 97 mmol/L Low 98-107 [place] Comment on above: Performed By: #### U DUSTY, UMAC #### Testing performed at [address] [address] CO2 [Moles/Vol] 23 mmol/L Normal 22-30 [facility] Comment on above: Performed By: #### U DUSTY, UMAC #### Testing performed at [address] [address] Creatinine [Mass/Vol] 0.79 mg/dL Normal 0.52-1.04 [facility] Comment on above: Performed By: #### U DUSTY, UMAC #### Testing performed at [address] [address] EST. GFR, >60 Normal [facility] Comment on above: Performed By: #### U DUSTY, UMAC #### Testing performed at [address] [address] EST. GFR,Non >60 Normal [facility] Comment on above: Performed By: #### U DUSTY, UMAC #### Testing performed at [address] [address] GFR Information Average GFR for 30-3 9 years old = 109. Normal [facility] Comment on above: Result Comment: Card Feeder silverio Kidney disease, GFR = <60. Kidney failure, GFR = <15. The GFR estimate is not adjusted for extreme body surface area or acute process, nor has it been validated for women or ethnic groups other than and . Performed By: #### U DUSTY, UMAC #### Testing performed at [address] [address] Glucose [Mass/Vol] 472 mg/dL Critically high 70-100 [facility] Comment on above: Result Comment: NORMAL <100 mg/dL PREDIABETES 101-126 mg/dL DIABETES 126 mg/dL or higher Result called to read back by: FITZ 11/25/2020 @ 18:06 by BRYAN Performed By: #### U DUSTY, UMAC #### Testing performed at [address] [address] Potassium [Moles/Vol] 4.0 mmol/L Normal 3.5-5.1 [facility] Comment on above: Performed By: #### U DUSTY, UMAC #### Testing performed at [address] [address] Protein [Mass/Vol] 7.4 g/dL Normal 6.3-8.2 [facility] Comment on above: Performed By: #### U DUSTY, UMAC #### Testing performed at [address] [address] Sodium [Moles/Vol] 130 mmol/L Low 136-145 [facility] Comment on above: Performed By: #### U DUSTY, UMAC #### Testing performed at [address] [address] Urea nitrogen [Mass/Vol] 10 mg/dL Normal 7-20 [facility] Comment on above: Performed By: #### U DUSTY, UMAC #### Testing performed at [address] [address] HEMOGLOBIN A1Con 11-25-2020 Glucose [Mass/Vol] 249 mg/dL Normal [facility] Comment on above: Performed By: #### H A1CT #### Testing performed at [address] [address] HbA1c (Bld) [Mass fraction] 10.3 % High <6 [facility] Comment on above: Result Comment: NORMAL <5.7% PREDIABETES 5.7-6.4% DIABETES 6.5% OR HIGHER Performed By: #### H A1CT #### Testing performed at [address] [address] LACTIC ACIDon 11-25-2020 Lactate [Moles/Vol] 2.6 mmol/L Critically high 0.5-2.0 [facility] Comment on above: Result Comment: RADHA SEARS REPEAT INITIAL CRITICAL IN 3 HOURS IF ED OR INPATIENT SEPSIS PATIENT Result called to read back by: ANNAMARIA 11/25/2020 @ 17:51 by JONAS Performed By: #### U DUSTY, UMAC #### Testing performed at [address] [address] POCT GLUCOSEon 11-25-2020 Glucose [Mass/Vol] 475 mg/dL High 70-100 [facility] TRANSM[employer]ER [id number] Normal [facility] Glucose [Mass/Vol] 461 mg/dL High 70-100 [facility] [employer] [id number] Normal [facility] TROPONIN I, HIGH SENSITIVITY on 11-25-2020 TROPONIN I, HIGH SENSITIVITY <2 Normal 0-12 [facility] Comment on above: Result Comment: Indeterminant: >12 to 100 pg/mL female >20 to 100 pg/mL male Indicative of myocardial injury. Serial sampling is recommended, a change of greater than or equal to 20 pg/mL is indicative of acute coronary syndrome. Performed By: #### U DUSTY, UMAC #### Testing performed at [address] [address] URINE MACROSCOPICon 11-26-19 21 Bilirubin Ql (U) SMALL Abnormal NEGATIVE [facility] Comment on above: Performed By: #### U DUSTY, UMAC #### Testing performed at [address] [address] Clarity (U) CLOUDY Abnormal CLEAR [facility] Comment on above: Performed By: #### U DUSTY, UMAC #### Testing performed at [address] [address] Color (U) PINK Abnormal YELLOW [facility] Comment on above: Performed By: #### U DUSTY, UMAC #### Testing performed at [address] [address] Glucose Ql (U) >1000 Abnormal NEGATIVE [facility] Comment on above: Performed By: #### U DUSTY, UMAC #### Testing performed at [address] [address] pH (U) 6.0 [pH] Normal 5.0-7.0 [facility] Comment on above: Performed By: #### U DUSTY, UMAC #### Testing performed at [address] [address] Protein (U) [Mass/Vol] 100 mg/dL Abnormal NEGATIVE [facility] Comment on above: Performed By: #### U DUSTY, UMAC #### Testing performed at [address] [address] URINE HEMOGLOBIN LARGE Abnormal NEGATIVE [facility] Comment on above: Performed By: #### U DUSTY, UMAC #### Testing performed at [address] [address] URINE KETONE TRACE Abnormal NEGATIVE [facility] Comment on above: Performed By: #### U DUSTY, UMAC #### Testing performed at [address] [address] URINE LEUKOTEST Negative Normal NEGATIVE [facility] Comment on above: Performed By: #### U DUSTY, UMAC #### Testing performed at [address] [address] URINE NITRATES Negative Normal NEGATIVE [facility] Comment on above: Performed By: #### U DUSTY, UMAC #### Testing performed at [address] [address] URINE SPEC GRAVITY 1.015 Normal 1.010-1.025 [facility] Comment on above: Performed By: #### U DUSTY, UMAC #### Testing performed at [address] [address] Urobilinogen Qn (U) 0.2 {Víctor'U}/dL Normal 0.2-1.0 [facility] Comment on above: Performed By: #### U DUSTY, UMAC #### Testing performed at [address] [address] URINE MICROSCOPICon 11-26-19 21 Bacteria LM.HPF (Urine sed) [#/Area] Negative Normal NEGATIVE [facility] Comment on above: Performed By: #### U DUSTY, UMAC #### Testing performed at [address] [place] [address] CASTS NONE Normal NONE [facility] Comment on above: Performed By: #### U DUSTY, UMAC #### Testing performed at [address] [place] [address] CRYSTAL NONE Normal [facility] Comment on above: Performed By: #### U DUSTY, UMAC #### Testing performed at [address] [address] Epithelial cells LM Ql (Urine sed) 20 TO 30 Normal [facility] Comment on above: Performed By: #### U DUSTY, UMAC #### Testing performed at [address] [address] Mucus Ql (Urine sed) Negative Normal NEGATIVE [place] Comment on above: Performed By: #### U DUSTY, UMAC #### Testing performed at [address] [place] [address] URINE COMMENT POSSIBLY CONTAMINATE D SPECIMEN, CULTURE MUST BE ORDERED SEPARATELY IF DEEMED NECESSARY. Normal [facility] Comment on above: Performed By: #### U DUSTY, UMAC #### Testing performed at [address] [place] [address] URINE RBC'S TOO NUMEROUS TO COUNT Abnormal NEGATIVE [facility] Comment on above: Performed By: #### U DUSTY, UMAC #### Testing performed at [address] [place] [address] URINE WBC'S Negative Normal NEGATIVE [facility] Comment on above: Performed By: #### U DUSTY, UMAC #### Testing performed at [address] [address] VENOUS BLOOD GASon 1 BASE EXCESS 1.1 mEq/L Normal 0-2 [facility] Comment on above: Performed By: #### P ABGV ####Testing performed at [address] [place] [address] cHCO3 (P,ST)C 25.0 mEq/L Normal 22-26 [facility] Comment on above: Performed By: #### P ABGV ####Testing performed at [address] [place] [address] ctCO2 (B)c 21.5 Vol% [facility] Comment on above: Performed By: #### P ABGV ####Testing performed at [address] [place] [address] ctHb 15.6 g/dl [facility] Comment on above: Performed By: #### P ABGV ####Testing performed at [address] [place] [address] FCOHb 6.1 % [facility] Comment on above: Performed By: #### P ABGV ####Testing performed at [address] [place] [address] FMetHb 0.6 % [facility] Comment on above: Performed By: #### P ABGV ####Testing performed at [address] [place] [address] FO2Hb 81.7 % Normal [facility] Comment on above: Performed By: #### P ABGV ####Testing performed at [address] [place] [address] pCO2, venous or cap 39.4 mmHg Low 41-51 [facility] Comment on above: Performed By: #### P ABGV ####Testing performed at [address] [place] [address] pH,venous or cap 7.420 High 7.31-7.41 [facility] Comment on above: Performed By: #### P ABGV ####Testing performed at [address] [place] [address] pO2,venous or cap 51.0 mmHg High 35-42 [facility] Comment on above: Performed By: #### P ABGV ####Testing performed at [address] [place] [address] sO2,venous or cap 87.6 % High 68-77 [facility] Comment on above: Performed By: #### P ABGV ####Testing performed at [address] [place] [address] BMP FASTINGon 01-30-2020 Anion gap [Moles/Vol] 9 mmol/L Normal 8-16 [facility] Comment on above: Performed By: #### B MPF, T42, RTSH, LIP2 #### Testing performed at [address] [address] Calcium [Mass/Vol] 9.3 mg/dL Normal 8.4-10.2 [facility] Comment on above: Performed By: #### B MPF, T42, RTSH, LIP2 #### Testing performed at [address] [address] Chloride [Moles/Vol] 106 mmol/L Normal 98-107 [facility] Comment on above: Result Comment: Radha sears note: Triglyceride levels of 600mg/dL or higher may positively bias chloride results by approximately 2.1 mmol Performed By: #### B MPF, T42, RTSH, LIP2 #### Testing performed at [place] [address] CO2 [Moles/Vol] 25 mmol/L Normal 22-30 [facility] Comment on above: Performed By: #### B MPF, T42, RTSH, LIP2 #### [place] [address] Creatinine [Mass/Vol] 0.70 mg/dL Normal 0.7-1.2 [facility] Comment on above: Performed By: #### B MPF, T42, RTSH, LIP2 #### [place] [address] EST. GFR, >60 Normal [facility] Comment on above: Performed By: #### B MPF, T42, RTSH, LIP2 #### [place] [address] EST. GFR,Non >60 Normal [facility] Comment on above: Performed By: #### B MPF, T42, RTSH, LIP2 #### [place] [address] GFR Information Average GFR for 30-3 9 years old = 109. Normal [facility] Comment on above: Result Comment: Card Feeder silverio Kidney disease, GFR = <60. Kidney failure, GFR = <15. The GFR estimate is not adjusted for extreme body surface area or acute process, nor has it been validated for women or ethnic groups other than and . Testing performed at [place] [address] Performed By: #### B MPF, T42, RTSH, LIP2 #### [place] [address] Glucose [Mass/Vol] 105 mg/dL High 70-100 [facility] Comment on above: Result Comment: NORMAL <100 mg/dL PREDIABETES 101-126 mg/dL DIABETES 126 mg/dL or higher Performed By: #### B MPF, T42, RTSH, LIP2 #### [place] [address] Potassium [Moles/Vol] 4.4 mmol/L Normal 3.5-5.1 [facility] Comment on above: Performed By: #### B MPF, T42, RTSH, LIP2 #### Testing performed at [address] [address] Sodium [Moles/Vol] 140 mmol/L Normal 137-145 [facility] Comment on above: Performed By: #### B MPF, T42, RTSH, LIP2 #### Testing performed at [place] [id number] Urea nitrogen [Mass/Vol] 11 mg/dL Normal 7-20 [facility] Comment on above: Performed By: #### B MPF, T42, RTSH, LIP2 #### Testing performed at [place] [id number] FREE T4on 01-30-2020 Free T4 [Mass/Vol] 0.42 ng/dL Low 0.78-2.19 [facility] Comment on above: Result Comment: Test ing performed at [place] [address] Performed By: #### B MPF, T42, RTSH, LIP2 #### Testing performed at [place] [id number] LIPID PROFILEon 01-30-2020 Cholesterol [Mass/Vol] 176 mg/dL Normal 107-217 [facility] Comment on above: Performed By: #### B MPF, T42, RTSH, LIP2 #### Testing performed at [place] [id number] Cholesterol in HDL [Mass/Vol] 33 mg/dL Normal 33-75 [facility] Comment on above: Performed By: #### B MPF, T42, RTSH, LIP2 #### Testing performed at [place] [id number] Cholesterol in LDL [Mass/Vol] 117 mg/dL Normal [facility] Comment on above: Performed By: #### B MPF, T42, RTSH, LIP2 #### Testing performed at [place] [id number] Cholesterol in VLDL [Mass/Vol] 26 mg/dL High 5.0-25 [facility] Comment on above: Performed By: #### B MPF, T42, RTSH, LIP2 #### [place] [address] Cholesterol.total/Chol esterol in HDL [Mass ratio] 5.33 {ratio} Normal [facility] Comment on above: Result Comment: RISK TOTAL/HDL RATIO MEN WOMEN 1/2 AVERAGE 3.43 3.27 AVERAGE 4.97 4.44 2X AVERAGE 9.55 7.05 3X AVERAGE 23.99 11.04 Testing performed at [place] [address] Performed By: #### B MPF, T42, RTSH, LIP2 #### [place] [address] Triglyceride [Mass/Vol] 132 mg/dL Normal 0-150 [facility] Comment on above: Performed By: #### B MPF, T42, RTSH, LIP2 #### [place] [address] TSH,REFLEX FREE T4on 020 TSH,REFLEX FREE T4 42.900 uIU/ML High 0.46-4.68 [facility] Comment on above: Result Comment: Test ing performed at [place] [address] Performed By: #### B MPF, T42, RTSH, LIP2 #### [place] [address] CHEST PA AND LATERALon 09-15 CHEST PA AND LATERAL Final ReportAccession No: [id number] Performed: Sep 14 2017 10:05PMExamination: CHEST [...] Physician: NAVIN SHIN M.D.Trans: md : cc: [facility] Repor ton 07-20-2017 [facility] Report Type: OrthopedicDictated by: To be signed [...] note was dictated by Lizeth Hernandez PA-C. Normal [facility] CBCon 05-31-2017 ABSOLUTE BAS 0.1 X10 Normal [facility] Comment on above: Performed By: #### A CBC, CMPF, LIPA2 ####Testing performed at [address] [address] ABSOLUTE EOS 0.10 X10 Normal [facility] Comment on above: Performed By: #### A CBC, CMPF, LIPA2 ####Testing performed at [address] [address] Basophils/100 WBC Auto (Bld) 1.2 % Normal 0.0-2.0 [facility] Comment on above: Performed By: #### A CBC, CMPF, LIPA2 ####Testing performed at [address] [place] [address] DTYPE AUTO DIFF Normal [facility] Comment on above: Performed By: #### A CBC, CMPF, LIPA2 ####Testing performed at [address] [address] Eosinophils/100 leukocytes 1.3 % Normal 0.0-11.0 [facility] Comment on above: Performed By: #### A CBC, CMPF, LIPA2 ####Testing performed at [address] [address] Lymphocytes 2.10 X10 Normal [facility] Comment on above: Performed By: #### A CBC, CMPF, LIPA2 ####Testing performed at [address] [address] Lymphocytes/100 leukocytes 19.3 % Low 20.0-55.0 [facility] Comment on above: Performed By: #### A CBC, CMPF, LIPA2 ####Testing performed at [address] [address] Monocytes 1.0 X10 Normal [facility] Comment on above: Performed By: #### A CBC, CMPF, LIPA2 ####Testing performed at [address] [address] Monocytes/100 leukocytes 9.5 % Normal 0.0-10.0 [facility] Comment on above: Performed By: #### A CBC, CMPF, LIPA2 ####Testing performed at [address] [address] Neutrophils 7.3 x10 High 1.0-7.0 [facility] Comment on above: Performed By: #### A CBC, CMPF, LIPA2 ####Testing performed at [address] [address] Neutrophils/100 leukocytes 68.7 % Normal 37.0-75.0 [facility] Comment on above: Performed By: #### A CBC, CMPF, LIPA2 ####Testing performed at [address] [address] Erythrocyte distribution width Auto Ratio (RBC) 15.0 % High 11.5-14.5 [facility] Comment on above: Performed By: #### A CBC, CMPF, LIPA2 ####[place] [address] Erythrocytes (RBC) 5.07 /cmm Normal 4.0-5.4 [facility] Comment on above: Performed By: #### A CBC, CMPF, LIPA2 ####[place] [address] Hematocrit (HCT) 43.8 % Normal 36.0-48.0 [facility] Comment on above: Performed By: #### A CBC, CMPF, LIPA2 ####[place] [address] Hemoglobin mass conc (Bld) 14.8 g/dL Normal 12.0-16.0 [facility] Comment on above: Performed By: #### A CBC, CMPF, LIPA2 ####[place] [address] MCH 29.3 pg Normal 26.0-35.0 [facility] Comment on above: Performed By: #### A CBC, CMPF, LIPA2 ####[place] [address] MCHC mass conc (RBC) 33.9 g/dL Normal 27.0-37.0 [place] Comment on above: Performed By: #### A CBC, CMPF, LIPA2 ####Testing performed at [place] [id number] MCV 86.4 fL Normal 80.0-100.0 [facility] Comment on above: Performed By: #### A CBC, CMPF, LIPA2 ####Testing performed at [place] [id number] Platelet mean volume (PMV) 7.2 fL Low 7.4-11.0 [facility] Comment on above: Performed By: #### A CBC, CMPF, LIPA2 ####Testing performed at [place] [id number] Platelets 292 /cmm Normal 130.0-400.0 [facility] Comment on above: Performed By: #### A CBC, CMPF, LIPA2 ####Testing performed at [place] [id number] WBC (Leukocytes) 10.7 /cmm Normal 3.6-11.0 [facility] Comment on above: Performed By: #### A CBC, CMPF, LIPA2 ####Testing performed at [address] [address] CMP FASTINGon 05-31-2017 A:G RATIO 1.2 RATIO Low 1.3-2.2 [facility] Comment on above: Performed By: #### A CBC, CMPF, LIPA2 ####Testing performed at [place] [id number] Alanine aminotransferase (ALT) 25 U/L Normal 14-54 [facility] Comment on above: Performed By: #### A CBC, CMPF, LIPA2 ####[place] [address] Albumin 4.2 G/dl Normal 3.5-5.0 [facility] Comment on above: Performed By: #### A CBC, CMPF, LIPA2 ####Testing performed at [place] [id number] Alkaline phosphatase (ALP) 68 U/L Normal 38-126 [facility] Comment on above: Performed By: #### A CBC, CMPF, LIPA2 ####Testing performed at [address] [address] Aspartate aminotransferase (AST) 24 U/L Normal 15-41 [facility] Comment on above: Performed By: #### A CBC, CMPF, LIPA2 ####Testing performed at [address] [address] Bilirubin (total) 0.4 mg/dL Normal 0.2-1.2 [facility] Comment on above: Performed By: #### A CBC, CMPF, LIPA2 ####Testing performed at [address] [address] BUN (urea nitrogen) 10 mg/dL Normal 7-20 [facility] Comment on above: Performed By: #### A CBC, CMPF, LIPA2 ####Testing performed at [place] [id number] Creatinine 0.6 mg/dL Normal 0.52-1.04 [facility] Comment on above: Performed By: #### A CBC, CMPF, LIPA2 ####Testing performed at [address] [address] eGFR (non-black) Average GFR for 30-3 9 years old = 109. Normal [facility] Comment on above: Result Comment: Card Feeder silverio Kidney disease, GFR = <60.Kidney failure, GFR = <15.The GFR estimate is not adjusted for extreme body surface area or acute process, nor has it been validated for women or ethnic groups other than and . Performed By: #### A CBC, CMPF, LIPA2 ####Testing performed at [place] [id number] eGFR (non-black) mL/min/{1.73_m2} Normal [facility] Comment on above: Performed By: #### A CBC, CMPF, LIPA2 ####Testing performed at [place] [id number] Protein 7.7 g/dL Normal 6.3-8.2 [facility] Comment on above: Performed By: #### A CBC, CMPF, LIPA2 ####Testing performed at [place] [id number] Calcium 8.9 mg/dL Normal 8.4-10.2 [facility] Comment on above: Performed By: #### A CBC, CMPF, LIPA2 ####Testing performed at [place] [id number] Chloride 102 mmol/L Normal 98-107 [facility] Comment on above: Performed By: #### A CBC, CMPF, LIPA2 ####Testing performed at [place] [id number] CO2 26 mmol/L Normal 22-30 [facility] Comment on above: Performed By: #### A CBC, CMPF, LIPA2 ####Testing performed at [place] [id number] Glucose mass conc 92 mg/dL Normal 70-100 [facility] Comment on above: Result Comment: NORM AL <100 mg/dLPREDIABETES 101-126 mg/dLDIABETES 126 mg/dL or higher Performed By: #### A CBC, CMPF, LIPA2 ####[place] [address] Potassium molar conc 3.7 mmol/L Normal 3.5-5.1 [place] Comment on above: Performed By: #### A CBC, CMPF, LIPA2 ####[place] [address] Sodium 136 mmol/L Low 137-145 [facility] Comment on above: Performed By: #### A CBC, CMPF, LIPA2 ####[place] [address] ED NOTEon 05-31-2017 [facility] NOTES Normal [facility] ED PROVIDERon 05-31-2017 [facility] NOTES Normal [facility] LACTIC ACIDon 05-31-2017 Lactate 0.9 mmol/L Normal 0.5-2.2 [facility] Comment on above: Performed By: #### L ACT ####[place] [address] LIPASE,SERUMon 05-31-2017 LIPASE,SERUM 26 U/L Normal 23-300 [facility] Comment on above: Performed By: #### A CBC, CMPF, LIPA2 ####Testing performed at [place] [id number] RAPID FLU AANDBon 05-31-2017 INFLUENZA A AG Positive Abnormal NEGATIVE [facility] Comment on above: Result Comment: Resu lt called to read back by: SHIVA 05/31/2017 @ 12:53 by MAT Performed By: #### R FLUAB ####Testing performed at [place] [id number] INFLUENZA B AG Negative Normal NEGATIVE [facility] Comment on above: Result Comment: TEST ING PERFORMED BY LORRIE Performed By: #### R FLUAB ####Testing performed at [place] [id number] RAPID STREP GROUP Aon 2016 Rapid strep test Negative Normal NEGATIVE [facility] Comment on above: Result Comment: STRE P CULTURE TO FOLLOWTESTING PERFORMED BY LORRIE Performed By: #### R SAT ####Testing performed at [address] [address] THROAT CULTUREon 05-31-2017 THROAT CULTURE SPECIMEN DESCRIPTION THROAT SWAB CULTURE USUAL OROPHARYNGEAL ALEXEI * Result Note: Testing performed at [place] [address] * REPORT STATUS 06/02/2017 * Result Note: FINAL * Normal [facility] Comment on above: Performed By: #### T HRC ####Testing performed [place] [address]Testing performed at [address] [address] URINE HCG QUALon 05-31-2017 HCG.beta subunit ( test) Ql (U) Negative Normal NEGATIVE [facility] Comment on above: Performed By: #### U HCGT ####Testing performed at [address] [address] URINE MACROSCOPICon 05-31-20 17 Bilirubin Ql (U) Negative Normal NEGATIVE [facility] Comment on above: Performed By: #### U MAC ####Testing performed at [address] [address] URINE HEMOGLOBIN Negative Normal NEGATIVE [facility] Comment on above: Performed By: #### U MAC ####Testing performed at [address] [address] URINE KETONE Negative Normal NEGATIVE [facility] Comment on above: Performed By: #### U MAC ####Testing performed at [address] [address] URINE LEUKOTEST Negative Normal NEGATIVE [facility] Comment on above: Performed By: #### U MAC ####Testing performed at [address] [address] URINE NITRATES Negative Normal NEGATIVE [facility] Comment on above: Performed By: #### U MAC ####Testing performed at [address] [address] URINE SPEC GRAVITY 1.020 Normal 1.010-1.025 [facility] Comment on above: Performed By: #### U MAC ####Testing performed at [address] [place] [address] URINE TOTAL PROTEIN Negative Normal NEGATIVE [facility] Comment on above: Performed By: #### U MAC ####Testing performed at [address] [place] [address] Urine, clarity CLEAR Abnormal CLEAR [facility] Comment on above: Performed By: #### U MAC ####Testing performed at [address] [place] [address] Urine, color YELLOW Normal YELLOW [facility] Comment on above: Performed By: #### U MAC ####Testing performed at [address] [place] [address] Urine, glucose presence Negative Normal NEGATIVE [facility] Comment on above: Performed By: #### U MAC ####Testing performed at [address] [place] [address] Urine, pH 7.0 [pH] Normal 5.0-7.0 [facility] Comment on above: Performed By: #### U MAC ####Testing performed at [address] [place] [address] Urine, urobilinogen 0.2 mg/dl Normal 0.2-1.0 [facility] Comment on above: Performed By: #### U MAC ####Testing performed at [address] [place] [address] XR ACUTE ABDOMINAL SERIESon 05-31-2017 XR ACUTE [...] Unremarkable chest.2. Unremarkable bowel gas pattern. Normal [facility] ED NOTEon 05-19-2017 [facility] NOTES Normal [facility] NOT[facility] Normal [facility] NOT[facility] Normal [facility] ED PROVIDERon 05-19-2017 [facility] NOTES Normal [facility] Vital Signs Date Time Vital Sign Value Performing Clinician Facility 09-20-2023 10:05-0400 Body height 162.[address] Aziza Stoddard Work Phone: [facility] 09-20-2023 10:05-0400 Body mass index (BMI) [Ratio] 56.8 kg/m2 Dr. Aziza Stoddard Work Phone: [facility] 09-20-2023 10:05-0400 Body temperature 97 [degF] Dr. Aziza Stoddard Work Phone: [facility] 09-20-2023 10:05-0400 Body weight 150.[address] Aziza Stoddard Work Phone: [facility] 09-20-2023 10:05-0400 Diastolic blood pressure 84 mm[Hg] Dr. Aziza Stoddard Work Phone: [facility] 09-20-2023 10:05-0400 Heart rate 75 /min Dr. Aziza Stoddard Work Phone: [facility] 09-20-2023 10:05-0400 Respiratory rate 16 /min Dr. Aziza Stoddard Work Phone: [facility] 09-20-2023 10:05-0400 SaO2% (BldA) [Mass fraction] 98 % Dr. Aziza Stoddard Work Phone: [facility] 09-20-2023 10:05-0400 Systolic blood pressure 126 mm[Hg] Dr. Aziza Stoddard Work Phone: [facility] 11-11-2022 07:49-0400 Body height 163.[address] Aziza Stoddard Work Phone: [facility] 11-11-2022 07:49-0400 Body mass index (BMI) [Ratio] 49.8 kg/m2 Dr. Aziza Stoddard Work Phone: [facility] 11-11-2022 07:49-0400 Body temperature 97.9 [degF] Dr. Aziza Stoddard Work Phone: [facility] 11-11-2022 07:49-0400 Body weight 133.[address] Aziza Stoddard Work Phone: [facility] 11-11-2022 07:49-0400 Diastolic blood pressure 88 mm[Hg] Dr. Aziza Stoddard Work Phone: [facility] 11-11-2022 07:49-0400 Heart rate 76 /min Dr. Aziza Stoddard Work Phone: [facility] 11-11-2022 07:49-0400 Respiratory rate 18 /min Dr. Aziza Stoddard Work Phone: [facility] 11-11-2022 07:49-0400 SaO2% (BldA) [Mass fraction] 97 % Dr. Aziza Stoddard Work Phone: [facility] 11-11-2022 07:49-0400 Systolic blood pressure 126 mm[Hg] Dr. Aziza Stoddard Work Phone: [facility] 09-23-2022 09:33-0400 Body height 163.[address] Aziza Stoddard Work Phone: [facility] 09-23-2022 09:33-0400 Body mass index (BMI) [Ratio] 49.3 kg/m2 Dr. Aziza Stoddard Work Phone: [facility] 09-23-2022 09:33-0400 Body temperature 97.7 [degF] Dr. Aziza Stoddard Work Phone: [facility] 09-23-2022 09:33-0400 Body weight 132.[address] Aziza Stoddard Work Phone: [facility] 09-23-2022 09:33-0400 Diastolic blood pressure 82 mm[Hg] Dr. Aziza Stoddard Work Phone: [facility] 09-23-2022 09:33-0400 Heart rate 78 /min Dr. Aziza Stoddard Work Phone: [facility] 09-23-2022 09:33-0400 Respiratory rate 14 /min Dr. Aziza Stoddard Work Phone: [facility] 09-23-2022 09:33-0400 SaO2% (BldA) [Mass fraction] 96 % Dr. Aziza Stoddard Work Phone: [facility] 09-23-2022 09:33-0400 Systolic blood pressure 108 mm[Hg] Dr. Aziza Stoddard Work Phone: [facility] 06-29-2022 15:12-0500 Body height 163.[address] Aziza Stoddard Work Phone: [facility] 06-29-2022 15:12-0500 Body mass index (BMI) [Ratio] 51.5 kg/m2 Dr. Aziza Stoddard Work Phone: [facility] 06-29-2022 15:12-0500 Body temperature 97.9 [degF] Dr. Aziza Stoddard Work Phone: [facility] 06-29-2022 15:12-0500 Body weight 138.[address] Aziza Stoddard Work Phone: [facility] 06-29-2022 15:12-0500 Diastolic blood pressure 76 mm[Hg] Dr. Aziza Stoddard Work Phone: [facility] 06-29-2022 15:12-0500 Heart rate 83 /min Dr. Aziza Stoddard Work Phone: [facility] 06-29-2022 15:12-0500 Respiratory rate 14 /min Dr. Aziza Stoddard Work Phone: [facility] 06-29-2022 15:12-0500 SaO2% (BldA) [Mass fraction] 96 % Dr. Aziza Stoddard Work Phone: [facility] 06-29-2022 15:12-0500 Systolic blood pressure 122 mm[Hg] Dr. Aziza Stoddard Work Phone: [facility] 10-14-2021 00:45-0400 Diastolic blood pressure 58 mm[Hg] Ozzy Cheng MD Work Phone: [facility] 10-14-2021 00:45-0400 Heart rate 100 /min Ozzy Cheng MD Work Phone: [facility] 10-14-2021 00:45-0400 Respiratory rate 18 /min Ozzy Cheng MD Work Phone: [facility] 10-14-2021 00:45-0400 SaO2% (BldA) [Mass fraction] 94 % Ozyz Cheng MD Work Phone: [facility] 10-14-2021 00:45-0400 Systolic blood pressure 127 mm[Hg] Ozzy Cheng MD Work Phone: [facility] 10-13-2021 22:25-0400 Body height 167.6 cm Ozzy Cheng MD Work Phone: [facility] 10-13-2021 22:23-0400 Body temperature 97.9 [degF] Ozzy Cheng MD Work Phone: [facility] 01-22-2021 12:44-0400 Body mass index (BMI) [Ratio] 60.23 kg/m2 Jackie Mitchell MD Work Phone: [facility] 01-22-2021 12:44-0400 Body weight 154.22 kg Jackie Mitchell MD Work Phone: [facility] 01-18-2021 18:07-0400 Diastolic blood pressure 99 mm[Hg] Rosalba Mcmanus CNP Work Phone: [facility] 01-18-2021 18:07-0400 Heart rate 95 /min Rosalba Mcmanus [employer] PERFORMER Work Phone: [facility] 01-18-2021 18:07-0400 Systolic blood pressure 172 mm[Hg] Rosalba Mcmanus [employer] PERFORMER Work Phone: [facility] 01-18-2021 16:26-0400 Body height 160 cm Rosalba Mcmanus [employer] PERFORMER Work Phone: [facility] 01-18-2021 16:24-0400 Body temperature 98.01 [degF] Rosalba Mcmanus [employer] PERFORMER Work Phone: [facility] 01-18-2021 16:24-0400 SaO2% (BldA) [Mass fraction] 97 % Rosalba Mcmanus [employer]T PERFORMER Work Phone: [facility] Encounters Encounter Date Encounter Type Care Provider Facility Start: 05-01-2024 ambulatory Aziza Arlyn Facility :[facility] Start: 03-30-2024 End: 03-30-2024 Emergency department patient visit Aziza Ledgewood Facility:[facility] Start: 03-29-2024 Encounter for genera l adult medical examination without abnormal findings Rosalbadaniela Hornerkike [facility] Start: 03-08-2024 End: 03-08-2024 ambulatory [facility] Facility:[facility] Start: 01-19-2024 End: 01-19-2024 ambulatory [facility] Facility:[facility] Start: 12-28-2023 End: 12-28-2023 ambulatory Aziza Arlyn Facility:[facility] Start: 12-16-2023 End: 12-16-2023 ambulatory Aziza Ledgewood Facility:[facility] Start: 12-14-2023 End: 12-14-2023 ambulatory Aziza Arlyn Facility:[facility] Start: 12-14-2023 End: 12-14-2023 ambulatory Aziza Arlyn Facility:[facility] Start: 11-29-2023 ambulatory Aziza Arlyn Facility :[facility] Start: 11-29-2023 End: 11-29-2023 ambulatory [facility] Facility:[facility] Start: 11-02-2023 End: 11-02-2023 ambulatory [facility] Facility:[facility] Start: 10-18-2023 End: 10-18-2023 ambulatory Aziza Stoddard Facility:[facility] Start: 10-10-2023 End: 10-10-[address] Aziza Stoddard Work Phone: [facility] Work Phone: Start: 10-10-2023 End: 10-10-[address] Aziza Stoddard Work Phone: [facility] Work Phone: Start: 10-10-2023 End: 10-10-2023 ambulatory Aziza Stoddard Facility:[facility] Start: 10-05-2023 End: 10-05-[address] Aziza Stoddard Work Phone: [facility] Work Phone: Start: 10-05-2023 End: 10-05-2023 ambulatory Aziza Stoddard Facility:[facility] Start: 09-27-2023 ambulatory Aziza Stoddard Facility :[facility] Start: 09-27-2023 Non-patient / Non-visit Dr. Ritter Work Phone: [facility] Start: 09-27-2023 End: 09-27-[address] Aziza Stoddard Work Phone: [facility] Work Phone: Start: 09-27-2023 End: 09-27-[address] Aziza Stoddard Work Phone: [facility]/Neurology Work Phone: Start: 09-27-2023 End: 09-27-2023 ambulatory Aziza Stoddard Facility:[facility] Start: 09-20-2023 End: 09-20-[address] Aziza Stoddard Work Phone: [facility] Work Phone: Start: 09-20-2023 End: 09-20-2023 ambulatory Aziza Stoddard Facility:[facility] Start: 11-11-2022 End: 11-11-[address] Aziza Stoddard Work Phone: [facility] Work Phone: Start: 11-11-2022 End: 11-11-[address] Aziza Stoddard Work Phone: [facility] Start: 09-23-2022 End: 09-23-[address] Aziza Stoddard Work Phone: [facility] Work Phone: Start: 09-23-2022 End: 09-23-[address] Aziza Stoddard Work Phone: [facility] Start: 07-12-2022 End: 07-12-[address] Aziza Stoddard Work Phone: [facility] Start: 07-08-2022 End: 07-08-[address] Aziza Stoddard Work Phone: [facility] Work Phone: Start: 07-08-2022 End: 07-08-[address] Aziza Stoddard Work Phone: [facility] Start: 06-29-2022 End: 06-29-[address] Aziza Stoddard Work Phone: [facility] Start: 10-13-2021 End: 10-14-2021 Emergency department patient visit Ozzy Cheng MD Work Phone: [facility] Department Start: 04-02-2021 End: 04-06-2021 ambulatory ROSALBA LOCKE [facility] Start: 04-02-2021 End: 04-02-2021 ambulatory Rosalba Mcmanus [facility] Work Phone: [facility] Comment on above: Chronic bilateral lo w back pain without sciatica Start: 04-01-2021 End: 04-02-2021 ambulatory [facility] Start: 03-25-2021 End: 03-29-2021 ambulatory [facility] Start: 03-18-2021 End: 03-22-2021 ambulatory [facility] Start: 02-27-2021 End: 03-03-2021 ambulatory PHYSICIAN [facility] Start: 01-26-2021 End: 01-26-2021 Subsequent hospital visit by physician Jackie Mitchell MD Work Phone: [facility] Ultrasound Comment on above: Arrived Start: 01-22-2021 End: 01-22-2021 Office outpatient new 45 minutes Jackie Mitchell MD Work Phone: [facility] MANAGER INTELLIGENCE [place] Comment on above: Type 2 diabetes iman [...] 01-18-2021 [facility] Start: 11-24-2020 End: 11-28-2020 ambulatory PHYSICIAN [facility] Start: 09-19-2017 End: 09-19-2017 Emergency department patient visit Nicole Handley Facility:[facility] Start: 09-14-2017 End: 09-15-2017 Emergency department patient visit John Gold Facility:[facility] Start: 05-31-2017 End: 05-31-2017 Emergency department patient visit INEZ HOWELL [facility] Start: 05-19-2017 End: 05-19-2017 Emergency department patient visit OZZY CHENG [facility] Procedures Date Procedure Procedure Detail Performing Clinician Start: 10-10-2023 Screening mammography D sheila Stoddard Work Phone: Start: 10-13-2021 Radiologic exam ches t 2 views Ozzy Cheng MD Work Phone: Start: 03-05-2021 3 comp foot exam completed Kayleen Guzmán [employer] ENGINEER Start: 02-27-2021 Microalbumin [Mass/v olume] in Urine by Test strip Kayleen Guzmán [employer]DOZER ENGINEER Start: 01-26-2021 Us pelvic nonobstetr ic real-time image complete Jackie Mitchell MD Work Phone: Start: 01-18-2021 Culture bacterial quanttative colony count urine Mariveljeffrey Teague DENTURE WAXER-STUNT PERFORMER Work Phone: Start: 01-18-2021 Gonadotropin chorion ic qualitative Marivel M Zahida DENTURE WAXER-STUNT PERFORMER Work Phone: Start: 01-18-2021 Urinalysis, reagent strip without microscopy Marivel Teague DENTURE WAXER-STUNT PERFORMER Work Phone: Start: 01-18-2021 Complete blood count with white cell differential, automated Marivel M Zahida DENTURE WAXER-[employer] Work Phone: Start: 11-24-2020 Adult depression scr eening assessment Kayleen Guzmán BULLDOZER ENGINEER Plan of Treatment Date Care Activity Detail Author Start: 11-11-2022 Patient referral [facility] Work Phone: Start: 06-29-2022 Patient referral [facility] Work Phone: Start: 03-05-2022 Diabetic foot examination Foot Exam [facility] Start: 02-27-2022 Microalbumin measurement, urine, quantitative Urine Microalbumin [facility] Start: 02-04-2022 Influenza vaccination INFLUENZ A VACCINE (Season Ended) [facility] Start: 01-05-2022 Ophthalmic examinati on and evaluation Ophthalmology Exam [facility] Comment on above: Postponed from 08/17 (Not Indicated) Start: 11-24-2021 Depression screening using PHQ-9 (Patient Health Questionnaire 9) score Depression Screening (PHQ-2/9) [facility] Start: 11-06-2021 COVID-19 VACCINE (3 - Booster for Pfizer series) COVID-19 VACCINE (3 - Booster for Pfizer series) [facility] Start: 08-30-2021 Hemoglobin A1c measurement A1C [facility] Start: 06-01-2021 End: 06-01-2021 Patient encounter procedure 06/01/2021 Office Visit Primary Care Rosalba Mcmanus, STUNT PERFORMER [address] [place] [address] [facility] Start: 05-27-2021 Hemoglobin A1c measurement HBA1C TEST [facility] Start: 04-22-2021 End: 04-22-2021 ambulatory 04/22/2021 Treatment Rehabilitation Rosalba Mcmanus, STUNT PERFORMER [address] [place] [id number] Edith Valdez PT [facility] Start: 04-20-2021 End: 04-20-2021 ambulatory 04/20/2021 Treatment Rehabilitation Rosalba Mcmanus, STUNT PERFORMER [address] [facility] [place] [address] Kayleen Guzmán [facility] Start: 04-15-2021 End: 04-15-2021 ambulatory 04/15/2021 Treatment Rehabilitation Rosalba Mcmanus, STUNT PERFORMER [address] [facility] [place] [phone] Kayleen Guzmán [facility] Start: 04-14-2021 End: 04-14-2021 Patient encounter procedure 04/14/2021 Office Visit Podiatry Marivel Leal DPM [address] [facility] [place] [phone] [facility] Start: 04-13-2021 End: 04-13-2021 ambulatory 04/13/2021 Treatment Rehabilitation Rosalba Mcmanus, STUNT PERFORMER [address] [place] [phone] Mary Vela, [facility] Start: 04-08-2021 End: 04-08-2021 ambulatory 04/08/2021 Treatment Rehabilitation Rosalba Mcmanus, STUNT PERFORMER [address] [place] [address] [facility]ijay [facility] Start: 04-06-2021 End: 04-06-2021 ambulatory 04/06/2021 Treatment Rehabilitation Rosalba Mcmanus, STUNT PERFORMER [address] [place] [phone] [facility] Start: 02-04-2021 Influenza vaccination [facility] Start: 01-29-2021 LIPIDS L[facility]IDS [facility] Start: 01-29-2021 Thyroid stimulating hormone measurement TSH [facility] Start: 01-22-2021 End: 01-22-2022 Transvaginal ultrasonography of pelvis US PELVIC W TRANSVAGINAL Imaging Routine Menometrorrhagia Primary dysmenorrhea Expected: 01/22/2021, Expires: 01/22/2022 [facility] Work Phone: Comment on above: Expected: 01/22/2021 , Expires: 01/22/2022 Start: 08-17-2004 Screening for malign ant neoplasm of cervix CERVICAL CANCER SCREENING DISCUSSION [facility] Start: 08-17-2002 Third diphtheria, tetanus and acellular pertussis (DTaP) vaccination TDAP (ADULT) [facility] Start: 08-17-2001 Hepatitis C screening Hepatitis C Sc reening [facility] Start: 08-17-2001 Tetanus vaccination TETANUS [facility] Start: 08-17-1998 HIV screening [facility] Start: 1995 COVID-19 Vaccine (1) COVID-19 Vaccin e (1) [facility] Start: 08-17-1989 PNEUMOCOCCAL VACCINE SERIES (1 - PCV) PNEUMOCOCCAL VACCINE SERIES (1 - PCV) [facility] Start: 08-17-1989 Pneumococcal Vaccine : Ped or At-Risk (1 of 2 - PPSV23) Pneumococcal Vaccine: Ped or At-Risk (1 of 2 - PPSV23) [facility] Start: 08-17-1986 History and physical examination, annual for health maintenance Wellness Visit [facility] Start: 1983 Diabetic foot examination DIABETIC FOOT EXAM [facility] Start: 1983 Diabetic retinal eye exam [facility] Start: 1983 Hepatitis C antibody , confirmatory test HEPATITIS C VIRUS SCREENING [facility] Start: 1983 Microalbumin measurement, urine, quantitative URINE MICROALBUMIN TEST [facility] Start: 1983 Screening for malign ant neoplasm of cervix Pap Smear [facility] Start: 1983 Tetanus vaccination Tetanus: Every 1 0yrs [facility] Bacteria identified in Urine by Culture URINE CULTURE Microbiology Routine 01/18/2021 6:05 PM EDT [facility] Work Phone: CBC W Auto Different ial panel - Blood [facility] CBC W Auto Different ial panel - Blood [facility] Lipid 1996 panel - S brandon or Plasma [facility] Lipid 1995 panel - S brandon or Plasma [facility] MG Breast - bilatera l Screening [facility] Patient referral [facility] Work Phone: Polysomnography [facility] Thyroid stimulating hormone measurement [facility] Tobacco use cessatio n education [facility] Tobacco use cessatio n education [facility] Urine microalbumin/creatinine ratio measurement [facility] Urine microalbumin/creatinine ratio measurement [facility] Vitamin D, 25-hydrox y measurement [facility] Immunizations Immunization Date Immunization Notes Care Provider [facility] 06-29-2022 influenza, injectabl e, quadrivalent, preservative free Dr. Aziza Stoddard Work Phone: [facility] 06-29-2022 influenza, seasonal, injectable Dr. Aziza Stoddard Work Phone: [facility] 10-09-2021 pneumococcal polysaccharide vaccine, [address] Aziza Stoddard Work Phone: [facility] 10-09-2021 tetanus and diphther ia toxoids, adsorbed, preservative free, for adult use (2 Lf of tetanus toxoid and 2 Lf of diphtheria toxoid) Dr. Aziza Stoddard Work Phone: [facility] 06-08-2021 Covid (Pfizer) Dr. Aziza jones Work Phone: [facility] 05-09-2021 Covid (Pfizer) Dr. Aziza jones Work Phone: [facility] Payers Date Payer Category Payer Self-pay 2023 Unknown [id number] 2020 Unknown [facility] [id number] 2020-Present [address] [place] [address] [id number] 2019 Medicaid [id number] 2019 Medicaid [id number]. [id number] 1983 Unknown [id number] 2.16.840.1.143905.3.579.2.900 1983 Unknown [id number] 2.16.840.1.840591.3.579.2.900 1983 Unknown [id number] 2.16.840.1.732421.3.579.2.903 1983 Unknown [id number] 2.16.840.1.966830.3.579.2.903 1983 Unknown [id number] 2.16.840.1.530741.3.579.2.903 1983 Unknown [id number] 2.16.840.1.305670.3.579.2.903 1983 Unknown [id number] 2.16.840.1.540242.3.579.2.903 1983 Unknown [id number] 2.16.840.1.476130.3.579.2.903 Self-pay [id number] Self-pay [id number] Unknown [facility] [id number] Unknown [id number] 2.16840.1.618488.3.579.2.462 Unknown [id number] 2.840.1.212082.3.579.2.462 Unknown [id number] 2.840.1.098693.3.579.2.462 Unknown [id number] 2.840.1.872593.3.579.2.462 Unknown [id number] 2.840.1.516662.3.579.2.462 Unknown [id number] 2.840.1.983776.3.579.2.462 Unknown [id number] 2.840.1.744242.3.579.2.462 Unknown [id number] 2.840.1.690888.3.579.2.462 Unknown [id number] 2.840.1.203410.3.579.2.462 Unknown [id number] 2.840.1.670267.3.579.2.462 Unknown [id number] 2.840.1.081111.3.579.2.462 Unknown [id number] 2.16.840.1.239591.3.579.2.462 Unknown [id number] 2.16840.1.735618.3.579.2.462 Unknown [id number] 2.16840.1.561165.3.579.2.462 Unknown [id number] 2.840.1.326271.3.579.2.462 Unknown [id number] 2.16.840.1.199410.3.579.2.462 Unknown [id number] 2.16.840.1.437806.3.579.2.462 Unknown [id number] 2.16.840.1.174149.3.579.2.462 Social History Date Type Detail Facility Start: 11-24-2020 End: 01-18-2021 Tobacco smoking status NHIS Smokes tobacco daily [facility] Start: 11-24-2020 End: 01-18-2021 Tobacco use and exposure Smokeless tobacco non-user [facility] Start: 03-13-2021 End: 10-13-2021 Alcohol intake Ex-drinker (finding) [facility] Start: 1985 Sex Assigned At Not on file [facility] [employer] Start: 10-03-2021 End: 10-14-2021 Exposure to SARS-CoV-2 (event) Not sure [facility] History of tobacco use Cigarette Smoker [facility] Start: 05-19-2017 End: 01-18-2021 Cigarettes smoked current (pack per day) - Reported [facility] Start: 07-12-2022 End: 10-11-2023 Tobacco smoking status WAIS Unknown if ever smoked [facility] Start: 1985 Sex Assigned At Female [facility] Medical Equipment Procedure Code Equipment Code Equipment Origin al Text Equipment Identifier Dates by Miscellaneous route daily And as needed . [id number] Start: 11-24-2020 Daily and as needed . [id number] Sta rt: 11-24-2020 by Other route daily. [id number] Sta rt: 11-24-2020 Daily and as needed . [id number] Sta rt: 11-24-2020 True [employer] Bloo d Glucose Test Strip strip [id number] Start: 01-05-2021 Goals Date Patient Goal Desired Activity /State Comment on above: Formatting of this n ote might be different from the original. Good Nutrition: Make healthier food choices Reduce portion size Comment on above: Formatting of this n ote might be different from the original. Blood sugar levels outside the normal range may be an indicator of diabetes. Clinical Notes 01-18-2021 to 11-29-2023 Ozzy Cheng MD - 10/13/2021 11:21 PM Timmy Cheng MD - 10/13/2021 11:21 PM Tonia Hammond RN - 10/13/2021 10:28 PM Tonia Hammond RN - 10/13/2021 10:28 PM EDTInstructions Note Date & Type Note Facility 11-29-2023 Note [facility] Medical Records Department [address] [place] [address] History Physical Exam 11/29/23 0710 MR#: [id number] Acct: [id number] Name: LEE WEST Rep #: [id number] : 1985 38 From: Ousmane Valle DO PCP: Dr. Aziza Stoddard MD [place] [place] [facility] History and Physical Date of Admission: 11/29/23 [facility] [address] [place] [address] OFFICE VISIT Date of Service: 11/02/23 MR#: [id number] Acct: [id number] Name: LEE WEST Rep #: [id number] : 1985 Provider: Dr. Ousmane Valle DO Age/Sex: 38/F [facility] [facility] Status: Signed Intake Vital Signs 09/19/2409:05 10/17/2405:23 Height 5 ft 4 in 5 ft 4 in Intake Visit Reasons: right wrist Accompanied by: Self Is patient in pain?: No Allergies No Known Allergies Allergy (Verified 11/02/23 09:07) Medications ???Medication ???Instructions ???Recorded ???Confirmed ???Type christina.stocking,knee,reg,xlrg #12 ea 06/29/22 11/02/23 Rx atorvastatin 20 mg tablet 20 mg PO QHS #90 tabs 09/23/22 11/02/23 Rx cholecalciferol (vitamin D3) 1,250 1,250 mcg PO QWEEK #6 caps 09/23/22 11/02/23 Rx mcg (50,000 unit) capsule albuterol sulfate 90 mcg/actuation 2 puff inhalation Q4H PRN PRN 03/18/23 11/02/23 Rx aerosol inhaler (Ventolin HFA) Wheezing ##1 bupropion HCl 150 mg 24 hr tablet, 150 mg PO QAM #90 tabs 09/20/23 11/02/23 Rx extended release (Wellbutrin XL) escitalopram oxalate 20 mg tablet 20 mg PO DAILY #90 tabs 09/20/23 11/02/23 Rx lansoprazole 15 mg capsule,delayed 15 mg PO DAILY #90 caps 09/20/23 11/02/23 Rx release levothyroxine 175 mcg tablet 175 mcg PO DAILY #90 tabs 09/20/23 11/02/23 Rx naproxen 500 mg tablet 500 mg PO BID PRN pain #180 tabs 09/20/23 11/02/23 Rx semaglutide 0.25 mg or 0.5 mg (2 0.25 mg (0.368 mL) subcut QWEEK #3 09/20/23 11/02/23 Rx mg/3 mL) subcutaneous pen injector mL (Ozempic) cephalexin 500 mg capsule 1,000 mg (2 x 500 mg) PO Q8 #4 caps 10/18/23 11/02/23 Rx PFSH Medical History (Updated 10/18/23 @ 08:[address] 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 Ousmane Valle, DO 11/02/23 0754. Part of today???s visit was documented by Nichol Mcfarlane, acting as scribe. LEE WEST is a 38 year old F here today for 2 weeks postop right carpal tunnel release date of surgery 10/18/2023. Patient notes that she is doing well and is improving. She no longer has any numbness or tingling. Patients incision is healing with no redness or drainage. She takes naproxen for other pains. She continues to have similar symptoms in the left hand and wishes to proceed with left carpal tunnel release Ortho Exam General General: Yes no acute distress Neurologic: Yes alert and Yes oriented x3 Psychologic: Yes reasonable and appropriate Right Wrist/Hand WRIST: Sutures were removed today that her incision is well-approximated she has full finger flexion extension some mild scaling around the incision no signs of infection Left Wrist/Hand Skin/Wound: Yes CDI Left Wrist: Yes Durken's Test, Yes Tinel's and Yes Phalen's WRIST: 85 supination, full pronation, 60 extension, 70 flexion Head: Normocephalic Atraumatic Chest: symmetrical rise, non-labored breathing, no audible wheeze Abdomen: no guarding, non-rigid Supplemental Info 09/27/2023 EMG bilateral upper extremity:1) Moderate to severe, 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 [facility] 10-18-2023 Note [facility] Medical Records Department [address] [place] [address] History Physical Exam 10/18/23 0720 MR#: [id number] Acct: [id number] Name: LEE WEST Rep #: [id number] : 1985 38 From: Ousmane Valle DO PCP: Dr. Aziza Stoddard MD Status:[facility] Location: [place] [address] History and Physical Date of Admission: 10/18/23 [facility] [address] [place] [address] [address] [place] [address] OFFICE VISIT Date of Service: 10/05/23 MR#: [id number] Acct: [id number] Name: LEE WEST Rep #: [id number] : 1985 Provider: Dr. Ousmane Valle DO Age/Sex: 38/F Location[facility] Status: Signed Intake Vital Signs 09/19/2409:05 Height 5 ft 4 in Weight: 331 lb BMI 56.8 BP 126/84 H Blood Pressure Location Lt brachial Position Sitting Respiration 16 Pulse 75 Pulse Source Monitor Temp 97.0 F L Temp Source Temporal Pulse Oximetry (%) 98 Oxygen Delivery Method room air Intake Visit Reasons: BL HANDS Accompanied by: Self Is patient in pain?: Yes Pain scale (1-10): 9 Allergies No Known Allergies Allergy (Unverified 10/05/23 14:23) Medications christina.stocking,knee,reg,xlrg #12 ea 06/29/22 [Rx Confirmed 10/05/23] atorvastatin 20 mg tablet 20 mg PO QHS #90 tabs 09/23/22 [Rx Confirmed 10/05/23] cholecalciferol (vitamin D3) 1,250 mcg (50,000 unit) capsule 1,250 mcg PO QWEEK #6 caps 09/23/22 [Rx Confirmed 10/05/23] cetirizine 10 mg tablet (Zyrtec) 10 mg PO DAILY PRN allergy symptoms #10 tabs 11/11/22 [Rx Confirmed 10/05/23] albuterol sulfate 90 mcg/actuation aerosol inhaler (Ventolin HFA) 2 puff inhalation Q4H PRN PRN Wheezing ##1 03/18/23 [Rx Confirmed 10/05/23] bupropion HCl 150 mg 24 hr tablet, extended release (Wellbutrin XL) 150 mg PO QAM #90 tabs 09/20/23 [Rx Confirmed 10/05/23] escitalopram oxalate 20 mg tablet 20 mg PO DAILY #90 tabs 09/20/23 [Rx Confirmed 10/05/23] lansoprazole 15 mg capsule,delayed release 15 mg PO DAILY #90 caps 09/20/23 [Rx Confirmed 10/05/23] levothyroxine 175 mcg tablet 175 mcg PO DAILY #90 tabs 09/20/23 [Rx Confirmed 10/05/23] naproxen 500 mg tablet 500 mg PO BID PRN pain #180 tabs 09/20/23 [Rx Confirmed 10/05/23] semaglutide 0.25 mg or 0.5 mg (2 mg/3 mL) subcutaneous pen injector (Ozempic) 0.25 mg (0.368 mL) subcut QWEEK #3 mL 09/20/23 [Rx Confirmed 10/05/23] PFSH Medical History Carpal tunnel syndrome Flu vaccine need High cholesterol Hypertension Thyroid disease Type 2 diabetes mellitus Surgical History History of hysterectomy Family History Father CancerGrandmother Cancer throatMother Myocardial infarction Thyroid disorder Hypertension Depression Social History household members: none current occupational status: employed 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 Ousmane Valle, DO 10/05/23 0816. Part of today???s visit was documented by [ ], acting as scribe. LEE WEST is a 38 year old F here today for Bilateral hand numbness. Patient states her hands have been bothering her for years. Patient has tried braces in the past for many months and that didn't work. she has tried NSAIDS as well without sucess. She denies any trauma to her hands upper extremities or neck in the past. patient has never done PT. Patient is a assistant store manager at [employer] and she is constantly using her hands. Patient has used ice and heat and she states that it doesn't help the pain. Patient is taking Tylenol for her pain. Patient states that both hands go numb and hurt. Patient had a EMG done and it showed that she has bilateral carpal Tunnel. Her pain wakes her up at night. She has constant pain and driving makes her worse. No cervical spine problems Ortho Exam General General: Yes no acute distress Neurologic: Yes alert and Yes oriented x3 Psychologic: Yes reasonable and appropriate Right Wrist/Hand Skin/Wound: Yes CDI, No Swelling and No Ecchymosis Right Wrist: Yes Durken's Test, (more content not included)... [facility] 09-27-2023 Procedure note [facility] 10-13-2021 Physician Emergency department Note DEPARTMENT OF EMERGENCY MEDICINE CHIEF COMPLAINT Cough and Chest Congestion (Pt c/o cough and chest congestion x1 week. Pt states I cough so much that I cant breathe and then I throw up.) MARI West is a 36 y.o. female who [...] Laterality: Midline; Surgeon: Kary Cano MD; Location: [facility] OR CURRENT MEDICATIONS No current facility-administered medications [...] (Oral) Resp 20 Ht 1.676 m (5' 6) SpO2 94% BMI 54.72 kg/m Smoking Status [...] primary care. Ozzy Cheng MD 10/14/21 0030 [facility] 10-13-2021 Emergency department Note DEPARTMENT OF EMERGENCY MEDICINE CHIEF COMPLAINT Cough and Chest Congestion (Pt c/o cough and chest congestion x1 week. Pt states I cough so much that I cant breathe and then I throw up.) MARI West is a 36 y.o. female who [...] Laterality: Midline; Surgeon: Kary Cano MD; Location: [facility] OR CURRENT MEDICATIONS No current facility-administered medications [...] (Oral) Resp 20 Ht 1.676 m (5' 6) SpO2 94% BMI 54.72 kg/m Smoking Status [...] Pt verbalized understanding. documented in this encounter [facility] 10-13-2021 Emergency department Note Pt states she is currently on albuterol inhaler and tessalon pearls since Tuesday. . Respiratory assessment of pt completed. Pt placed back into waiting room at this time and instructed to notify staff of any change in condition. Pt verbalized understanding. [facility] 04-02-2021 History of Presen t illness Narrative [facility] OUTPATIENT REHABILITATION DAILY TREATMENT NOTE Today's [...] 0915 OTHER Precautions/Contraindications chronic pain Notes PT: Edith core stability, back flexibility, hamstring stretching, STM to parspinal muscle and PA mobs for pain and mobility Vitals 0915-9:47 Therapeutic Exercise (42986) Intervention seated HS stretching 20x3 bilat (on 4 inch box) Parameters standing back bends against raised plinth 1-2 x 10, then x 10 to end after manual STM Intervention hooklying abdominal bracing 5 x 10, seated abdominal bracing 5x10 Parameters seated trunk gentle trunk rotation x10 [...] supine and seated abdominal bracing Manual Therapy (77133) Intervention Manual STM in (L) sidelying in [...] POC monitor response and progress per tolerance. Kayleen Guzmán PTA STATE LICENSE, [id number] documented in this encounter [facility] 01-22-2021 History of Presen t illness Narrative [facility] Office visit LMP hard for [...] year, she states thay have been the worst, with 3+ months between episodes, and heavier [...] immunodeficiency virus infection), Hyperlipidemia, Hyperthyroidism, Liver disease, MO (myocardial infarction), Migraine, Pacemaker, Renal disease, Seizure, [...] Social Gatherings with Friends and Family: Attends Sabianism Services: Active Member of Clubs or Organizations: [...] nursing note reviewed. Exam conducted with a sales exec present. Constitutional: General: She is not in acute distress. HENT: Head: Normocephalic and atraumatic. Comments: Face within normal limits, no hirsutism present Right Ear: External ear normal. Left Ear: External ear normal. Mouth/Throat: Lips: [place]. No lesions. Dentition: Normal dentition. Eyes: General: [...] immunodeficiency virus infection), Hyperlipidemia, Hyperthyroidism, Liver disease, MO (myocardial infarction), Migraine, Pacemaker, Renal disease, Seizure, [...] and are negative. documented in this encounter [facility] 01-22-2021 Miscellaneous Notes Addended by: DAVID MURILLO on: 01/22/2021 01:55 PM Modules accepted: Orders documented in this encounter [facility] 01-18-2021 [facility] Marivel Self, [facility] - 01/18/2021 Please follow-up with gynecology, call for appointment. Return for new, worsening, or worrisome symptoms. The following attachments cannot be sent through Care Everywhere.AUB (Abnormal Uterine Bleeding) ([place])documented in this encounter [facility] Evaluation note Diagnosis Chronic bilateral low back pain without sciatica [facility] DUB (dysfunctional uterine bleeding)- Primary Other disorder of menstruation and other abnormal bleeding from female genital tract [facility] Diagnosis Type 2 diabetes mellitus with hyperglycemia, without long-term current use of insulin- Primary Obesity: body mass index of 50 or higher Hypothyroidism, unspecified type Class 3 severe obesity due to excess calories with serious comorbidity and body mass index (BMI) of 50.0 to 59.9 in adult Menometrorrhagia Excessive or frequent menstruation Primary dysmenorrhea Dysmenorrhea [facility] Menometrorrhagia Excessive or frequent menstruation Primary dysmenorrhea Dysmenorrhea [facility] Diagnosis Acute bronchitis, unspecified organism- Primary [facility] Diagnosis Onset Date Resolution Status Controlled type 2 diabetes mellitus acute Essential hypertension acute Heartburn acute Mixed hyperlipidemia acute Smoker acute Immunization due noneactive Acquired hypothyroidism none active Establishing care with new doctor, encounter for noneactive Severe anxiety noneactive Suspected sleep apnea noneac tive Bilateral swelling of feet n oneactive Severe depression noneactive Carpal tunnel syndrome on both sides noneactive Bilateral carpal tunnel syndrome acute Cubital tunnel syndrome, bilateral acute Tobacco abuse acute [facility] Work Phone: Evaluation note* Diagnosis Onset Date Resolution Status Controlled type 2 diabetes mellitus acute Essential hypertension acute Heartburn acute Mixed hyperlipidemia acute Smoker acute Immunization due noneactive Acquired hypothyroidism none active Establishing care with new doctor, encounter for noneactive Severe anxiety noneactive Suspected sleep apnea noneac tive Bilateral swelling of feet n oneactive Severe depression noneactive Carpal tunnel syndrome on both sides noneactive Bilateral carpal tunnel syndrome acute Cubital tunnel syndrome, bilateral acute Tobacco abuse acute Controlled type 2 diabetes mellitus acute Essential hypertension acute Heartburn acute Mixed hyperlipidemia acute Smoker acute Obstructive sleep apnea none active Acquired hypothyroidism none active Severe anxiety noneactive Severe depression noneactive Carpal tunnel syndrome on both sides noneactive [facility] Work Phone: Evaluation note* Diagnosis Onset Date Resolution Status Controlled type 2 diabetes mellitus acute Essential hypertension acute Heartburn acute Mixed hyperlipidemia acute Smoker acute Obstructive sleep apnea none active Acquired hypothyroidism none active Severe anxiety noneactive Severe depression noneactive Carpal tunnel syndrome on both sides noneactive Controlled type 2 diabetes mellitus acute Essential hypertension acute Heartburn acute Mixed hyperlipidemia acute Smoker acute Obstructive sleep apnea none active Acquired hypothyroidism none active Sinus congestion noneactive Severe anxiety noneactive Severe depression noneactive Carpal tunnel syndrome on both sides noneactive Vitamin D deficiency noneact [facility] Work Phone: Evaluation note* Diagnosis Onset Date Resolution Status Controlled type 2 diabetes mellitus acute Essential hypertension acute Heartburn acute Smoker acute Obstructive sleep apnea none active Acquired hypothyroidism none active Non-compliant behavior nonea ctive Severe anxiety noneactive Morbid obesity with BMI of 50.0-59.9, adult noneactive Severe depression noneactive Screening for breast cancer noneactive Carpal tunnel syndrome on both sides noneactive Vitamin D deficiency noneact [facility] Work Phone: Evaluation note* Diagnosis Onset Date Resolution Status Controlled type 2 diabetes mellitus acute Essential hypertension acute Heartburn acute Smoker acute Obstructive sleep apnea none active Acquired hypothyroidism none active Non-compliant behavior nonea ctive Severe anxiety noneactive Morbid obesity with BMI of 50.0-59.9, adult noneactive Severe depression noneactive Screening for breast cancer noneactive Carpal tunnel syndrome on both sides noneactive Vitamin D deficiency noneact annabel Bilateral carpal tunnel syndrome acute [facility] Work Phone: Hospital Discharge instructions* Attachments The following attachments cannot be sent through Care Everywhere. * Acute Bronchitis or Chest Cold Care Instructions ([facility]) ([place]) [facility] Consultation (Urgent) - New Request Specialty Diagnoses / Procedures Referred By Sherrie wilcox Referred To Contact MANAGER INTELLIGENCE Diagnoses DUB (dysfunctional uterine bleeding) Marivel Teague APRN-STUNT PERFORMER [address] [address] Jackie Mitchell MD [address] [place] [address] Referral ID Status Reason Start Date Expiration Date V isits Requested Visits Authorized [id number] New Request 01/18/2021 02/12/2022 1 1 [facility] Summary Purpose Family History No Family History Records Found Relationship Condition Age at Onset Recorded Date/T gertrude father Malignant neoplasm Unknown grandmother Malignant neoplasm Unknown mother Myocardial infarction Unknown Disorder of thyroid Unknown Hypertension Unknown Depression Unknown Advance Directives No Advanced Directives Records FoundDocuments on File Type Date Recorded 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 Advance Directives and Livin g Will 04/01/2021 11:32 AM Latest Code Status on File Code Status Date Activated Date Inactivated Comments Full Code 04/29/2021 1:43 PM Advance Directive Response Recorded Date/ Time Living Will No March 18 5:32pm Power of Vascular Technologist No March 18, 2023 5:32pm Advance Directive Response Recorded Date/ Time Living Will No October 11, 2023 8: 16am Power of Vascular Technologist No October 11, 2023 8:16am Reason for Referral Specialty Diagnoses / Procedures Referred By Contac t Referred To Contact Diagnoses Menometrorrhagia Primary dysmenorrhea Procedures US PELVIC W TRANSVAGINAL Jackie Mitchell MD [address] [place] [address] Referral ID Status Reason Start Date Expiration Date V isits Requested Visits Authorized [id number] New Request 01/22/2021 02/16/2022 1 1 Specialty Diagnoses / Procedures Referred By Contac t Referred To Contact Ultrasound Diagnoses Menometrorrhagia Primary dysmenorrhea Procedures US PELVIC W TRANSVAGINAL Jackie Mitchell MD [address] [place] [address] [facility] Ultrasound [address] [place] [address] Referral ID Status Reason Start Date Expiration Date Visits Re quested Visits Authorized [id number] Closed 01/22/2021 02/16/2022 1 1 Chief Complaint and Reason for Visit Chief 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, PT NE EDS NPP SUSPECTED SLEEP APNEA BILAT HANDS 3 M FU Reason for Visit Controlled type 2 di abetes mellitus Essential hypertension Heartburn Mixed hyperlipidemia Smoker Immunization due Acquired hypothyroidism Establishing care with new doctor, encounter for Severe anxiety Suspected sleep apnea Bilateral swelling of feet Severe depression Carpal tunnel syndrome on both sides Bilateral carpal tunnel syndrome Cubital tunnel syndrome, bilateral Tobacco abuse Controlled type 2 diabetes mellitus Essential hypertension Heartburn Mixed hyperlipidemia Smoker Obstructive sleep apnea Acquired hypothyroidism Severe anxiety Severe depression Carpal tunnel syndrome on both sides Chief Complaint 3 M FU 7 wk fu Reason for Visit Controlled type 2 di abetes mellitus Essential hypertension Heartburn Mixed hyperlipidemia Smoker Obstructive sleep apnea Acquired hypothyroidism Severe anxiety Severe depression Carpal tunnel syndrome on both sides Controlled type 2 diabetes mellitus Essential hypertension Heartburn Mixed hyperlipidemia Smoker Obstructive sleep apnea Acquired hypothyroidism Sinus congestion Severe anxiety Severe depression Carpal tunnel syndrome on both sides Vitamin D deficiency Chief Complaint med check BUE; CTS BILAT BUE; CTS BILAT Reason for Visit Controlled type 2 di abetes mellitus Essential hypertension Heartburn Smoker Obstructive sleep apnea Acquired hypothyroidism Non-compliant behavior Severe anxiety Morbid obesity with BMI of 50.0-59.9, adult Severe depression Screening for breast cancer Carpal tunnel syndrome on both sides Vitamin D deficiency Chief Complaint med check BUE; CTS BILAT BUE; CTS BILAT BL HANDS SCREENING Reason for Visit Controlled type 2 di abetes mellitus Essential hypertension Heartburn Smoker Obstructive sleep apnea Acquired hypothyroidism Non-compliant behavior Severe anxiety Morbid obesity with BMI of 50.0-59.9, adult Severe depression Screening for breast cancer Carpal tunnel syndrome on both sides Vitamin D deficiency Bilateral carpal tunnel syndrome Additional Source Comments INFORMATION SOURCE (unrecogn ized section and content) DATE CREATED AUTHOR 11/24/2017 [facility] DATE CREATED AUTHOR AUTHOR'S ORGANIZ ATION 11/29/2017 [facility] DATE CREATED AUTHOR AUTHOR'S ORGANIZ ATION 04/01/2018 [facility] DATE CREATED AUTHOR AUTHOR'S ORGANIZ ATION 11/28/2020 [facility] DATE CREATED AUTHOR AUTHOR'S ORGANIZ ATION 03/03/2021 [facility] DATE CREATED AUTHOR AUTHOR'S ORGANIZ ATION 04/06/2021 [facility] DATE CREATED AUTHOR AUTHOR'S ORGANIZ ATION 10/15/2021 [facility] DATE CREATED AUTHOR AUTHOR'S ORGANIZ ATION 05/02/2024 [facility] Reason for Visit (unrecogniz ed section and content) Reason Comments Physical Therapy Specialty Diagnoses / Procedures Referred By Sherrie wilcox Referred To Contact Rehabilitation Diagnoses Chronic midline low back pain without sciatica Chronic midline thoracic back pain Rosalba Mcmanus, STUNT PERFORMER [address] [place] [address] [facility] [address] [place] [id number] Referral ID Status Reason Start Date Expiration Date V isits Requested Visits Authorized [id number] Authorized 03/11/2021 09/03/2021 12 24 Reason Comments Vaginal Bleeding x1 month, increased today Reason Comments Vaginal Bleeding Has had abnormal ble eding most of her adult life Specialty Diagnoses / Procedures Referred By Sherrie wilcox Referred To Contact Ultrasound Diagnoses Menometrorrhagia Primary dysmenorrhea Procedures US PELVIC W TRANSVAGINAL Jackie Mitchell MD [address] [place] [address] [facility] Ultrasound [address] [place] [address] Referral ID Status Reason Start Date Expiration Date Visits Re quested Visits Authorized [id number] Closed 01/22/2021 02/16/2022 1 1 Reason Comments Cough Chest Congestion Pt c/o cough and marivel st congestion x1 week. Pt states I cough so much that I cant breathe and then I throw up. Care Teams (unrecognized sec tion and content) Hotel Reservationist Relationship Specialty Start Date End Date [place] Rosalba Locke, GWEN [address] [place] [address] PCP - General Nurse Practitioner 03/09/21 Hotel Reservationist Relationship Specialty Start Date End Date Rosalba Mcmanus, GWEN [address] [place] [address] PCP - General Certified Nurse Practitioner 11/25/20 Hotel Reservationist Relationship Specialty Start Date End Date Rosalba Mcmanus CNP [address] [place] [address] PCP - General Certified Nurse Practitioner 11/25/20 Hotel Reservationist Relationship Specialty Start Date End Date [place] GWEN Frazier [address] [place] [address] PCP - General Certified Nurse Practitioner 11/25/20 Hotel Reservationist Relationship Specialty Start Date End Date [place] GWEN Frazier [address] [place] [address] PCP - General Certified Nurse Practitioner 11/25/20 Team Status: Active Member Role Status Dates Dr. Aziza Stoddard MD Primary Care Provider Active Team Status: Inactive Member Role Status Dates Dr. Aziza Stoddard MD Attending Provider Active Team Status: Inactive Member Role Status Dates Dr. Aziza Stoddard MD Primary Care Provider, Referri ng Provider Active Dr. Ousmane Valle DO Attending Provider Active Team Status: Inactive Member Role Status Dates Dr. Aziza Stoddard MD Primary Care Pro vider, Attending Provider, Referring Provider Active Team Status: Inactive Member Role Status Dates Dr. Aziza Stoddard MD Primary Care Provider, Attendi ng Provider Active Team Status: Active Member Role Status Dates Dr. Aziza Stoddard MD Primary Care Pro vider, Referring Provider, Other Provider Active Dr. Deb Dial MD Attending Provider Active Scheduled Active and Recently Administ ered Medications (unrecognized section and content) Medication Order 10/12/2021 10/13/2021 10/14/2021 azithromycin (ZITHROMAX) tablet 500 mg (COMPLETED) 500 mg, Oral, ONCE, 1 dose, On Tue10/14/21 at 0115 0044 (Given - Provid er: Gayle Johnson RN) Goals (unrecognized section and content) Goals may be documented in a n alternate sectionGoals may be documented in an alternate sectionGoals may be documented in an alternate sectionGoals may be documented in an alternate sectionGoals may be documented in an alternate section FOR RECORDS PERTAINING TO PATIENTS WHO ARE [...] BE BASED ON THE PRIMARY CLINICAL RECORDS. [employer] provides no warranty or guarantee of the accuracy or completeness of information in this document.
== END 2024-11-17 19:53 | disposition home or self-care (01) ==
PROVIDERS: Emergency Provider Emergency Medicine; PCP Internal Medicine; Visit Provider Emergency Medicine
DX: K08.89 Other specified disorders of teeth and supporting structures (principal); E11.9 Type 2 diabetes mellitus without complications; Z98.818 Other dental procedure status; I10 Essential (primary) hypertension; F32.A Depression, unspecified; K21.9 Gastro-esophageal reflux disease without esophagitis; E66.9 Obesity, unspecified; E07.9 Disorder of thyroid, unspecified; E78.00 Pure hypercholesterolemia, unspecified; F17.210 Nicotine dependence, cigarettes, uncomplicated; Z79.85 Long-term (current) use of injectable non-insulin antidiabetic drugs; Z79.899 Other long term (current) drug therapy; Z79.890 Hormone replacement therapy
CPT/HCPCS: 99282

== ENCOUNTER → 2025-01-03 | Outpatient (CLI) | payer BC, SELFPAY ==
--- NOTE | 2025-01-03 10:06 | RAD_ITS ---
PROCEDURE: ANKLE MIN 3 VIEWS 01/03/2025 REASON FOR EXAM: PAIN/SWELLING,LUMP, MASS LLE TECHNIQUE: ANKLE MIN 3 VIEWS COMPARISON: No FINDINGS: Posterior and plantar calcaneal spurs. Enthesopathy along the medial malleolus. Medial ankle region swelling. No acute bone pathology. RAD/Ankle min 3 Views IMPRESSION: Medial ankle swelling. [facility]
== END | disposition home or self-care (01) ==
PROVIDERS: PCP Internal Medicine
DX: M25.572 Pain in left ankle and joints of left foot (principal); R22.42 Localized swelling, mass and lump, left lower limb
CPT/HCPCS: 73610

== ENCOUNTER 2025-04-12 15:32 | Emergency (ER) | payer BC, SELFPAY ==
[2025-04-12 15:33] VITALS: BP 178/109; PULSE 91; RESP 18; TEMP 36.8; O2SAT 99; BMI 57.7
--- NOTE | 2025-04-12 16:55 | EX.ED.DYSGE1 ---
HPI History of Present Illness Chief Complaint: General Illness Informant: patient Onset/Context/Timing Quality: Weakness Location: Generalized Worsened by: Nothing Relieved by: Nothing Narrative Narrative: Patient presents with dizziness and elevated blood sugars that have been getting worse over the past 4 days. Patient states she has been having car trouble and her medications are in her car which is in the shop. Patient states she has not had her diabetic medications over the last 4 days. Patient states she feels dizzy and weak. Patient states her blood sugars have been elevated. Patient states that her blood sugar monitor is also in her car and she has been unable to check it at home. Patient states her vision is somewhat blurry. Patient admits to some urinary frequency, polydipsia, and polyphagia. Patient denies any fevers but admits to some subjective chills. Patient states nothing makes her symptoms better and nothing makes them worse. [facility] Medical History Post-menopausal Depression Gastric reflux Smoker Shortness of breath on exertion Flu vaccine need Thyroid disease High cholesterol Hypertension Type 2 diabetes mellitus Home Medications ?Medication ?Instructions ?Recorded ?Last Taken ?Type christina.stocking,knee,reg,xlrg #12 ea 06/29/22 Unknown Rx cholecalciferol (vitamin D3) 1,250 1,250 mcg PO QWEEK #6 caps 09/23/22 Unknown Rx mcg (50,000 unit) capsule albuterol sulfate 90 mcg/actuation 2 puff inhalation Q4H PRN PRN 03/18/23 Unknown Rx aerosol inhaler (Ventolin HFA) Wheezing ##1 naproxen 500 mg tablet 500 mg PO BID PRN pain #180 tabs 03/20/24 Unknown Rx hydrocodone-acetaminophen 5-325mg 1 tab PO Q6H PRN pain 3 days #12 11/17/24 Unknown Rx 5mg-325mg tabs ibuprofen 600 mg tablet 600 mg PO Q6H PRN PRN pain #20 11/17/24 Unknown Rx TABLETS atorvastatin 20 mg tablet 20 mg PO QHS #90 tabs 02/28/25 Unknown Rx bupropion HCl 150 mg 24 hr tablet, 150 mg PO QAM #90 tabs 02/28/25 Unknown Rx extended release (Wellbutrin XL) escitalopram oxalate 20 mg tablet 20 mg PO DAILY #90 tabs 02/28/25 Unknown Rx lansoprazole 15 mg capsule,delayed 15 mg PO DAILY #90 caps 02/28/25 Unknown Rx release levothyroxine 175 mcg tablet 175 mcg PO DAILY #90 tabs 02/28/25 Unknown Rx Allergy/AdvReac Type Severity Reaction Status Date / Time No Known Allergies Allergy Verified 04/12/25 15:33 Family History Father Cancer Grandmother Cancer throat Mother Myocardial infarction Thyroid disorder Hypertension Depression Surgical History History of carpal tunnel release History of hysterectomy Social History household members: none current occupational status: employed 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 [employer] sexually active: Yes Smoking Status: Current every day smoker tobacco type: cigarettes Tobacco: How many years used: 15 Electronic Cigarette Use: not used quit status: not considering quitting alcohol intake: never substance use type: does not use what type of physical activity do you participate in: none frequency: 3-4 times per week seatbelt use: always do you feel safe at home: Yes ROS ROS ED Constitutional Constitutional ED: Reports chills; Denies fever(s) Eyes Eyes: Reports blurry vision; Denies change in vision ENT ENT ED: Denies rhinorrhea or sore throat Cardiovascular Cardiovascular: Denies chest pain or palpitations Respiratory/Chest Respiratory/Chest: Reports dyspnea; Denies cough Gastrointestinal Gastrointestinal: Denies nausea or vomiting Genitourinary Genitourinary ED: Reports urinary frequency; Denies dysuria or hematuria Musculoskeletal Musculoskeletal: Denies back pain or neck pain Integumentary Denies abscess or rash Neurologic Neurologic: Denies headache(s) or weakness Endocrine Endocrinology: Reports polydipsia, polyphagia and polyuria Allergic/Immunologic Allergic/Immunologic ED: Denies mouth swelling or urticaria EXAM Physical Exam Const Vital Signs: 04/12/25 15:33 04/12/25 18:18 Temperature 98.2 F Temperature Source Oral Pulse Rate 91 82 Respiratory Rate 18 16 Blood Pressure 178/109 H 141/87 H Blood Pressure Mean 132 105 Pulse Ox 99 95 Oxygen Delivery Method Room Air Room Air Positive well nourished and well developed Constitutional Narrative: BMI is 57.7. General Appearance ED: well developed and NAD HEENT Reports moist mucous membranes Neck supple and no JVD Resp normal respiratory effort and clear to auscultation bilaterally Cardio regular rate and regular rhythm GI non-tender and non-distended Palpation: soft Neuro oriented x3, CN's II-XII intact bilaterally and no sensory deficits noted Sensorium / Orientation: alert Motor Exam: strength 5/5 throughout Psych mental status grossly normal MDM MDM MDM Narrative Medical decision making narrative: Differential diagnosis includes diabetic ketoacidosis, hyperosmolar hyperglycemic nonketotic state, hyperglycemia, uncontrolled diabetes, electrolyte abnormality, dehydration, and urinary tract infection. CBC will be obtained to assess for leukocytosis and anemia. Basic metabolic profile will be obtained to assess for electrolyte abnormality, renal function, and hepatic function. Beta hydroxybutyrate will be obtained to assess for diabetic ketoacidosis. Venous blood gas will be obtained to assess for metabolic acidosis. Urinalysis will be obtained to assess for urinary tract infection and hematuria. Lab Data Attestation: I reviewed the patient's lab results. Lab results narrative: CBC was reviewed. There is a mild leukocytosis of 12.9. Hemoglobin was mildly elevated at 16.3 and hematocrit was 47.6. Basic metabolic profile was reviewed. Glucose was elevated at 490. Sodium was slightly low at 132. Chloride was 97. CO2 was minimally low at 20.8. Anion gap was normal. Beta hydroxybutyrate was reviewed and was 0.5. Urinalysis was reviewed. Urine glucose was 1000. There is no evidence of urinary tract infection or hematuria. Labs: Laboratory Results - last 24 hr 04/12/25 16:58 WBC 12.9 H RBC 5.44 H Hgb 16.3 H Hct 47.6 H MCV 87.5 MCH 30.0 MCHC 34.2 RDW Std Deviation 42.7 RDW Coeff of Opal 13.3 Plt Count 331 MPV 10.2 Immature Gran % (Auto) 0.800 Neut % (Auto) 66.1 Lymph % (Auto) 27.0 [place] % (Auto) 3.6 Eos % (Auto) 1.9 Baso % (Auto) 0.6 Absolute Neuts (auto) 8.5 H Absolute Lymphs (auto) 3.48 Nucleated RBC % 0 Sodium 132 L Potassium 3.6 Chloride 97 L Carbon Dioxide 20.8 L Anion Gap 15 BUN 8 Creatinine 0.76 Estim Creat Clear Calc 149.39 Est GFR (MDRD) Non-Af 100 BUN/Creatinine Ratio 10.8 Glucose 490 H* Calcium 8.9 b-Hydroxybutyric mmol/L 0.5 H Urine Color Yellow Urine Clarity Clear Urine pH 6.0 Ur Specific [place] 1.015 Urine Protein 30 H Urine Glucose (UA) 1000 H Urine Ketones 5 H Urine Occult Blood Negative Urine Nitrite Negative Urine Bilirubin Negative Urine Urobilinogen Normal Ur Leukocyte Esterase Negative ABG Data Attestation: I personally reviewed and interpreted this ABG as follows: Interpretation: Venous blood gas was reviewed. pH was normal at 7.42. pCO2 was 79 pCO2 was 38.3. Bicarb was 25. ABG results: ABG 04/12/25 17:14 Specimen Type CONRAD Sample Site Not entered VBG pH 7.42 VBG pO2 79 H VBG HCO3 25 VBG Total CO2 26 VBG O2 Sat (Calc) 96 H VBG Base Excess 1 POC Mix VBG pCO2 Pt Tmp 38.3 L O2 Delivery Device Not entered Treatment and Re-Evaluation :: Patient was given IV fluids. Patient was given a dose of insulin here. Patient was advised of her findings. Patient was advised that her sugars are not causing her to go into diabetic ketoacidosis or hyperglycemic hyperosmolar nonketotic state. Patient was instructed to follow-up with her primary care physician in 5 to 7 days. Patient was instructed to return if worse in any way. Patient understood and was agreeable with the plan. All questions were answered. Discharge Plan Triage Chief Complaint: General Illness ED Provider: Sin Suazo Dx/Rx/DC Orders Clinical Impression: Hyperglycemia, Smoker Instructions: ED Diabetic Hyperglycemia Prescriptions: No Action (DME) christina.stocking,knee,reg,xlrg Misc See Rx Instructions .Route Qty: 12 0RF Rx Instructions: As directed atorvastatin 20 mg tablet 20 mg PO QHS Qty: 90 0RF bupropion HCl [Wellbutrin XL] 150 mg tablet extended release 24 hr 150 mg PO QAM Qty: 90 0RF escitalopram oxalate 20 mg tablet 20 mg PO DAILY Qty: 90 0RF lansoprazole 15 mg capsule,delayed release(DR/EC) 15 mg PO DAILY Qty: 90 0RF levothyroxine 175 mcg tablet 175 mcg PO DAILY Qty: 90 0RF albuterol sulfate [Ventolin HFA] 90 mcg/actuation HFA aerosol inhaler 2 puff inhalation Q4H PRN PRN (Reason: Wheezing) Qty: 1 0RF hydrocodone-acetaminophen 5-325 mg tablet 1 tab PO Q6H PRN (Reason: pain) 3 Days Qty: 12 0RF ibuprofen 600 mg tablet 600 mg PO Q6H PRN PRN (Reason: pain) Qty: 20 0RF cholecalciferol (vitamin D3) 1,250 mcg (50,000 unit) capsule 1,250 mcg PO QWEEK Qty: 6 0RF naproxen 500 mg tablet 500 mg PO BID PRN (Reason: pain) Qty: 180 0RF Primary Care Provider: Aziza Stoddard Referrals: Aziza Stoddard MD [Primary Care Provider, Internal Medicine] - 3-5 Days Print Language: Russian Disposition Disposition: Home, Self Care
[2025-04-12 17:07] LABS: Mucous, Urine 0 SEEN /hpf (<or=2+)
[2025-04-12] MEDS: 0.9% Normal Saline (1000mL) 1,000 ML 1000 ML IV (17:14)
[2025-04-12 17:18] LABS: Color, Urine Yellow (Yellow); Glucose, Dipstick 1000 mg/dl (Normal); Ketone-Dipstick 5 mg/dl (Negative); Leukocyte Esterase-Dipstick Negative /ul (Negative); Nitrite-Dipstick Negative (Negative); Occult Blood-Urine Negative /ul (Negative); Protein-Dipstick 30 mg/dl (Negative); Specific Gravity, Urine 1.015 (1.002-1.030); Urine Bilirubin Dipstick Negative (Negative)
[2025-04-12 17:19] LABS: SITE Not entered; VBG BASE EXCESS 1 mmol/L (-1.0-3.5); VBG PO2 79 mmHg (25-40); VBG SO2 96 % (50-70); VBG TCO2 26 mmol/L (23-33)
[2025-04-12 17:38] LABS: BETA-HYDROXYBUTYRATE 0.5 mmol/L (0.0-0.3)
[2025-04-12 17:54] LABS: Anion Gap 15 (5-15); BUN 8 mg/dL (4-19); BUN/Creat Ratio 10.8 RATIO (10-20); Calcium,Total 8.9 mg/dL (7.6-11.0); Carbon Dioxide 20.8 mmol/L (21.0-32.0); Chloride 97 mmol/L (98-108); Estimated Creatinine Clearance 149.39 ml/min (50-250); Glucose 490 mg/dL (70-99); Potassium 3.6 mmol/L (3.3-5.1)
[2025-04-12 18:00] LABS: Hematocrit 47.6 % (37-47); Hemoglobin 16.3 g/dL (12.0-15.0); Immature Granulocytes Count 0.100 X10^3/uL (0.0-0.0); Mean Corp Hgb Conc 34.2 g/dL (32-36); Mean Corpuscular Volume 87.5 fL (81-99); Mean Platelet Vol. 10.2 fl (6.2-12.0); NRBC Flagged by Analyzer 0 % (0-5); Platelet Count 331 K/mm3 (150-450); RBC Distribution Width CV 13.3 % (11.6-14.6); RBC Distribution Width SD 42.7 fl (35.1-43.9); Red Blood Count 5.44 M/mm3 (4.2-5.4); White Blood Count 12.9 K/mm3 (4.4-11.0)
[2025-04-12 18:18] VITALS: BP 141/87; PULSE 82; RESP 16; O2SAT 95
[2025-04-12 18:53] VITALS: BP 138/101; PULSE 78; RESP 14; TEMP 36.4; O2SAT 100
[2025-04-12 19:06] LABS: Yeast-Urine 1+ /hpf (None Seen)
[2025-04-12 19:08] LABS: Squamous Epithelial Cells - UA 5-10 SEEN /hpf (5-10)
[2025-04-12 19:09] LABS: Red Blood Cells-Urine 0-5 SEEN /hpf (0-5)
== END 2025-04-12 18:53 | disposition home or self-care (01) ==
PROVIDERS: Emergency Provider Emergency Medicine; PCP Internal Medicine; Visit Provider Emergency Medicine
DX: E11.65 Type 2 diabetes mellitus with hyperglycemia (principal); Z90.710 Acquired absence of both cervix and uterus; I10 Essential (primary) hypertension; F17.210 Nicotine dependence, cigarettes, uncomplicated; E78.00 Pure hypercholesterolemia, unspecified; F32.A Depression, unspecified; Z79.899 Other long term (current) drug therapy; K21.9 Gastro-esophageal reflux disease without esophagitis
CPT/HCPCS: 80048; 81001; 82010; 82803; 85025; 96360; 96361; 99283; A4216

== ENCOUNTER 2025-04-14 22:04 | Emergency (ER) | payer BC, SELFPAY ==
[2025-04-14 22:04] VITALS: BP 178/112; PULSE 94; RESP 14; TEMP 36.6; O2SAT 98; BMI 68.0
[2025-04-14] MEDS: 0.9% Normal Saline (1000mL) 1,000 ML 999 ML IV (22:42)
[2025-04-14 22:44] LABS: Mucous, Urine 0 SEEN /hpf (<or=2+); Red Blood Cells-Urine 0 SEEN /hpf (0-5)
--- NOTE | 2025-04-14 22:45 | RAD_ITS ---
PROCEDURE: RAD/Chest PA and Lateral
[2025-04-14 22:46] LABS: Hematocrit 46.1 % (37-47); Hemoglobin 15.9 g/dL (12.0-15.0); Immature Granulocytes Count 0.120 X10^3/uL (0.0-0.0); Mean Corp Hgb Conc 34.5 g/dL (32-36); Mean Corpuscular Volume 88.3 fL (81-99); Mean Platelet Vol. 10.1 fl (6.2-12.0); NRBC Flagged by Analyzer 0 % (0-5); Platelet Count 333 K/mm3 (150-450); RBC Distribution Width CV 13.4 % (11.6-14.6); RBC Distribution Width SD 43.4 fl (35.1-43.9); Red Blood Count 5.22 M/mm3 (4.2-5.4); White Blood Count 13.6 K/mm3 (4.4-11.0)
[2025-04-14 22:48] LABS: Color, Urine Yellow (Yellow); Glucose, Dipstick 1000 mg/dl (Normal); Ketone-Dipstick Negative (Negative); Leukocyte Esterase-Dipstick Negative /ul (Negative); Nitrite-Dipstick Negative (Negative); Occult Blood-Urine Negative /ul (Negative); Protein-Dipstick 15 mg/dl (Negative); Specific Gravity, Urine 1.015 (1.002-1.030); Urine Bilirubin Dipstick Negative (Negative)
[2025-04-14 22:51] LABS: Internal QC Validated? YES +Cl - CLEAR BKGD; Pregnancy, Urine Negative Negative; Record Kit Lot#,Urine Preg 0000980607
[2025-04-14 22:53] LABS: SITE Not entered; VBG BASE EXCESS 0 mmol/L (-1.0-3.5); VBG PO2 41 mmHg (25-40); VBG SO2 79 % (50-70); VBG TCO2 25 mmol/L (23-33)
[2025-04-14 22:54] LABS: Squamous Epithelial Cells - UA 5-10 SEEN /hpf (5-10)
[2025-04-14 23:06] LABS: Lipase 55 U/L (13-75)
[2025-04-14 23:07] LABS: Osmolality, Serum 304 mOsm/KG (275-295)
[2025-04-14 23:10] LABS: AST(SGOT) 21 U/L (<=31); Alanine Aminotransfer ALT/SGPT 24 U/L (<=34); Albumin, Serum 4.4 g/dL (3.5-5.0); Alkaline Phosphatase 154 U/L (35-104); Anion Gap 11 (5-15); BUN 11 mg/dL (4-19); BUN/Creat Ratio 13.5 RATIO (10-20); Bilirubin, Direct 0.14 mg/dL (0.00-0.30); Calcium,Total 9.9 mg/dL (7.6-11.0); Carbon Dioxide 21.9 mmol/L (21.0-32.0); Chloride 96 mmol/L (98-108); Estimated Creatinine Clearance 156.41 ml/min (50-250); Globulin 3.2 g/dL (2.2-4.2); Glucose 546 mg/dL (70-99); Potassium 4.3 mmol/L (3.3-5.1)
--- NOTE | 2025-04-14 23:43 | EX.ED.DYSGE1 ---
HPI History of Present Illness Chief Complaint: Hyperglycemia Informant: patient Narrative Narrative: Patient is a 39-year-old female with history of type 2 diabetes hypertension and hyperlipidemia. She states her family doctor took her off her diabetic medications roughly 1 year ago as her hemoglobin A1c was reportedly 6.5. She states that she feels she has been doing well but in the last week her blood sugar has been elevated. She denies any type of infectious process such as cough congestion nausea vomiting diarrhea or dysuria. She denies any concern for . However as her blood sugars have been running high she presents for evaluation [facility] Medical History Post-menopausal Depression Gastric reflux Smoker Shortness of breath on exertion Flu vaccine need Thyroid disease High cholesterol Hypertension Type 2 diabetes mellitus Home Medications ?Medication ?Instructions ?Recorded ?Last Taken ?Type christina.stocking,knee,reg,xlrg #12 ea 06/29/22 Unknown Rx albuterol sulfate 90 mcg/actuation 2 puff inhalation Q4H PRN PRN 03/18/23 Unknown Rx aerosol inhaler (Ventolin HFA) Wheezing ##1 metformin 500 mg tablet 500 mg PO BID 30 days #60 tabs 04/14/25 Unknown Rx Allergy/AdvReac Type Severity Reaction Status Date / Time No Known Allergies Allergy Verified 04/14/25 22:05 Family History Father Cancer Grandmother Cancer throat Mother Myocardial infarction Thyroid disorder Hypertension Depression Surgical History History of carpal tunnel release History of hysterectomy Social History household members: none current occupational status: employed 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 [employer] sexually active: Yes Smoking Status: Current every day smoker tobacco type: cigarettes Tobacco: How many years used: 15 Electronic Cigarette Use: not used quit status: not considering quitting alcohol intake: never substance use type: does not use what type of physical activity do you participate in: none frequency: 3-4 times per week seatbelt use: always do you feel safe at home: Yes ROS ROS ED Constitutional Constitutional ED: Denies chills or fever(s) ENT ENT ED: Denies rhinorrhea or sore throat Cardiovascular Cardiovascular: Denies chest pain Respiratory/Chest Respiratory/Chest: Denies cough or dyspnea Gastrointestinal Gastrointestinal: Denies abdominal pain, diarrhea, nausea or vomiting Genitourinary Genitourinary ED: Denies dysuria Musculoskeletal Musculoskeletal: Denies myalgias Integumentary Denies rash Neurologic Neurologic: Denies headache(s) or paresthesias Hematologic/Lymphatic Hematologic/Lymphatic: Denies easy bleeding or easy bruising EXAM Physical Exam Const Vital Signs: 04/14/25 22:04 04/14/25 22:04 04/15/25 00:04 Temperature 98 F Temperature Source Temporal Pulse Rate 94 88 Respiratory Rate 14 18 Respiratory Effort Normal Non-Labored Respiratory Pattern Normal Blood Pressure 178/112 H 159/94 H Blood Pressure Mean 134 115 Pulse Ox 98 99 Oxygen Delivery Method Room Air Room Air Positive well nourished, well developed and obese General Appearance ED: well developed; Negative for pallor Nutritional Appearance: obese HEENT Reports moist mucous membranes HEENT Narrative: No tongue or lip swelling no oral lesions no airway edema or compromise No secondary findings in the posterior pharynx to suggest infection Eyes PERRL and EOMs intact bilaterally General Eye ED: Negative for scleral icterus Neck supple Resp normal respiratory effort and clear to auscultation bilaterally Cardio regular rate and regular rhythm GI normal to inspection, nondistended, normoactive bowel sounds, non-tender, non-distended and no masses Auscultation: normoactive bowel sounds Palpation: soft Extremity normal to inspection Neuro oriented x3, CN's II-XII intact bilaterally and no sensory deficits noted Sensorium / Orientation: alert Motor Exam: strength 5/5 throughout Psych mental status grossly normal Skin no rashes or lesions noted and no wounds Skin Narrative: No secondary findings such as erythema or warmth to suggest infectious process General Skin Exam: Negative for jaundice or pallor MDM MDM MDM Narrative Medical decision making narrative: Patient arrived to ER hypertensive and has a past medical history of this but otherwise with stable vitals. She has a known history of diabetes and has not been on medication for roughly 1 year. In order to assess for a potential cause of her hyperglycemia such as pneumonia or UTI I did elect to perform a chest x-ray and urine sample. In order to assess for potential DKA or HHS basic blood work was obtained. The patient's blood sugar was elevated at approximately 550 consistent with hyperglycemia but her serum osmolality is less than 320 going against HHS. On her venous blood gas her pH is 7.43 and her bicarb and anion gap are normal going against DKA. The chest x-ray revealed no sign of infection such as pneumonia and urine sample showed no sign of UTI. The patient was given 2 L of fluid and a blood sugar reduced to approximately 480. After this she was given 15 units of subcutaneous insulin. However as she is not in DKA or HHS and there are no findings to suggest secondary infection or sepsis there is no need for further intervention in the ER and she can be prescribed metformin follow-up with your family doctor to discuss potential insulin or GLP-1 injections for tighter blood sugar control. History & Record Review Discussion w/independent historian: Patient and Significant other Lab Data Attestation: I reviewed the patient's lab results. Labs: Laboratory Results - last 24 hr 04/14/25 04/14/25 22:19 22:24 WBC 13.6 H RBC 5.22 Hgb 15.9 H Hct 46.1 MCV 88.3 MCH 30.5 MCHC 34.5 RDW Std Deviation 43.4 RDW Coeff of Opal 13.4 Plt Count 333 MPV 10.1 Immature Gran % (Auto) 0.900 Neut % (Auto) 67.9 Lymph % (Auto) 23.8 [place] % (Auto) 4.4 Eos % (Auto) 2.4 Baso % (Auto) 0.6 Absolute Neuts (auto) 9.2 H Absolute Lymphs (auto) 3.22 Nucleated RBC % 0 Sodium 129 L Potassium 4.3 Chloride 96 L Carbon Dioxide 21.9 Anion Gap 11 BUN 11 Creatinine 0.81 Estim Creat Clear Calc 156.41 Est GFR (MDRD) Non-Af 94 BUN/Creatinine Ratio 13.5 Glucose 546 H* Serum Osmolality 304 H Calcium 9.9 Total Bilirubin 0.33 Direct Bilirubin 0.14 AST 21 ALT 24 Alkaline Phosphatase 154 H Total Protein 7.6 Albumin 4.4 Globulin 3.2 Lipase 55 Urine Color Yellow Urine Clarity Clear Urine pH 6.5 Ur Specific [place] 1.015 Urine Protein 15 H Urine Glucose (UA) 1000 H Urine Ketones Negative Urine Occult Blood Negative Urine Nitrite Negative Urine Bilirubin Negative Urine Urobilinogen Normal Ur Leukocyte Esterase Negative Urine RBC 0 SEEN Urine WBC 0-5 SEEN Ur Squamous Epith Cells 5-10 SEEN Amorphous Sediment 1+ Urine Bacteria 2+ Urine Mucus 0 SEEN Urine Test Negative POC Glucose > 500 H* ABG Data ABG results: ABG 04/14/25 22:50 Specimen Type CONRAD Sample Site Not entered VBG pH 7.44 H VBG pO2 41 H VBG HCO3 24 VBG Total CO2 25 VBG O2 Sat (Calc) 79 H VBG Base Excess 0 POC Mix VBG pCO2 Pt Tmp 35.3 L O2 Delivery Device Room Air Radiography Diagnostic Testing: Clinical Impression(s) from Imaging Studies Chest X-Ray 04/14/25 22:45 IMPRESSION: No evidence of acute pulmonary disease. Reading Location: [facility] Chest x-ray as interpreted by the emergency medicine physician reveals no acute infiltrate pneumothorax or pleural effusion Discharge Plan Triage Chief Complaint: Hyperglycemia ED Provider: Lincoln Evans Dx/Rx/DC Orders Clinical Impression: Type 2 diabetes mellitus, Acute hyperglycemia, Essential hypertension, Hyperlipidemia Instructions: Diabetes: Caring for Your Body, ED Diabetic Hyperglycemia Prescriptions: New metformin 500 mg tablet 500 mg PO BID 30 Days Qty: 60 2RF No Action (DME) christina.stocking,knee,reg,xlrg Misc See Rx Instructions .Route Qty: 12 0RF Rx Instructions: As directed albuterol sulfate [Ventolin HFA] 90 mcg/actuation HFA aerosol inhaler 2 puff inhalation Q4H PRN PRN (Reason: Wheezing) Qty: 1 0RF Stand Alone Forms: ED Work / School Excuse Primary Care Provider: Aziza Stoddard Referrals: Aziza Stoddard MD [Primary Care Provider, Internal Medicine] Activity Restrictions/Additional Instructions: Please begin taking the metformin twice a day as directed to help control your blood sugar. Follow-up with your family doctor to discuss restarting insulin or potentially a GLP-1 injection such as Ozempic or Trulicity for tighter blood sugar control. Return to the ER should you have any further concerns Print Language: Thai Disposition Disposition: Home, Self Care
[2025-04-15 00:04] VITALS: BP 159/94; PULSE 88; RESP 18; O2SAT 99
[2025-04-15] MEDS: 0.9% Normal Saline (1000mL) 1,000 ML 999 ML IV (00:23)
[2025-04-15 01:34] VITALS: BP 168/96; PULSE 81; RESP 16; TEMP 36.6; O2SAT 97
== END 2025-04-15 01:34 | disposition home or self-care (01) ==
PROVIDERS: Emergency Provider Emergency Medicine; PCP Internal Medicine; Visit Provider Emergency Medicine
DX: E11.65 Type 2 diabetes mellitus with hyperglycemia (principal); F17.210 Nicotine dependence, cigarettes, uncomplicated; Z90.710 Acquired absence of both cervix and uterus; I10 Essential (primary) hypertension; E78.00 Pure hypercholesterolemia, unspecified; Z79.84 Long term (current) use of oral hypoglycemic drugs
CPT/HCPCS: 71046; 80048; 80076; 81001; 81025; 82803; 82962; 83690; 83930; 85025; 96360; 96361; 96372; 99283; A4216